=== PATIENT | male | born 1960 | race Caucasian/White ===

== ENCOUNTER 2016-07-15 08:19 | Inpatient (IN) | payer OTHER, MEDICARE ==
[~2016-07-15] VITALS: Ht 172.7 cm; Wt 124.4 kg
[2016-07-15] VITALS (11 sets, daily range): BP systolic 101–167; BP diastolic 60–95; PULSE 67–121; RESP 16–20; TEMP 98.5–98.9; O2SAT 94–99
[~2016-07-15 08:19] MED LIST: ASPI81TA11 PO; CARD180C5 PO; CIPR-9 PO; LIPI80TA PO; METO-309 PO; METR-1 PO; PRAS10TA PO
[2016-07-15] MEDS ORDERED: PLAV75TA29 PO (08:31)
[2016-07-15] MEDS ORDERED: SODIUM CHLORIDE 0.9% FLUSH 5 ML FLUSH IVF PRN (08:45)
[2016-07-15] MEDS ORDERED: SODIUM CHLOR 0.9% 1000 ML INJ 1,000 ML IV ONE (08:45)
[2016-07-15 09:06] LABS: BASOPHIL # 0.1 TH/MM3 (0-0.2); BASOPHIL % 0.4 % (0.0-2.0); EOSINOPHIL # 0.2 TH/MM3 (0-0.4); EOSINOPHIL % 1.2 % (0.0-4.0); HEMATOCRIT 39.9 % (39.0-51.0); HEMO FLAGS DIFF FINAL; LYMPH % 8.5 % (9.0-44.0); LYMPHOCYTE # 1.2 TH/MM3 (1.0-4.8); MEAN CORPUSCULAR HGB CONC 32.6 % (32.0-36.0); MONO % 9.7 % (0.0-8.0); NEUT % 80.2 % (16.0-70.0); PLATELET COUNT 367 TH/MM3 (150-450); RED BLOOD COUNT 4.81 MIL/MM3 (4.50-5.90); RED CELL DISTRIBUTION WIDTH 16.2 % (11.6-17.2); WHITE BLOOD COUNT 13.7 TH/MM3 (4.0-11.0)
[2016-07-15 09:27] LABS: APTT (PATIENT) 30.3 SEC (24.3-30.1); INTERNATIONAL NORMALIZED RATIO 1.2 RATIO
[2016-07-15 09:34] LABS: ANION GAP 12 MEQ/L (5-15); AST (GOT) 118 U/L (15-37); BICARBONATE 20.7 MEQ/L (21.0-32.0); BLOOD UREA NITROGEN 36 MG/DL (7-18); CHLORIDE 102 MEQ/L (98-107); GLOMERULAR FILTRATION RATE 33 ML/MIN (>89); POTASSIUM 3.6 MEQ/L (3.5-5.1); SODIUM (NA) 135 MEQ/L (136-145)
[2016-07-15 09:49] LABS: ALKALINE PHOSPHATASE 59 U/L (45-117); ALT (GPT) 55 U/L (12-78); CREATINE KINASE 1280 U/L (39-308); TOTAL BILIRUBIN ADULT 0.4 MG/DL (0.2-1.0)
--- NOTE | 2016-07-15 10:09 | RADRPT ---
EXAM DATE/TIME: 07/15/2016 09:42 CORRECTION Corrected on: July 17, 2016; CORRECTED: Added missing exam form information [facility] COMPARISON: CHEST SINGLE AP, July 04, 2016, 10:41. INDICATIONS: Short of breath, congested MEDICAL HISTORY: Cardiovascular disease. Diabetes mellitus type II. Hypertension. SURGICAL HISTORY: Stents ENCOUNTER: Initial ACUITY: 1 day PAIN SCORE: 0/10 LOCATION: Bilateral chest FINDINGS: The heart is enlarged. The pulmonary vascular pattern is normal. The lungs are clear. Hardware is noted within the cervical spine status post fusion. Degenerative changes and scoliosis of the thorac ic spine are noted. CONCLUSION: 1. Cardiomegaly. 2. No acute focal pulmonary infiltrate or pulmonary vascular congestion. 3. Degenerative changes and scoliosis of the thoracic spine. Rafat Saunders MD on July 15, 2016 at 10:01 Board Certified Radiologist. This report was verified electronically. DR Callejas on July 17, 2016 at 16:09 Board Certified Radiologist. This report was verified electronically.
[2016-07-15] MEDS ORDERED: DILTIAZEM HCL 50 MG/10 ML VIAL IV PUSH ONE (10:30)
[2016-07-15] MEDS ORDERED: ONDANSETRON HCL 4 MG/2 ML VIAL IVP PRN (10:45)
[2016-07-15] MEDS ORDERED: SODIUM CHLORIDE 0.9% FLUSH 5 ML FLUSH FLUSH PRN (10:45)
[2016-07-15] MEDS ORDERED: NALOXONE HCL 0.4 MG/ML AMP IV PRN (10:45)
--- NOTE | 2016-07-15 10:50 | PD ---
HPI Chief Complaint: Bleeding Time Seen by Provider: 08:37 Travel History International Travel<30 days: No Contact w/Intl Traveler<30days: No Traveled to known affect area: No History of Present Illness HPI Patient is a 48-year-old male who is status post stent placement to the LAD and cardiac catheterization on 07/04/2016 presents to emergency department with bleeding painless from and painless from rectum. Patient states that he has not been taking his Plavix or his aspirin secondary to these complaints. His bleeding is been going on for 2 days and gradually worsening. 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 Denies any chest pain or shortness of breath this time. States is also been having some leg swelling because he is on calcium channel tyrese. Patient also states that he has a history of lymph nodes in his abdomen. PFSH Past Medical History Heart Rhythm Problems: Yes (RBBB) Cancer: No Cardiovascular Problems: Yes Diabetes: Yes Patient Takes Glucophage: No Endocrine: No Genitourinary: No Hypertension: Yes Immune Disorder: No Musculoskeletal: No Neurologic: No Psychiatric: No Reproductive: No Respiratory: No Influenza Vaccination: No Past Surgical History Abdominal Surgery: No Cardiac Surgery: No Ear Surgery: No Endocrine Surgery: No Eye Surgery: No Genitourinary Surgery: No Gynecologic Surgery: No Joint Replacement: Yes (bilateral hip) Neurologic Surgery: Yes (CERVICAL FUSION C3-5) Oral Surgery: No Thoracic Surgery: No Social History Alcohol Use: No Tobacco Use: No Substance Use: Yes (CANNABIS) Allergies-Medications (Allergen,Severity, Reaction): Coded Allergies: No Known Allergies (Unverified , 07/04/16) Reported Meds & Prescriptions Reported Meds & Active Scripts Active Effient (Prasugrel) 10 Mg Tab 10 Mg PO DAILY Lopressor (Metoprolol Tartrate) 50 Mg Tab 50 Mg PO Q8HR Cardizem CD 24 HR (Diltiazem CD 24 HR) 180 Mg Caper 360 Mg PO DAILY Flagyl (Metronidazole) 500 Mg Tab 500 Mg PO Q8HR Cipro (Ciprofloxacin HCl) 500 Mg Tab 500 Mg PO Q12HR Lipitor (Atorvastatin Calcium) 80 Mg Tab 80 Mg PO DAILY Aspirin EC (Aspirin) 81 Mg Tabdr 81 Mg PO DAILY Reported Plavix (Clopidogrel Bisulfate) 75 Mg Tab 75 Mg PO DAILY Review of Systems Except as stated in HPI: all other systems reviewed are Neg Physical Exam Narrative GENERAL: Well-developed well-nourished no apparent distress SKIN: Warm and dry. HEAD: Atraumatic. Normocephalic. EYES: Pupils equal and round. No scleral icterus. No injection or drainage. ENT: No nasal bleeding or discharge. Mucous membranes pink and moist. NECK: Trachea midline. No JVD. CARDIOVASCULAR: Regular rate and rhythm. No murmur appreciated. RESPIRATORY: No accessory muscle use. Clear to auscultation. Breath sounds equal bilaterally. GASTROINTESTINAL: Abdomen soft, non-tender, nondistended. Hepatic and splenic margins not palpable. MUSCULOSKELETAL: No obvious deformities. No clubbing. No cyanosis. 1+ pitting edema to bilateral lower extremities from ankle distal. NEUROLOGICAL: Awake and alert. No obvious cranial nerve deficits. Motor grossly within normal limits. Normal speech. PSYCHIATRIC: Appropriate mood and affect; insight and judgment normal. Data Data Last Documented VS Vital Signs Date Time Temp Pulse Resp B/P Pulse Ox O2 Delivery O2 Flow Rate FiO2 07/15/16 08:58 20 96 Room Air 07/15/16 08:24 98.9 116 167/95 Orders Electrocardiogram (07/15/16 ) Ckmb (Isoenzyme) Profile (07/15/16 08:37) Complete Blood Count With Diff (07/15/16 08:37) Comprehensive Metabolic Panel (07/15/16 08:37) Magnesium (Mg) (07/15/16 08:37) Prothrombin Time / Inr (Pt) (07/15/16 08:37) Act Partial Throm Time (Ptt) (07/15/16 08:37) Troponin I (07/15/16 08:37) Chest, Single Ap (07/15/16 08:37) Ecg Monitoring (07/15/16 08:37) Bilateral Bp Monitoring (07/15/16 08:37) Iv Access Insert/Monitor (07/15/16 08:37) Oximetry (07/15/16 08:37) Oxygen Administration (07/15/16 08:37) Sodium Chloride 0.9% Flush (Ns Flush) (07/15/16 08:45) Type And Screen (07/15/16 08:37) Lactic Acid (07/15/16 08:37) Sodium Chlor 0.9% 1000 Ml Inj (Ns 1000 M (07/15/16 08:45) Urinalysis - C+S If Indicated (07/15/16 08:37) CKMB (07/15/16 08:45) CKMB% (07/15/16 08:45) Ct Abd/Pel W/O Iv Contrast (07/15/16 ) Diltiazem Inj (Cardizem Inj) (07/15/16 10:30) Admit Order (Ed Use Only) (07/15/16 ) Labs Laboratory Tests Test 07/15/16 07/15/16 08:45 08:50 White Blood Count 13.7 TH/MM3 Red Blood Count 4.81 MIL/MM3 Hemoglobin 13.0 GM/DL Hematocrit 39.9 % Mean Corpuscular Volume 83.0 FL Mean Corpuscular Hemoglobin 27.0 PG Mean Corpuscular Hemoglobin 32.6 % Concent Red Cell Distribution Width 16.2 % Platelet Count 367 TH/MM3 Mean Platelet Volume 7.7 FL Neutrophils (%) (Auto) 80.2 % Lymphocytes (%) (Auto) 8.5 % Monocytes (%) (Auto) 9.7 % Eosinophils (%) (Auto) 1.2 % Basophils (%) (Auto) 0.4 % Neutrophils # (Auto) 11.0 TH/MM3 Lymphocytes # (Auto) 1.2 TH/MM3 Monocytes # (Auto) 1.3 TH/MM3 Eosinophils # (Auto) 0.2 TH/MM3 Basophils # (Auto) 0.1 TH/MM3 CBC Comment DIFF FINAL Differential Comment Prothrombin Time 13.0 SEC Prothromb Time International 1.2 RATIO Ratio Activated Partial 30.3 SEC Thromboplast Time Sodium Level 135 MEQ/L Potassium Level 3.6 MEQ/L Chloride Level 102 MEQ/L Carbon Dioxide Level 20.7 MEQ/L Anion Gap 12 MEQ/L Blood Urea Nitrogen 36 MG/DL Creatinine 2.09 MG/DL Estimat Glomerular Filtration 33 ML/MIN Rate Random Glucose 93 MG/DL Calcium Level 8.3 MG/DL Magnesium Level 2.0 MG/DL Total Bilirubin 0.4 MG/DL Aspartate Amino Transf 118 U/L (AST/SGOT) Alanine Aminotransferase 55 U/L (ALT/SGPT) Alkaline Phosphatase 59 U/L Total Creatine Kinase 1280 U/L Creatine Kinase MB 85.0 NG/ML Creatine Kinase MB % 6.6 % Troponin I 8.85 NG/ML Total Protein 7.1 GM/DL Albumin 2.7 GM/DL Blood Type O POSITIVE Antibody Screen NEGATIVE Blood Bank Comment Lactic Acid Level 1.2 mmol/L [facility] Medical Decision Making Medical Screen Exam Complete: Yes Emergency Medical Condition: Yes Interpretation(s) EKG shows fairly regular tachydysrhythmia no definate P waves. No STT changes. Abnormal EKG. Differential Diagnosis GI bleeding, re-stenosis, ACS, Afib RVR, bleeding, Colon CA. Narrative Course Patient was roomed emergency department, he is tachycardic in the 120s. After fluid challenge 1 L normal saline still remains tachycardic. Difficult to ascertain whether this is atrial fibrillation or sinus tachycardia. Appears fairly regular but no definitive P waves were seen. A dose of Cardizem was given in the ED which had good response in HR. Drip Started. Troponin elevated to 8, slightly higher than during his admission 10 days ago for NSTEMI. H/H WNL. BP in 160's systolic range. Fecal occult positive and having BM's in ER with blood. Multiple CT abd findings as below. Last 24 hours Impressions Chest X-Ray 07/15/16 0837 Signed Impressions: Service Date/Time: Friday, July 15, 2016 09:42 - CONCLUSION: 1. Cardiomegaly. 2. No acute focal pulmonary infiltrate or pulmonary vascular congestion. 3. Degenerative changes and scoliosis of the thoracic spine. Rafat Saunders MD Abdomen/Pelvis CT 07/15/16 0000 Signed Impressions: Service Date/Time: Friday, July 15, 2016 11:12 - CONCLUSION: 1. Subtle focal wall thickening and/or annular constricting lesion within the distal descending colon/proximal sigmoid colon with dilatation and fluid filling the colon proximal to the lesion. Colonoscopy would be helpful for helpful for confirmation of annular constricting lesion in this location. 2. Probable enlarged lymph nodes within the mesocolon adjacent to the previously described lesion. 3. Scattered mildly enlarged retroperitoneal lymphadenopathy. 4. Tiny calcified non-obstructing bilateral renal calculi. 5. Simple and hyper dense within both kidneys which are unchanged. 6. Uncomplicated sigmoid diverticulosis. 7. Small pericardial effusion. 8. Coronary artery calcifications. 9. Scattered patchiness within the visualized lung bases. 10. Degenerative changes and scoliosis of the lumbar and lower thoracic spine. Rafat Saunders MD Patient was discussed with Dr. Rutledge ([facility]) who is covering for Dr. Gold as well as Dr. HARRIS. We'll hold off heparinization at this time. Dr. Rutledge will coordinate close it with GI for consideration of scoping versus repeat catheterization. Spoke with Dr. Berumen who will see in consultation. Patient was discussed with Dr. Armijo who will admit to the [facility]. Critical Care Narrative Critical Care: The total critical care time was 35 minutes. Time to perform other separately billable procedures was not included in the critical care time. Multiple providers consulted, critical care drips managed. Current disease process's if left unchecked could lead to significant and permanant disability, or . HemaPrompt Point of Care Internal Pos. & Neg. Controls: Passed Fecal Specimen Occult Blood: Positive Diagnosis Primary Impression: NSTEMI (non-ST elevated myocardial infarction) Additional Impressions: Atrial flutter Qualified Code: I48.92 - Atrial flutter, unspecified type Colitis Rectal bleeding Troponin level elevated Admitting Information Admitting Physician Requests: Admit Condition: Rafat Ch MD Jul 15, 2016 10:50
[2016-07-15] MEDS: SODIUM CHLOR 0.9% 1000 ML INJ 1,000 ML IV SCH ×2 (11:06→21:00)
[2016-07-15 11:39] LABS: BLOOD, URINE MOD (NEG); GLUCOSE,URINE NEG (NEG); KETONE, URINE TRACE mg/dL (NEG); MUCUS URINE FEW /lpf (OCC); NITRITE,URINE NEG (NEG); PH, URINE 5.5 (5.0-8.5); URINE COLOR YELLOW (YELLW/STRAW)
[2016-07-15 11:47] LABS: COMMENT (UR) CULT NOT INDICATED; CULTURE IF INDICATED CULT NOT INDICATED
--- NOTE | 2016-07-15 11:52 | RADRPT ---
EXAM DATE/TIME: 07/15/2016 11:12 [facility] COMPARISON: CT ABDOMEN & PELVIS W/O CONTRAST, July 06, 2016, 13:05. INDICATIONS: Blood in urine and bowel movements. ORAL CONTRAST: No oral contrast ingested. RADIATION DOSE: 30.27 CTDIvol (mGy) MEDICAL HISTORY: Cardiovascular disease. Hypertension. Diabetes mellitus type 2. SURGICAL HISTORY: None. ENCOUNTER: Initial ACUITY: 1 day PAIN SCALE: 0/10 LOCATION: Bilateral chest TECHNIQUE: Volumetric scanning of the abdomen and pelvis was performed. Using automated exposure control and ad justment of the mA and/or kV according to patient size, radiation dose was kept as low as reasonably achievable to obtain optimal diagnostic quality images. FINDINGS: There is probable focal wall thickening and/or annular constricting lesion involving the distal desce nding colon/proximal sigmoid colon which results in some degree of colonic obstruction. The remainder of t he colon proximal to this area is diffusely dilated and fluid-filled. There are scattered enlarged lymph node s within the mesocolon adjacent to this probable lesion. Colonoscopy would be helpful to confirm obstructing lesi on in this location. Mildly enlarged scattered retroperitoneal lymph nodes are noted. Scattered uncomplicated sigmoid diverticula are noted. Evaluation of the solid organs of the abdomen is limited by the lack of intra venous contrast. No biliary ductal dilatation is noted. the gallbladder is unremarkable. The spleen is normal. The pancreas is also normal. The adrenal glands are normal bilaterally. There are tiny calcified non-obstructing bilater al renal calculi. There are scattered simple and complex cysts within both kidneys which are stable. The abdominal aor ta is calcified but it is not aneurysmally dilated. The urinary bladder is partially obscured by artifact related to the bilateral hip replacements. No ascites is noted. Degenerative changes and scoliosis of the lumbar a nd lower thoracic spine are noted. scattered patchiness is noted within the left lung base and too a much les ser extent, right lung base and is nonspecific. Small pericardial effusion is noted. cardiomegaly is also noted. CONCLUSION: 1. Subtle focal wall thickening and/or annular constricting lesion within the distal descending colo n/proximal sigmoid colon with dilatation and fluid filling the colon proximal to the lesion. Colonos copy would be helpful for helpful for confirmation of annular constricting lesion in this location. 2. Probable enlarged lymph nodes within the mesocolon adjacent to the previously described lesion. 3. Scattered mildly enlarged retroperitoneal lymphadenopathy. 4. Tiny calcified non-obstructing bilateral renal calculi. 5. Simple and hyper dense within both kidneys which are unchanged. 6. Uncomplicated sigmoid diverticulosis. 7. Small pericardial effusion. 8. Coronary artery calcifications. 9. Scattered patchiness within the visualized lung bases. 10. Degenerative changes and scoliosis of the lumbar and lower thoracic spine. Rafat Saunders MD on July 15, 2016 at 11:26 Board Certified Radiologist. This report was verified electronically.
[2016-07-15] MEDS ORDERED: DILTIAZEM HCL 50 MG/10 ML VIAL IV PUSH PRN (12:45)
[2016-07-15] MEDS ORDERED: DILTIAZEM INJ 125 MG in SODIUM CHLORIDE 0.9% INJ 100 ML IV SCH (14:00)
[2016-07-15] MEDS ORDERED: metroNIDAZOLE 500 MG TAB PO SCH (14:00)
[2016-07-15] MEDS: METOPROLOL TARTRATE 50 MG TAB PO SCH (14:39)
--- NOTE | 2016-07-15 15:10 | PD.CONS ---
HPI History of Present Illness This is a 56 year old male who is status post stent placement to the LAD and cardiac catheterization on 07/04/2016 and was discharged on Plavix presents to emergency department for evaluation of painless rectal bleeding. States he has rectal bleeding every time he takes aspirin and on going for almost a year, this thought to be hemorrhoids related. The bleeding is not very day, but today he had a significant bleeding in the toilet. He was seen by Dr. Gupta as an OP and was scheduled to have colonoscopy, however, that was cancelled due to high heart rate and was advised to go the hospital and that's when he under went the cardiac catheterization. He reports loose stools on off for the past 2 months. He takes 800 mg of Ibuprofen for herniated disc frequently. He reports bilateral lower sided abd pain for the past 2months. He denies nausea, vomiting , hematemesis, or melena. CT showed Subtle focal wall thickening and/or annular constricting lesion within the distal descending colon/proximal sigmoid colon with dilatation and fluid filling the colon proximal to the lesion. Colonoscopy would be helpful for helpful for confirmation of annular constricting lesion in this location. 2. Probable enlarged lymph nodes within the mesocolon adjacent to the previously described lesion. hgb 13.0. He started taking Plavix but discontinued this on Friday due to hematuria. (Sondra Moss) PFSH Past Medical History THN Chronic kidney disease CAD Past Surgical History bilateral hip replacement cervical fusion c3-5 cardiac catheterization/stent placement (Sondra Moss) Coded Allergies: No Known Allergies (Unverified , 07/04/16) Medications Current Medications Medications (Trade) Dose Ordered Sig/Maricarmen Route Start Time Stop Time Status Last Admin (NS 1000 ml Inj) 1,000 ml @ 100 mls/hr Q10H IV 07/15/16 11:00 07/15/16 11:06 (NS Flush) 2 ml UNSCH PRN FLUSH 07/15/16 10:45 (NS Flush) 2 ml BID FLUSH 07/15/16 21:00 (Tylenol) 650 mg Q4H PRN PO 07/15/16 10:45 (Zofran Inj) 4 mg Q6H PRN IVP 07/15/16 10:45 (Narcan Inj) 0.4 mg UNSCH PRN IV 07/15/16 10:45 (Protonix) 40 mg DAILY PO 07/16/16 09:00 (Lipitor) 80 mg DAILY PO 07/16/16 09:00 (Cipro) 500 mg Q12HR PO 07/15/16 21:00 (Cardizem Cd) 360 mg DAILY PO 07/16/16 09:00 (Lopressor) 50 mg Q8HR PO 07/15/16 14:00 Metronidazole 500 mg 500 mg Q8HR PO 07/15/16 14:00 (Cardizem Inj/NS Inj) 125 ml @ 0 mls/hr TITRATE IV 07/15/16 14:00 07/15/16 12:57 (Cardizem Inj) 41 mg ONCE PRN IV PUSH 07/15/16 12:45 07/15/16 18:00 07/15/16 12:57 Family History No family hx of colon cancer Social History No alcohol intake No smoking smokes marijuana (Sondra Moss) Review of Systems Constitutional: COMPLAINS OF: Fatigue Endocrine: DENIES: Polyuria Eyes: DENIES: Double Vision Ears, nose, mouth, throat: DENIES: Hoarseness Respiratory: DENIES: Shortness of breath Cardiovascular: DENIES: Lower Extremity Edema Gastrointestinal: COMPLAINS OF: Abdominal pain, Bloody stools, Diarrhea, DENIES: Black stools, Constipation, Nausea, Vomiting, Difficulty Swallowing, Anorexia, Odynophagia, Swelling of Abdomen, Heartburn, Hematemesis Genitourinary: COMPLAINS OF: Hematuria Musculoskeletal: COMPLAINS OF: Back pain Integumentary: DENIES: Jaundice Hematologic/lymphatic: DENIES: Bruising Immunologic/allergic: DENIES: Eczema Neurologic: DENIES: Abnormal gait Psychiatric: DENIES: Anxiety (Sondra Moss) GI Exam Vitals I&O Vital Signs Date Time Temp Pulse Resp B/P Pulse Ox O2 Delivery O2 Flow Rate FiO2 07/15/16 12:58 121 16 149/82 94 Room Air 07/15/16 11:59 90 16 144/79 95 Room Air 07/15/16 11:00 120 20 144/79 95 Room Air 07/15/16 08:58 20 96 Room Air 07/15/16 08:24 98.9 116 20 167/95 95 I/O 12/18/16 12/07/14/16 07/15/16 07/15/16 07/15/16 07:00 15:00 23:00 07:00 15:00 23:00 Output Total 300 ml Balance -300 ml Output Urine Total 300 ml # Voids 1 # Bowel Movements 4 Imaging Last Impressions Chest X-Ray 07/15/16 0837 Signed Impressions: Service Date/Time: Friday, July 15, 2016 09:42 - CONCLUSION: 1. Cardiomegaly. 2. No acute focal pulmonary infiltrate or pulmonary vascular congestion. 3. Degenerative changes and scoliosis of the thoracic spine. Rafat Saunders MD Abdomen/Pelvis CT 07/15/16 0000 Signed Impressions: Service Date/Time: Friday, July 15, 2016 11:12 - CONCLUSION: 1. Subtle focal wall thickening and/or annular constricting lesion within the distal descending colon/proximal sigmoid colon with dilatation and fluid filling the colon proximal to the lesion. Colonoscopy would be helpful for helpful for confirmation of annular constricting lesion in this location. 2. Probable enlarged lymph nodes within the mesocolon adjacent to the previously described lesion. 3. Scattered mildly enlarged retroperitoneal lymphadenopathy. 4. Tiny calcified non-obstructing bilateral renal calculi. 5. Simple and hyper dense within both kidneys which are unchanged. 6. Uncomplicated sigmoid diverticulosis. 7. Small pericardial effusion. 8. Coronary artery calcifications. 9. Scattered patchiness within the visualized lung bases. 10. Degenerative changes and scoliosis of the lumbar and lower thoracic spine. Rafat Saunders MD Laboratory Test 07/15/16 07/15/16 07/15/16 08:45 08:50 11:00 White Blood Count 13.7 TH/MM3 Red Blood Count 4.81 MIL/MM3 Hemoglobin 13.0 GM/DL Hematocrit 39.9 % Mean Corpuscular Volume 83.0 FL Mean Corpuscular Hemoglobin 27.0 PG Mean Corpuscular Hemoglobin 32.6 % Concent Red Cell Distribution Width 16.2 % Platelet Count 367 TH/MM3 Mean Platelet Volume 7.7 FL Neutrophils (%) (Auto) 80.2 % Lymphocytes (%) (Auto) 8.5 % Monocytes (%) (Auto) 9.7 % Eosinophils (%) (Auto) 1.2 % Basophils (%) (Auto) 0.4 % Neutrophils # (Auto) 11.0 TH/MM3 Lymphocytes # (Auto) 1.2 TH/MM3 Monocytes # (Auto) 1.3 TH/MM3 Eosinophils # (Auto) 0.2 TH/MM3 Basophils # (Auto) 0.1 TH/MM3 CBC Comment DIFF FINAL Differential Comment Prothrombin Time 13.0 SEC Prothromb Time International 1.2 RATIO Ratio Activated Partial 30.3 SEC Thromboplast Time Sodium Level 135 MEQ/L Potassium Level 3.6 MEQ/L Chloride Level 102 MEQ/L Carbon Dioxide Level 20.7 MEQ/L Anion Gap 12 MEQ/L Blood Urea Nitrogen 36 MG/DL Creatinine 2.09 MG/DL Estimat Glomerular Filtration 33 ML/MIN Rate Random Glucose 93 MG/DL Calcium Level 8.3 MG/DL Magnesium Level 2.0 MG/DL Total Bilirubin 0.4 MG/DL Aspartate Amino Transf 118 U/L (AST/SGOT) Alanine Aminotransferase 55 U/L (ALT/SGPT) Alkaline Phosphatase 59 U/L Total Creatine Kinase 1280 U/L Creatine Kinase MB 85.0 NG/ML Creatine Kinase MB % 6.6 % Troponin I 8.85 NG/ML Total Protein 7.1 GM/DL Albumin 2.7 GM/DL Blood Type O POSITIVE Antibody Screen NEGATIVE Blood Bank Comment Lactic Acid Level 1.2 mmol/L Urine Color YELLOW Urine Turbidity CLEAR Urine pH 5.5 Urine Specific [place] 1.016 Urine Protein 30 mg/dL Urine Glucose (UA) NEG mg/dL Urine Ketones TRACE mg/dL Urine Occult Blood MOD Urine Nitrite NEG Urine Bilirubin NEG Urine Urobilinogen LESS THAN 2.0 MG/DL Urine Leukocyte Esterase TRACE Urine RBC /hpf Urine WBC 2 /hpf Urine Mucus FEW /lpf Microscopic Urinalysis Comment CULT NOT INDICATED Physical Examination HEENT: Pupils round and reactive to light; normocephalic; atraumatic; no jaundice. NECK: Neck is supple, no JVD, no lymphadenopathy. CHEST: Chest is clear to auscultation and percussion. CARDIAC: tacky cardiac ABDOMEN: Soft, nondistended, diffused tenderness; no hepatosplenomegaly; bowel sounds are present in all four quadrants. EXTREMITIES: No clubbing, cyanosis, or edema. SKIN: Normal; no rash; no jaundice. CUSTOMER EXPERT: No focal deficits; alert and oriented times three. (Sondra Moss) Assessment and Plan Plan - Rectal bleed- This is on off for the past year , aggravated by Aspirin intake , patient is status post stent placement to the LAD and cardiac catheterization on 07/04/2016 and was discharged on Plavix, however , patient took him self off of it due to severe hematuria. hgb is stable at 13, had an episode of significant bleeding this morning. Never had colonoscopy before. He reports loose stools on off for the past 2 months. He takes 800 mg of Ibuprofen for herniated disc frequently. He reports bilateral lower sided abd pain for the past 2months. He denies nausea, vomiting, hematemesis, or melena. CT showed Subtle focal wall thickening and/or annular constricting lesion within the distal descending colon/proximal sigmoid colon with dilatation and fluid filling the colon proximal to the lesion. Colonoscopy would be helpful for helpful for confirmation of annular constricting lesion in this location. 2. Probable enlarged lymph nodes within the mesocolon adjacent to the previously described lesion. - colon lesion- Ct as above, finding suspicious for malignancy, will need colonoscopy evaluation - patient is status post stent placement to the LAD and cardiac catheterization on 07/04/2016 and was discharged on Plavix, cardiology on the case Case discussed with associate accountant , he is high risk , the plan to place him on Heparin for now - Hematuria- urology consulted Plan: - [facility] - Will need a colonoscopy, timing to be determined pending cardiology and medical clearance, pt is high risk - Will plan for colonoscopy after tomorrow - Obtain consents - Clear liquids tomorrow - Golytely tomorrow - NPO mn tomorrow - Monitor hh - Transfuse as needed - Notify GI for active bleeding - Supportive care - Patient seen and examined by Dr. Berumen and jason and this note is written on his behalf. (Sondra Moss) Physician Comments Seen and examined with Sondra, plan as above, Cardiology clearance prior to any endoscopic evaluation. will follow up with you. (Sera Berumen MD) Sondra Moss Jul 15, 2016 15:10 Sera Berumen MD Jul 15, 2016 17:35
--- NOTE | 2016-07-15 16:07 | MB ---
cc: MIKE SLOANAudrey MAGANA DATE OF CONSULTATION 07/15/2016 REASON FOR CONSULTATION Elevated troponin. HISTORY OF THE PRESENT ILLNESS Mike Brown is a pleasant 56-year-old male who originally presented to [facility] on July 15, 2016 due to blood in his urine and from his rectum. He previously was here and found to have a non-ST elevation myocardial infarction and underwent cardiac catheterization on July 08, 2016. During this he was found to have a long lesion within the proximal LAD. It was 100% occluded. At that time he underwent intervention and placement of two drug-eluting stents. He went home on aspirin and Plavix. While at home he started noticing that his urine was somewhat red and that he was having some bleeding rectally which he felt was from his hemorrhoids. Because of this he stopped both his aspirin and Plavix. As he continued to have some bleeding he decided he should come into the emergency room to be evaluated. In speaking to him he has had no chest pain or shortness of breath since his cardiac catheterization. PAST MEDICAL HISTORY 1. Coronary artery disease. 2. Hypertension. 3. Pre diabetic. 4. Chronic kidney disease stage III. 5. Lumbar spinal stenosis. PAST SURGICAL HISTORY 1. Cardiac catheterization. (July 08, 2016). Right coronary artery is tortuous with calcifications and minimal luminal irregularities. Left main is patent with nonobstructive coronary artery disease. Left circumflex has diffuse calcifications and minimal luminal irregularities. LAD is completely occluded after the first septal roto rooter operator and this was treated with two drug-eluting stents overlapping (3 x 15 proximal, 2.75 x 28 distal). 2. Joint replacement of bilateral hips. 3. Cervical fusion C3 through C5. ALLERGIES NO KNOWN DRUG ALLERGIES. MEDICATIONS 1. Aspirin which the patient has stopped due to hematochezia and hematuria. 2. Plavix 75 mg daily which the patient has stopped due to The hematochezia and hematuria. 3. [place] 500 milligrams every 8 hours. 1. Lopressor 50 mg every 8 hours. 2. Cardizem 360 milligrams daily. 3. Lipitor 80 mg daily. 4. Cipro 500 milligrams every times 12 hours. SOCIAL HISTORY The patient denies alcohol or tobacco abuse. He does use cannabis. FAMILY HISTORY Denies premature coronary artery disease or sudden cardiac within the family. REVIEW OF SYSTEMS 14 systems reviewed including osteopathic, pertinent positives and negatives above, otherwise negative. PHYSICAL EXAMINATION VITAL SIGNS: Temperature 98.5, heart rate 110, blood pressure 123/71, respirations 20, pulse ox 99% on room air. GENERAL: In general the patient appears well in no acute distress, alert, awake and oriented x3. HEENT: Extraocular muscles intact. Mucous membranes moist. NECK: Supple. No JVD at 45 degrees. No carotid bruits heard bilaterally. Carotid upstroke is brisk in nature. CARDIOVASCULAR: Heart is irregularly irregular. Positive first and second heart sounds with no murmurs, rubs, or gallops. LUNGS: The lungs have decreased breath sounds at bilateral bases but no overt wheezes, rales or rhonchi. ABDOMEN: Soft, nontender, nondistended. No organomegaly noted. EXTREMITIES: Have trace edema bilaterally but no cyanosis or clubbing. NEUROLOGICAL: No focal deficits. SKIN: Warm, dry and intact. OSTEOPATHIC: Mild lordosis. No kyphoscoliosis or paraspinal tender points. LABORATORY FINDINGS White blood cells 13.7, hemoglobin 13.0, hematocrit 39.9, platelets 367. Potassium 3.6, BUN 36, creatinine 2.09. Lactic acid 1.2. Troponin 8.85 with a total creatinine kinase at 1280 down from 18O2. Electrocardiogram (July 15, 2016 at 0826) atrial fibrillation with rapid ventricular response, right bundle branch block, left axis deviation. IMPRESSION 1. Coronary artery disease with recent cardiac catheterization (July 08, 2016) with 100% occlusion of proximal to mid-LAD status post two drug-eluting stents overlapping (3 x 15 proximal, 2.75 x 28 distal). 2. Recently stopping aspirin and Plavix due to hematochezia and hematuria. 3. Hematochezia possibly due to hemorrhoids although CT exam shows some concern with wall thickening. 4. Hematuria. 5. Hypertension. 6. Elevated troponin with total creatinine kinase elevation. 7. Acute kidney injury. RECOMMENDATIONS 1. Mr. Brown is a difficult case due to his recent stopping of aspirin and Plavix, I explained that this was ill-advised but he felt because of his bleeding that it needed to stop. 2. Although he feels that his bleeding is significant, his hemoglobin is relatively stable from previous admission. Until decisions can be made about possible colonoscopy and uroscopy, I would like to place the patient on heparin. 3. The patient is at significant risk of acute stent closure. Due to stopping his aspirin and Plavix, we will place him on heparin drip at this time. 4. He did speak with the nurse practitioner from gastroenterology about timing of colonoscopy and that the patient would be high risk, but I am unable to reduce this risk at this time as he could not undergo cardiac catheterization due to need for antiplatelet therapy. 5. If the patient does undergo colonoscopy and cystoscopy, consideration will be made for repeat coronary visualization. 6. The patient should be placed back on antiplatelet therapy as soon as possible with a loading dose when capable. Thank you for allowing me to see Mike Brown. If there are any questions please do not hesitate to call. Mike Sloan DO VGP/KK /3:08 PM /3:35 PM
[2016-07-15 16:42] LABS: HEMATOCRIT 38.7 % (39.0-51.0); MEAN CORPUSCULAR HEMOGLOBIN 27.4 PG (27.0-34.0); MEAN CORPUSCULAR HGB CONC 33.4 % (32.0-36.0); PLATELET COUNT 338 TH/MM3 (150-450); RED BLOOD COUNT 4.72 MIL/MM3 (4.50-5.90); RED CELL DISTRIBUTION WIDTH 15.8 % (11.6-17.2); REVIEW FLAG FINAL; WHITE BLOOD COUNT 12.7 TH/MM3 (4.0-11.0)
[2016-07-15 16:46] LABS: APTT (PATIENT) 29.2 SEC (24.3-30.1); INTERNATIONAL NORMALIZED RATIO 1.2 RATIO; PROTHROMBIN TIME - PATIENT 13.8 SEC (9.8-11.6)
[2016-07-15] MEDS: HEPARIN-D5W INJ 250 ML IV SCH (16:48)
[2016-07-15] MEDS: TAMSULOSIN HCL 0.4 MG CAP PO SCH (17:56)
[2016-07-15] MEDS: ACETAMINOPHEN/HYDROcodone 325 MG/7.5 MG TAB PO PRN ×2 (17:56→22:40)
[2016-07-15] MEDS: DILTIAZEM HCL 90 MG TAB PO SCH ×2 (19:03→22:35)
[2016-07-15] MEDS: SODIUM CHLORIDE 0.9% FLUSH 5 ML FLUSH FLUSH SCH (21:00)
[2016-07-15] MEDS ORDERED: CIPROFLOXACIN 500 MG TAB PO SCH (21:00)
[2016-07-15] MEDS ORDERED: HEPARIN SODIUM - IV 10,000 UNITS/10 ML VIAL IV PRN (21:30)
--- NOTE | 2016-07-15 22:04 | HHI.PR ---
Subjective Remarks C/R Surg afebrile, VSS noted BRB in stool, and ? dark urine at home no syncope, or dizziness stopped ASA and plavix Objective - Vital Signs Date Time Temp Pulse Resp B/P Pulse Ox O2 Delivery O2 Flow Rate FiO2 07/15/16 18:00 114 07/15/16 15:00 98.9 20 117/84 95 07/15/16 12:58 Room Air Result Diagram: 07/15/16 1629 07/15/16 0845 Objective Remarks PE alert Abd - obese, soft, non-tender, no active BRB A/P Assessment and Plan Imp: s/p WA, recent stent palcement Abn sigm by CT - rectal bleeding will prep gently and check at least sigmoid for poss cancer vs tics/colitis hold plavix, ? subcut heparin if nec by cardiology Kan Gupta MD Jul 15, 2016 22:04
[2016-07-15 22:48] LABS: APTT (PATIENT) 36.4 SEC (24.3-30.1)
[2016-07-16] VITALS (20 sets, daily range): BP systolic 89–101; BP diastolic 41–63; PULSE 62–134; RESP 18–20; TEMP 97.5–98.8; O2SAT 95–97
[2016-07-16] MEDS: HEPARIN SODIUM - IV 10,000 UNITS/10 ML VIAL IV PRN ×2 (00:06→07:39)
[2016-07-16] MEDS: METOPROLOL TARTRATE 50 MG TAB PO SCH ×5 (00:06→23:48)
--- NOTE | 2016-07-16 06:39 | MB ---
cc: RAFAELA NAJERA JEANETH DATE OF CONSULTATION 07/15/2016 REASON FOR CONSULTATION Mr. Brown is a pleasant 56-year-old male who initially presented back on July 08 with chest pain. At that time underwent cardiac stenting after having a non-ST segment elevation myocardial infarction. He was then discharged on both Plavix and aspirin and on Friday stopped those medications. He developed some rectal bleeding along with some hematuria at that time. He stated that his urine was an Anali looking color but denied any clots. He does have a history of BPH and gets up two to three times a night with a moderate stream. His medical and history includes: 1. Heart disease 2. Hypertension 3. Chronic kidney disease 4. Lumbar stenosis 5. BPH with mild lower urinary tract symptoms PAST SURGICAL HISTORY Notable for: 1. Cervical fusion 2. Joint replacement in bilateral hips 3. Cardiac catheterization and recent cardiac stenting MEDICATIONS For medications, please refer to the chart. SOCIAL HISTORY Denies using alcohol or smoking cigarettes, but he does use marijuana. FAMILY HISTORY Denies any family history of prostate cancer. REVIEW OF SYSTEMS A 12-point review of systems was taken with the patient and per the HPI, otherwise it is negative. PHYSICAL EXAM VITAL SIGNS: Presently, temperature is 98.5, heart rate 118, respiratory rate 21, blood pressure 123/71. GENERAL: He is an obese 56-year-old male in no acute distress. HEENT: Normocephalic, atraumatic. Pupils equal round and reactive to light. NECK: Supple. Trachea is midline. HEART: Heart rate is sinus tach. LUNGS: Breath sounds bilaterally. ABDOMEN: Soft with minimal tenderness noted in the left mid quadrant, but there is no rebound or guarding. : Hidden phallus. Testes are descended. EXTREMITIES: Show 1 to 2+ edema. LABORATORY DATA White count is 12.7, hemoglobin 12.9, hematocrit 38.7, platelet count 338. Sodium 135, potassium 3.6, chloride 102, CO2 20.7, BUN of 36, creatinine 2.09, glucose of 93. Creatinine baseline is 1.5, based on prior admission. Urinalysis shows numerous red cells and two white cells. IMAGING STUDIES Showed no evidence of any hydronephrosis, but there is a constricting annular lesion in the distal colon in the sigmoid region. Colonoscopy has been recommended. There are small bilateral renal calculi which are nonobstructing. Simple and hyperdense cysts noted within both kidneys which are stable from prior study. ASSESSMENT This is a 56-year-old male with recent non-ST elevation CT developing gross hematuria with a history of BPH and some mild urinary tract symptoms. 1. We will start Flomax 0.4 mg q.h.s. to help with lower urinary tract symptoms and reduce nocturia. 2. Hematuria most likely secondary to recent event and combination of aspirin and Plavix. We will continue to monitor for now. Cystoscopy could possibly be performed as an outpatient at this time. His urine is not noted to have clots with difficulty urinating. We will follow with you. We will check a urine cytology. We will follow with you. Thank you for the consult and allowing me to participate in the care of this patient. Rafaela DUMONT /5:25 PM /6:32 AM
[2016-07-16 07:00] LABS: AUTOMATED NEUTROPHIL # 10.4 TH/MM3 (1.8-7.7); BASOPHIL # 0.1 TH/MM3 (0-0.2); BASOPHIL % 0.6 % (0.0-2.0); EOSINOPHIL # 0.1 TH/MM3 (0-0.4); EOSINOPHIL % 0.8 % (0.0-4.0); HEMATOCRIT 35.7 % (39.0-51.0); HEMO FLAGS DIFF FINAL; LYMPH % 11.1 % (9.0-44.0); LYMPHOCYTE # 1.5 TH/MM3 (1.0-4.8); MEAN CELL VOLUME 83.6 FL (80.0-100.0); MEAN CORPUSCULAR HEMOGLOBIN 27.6 PG (27.0-34.0); MONO % 10.1 % (0.0-8.0); NEUT % 77.4 % (16.0-70.0); PLATELET COUNT 330 TH/MM3 (150-450); RED BLOOD COUNT 4.27 MIL/MM3 (4.50-5.90); RED CELL DISTRIBUTION WIDTH 16.1 % (11.6-17.2); WHITE BLOOD COUNT 13.4 TH/MM3 (4.0-11.0)
[2016-07-16] MEDS: SODIUM CHLOR 0.9% 1000 ML INJ 1,000 ML IV SCH ×2 (07:00→18:19)
[2016-07-16 07:20] LABS: ALT (GPT) 52 U/L (12-78); ANION GAP 13 MEQ/L (5-15); AST (GOT) 101 U/L (15-37); BICARBONATE 17.9 MEQ/L (21.0-32.0); BLOOD UREA NITROGEN 34 MG/DL (7-18); CHLORIDE 106 MEQ/L (98-107); GLOMERULAR FILTRATION RATE 38 ML/MIN (>89); POTASSIUM 3.5 MEQ/L (3.5-5.1); SODIUM (NA) 137 MEQ/L (136-145)
[2016-07-16 07:22] LABS: ALKALINE PHOSPHATASE 44 U/L (45-117); TOTAL BILIRUBIN ADULT 0.3 MG/DL (0.2-1.0)
[2016-07-16] MEDS: ACETAMINOPHEN/HYDROcodone 325 MG/7.5 MG TAB PO PRN ×4 (08:03→23:48)
[2016-07-16] MEDS: ATORVASTATIN 80 MG TAB PO SCH (08:03)
[2016-07-16] MEDS: DILTIAZEM HCL 90 MG TAB PO SCH ×5 (08:03→21:00)
[2016-07-16] MEDS: PANTOPRAZOLE SOD 40 MG DELAYED RELEASE TAB PO SCH (08:04)
[2016-07-16] MEDS: TAMSULOSIN HCL 0.4 MG CAP PO SCH (08:04)
[2016-07-16] MEDS: SODIUM CHLORIDE 0.9% FLUSH 5 ML FLUSH FLUSH SCH ×2 (08:04→21:00)
--- NOTE | 2016-07-16 08:52 | MH ---
cc: BE ARMIJO DATE OF ADMISSION 07/15/2016 DATE OF [address] Be Armijo. PRIMARY CARE PHYSICIAN Dr. Rojas. REASON FOR ADMISSION Rectal bleed as well as hematuria. HISTORY OF THE PRESENT ILLNESS The patient is a very pleasant 48-year male with significant past medical history of hypertension, CKD, prediabetic, obesity who came to the ER because of the above problem. The patient was admitted last time to the hospital on July 04 and found to have CAD and two stents were put in. Both of these stents were put in on July 08 in the proximal LAD, it was 100% occluded. Those stents were drug eluting. The patient was discharged on Plavix and aspirin. As per the patient on aspirin he has on and off bleeding for which he has been to Dr. Gupta and Dr. Gupta wants to do a colonoscopy. But because of his tachycardia he came to the hospital on July 04 and was found to have CAD and stent was put in. This problem on and off rectal bleed with and without aspirin was from approximately the past few months. But he had never had hematuria. He has chronic back pain for which he is taking Motrin and tramadol at home. He denies any other associated symptoms. The patient denies any abdominal pain. No fever, no chills. PAST MEDICAL HISTORY 1. CAD status post stenting. 2. Hypertension. 3. Pre diabetic. 4. Chronic kidney disease. 5. Lumbar spine stenosis. PAST SURGICAL HISTORY 1. History of catheterization. 2. Joint replacement bilateral hips. 3. Cervical fusion C3 and C5. MEDICATIONS Reviewed, please see the MAR. The patient stopped taking Plavix and aspirin for the past three to four days because of hematuria and on and off rectal bleeding. ALLERGIES NO KNOWN DRUG ALLERGIES. REVIEW OF SYSTEMS As describes in the history of present illness, otherwise negative for 10 systems. He has no chest pain or diaphoresis or palpitations. FAMILY HISTORY Noncontributory. PHYSICAL EXAMINATION GENERAL: The patient is alert and oriented, obese, oriented times three sitting on the bed without any apparent distress. He has some pain in the back. VITAL SIGNS: The patient is afebrile. Pulse is 100, respiratory rate 20, blood pressure 123/71. Pulse oximetry is 99% on room air. HEENT: Head is atraumatic, normocephalic. Eyes negative conjunctival icterus. Mouth unremarkable. NECK: Central trachea. Negative lymph node. CHEST: Clear to auscultation. CARDIOVASCULAR: S1 and S2 audible. Unable to hear any S3 gallop. ABDOMEN: Soft, non-tender, no organomegaly. Positive bowel sounds. MUSCULOSKELETAL: Extremities no cyanosis noted. There is trace pedal edema. LINK TRAINER MECHANIC: Grossly intact. SKIN: Warm and dry. PSYCHIATRIC: Appropriate mood and affect. LABORATORY DATA Investigations, WBC 12.7, hemoglobin 12.9, hematocrit 38.7. Platelet count 338. It was done 1629. At 8:45 a.m. the patient had hemoglobin of 13, hematocrit of 39. Chemistry shows sodium was 135, CO2 of 20.7, BUN 36, creatinine 2.09. Magnesium 2. Calcium 8.3. AST 118. Total CK was 1280. CKMB is 85, MB percent is 6.6. Troponin 8.85. Albumin 2.7. PT 13.8, INR 1.2, APTT 29.2. Urine shows urine ketones trace. Urine occult blood moderate. Urine leukocyte esterase trace. Urine RBC: No RBC's seen on microscopic examination. . WBC's 2. SOCIAL HISTORY The patient does not smoke or drink. He uses marijuana sometimes. Does not do any other IV drugs. IMAGING Chest x-ray shows cardiomegaly. No acute focal pulmonary infiltrate or pulmonary vascular congestion. Degenerative changes and scoliosis of the thoracic spine. Abdominal CT scan was done which showed subtle focal wall thickening and/or annular constriction lesion within the distal descending colon/proximal sigmoid colon with dilatation and fluid filling the colon proximal to the lesion. Colonoscopy will be helpful for confirmation of annular constriction lesion in this location. Probable enlarged lymph node within the mesocolon adjacent to the previously described lesion. He has got a mildly enlarged retroperitoneal lymphadenopathy. Tiny calcified nonobstructing bilateral renal calculi, simple and hyperdense within both kidneys which are unchanged. Uncomplicated sigmoid diverticulosis. A small pericardial effusion. Coronary artery calcification. Scattered patchiness within the visual lung base. Degenerative changes and scoliosis of the lumbar and lower thoracic spine. ASSESSMENT 1. Rectal bleed. 2. Hematuria. 3. Recent CAD with stenting of two drug-eluting stents. The patient stopped taking Plavix and aspirin because of hematuria and rectal bleed three to four days ago. 4. Focal wall thickening and/or annular constriction lesion within the distal descending colon / proximal sigmoid colon with dilatation of fluid filling the colon proximal to the lesion. 5. History of hemorrhoids. 6. Pre diabetic. 7. Hypertension. 8. Chronic kidney disease history, stage III. 9. Lumbar spinal stenosis with chronic pain. 10. Cervical fusion C3 through C5. PLAN Admit to the [facility]. Cardiac input is appreciated. Discussed with Dr. Rutledge. Appreciate GI input. As per RN the recent urine looks within normal limits and stool has very slight streak of blood on it. while on the floor. We will hold aspirin and Plavix. Heparin as per cardiology. Labs in the morning. Monitor urine function. We will start on some pain medication for his back pain. Plan to consult Dr. Gupta as the patient is known to him. Protonix for GI prophylaxis. See orders. Condition guarded. Further recommendation to follow as the patient progresses. Discussed with RN. Discussed with the patient. Be Armijo MD JP/KK /5:02 PM /8:45 AM
[2016-07-16] MEDS ORDERED: DILTIAZEM-CD 180 MG CAP ER PO SCH (09:00)
--- NOTE | 2016-07-16 10:31 | PD.CARD.PN ---
Subjective Subjective Remarks No chest pain, no shortness of breath, minimal rectal bleed on pad, urine tea color Objective Medications Current Medications Medications (Trade) Dose Ordered Sig/Maricarmen Route Start Time Stop Time Status Last Admin (NS 1000 ml Inj) 1,000 ml @ 100 mls/hr Q10H IV 07/15/16 11:00 07/16/16 07:00 (Tylenol) 650 mg Q4H PRN PO 07/15/16 10:45 (Zofran Inj) 4 mg Q6H PRN IVP 07/15/16 10:45 (Narcan Inj) 0.4 mg UNSCH PRN IV 07/15/16 10:45 (Protonix) 40 mg DAILY PO 07/16/16 09:00 07/16/16 08:04 (Lipitor) 80 mg DAILY PO 07/16/16 09:00 07/16/16 08:03 Metoprolol Tartrate 50 mg 50 mg Q8HR PO 07/15/16 14:00 07/16/16 05:30 (Cardizem Inj/NS Inj) 125 ml @ 0 mls/hr TITRATE IV 07/15/16 14:00 07/15/16 12:57 (Cardizem) 90 mg QID PO 07/15/16 18:00 07/16/16 08:03 (Heparin Inj) 5,000 units UNSCH PRN IV 07/15/16 21:30 Heparin Sodium (Porcine) 2500 units 2,500 units UNSCH PRN IV 07/15/16 21:30 07/16/16 07:39 (Heparin-D5W Inj) 250 ml @ 0 mls/hr TITRATE IV 07/15/16 15:30 07/15/16 16:48 ([place] 7.5-325 Mg) 1 tab Q4H PRN PO 07/15/16 17:15 07/16/16 08:03 (Flomax) 0.4 mg DAILY PO 07/15/16 17:30 07/16/16 08:04 Vital Signs / I&O Vital Signs Date Time Temp Pulse Resp B/P Pulse Ox O2 Delivery O2 Flow Rate FiO2 07/16/16 10:00 134 07/16/16 09:00 130 07/16/16 08:00 96 07/16/16 07:49 98.3 62 20 101/41 95 07/16/16 07:00 120 07/16/16 00:00 98.8 121 20 92/58 96 07/15/16 20:00 98.8 67 20 101/60 95 07/15/16 18:00 114 07/15/16 17:00 108 07/15/16 16:00 102 07/15/16 15:00 112 07/15/16 15:00 98.9 102 20 117/84 95 07/15/16 14:00 112 07/15/16 14:00 98.5 118 20 123/71 99 07/15/16 12:58 121 16 149/82 94 Room Air 07/15/16 11:59 90 16 144/79 95 Room Air 07/15/16 11:00 120 20 144/79 95 Room Air I/O 07/15/16 07/15/16 07/15/16 07/16/16 07/16/16 07/16/16 06:59 14:59 22:59 06:59 14:59 22:59 Intake Total 1214 ml 1860 ml Output Total 300 ml 250 ml 350 ml Balance -300 ml 964 ml 1510 ml Intake Oral 480 ml 480 ml IV Total 734 ml 1380 ml Output Urine Total 300 ml 250 ml 350 ml # Voids 1 # Bowel Movements 4 0 Physical Exam GENERAL: NAD SKIN: Warm and dry. HEAD: Atraumatic. Normocephalic. EYES: Pupils equal and round. No scleral icterus. No injection or drainage. ENT: No nasal bleeding or discharge. Mucous membranes pink and moist. NECK: Trachea midline. No JVD. CARDIOVASCULAR: Irregularly irregular RESPIRATORY: No accessory muscle use. Clear to auscultation. Breath sounds equal bilaterally. GASTROINTESTINAL: Abdomen soft, non-tender, nondistended. Hepatic and splenic margins not palpable. MUSCULOSKELETAL: Extremities without clubbing, cyanosis, or edema. No obvious deformities. NEUROLOGICAL: Awake and alert. No obvious cranial nerve deficits. Motor grossly within normal limits. Five out of 5 muscle strength in the arms and legs. Normal speech. PSYCHIATRIC: Appropriate mood and affect; insight and judgment normal. Laboratory Laboratory Tests Test 07/15/16 07/15/16 07/15/16 07/15/16 11:00 16:29 20:36 22:24 Urine Color YELLOW Urine Turbidity CLEAR Urine pH 5.5 Urine Specific [place] 1.016 Urine Protein 30 mg/dL Urine Glucose (UA) NEG mg/dL Urine Ketones TRACE mg/dL Urine Occult Blood MOD Urine Nitrite NEG Urine Bilirubin NEG Urine Urobilinogen LESS THAN 2.0 MG/DL Urine Leukocyte Esterase TRACE Urine RBC /hpf Urine WBC 2 /hpf Urine Mucus FEW /lpf Microscopic Urinalysis Comment CULT NOT INDICATED White Blood Count 12.7 TH/MM3 Red Blood Count 4.72 MIL/MM3 Hemoglobin 12.9 GM/DL Hematocrit 38.7 % Mean Corpuscular Volume 82.0 FL Mean Corpuscular Hemoglobin 27.4 PG Mean Corpuscular Hemoglobin 33.4 % Concent Red Cell Distribution Width 15.8 % Platelet Count 338 TH/MM3 Mean Platelet Volume 7.4 FL Prothrombin Time 13.8 SEC Prothromb Time International 1.2 RATIO Ratio Activated Partial 29.2 SEC 36.4 SEC Thromboplast Time Troponin I 8.74 NG/ML 8.63 NG/ML Test 07/16/16 06:20 White Blood Count 13.4 TH/MM3 Red Blood Count 4.27 MIL/MM3 Hemoglobin 11.8 GM/DL Hematocrit 35.7 % Mean Corpuscular Volume 83.6 FL Mean Corpuscular Hemoglobin 27.6 PG Mean Corpuscular Hemoglobin 33.0 % Concent Red Cell Distribution Width 16.1 % Platelet Count 330 TH/MM3 Mean Platelet Volume 7.5 FL Neutrophils (%) (Auto) 77.4 % Lymphocytes (%) (Auto) 11.1 % Monocytes (%) (Auto) 10.1 % Eosinophils (%) (Auto) 0.8 % Basophils (%) (Auto) 0.6 % Neutrophils # (Auto) 10.4 TH/MM3 Lymphocytes # (Auto) 1.5 TH/MM3 Monocytes # (Auto) 1.3 TH/MM3 Eosinophils # (Auto) 0.1 TH/MM3 Basophils # (Auto) 0.1 TH/MM3 CBC Comment DIFF FINAL Differential Comment Activated Partial 38.0 SEC Thromboplast Time Sodium Level 137 MEQ/L Potassium Level 3.5 MEQ/L Chloride Level 106 MEQ/L Carbon Dioxide Level 17.9 MEQ/L Anion Gap 13 MEQ/L Blood Urea Nitrogen 34 MG/DL Creatinine 1.82 MG/DL Estimat Glomerular Filtration 38 ML/MIN Rate Random Glucose 103 MG/DL Calcium Level 7.9 MG/DL Total Bilirubin 0.3 MG/DL Aspartate Amino Transf 101 U/L (AST/SGOT) Alanine Aminotransferase 52 U/L (ALT/SGPT) Alkaline Phosphatase 44 U/L Total Protein 6.0 GM/DL Albumin 2.4 GM/DL Assessment and Plan Problem List: (1) NSTEMI (non-ST elevated myocardial infarction) (2) Rectal bleeding (3) Atrial flutter (4) High blood pressure Assessment and Plan 1) Elevated troponin, concern for second OK especially with recent DESx2 placement 2) Will hold on ASA/Plavix until patient scoped, heparin drip 3) Patient unsure if he would like repeat cardiac catheterization as he's had no chest pain, but had no chest pain previously. I explained we could try medical management, but puts him at increased risks, he will think about it. 4) Increase AV heron blocking agents to try and wean off the Cardizem drip Problem Qualifiers (1) Atrial flutter: Qualified Code: I48.92 - Atrial flutter, unspecified type Mike Rutledge DO Jul 16, 2016 10:31
--- NOTE | 2016-07-16 10:38 | HHI.GIFU ---
Subjective Remarks DR. Gupta will take over the case for Mr. Brown, GI will sign off Objective Vitals I&O Vital Signs Date Time Temp Pulse Resp B/P Pulse Ox O2 Delivery O2 Flow Rate FiO2 07/16/16 10:00 134 07/16/16 09:00 130 07/16/16 08:00 96 07/16/16 07:49 98.3 62 20 101/41 95 07/16/16 07:00 120 07/16/16 00:00 98.8 121 20 92/58 96 07/15/16 20:00 98.8 67 20 101/60 95 07/15/16 18:00 114 07/15/16 17:00 108 07/15/16 16:00 102 07/15/16 15:00 112 07/15/16 15:00 98.9 102 20 117/84 95 07/15/16 14:00 112 07/15/16 14:00 98.5 118 20 123/71 99 07/15/16 12:58 121 16 149/82 94 Room Air 07/15/16 11:59 90 16 144/79 95 Room Air 07/15/16 11:00 120 20 144/79 95 Room Air I/O 07/15/16 07/15/16 07/15/16 07/16/16 07/16/16 07/16/16 07:00 15:00 23:00 07:00 15:00 23:00 Intake Total 1214 ml 1860 ml Output Total 300 ml 250 ml 350 ml Balance -300 ml 964 ml 1510 ml Intake Oral 480 ml 480 ml IV Total 734 ml 1380 ml Output Urine Total 300 ml 250 ml 350 ml # Voids 1 # Bowel Movements 4 0 Laboratory Laboratory Tests Test 07/15/16 07/15/16 07/15/16 07/15/16 11:00 16:29 20:36 22:24 Urine Color YELLOW Urine Turbidity CLEAR Urine pH 5.5 Urine Specific Stopover 1.016 Urine Protein 30 Urine Glucose (UA) NEG Urine Ketones TRACE Urine Occult Blood MOD Urine Nitrite NEG Urine Bilirubin NEG Urine Urobilinogen LESS THAN 2.0 Urine Leukocyte Esterase TRACE Urine RBC Urine WBC 2 Urine Mucus FEW Microscopic Urinalysis Comment CULT NOT INDICATED White Blood Count 12.7 Red Blood Count 4.72 Hemoglobin 12.9 Hematocrit 38.7 Mean Corpuscular Volume 82.0 Mean Corpuscular Hemoglobin 27.4 Mean Corpuscular Hemoglobin 33.4 Concent Red Cell Distribution Width 15.8 Platelet Count 338 Mean Platelet Volume 7.4 Prothrombin Time 13.8 Prothromb Time International 1.2 Ratio Activated Partial 29.2 36.4 Thromboplast Time Troponin I 8.74 8.63 Test 07/16/16 06:20 White Blood Count 13.4 Red Blood Count 4.27 Hemoglobin 11.8 Hematocrit 35.7 Mean Corpuscular Volume 83.6 Mean Corpuscular Hemoglobin 27.6 Mean Corpuscular Hemoglobin 33.0 Concent Red Cell Distribution Width 16.1 Platelet Count 330 Mean Platelet Volume 7.5 Neutrophils (%) (Auto) 77.4 Lymphocytes (%) (Auto) 11.1 Monocytes (%) (Auto) 10.1 Eosinophils (%) (Auto) 0.8 Basophils (%) (Auto) 0.6 Neutrophils # (Auto) 10.4 Lymphocytes # (Auto) 1.5 Monocytes # (Auto) 1.3 Eosinophils # (Auto) 0.1 Basophils # (Auto) 0.1 CBC Comment DIFF FINAL Differential Comment Activated Partial 38.0 Thromboplast Time Sodium Level 137 Potassium Level 3.5 Chloride Level 106 Carbon Dioxide Level 17.9 Anion Gap 13 Blood Urea Nitrogen 34 Creatinine 1.82 Estimat Glomerular Filtration 38 Rate Random Glucose 103 Calcium Level 7.9 Total Bilirubin 0.3 Aspartate Amino Transf 101 (AST/SGOT) Alanine Aminotransferase 52 (ALT/SGPT) Alkaline Phosphatase 44 Total Protein 6.0 Albumin 2.4 Assessment and Plan Plan - Rectal bleed- This is on off for the past year , aggravated by Aspirin intake , patient is status post stent placement to the LAD and cardiac catheterization on 07/04/2016 and was discharged on Plavix, however , patient took him self off of it due to severe hematuria. hgb is stable at 13, had an episode of significant bleeding this morning. Never had colonoscopy before. He reports loose stools on off for the past 2 months. He takes 800 mg of Ibuprofen for herniated disc frequently. He reports bilateral lower sided abd pain for the past 2months. He denies nausea, vomiting, hematemesis, or melena. CT showed Subtle focal wall thickening and/or annular constricting lesion within the distal descending colon/proximal sigmoid colon with dilatation and fluid filling the colon proximal to the lesion. Colonoscopy would be helpful for helpful for confirmation of annular constricting lesion in this location. 2. Probable enlarged lymph nodes within the mesocolon adjacent to the previously described lesion. 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 Gupta will take over this case, patient is known to him - Patient seen and examined by Dr. Berumen and jason and this note is written on his behalf. Sondra Moss Jul 16, 2016 10:38
--- NOTE | 2016-07-16 11:01 | HHI.PR ---
Subjective Remarks Pt seen and examined. Voiding well. Flomax started. Urine sample at bedside visually clear; no blood. Objective Vital Signs Vital Signs Date Time Temp Pulse Resp B/P Pulse Ox O2 Delivery O2 Flow Rate FiO2 07/16/16 10:00 134 07/16/16 09:00 130 07/16/16 08:00 96 07/16/16 07:49 98.3 62 20 101/41 95 07/16/16 07:00 120 07/16/16 00:00 98.8 121 20 92/58 96 07/15/16 20:00 98.8 67 20 101/60 95 07/15/16 18:00 114 07/15/16 17:00 108 07/15/16 16:00 102 07/15/16 15:00 112 07/15/16 15:00 98.9 102 20 117/84 95 07/15/16 14:00 112 07/15/16 14:00 98.5 118 20 123/71 99 07/15/16 12:58 121 16 149/82 94 Room Air 07/15/16 11:59 90 16 144/79 95 Room Air 07/15/16 11:00 120 20 144/79 95 Room Air I/O 07/15/16 07/15/16 07/15/16 07/16/16 07/16/16 07/16/16 06:59 14:59 22:59 06:59 14:59 22:59 Intake Total 1214 ml 1860 ml Output Total 300 ml 250 ml 350 ml Balance -300 ml 964 ml 1510 ml Intake Oral 480 ml 480 ml IV Total 734 ml 1380 ml Output Urine Total 300 ml 250 ml 350 ml # Voids 1 # Bowel Movements 4 0 Result Diagram: 07/16/16 0620 07/16/16 0620 Objective Remarks Abd:soft,nt,nd Voiding clear urine Assessment and Plan Assessment and Plan 56 y.o male admitted with chest pain post cardiac stenting Urine clear and ARF improving; creatinine down to 1.8 from 2.0. Continue Flomax Urine cytology pending. Cysto as outpt. Tuan Blair DO Jul 16, 2016 11:01
--- NOTE | 2016-07-16 12:16 | HHI.PR ---
Subjective Remarks Patient is offering no complaint Lying comfortably on the bed without any apparent distress Has normal-looking urine Has bowel movement this morning soft without any blood No abdominal pain No chest pain or shortness of breath or palpitations Feeling okay Review of system for 12 point system otherwise unremarkable Objective Objective Results - Vital Signs Date Time Temp Pulse Resp B/P Pulse Ox O2 Delivery O2 Flow Rate FiO2 07/16/16 11:00 73 07/16/16 11:00 98.6 80 20 89/53 97 07/16/16 10:00 134 07/16/16 09:00 130 07/16/16 08:00 96 07/16/16 07:49 98.3 62 20 101/41 95 07/16/16 07:00 120 07/16/16 00:00 98.8 121 20 92/58 96 07/15/16 20:00 98.8 67 20 101/60 95 07/15/16 18:00 114 07/15/16 17:00 108 07/15/16 16:00 102 07/15/16 15:00 112 07/15/16 15:00 98.9 102 20 117/84 95 07/15/16 14:00 112 07/15/16 14:00 98.5 118 20 123/71 99 07/15/16 12:58 121 16 149/82 94 Room Air I/O 07/15/16 07/15/16 07/15/16 07/16/16 07/16/16 07/16/16 06:59 14:59 22:59 06:59 14:59 22:59 Intake Total 1214 ml 1860 ml Output Total 300 ml 250 ml 350 ml Balance -300 ml 964 ml 1510 ml Intake Oral 480 ml 480 ml IV Total 734 ml 1380 ml Output Urine Total 300 ml 250 ml 350 ml # Voids 1 # Bowel Movements 4 0 Result Diagram: 07/16/16 0620 07/16/16 0620 Other Results Laboratory Tests Test 07/15/16 07/15/16 07/15/16 07/16/16 16:29 20:36 22:24 06:20 White Blood Count 12.7 13.4 Red Blood Count 4.72 4.27 Hemoglobin 12.9 11.8 Hematocrit 38.7 35.7 Mean Corpuscular Volume 82.0 83.6 Mean Corpuscular Hemoglobin 27.4 27.6 Mean Corpuscular Hemoglobin 33.4 33.0 Concent Red Cell Distribution Width 15.8 16.1 Platelet Count 338 330 Mean Platelet Volume 7.4 7.5 Prothrombin Time 13.8 Prothromb Time International 1.2 Ratio Activated Partial 29.2 36.4 38.0 Thromboplast Time Troponin I 8.74 8.63 Neutrophils (%) (Auto) 77.4 Lymphocytes (%) (Auto) 11.1 Monocytes (%) (Auto) 10.1 Eosinophils (%) (Auto) 0.8 Basophils (%) (Auto) 0.6 Neutrophils # (Auto) 10.4 Lymphocytes # (Auto) 1.5 Monocytes # (Auto) 1.3 Eosinophils # (Auto) 0.1 Basophils # (Auto) 0.1 CBC Comment DIFF FINAL Differential Comment Sodium Level 137 Potassium Level 3.5 Chloride Level 106 Carbon Dioxide Level 17.9 Anion Gap 13 Blood Urea Nitrogen 34 Creatinine 1.82 Estimat Glomerular Filtration 38 Rate Random Glucose 103 Calcium Level 7.9 Total Bilirubin 0.3 Aspartate Amino Transf 101 (AST/SGOT) Alanine Aminotransferase 52 (ALT/SGPT) Alkaline Phosphatase 44 Total Protein 6.0 Albumin 2.4 Physical Exam Physical Exam GENERAL: The patient is alert and oriented, obese, oriented times three lying on the bed without any apparent distress. He has some pain in the back. VITAL SIGNS: Reviewed HEENT: Head is atraumatic, normocephalic. Eyes negative conjunctival icterus. Mouth unremarkable. NECK: Central trachea. Negative lymph node. CHEST: Clear to auscultation. CARDIOVASCULAR: S1 and S2 audible. Unable to hear any S3 gallop. ABDOMEN: Soft, non-tender, no organomegaly. Positive bowel sounds. MUSCULOSKELETAL: Extremities no cyanosis noted. There is trace pedal edema. HULL GRINDER: Grossly intact. SKIN: Warm and dry. PSYCHIATRIC: Appropriate mood and affect. A/P Assessment and Plan 1. Rectal bleed. 2. Hematuria. 3. Recent CAD with stenting of two drug-eluting stents. The patient stopped taking Plavix and aspirin because of hematuria and rectal bleed three to four days ago. 4. Focal wall thickening and/or annular constriction lesion within the distal descending colon / proximal sigmoid colon with dilatation of fluid filling the colon proximal to the lesion. 5. History of hemorrhoids. 6. Pre diabetic. 7. Hypertension. 8. Chronic kidney disease history, stage III. 9. Lumbar spinal stenosis with chronic pain. 10. Cervical fusion C3 through C5. PLAN Seen in [facility]. Cardiac input is appreciated. Appreciate GI input. Appreciate colorectal surgical input Off of aspirin and Plavix. On Heparin drip as per cardiology. Labs reviewed Anemia will monitor next line C Uzma will monitor Increased troponin but is stable Tachycardia on Cardizem drip Is started on some pain medication for his back pain. Protonix for GI prophylaxis. Condition guarded. Further recommendation to follow as the patient progresses. Discussed with RN. Discussed with the patient. Labs for morning Hina Armijo MD Jul 16, 2016 12:16
[2016-07-16 13:44] LABS: APTT (PATIENT) 43.6 SEC (24.3-30.1)
--- NOTE | 2016-07-16 14:05 | EKG ---
Date Performed: 07/15/2016 Time Performed: 08:26:15 PTAGE: 56 years EKG: ATRIAL FIBRILLATION WITH RAPID VENTRICULAR RESPONSE WITH ABERRANT CONDUCTION OR VENTRICULAR PREMATURE COMPLEXES MARKED LEFT AXIS DEVIATION RIGHT BUNDLE BRANCH BLOCK ANTERIOR MYOCARDIAL INFARCT ION ANTEROSEPTAL MA, AGE INDETERMINATE PROLONGED CORRECTED QT INTERVAL ABNORMAL ECG PREVIOUS TRACING : 07/04/2016 20.13 DOCTOR: [place] Interpretating Date/Time 07/16/2016 14:04:54
[2016-07-16] MEDS: HEPARIN-D5W INJ 250 ML IV SCH (15:15)
--- NOTE | 2016-07-16 16:52 | HHI.PR ---
Subjective Remarks C/R Surg afebrile, VSS noted BRB in stool, and ? dark urine at home -not bloody no syncope, or dizziness stopped ASA and plavix - on heparin Objective - Vital Signs Date Time Temp Pulse Resp B/P Pulse Ox O2 Delivery O2 Flow Rate FiO2 07/16/16 16:00 70 07/16/16 15:03 98.6 18 95/63 96 07/15/16 12:58 Room Air Result Diagram: 07/16/1620 07/16/16 06 Objective Remarks PE alert Abd - obese, soft, non-tender, no active BRB A/P Assessment and Plan Imp: s/p OK, recent stent palcement Abn sigm by CT - rectal bleeding, ?distention prox bowel will prep gently and check at least sigmoid for poss cancer vs tics/colitis hold plavix, ? subcut heparin if nec by cardiology Kan Gupta MD Jul 16, 2016 16:52
[2016-07-16] MEDS ORDERED: PEG (High)/E-LYTE SOLN 4000 ML BTL PO ONE (17:00)
[2016-07-16] MEDS ORDERED: MAGNESIUM CITRATE SOLN 300 ML BTL PO ONE ×2 (17:30→21:30)
[2016-07-17] VITALS (24 sets, daily range): BP systolic 93–124; BP diastolic 62–83; PULSE 69–122; RESP 18–22; TEMP 97.5–98.4; O2SAT 96–97
[2016-07-17 02:49] LABS: APTT (PATIENT) 42.5 SEC (24.3-30.1)
[2016-07-17] MEDS: SODIUM CHLOR 0.9% 1000 ML INJ 1,000 ML IV SCH ×3 (03:00→17:46)
[2016-07-17] MEDS: METOPROLOL TARTRATE 50 MG TAB PO SCH ×4 (06:27→23:58)
[2016-07-17] MEDS: ACETAMINOPHEN/HYDROcodone 325 MG/7.5 MG TAB PO PRN ×3 (06:31→16:14)
--- NOTE | 2016-07-17 08:54 | HHI.PR ---
Subjective Remarks Pt resting comfortably. No gross hematuria. Objective Vital Signs Vital Signs Date Time Temp Pulse Resp B/P Pulse Ox O2 Delivery O2 Flow Rate FiO2 07/17/16 08:00 78 07/17/16 07:00 97.6 78 22 101/79 97 07/17/16 07:00 99 07/17/16 06:00 100 07/17/16 05:00 103 07/17/16 04:00 106 07/17/16 04:00 98.4 101 18 124/67 96 07/17/16 03:00 103 07/17/16 02:00 112 07/17/16 01:00 108 07/17/16 00:00 98.0 73 18 122/81 97 07/17/16 00:00 89 07/16/16 23:00 104 07/16/16 22:00 90 07/16/16 21:00 84 07/16/16 20:00 76 07/16/16 20:00 97.5 76 18 101/56 97 07/16/16 19:00 90 07/16/16 18:00 78 07/16/16 17:53 78 07/16/16 17:00 81 07/16/16 16:00 70 07/16/16 15:03 98.6 83 18 95/63 96 07/16/16 15:00 65 07/16/16 13:00 74 07/16/16 12:00 70 07/16/16 11:00 73 07/16/16 11:00 98.6 80 20 89/53 97 07/16/16 10:00 134 07/16/16 09:00 130 I/O 07/16/16 07/16/16 07/16/16 07/17/16 07/17/16 07/17/16 06:59 14:59 22:59 06:59 14:59 22:59 Intake Total 1860 ml 940 ml 1584 ml Output Total 350 ml 600 ml 500 ml Balance 1510 ml 340 ml 1084 ml Intake Oral 480 ml 120 ml 240 ml IV Total 1380 ml 820 ml 1344 ml Output Urine Total 350 ml 600 ml 500 ml # Bowel Movements 0 2 1 Result Diagram: 07/16/16 0620 07/16/16619 Objective Remarks Abd:soft,nt,nd Voiding clear urine 07/17 Abd:soft,nt,nd Voiding clear urine Assessment and Plan Assessment and Plan 56 y.o male admitted with chest pain post cardiac stenting Urine clear and ARF improving; creatinine down to 1.8 from 2.0. Continue Flomax Urine cytology pending. Cysto as outpt. 07/17 56 y.o male admitted with chest pain post cardiac stenting Urine clear Continue Flomax Urine cytology pending. Cysto as outpt. Tuan Blair DO Jul 17, 2016 08:54
[2016-07-17] MEDS: SODIUM CHLORIDE 0.9% FLUSH 5 ML FLUSH FLUSH SCH ×2 (09:41→21:06)
[2016-07-17] MEDS: DILTIAZEM HCL 90 MG TAB PO SCH ×4 (09:41→21:05)
[2016-07-17] MEDS: ATORVASTATIN 80 MG TAB PO SCH (09:41)
[2016-07-17] MEDS: TAMSULOSIN HCL 0.4 MG CAP PO SCH (09:41)
[2016-07-17] MEDS: PANTOPRAZOLE SOD 40 MG DELAYED RELEASE TAB PO SCH (09:41)
--- NOTE | 2016-07-17 11:29 | HHI.PR ---
Subjective Remarks Patient has some difficulty breathing with wheezing and cough. Bringing out whitish sputum. Lying comfortably on the bed without any apparent distress Has normal-looking urine Has bowel movement this morning soft without any blood No abdominal pain No chest pain Review of system for 12 point system otherwise unremarkable Objective Objective Results - Vital Signs Date Time Temp Pulse Resp B/P Pulse Ox O2 Delivery O2 Flow Rate FiO2 07/17/16 11:00 97.7 81 22 111/71 96 07/17/16 10:00 88 07/17/16 09:00 78 07/17/16 08:00 78 07/17/16 07:00 97.6 78 22 101/79 97 07/17/16 07:00 99 07/17/16 06:00 100 07/17/16 05:00 103 07/17/16 04:00 106 07/17/16 04:00 98.4 101 18 124/67 96 07/17/16 03:00 103 07/17/16 02:00 112 07/17/16 01:00 108 07/17/16 00:00 98.0 73 18 122/81 97 07/17/16 00:00 89 07/16/16 23:00 104 07/16/16 22:00 90 07/16/16 21:00 84 07/16/16 20:00 76 07/16/16 20:00 97.5 76 18 101/56 97 07/16/16 19:00 90 07/16/16 18:00 78 07/16/16 17:53 78 07/16/16 17:00 81 07/16/16 16:00 70 07/16/16 15:03 98.6 83 18 95/63 96 07/16/16 15:00 65 07/16/16 13:00 74 07/16/16 12:00 70 I/O 07/16/16 07/16/16 07/16/16 07/17/16 07/17/16 07/17/16 07:00 15:00 23:00 07:00 15:00 23:00 Intake Total 1860 ml 940 ml 1584 ml Output Total 350 ml 600 ml 500 ml Balance 1510 ml 340 ml 1084 ml Intake Oral 480 ml 120 ml 240 ml IV Total 1380 ml 820 ml 1344 ml Output Urine Total 350 ml 600 ml 500 ml # Bowel Movements 0 2 1 Result Diagram: 07/16/16 0620 07/16/16 0620 Other Results Laboratory Tests Test 07/16/16 07/17/16 13:25 02:31 Activated Partial 43.6 42.5 Thromboplast Time Physical Exam Physical Exam GENERAL: The patient is alert and oriented, obese, oriented times three lying on the bed without any cardiorespiratory distress. He has some pain in the back. VITAL SIGNS: Reviewed HEENT: Head is atraumatic, normocephalic. Eyes negative conjunctival icterus. Mouth unremarkable. NECK: Central trachea. Negative lymph node. CHEST: Some decreased air entry bibasally with scattered occasional wheezing. Dry crackling in the base CARDIOVASCULAR: S1 and S2 audible. Unable to hear any S3 gallop. ABDOMEN: Soft, non-tender, no organomegaly. Positive bowel sounds. MUSCULOSKELETAL: Extremities no cyanosis noted. There is trace pedal edema. CERTIFIED PHLEBOTOMIST: Grossly intact. SKIN: Warm and dry. PSYCHIATRIC: Appropriate mood and affect. A/P Assessment and Plan 1. Rectal bleed. 2. Hematuria. 3. Recent CAD with stenting of two drug-eluting stents. The patient stopped taking Plavix and aspirin because of hematuria and rectal bleed three to four days ago. 4. Focal wall thickening and/or annular constriction lesion within the distal descending colon / proximal sigmoid colon with dilatation of fluid filling the colon proximal to the lesion. 5. History of hemorrhoids. 6. Pre diabetic. 7. Hypertension. 8. Chronic kidney disease history, stage III. 9. Lumbar spinal stenosis with chronic pain. 10. Cervical fusion C3 through C5. PLAN Seen in [facility]. Breathing treatments 1 dose of steroid IV Cardiac input is appreciated. Discussed with Dr. Rutledge on phone. He is awaiting for endoscopy before proceeding for any intervention. As per Dr. Rutledge he also discussed with Dr. Gonzales's Appreciate colorectal surgical input. Awaiting for endoscopy Off of aspirin and Plavix. On Heparin drip as per cardiology. Labs reviewed Anemia will monitor stable H&H C KD will monitor Increased troponin but is stable Tachycardia is better on medication Is started on some pain medication for his back pain. Protonix for GI prophylaxis. Condition guarded. Further recommendation to follow as the patient progresses. Discussed with RN. Discussed with the patient. Labs for morning Hina Armijo MD Jul 17, 2016 11:29
[2016-07-17] MEDS ORDERED: methylPREDNISolone SOD SUCC 125 MG/2 ML VIAL IV PUSH ONE (11:30)
[2016-07-17] MEDS ORDERED: RESP: ALBUTEROL 2.5 MG/IPRATROPIUM 0.5 MG NEB (PRN) NEB (11:30)
[2016-07-17] MEDS: HEPARIN-D5W INJ 250 ML IV SCH (12:34)
--- NOTE | 2016-07-17 16:55 | PD.CARD.PN ---
Subjective Subjective Remarks No chest pain, no shortness of breath Objective Medications Current Medications Medications (Trade) Dose Ordered Sig/Maricarmen Route Start Time Stop Time Status Last Admin (NS 1000 ml Inj) 1,000 ml @ 100 mls/hr Q10H IV 07/15/16 11:00 07/17/16 13:30 (Tylenol) 650 mg Q4H PRN PO 07/15/16 10:45 (Zofran Inj) 4 mg Q6H PRN IVP 07/15/16 10:45 (Narcan Inj) 0.4 mg UNSCH PRN IV 07/15/16 10:45 (Protonix) 40 mg DAILY PO 07/16/16 09:00 07/17/16 09:41 Atorvastatin Calcium 80 mg 80 mg DAILY PO 07/16/16 09:00 07/17/16 09:41 (Cardizem Inj/NS Inj) 125 ml @ 0 mls/hr TITRATE IV 07/15/16 14:00 07/15/16 12:57 (Cardizem) 90 mg QID PO 07/15/16 18:00 07/17/16 13:30 (Heparin Inj) 5,000 units UNSCH PRN IV 07/15/16 21:30 Heparin Sodium (Porcine) 2500 units 2,500 units UNSCH PRN IV 07/15/16 21:30 07/16/16 07:39 (Heparin-D5W Inj) 250 ml @ 0 mls/hr TITRATE IV 07/15/16 15:30 07/17/16 12:34 ([place] 7.5-325 Mg) 1 tab Q4H PRN PO 07/15/16 17:15 07/17/16 16:14 (Flomax) 0.4 mg DAILY PO 07/15/16 17:30 07/17/16 09:41 (Lopressor) 50 mg Q6HR PO 07/16/16 12:00 07/17/16 12:30 Vital Signs / I&O Vital Signs Date Time Temp Pulse Resp B/P Pulse Ox O2 Delivery O2 Flow Rate FiO2 07/17/16 16:00 92 07/17/16 15:00 97.5 80 22 118/83 96 07/17/16 15:00 122 07/17/16 14:00 73 07/17/16 13:00 71 12/21/16 12:00 86 07/17/16 11:00 88 07/17/16 11:00 97.7 81 22 111/71 96 07/17/16 10:00 88 07/17/16 09:00 78 07/17/16 08:00 78 07/17/16 07:00 97.6 78 22 101/79 97 07/17/16 07:00 99 07/17/16 06:00 100 07/17/16 05:00 103 07/17/16 04:00 106 07/17/16 04:00 98.4 101 18 124/67 96 07/17/16 03:00 103 07/17/16 02:00 112 07/17/16 01:00 108 07/17/16 00:00 98.0 73 18 122/81 97 07/17/16 00:00 89 07/16/16 23:00 104 07/16/16 22:00 90 07/16/16 21:00 84 07/16/16 20:00 76 07/16/16 20:00 97.5 76 18 101/56 97 07/16/16 19:00 90 07/16/16 18:00 78 07/16/16 17:53 78 07/16/16 17:00 81 I/O 07/16/16 07/16/16 07/16/16 07/17/16 07/17/16 07/17/16 07:00 15:00 23:00 07:00 15:00 23:00 Intake Total 1860 ml 940 ml 1584 ml Output Total 350 ml 600 ml 500 ml Balance 1510 ml 340 ml 1084 ml Intake Oral 480 ml 120 ml 240 ml IV Total 1380 ml 820 ml 1344 ml Output Urine Total 350 ml 600 ml 500 ml # Bowel Movements 0 2 1 Physical Exam GENERAL: NAD SKIN: Warm and dry. HEAD: Atraumatic. Normocephalic. EYES: Pupils equal and round. No scleral icterus. No injection or drainage. ENT: No nasal bleeding or discharge. Mucous membranes pink and moist. NECK: Trachea midline. No JVD. CARDIOVASCULAR: Irregularly irregular RESPIRATORY: No accessory muscle use. Clear to auscultation. Breath sounds equal bilaterally. GASTROINTESTINAL: Abdomen soft, non-tender, nondistended. Hepatic and splenic margins not palpable. MUSCULOSKELETAL: Extremities without clubbing, cyanosis, or edema. No obvious deformities. NEUROLOGICAL: Awake and alert. No obvious cranial nerve deficits. Motor grossly within normal limits. Five out of 5 muscle strength in the arms and legs. Normal speech. PSYCHIATRIC: Appropriate mood and affect; insight and judgment normal. Laboratory Laboratory Tests Test 07/17/16 02:31 Activated Partial 42.5 SEC Thromboplast Time Assessment and Plan Problem List: (1) NSTEMI (non-ST elevated myocardial infarction) (2) Rectal bleeding (3) Atrial flutter (4) High blood pressure Assessment and Plan 1) Elevated troponin, concern for second DC especially with recent DESx2 placement and elevation of CKs 2) Will hold on ASA/Plavix until patient scoped, heparin drip 3) Patient wanted the cardiac catheterization first as he felt it was more important, so C-scope has been cancelled... I explained again to the patient that he needs to have the C-scope first as we need to assess his bleeding before starting him on jail DAPT 4) Spoke to Dr. Armijo, left a message for Dr. Gupta 5) Heart rate better controlled today Problem Qualifiers (1) Atrial flutter: Qualified Code: I48.92 - Atrial flutter, unspecified type Mike Rutledge DO Jul 17, 2016 16:55
[2016-07-17] MEDS ORDERED: SOD PHOSPHATE/SOD BIPHOSPHATE (ADULT) ENEMA 133ML PR ONE (18:00)
[2016-07-17] MEDS ORDERED: MAGNESIUM CITRATE SOLN 300 ML BTL PO ONE (18:00)
--- NOTE | 2016-07-17 21:08 | HHI.PR ---
Subjective Remarks C/R Surg afebrile, VSS noted BRB in stool, and ? dark urine at home -not bloody still BM - no pain Objective - Vital Signs Date Time Temp Pulse Resp B/P Pulse Ox O2 Delivery O2 Flow Rate FiO2 07/17/16 18:00 69 07/17/16 15:00 97.5 22 118/83 96 07/15/16 12:58 Room Air Result Diagram: 07/16/1661907/16/16 0620 Objective Remarks PE alert Abd - obese, soft, non-tender, mod tympany A/P Assessment and Plan Imp: s/p VT, recent stent palcement Abn sigm by CT - rectal bleeding, ?distention prox bowel will prep gently and check at least sigmoid for poss cancer vs tics/colitis hold heparin before colon Kan Gupta MD Jul 17, 2016 21:08
[2016-07-18] VITALS (25 sets, daily range): BP systolic 100–141; BP diastolic 60–93; PULSE 54–111; RESP 20; TEMP 97.4–98; O2SAT 96–98
[2016-07-18] MEDS: ACETAMINOPHEN/HYDROcodone 325 MG/7.5 MG TAB PO PRN ×2 (00:02→05:51)
[2016-07-18 05:47] LABS: HEMATOCRIT 36.2 % (39.0-51.0); MEAN CELL VOLUME 82.5 FL (80.0-100.0); MEAN CORPUSCULAR HEMOGLOBIN 27.1 PG (27.0-34.0); MEAN CORPUSCULAR HGB CONC 32.8 % (32.0-36.0); PLATELET COUNT 373 TH/MM3 (150-450); RED BLOOD COUNT 4.38 MIL/MM3 (4.50-5.90); RED CELL DISTRIBUTION WIDTH 16.2 % (11.6-17.2); REVIEW FLAG FINAL; WHITE BLOOD COUNT 13.8 TH/MM3 (4.0-11.0)
[2016-07-18] MEDS: METOPROLOL TARTRATE 50 MG TAB PO SCH ×3 (05:52→17:58)
[2016-07-18 06:22] LABS: BICARBONATE 17.5 MEQ/L (21.0-32.0)
--- NOTE | 2016-07-18 07:22 | HHI.PR ---
Subjective Remarks C/R Surg afebrile, VSS no active bleeding little BM with mag citrate Objective - Vital Signs Date Time Temp Pulse Resp B/P Pulse Ox O2 Delivery O2 Flow Rate FiO2 07/18/16 06:00 110 07/18/16 04:00 97.8 20 141/90 97 07/15/16 12:58 Room Air Result Diagram: 07/18/16 0520 07/18/16 0520 Objective Remarks PE alert Abd - obese, soft, non-tender, mod tympany A/P Assessment and Plan Imp: s/p ND, recent stent palcement Abn sigm by CT - rectal bleeding, ?distention prox bowel Pt refusing colonoscpy second time, discussed with pt - will sign off. Kan Gupta MD Jul 18, 2016 07:22
[2016-07-18] MEDS: PANTOPRAZOLE SOD 40 MG DELAYED RELEASE TAB PO SCH (08:24)
[2016-07-18] MEDS: ATORVASTATIN 80 MG TAB PO SCH (08:24)
[2016-07-18] MEDS: TAMSULOSIN HCL 0.4 MG CAP PO SCH (08:24)
[2016-07-18] MEDS: DILTIAZEM HCL 90 MG TAB PO SCH ×4 (08:24→22:20)
[2016-07-18] MEDS: SODIUM CHLORIDE 0.9% FLUSH 5 ML FLUSH FLUSH SCH ×2 (08:25→22:21)
--- NOTE | 2016-07-18 10:36 | HHI.PR ---
Subjective Remarks Breathing his lot better now occasional cough no wheezing Sitting comfortably on the bed without any apparent distress Just had a bowel movement. Brownish-looking stool soft in commode no sign of any blood Has normal-looking urine No abdominal pain No chest pain Review of system for 12 point system otherwise unremarkable Objective Objective Results - Vital Signs Date Time Temp Pulse Resp B/P Pulse Ox O2 Delivery O2 Flow Rate FiO2 07/18/16 09:18 18 07/18/16 07:30 97.5 109 20 123/90 97 07/18/16 06:00 110 07/18/16 05:00 92 07/18/16 04:00 97.8 58 20 141/90 97 07/18/16 04:00 58 07/18/16 03:00 60 07/18/16 02:00 79 07/18/16 01:00 110 07/18/16 00:00 97.5 73 20 102/60 96 07/18/16 00:00 73 07/17/16 23:00 90 07/17/16 22:00 98 07/17/16 21:00 94 07/17/16 20:00 97.8 95 20 93/62 97 07/17/16 20:00 95 07/17/16 19:00 73 07/17/16 18:00 69 07/17/16 17:00 97 07/17/16 16:00 92 07/17/16 15:00 97.5 80 22 118/83 96 07/17/16 15:00 122 07/17/16 14:00 73 07/17/16 13:00 71 07/17/16 12:00 86 07/17/16 11:00 88 07/17/16 11:00 97.7 81 22 111/71 96 I/O 07/17/16 07/17/16 07/17/16 07/18/16 07/18/16 07/18/16 07:00 15:00 23:00 07:00 15:00 23:00 Intake Total 1584 ml 1660 ml 655 ml Output Total 500 ml 250 ml 950 ml Balance 1084 ml 1410 ml -295 ml Intake Oral 240 ml 720 ml 0 ml IV Total 1344 ml 940 ml 655 ml Output Urine Total 500 ml 250 ml 950 ml # Voids 3 6 # Bowel Movements 1 1 0 Result Diagram: 07/18/16 0520 07/18/16 0520 Other Results Laboratory Tests Test 07/18/16 05:20 White Blood Count 13.8 Red Blood Count 4.38 Hemoglobin 11.9 Hematocrit 36.2 Mean Corpuscular Volume 82.5 Mean Corpuscular Hemoglobin 27.1 Mean Corpuscular Hemoglobin 32.8 Concent Red Cell Distribution Width 16.2 Platelet Count 373 Mean Platelet Volume 7.6 Activated Partial 39.0 Thromboplast Time Sodium Level 133 Potassium Level 4.0 Chloride Level 101 Carbon Dioxide Level 17.5 Anion Gap 15 Blood Urea Nitrogen 45 Creatinine 2.11 Estimat Glomerular Filtration 32 Rate Random Glucose 149 Calcium Level 8.5 Physical Exam Physical Exam GENERAL: The patient is alert and oriented, obese, oriented times three lying on the bed without any cardiorespiratory distress. He has some pain in the back. VITAL SIGNS: Reviewed HEENT: Head is atraumatic, normocephalic. Eyes negative conjunctival icterus. Mouth unremarkable. NECK: Central trachea. Negative lymph node. CHEST: Good air entry bilaterally without wheezing. Occasional Dry crackling in the base CARDIOVASCULAR: S1 and S2 audible. Unable to hear any S3 gallop. ABDOMEN: Soft, non-tender, no organomegaly. Positive bowel sounds. MUSCULOSKELETAL: Extremities no cyanosis noted. There is trace ankle edema. SOLAR ENERGY SPECIALIST: Grossly intact. SKIN: Warm and dry. PSYCHIATRIC: Appropriate mood and affect. A/P Assessment and Plan 1. Rectal bleed. 2. Hematuria. 3. Recent CAD with stenting of two drug-eluting stents. The patient stopped taking Plavix and aspirin because of hematuria and rectal bleed three to four days ago. 4. Focal wall thickening and/or annular constriction lesion within the distal descending colon / proximal sigmoid colon with dilatation of fluid filling the colon proximal to the lesion. 5. History of hemorrhoids. 6. Pre diabetic. 7. Hypertension. 8. Chronic kidney disease history, stage III. 9. Lumbar spinal stenosis with chronic pain. 10. Cervical fusion C3 through C5. PLAN Seen in [facility]. Patient refused endoscopy today Discussed with colorectal surgeon Plan for GI consult in for possible endoscopy Cardiac input is appreciated. Discussed with Dr. Rutledge on phone yesterday. He is awaiting for endoscopy before proceeding for any intervention. Off of aspirin and Plavix. On Heparin as per cardiology. Labs reviewed Anemia will monitor stable H&H C KD will monitor Increased troponin but is stable. Non-ST elevation [place] Tachycardia is better on medication Is started on some pain medication for his back pain. Protonix for GI prophylaxis. Condition guarded. Further recommendation to follow as the patient progresses. Discussed with RN. Discussed with the patient. Labs for morning Hina Armijo MD Jul 18, 2016 10:36
--- NOTE | 2016-07-18 12:58 | HHI.GIFU ---
Subjective Remarks This is a reconsult, we were following this patient for rectal bleed and concerning colon cancer on imaging, however, since patient was known to Dr. Gupta, we deferred the care of this patient to him. Apparently, patient is refusing to have the colonoscopy /sigmoidoscopy with Dr. Gupta due to fear of outcome and possibility of having a colostomy and would like GI to perform the scope. Patient denies further bleeding, nausea, vomiting or abd pain. (Sondra Moss) Objective Vitals I&O Vital Signs Date Time Temp Pulse Resp B/P Pulse Ox O2 Delivery O2 Flow Rate FiO2 07/18/16 10:00 78 07/18/16 09:18 18 07/18/16 09:00 81 07/18/16 08:00 96 07/18/16 07:30 97.5 109 20 123/90 97 07/18/16 07:00 110 07/18/16 06:00 110 07/18/16 05:00 92 07/18/16 04:00 97.8 58 20 141/90 97 07/18/16 04:00 58 07/18/16 03:00 60 07/18/16 02:00 79 07/18/16 01:00 110 07/18/16 00:00 97.5 73 20 102/60 96 07/18/16 00:00 73 07/17/16 23:00 90 07/17/16 22:00 98 07/17/16 21:00 94 07/17/16 20:00 97.8 95 20 93/62 97 07/17/16 20:00 95 07/17/16 19:00 73 07/17/16 18:00 69 07/17/16 17:00 97 07/17/16 16:00 92 07/17/16 15:00 97.5 80 22 118/83 96 07/17/16 15:00 122 07/17/16 14:00 73 07/17/16 13:00 71 I/O 07/17/16 07/17/16 07/17/16 07/18/16 07/18/16 07/18/16 07:00 15:00 23:00 07:00 15:00 23:00 Intake Total 1584 ml 1660 ml 655 ml Output Total 500 ml 250 ml 950 ml Balance 1084 ml 1410 ml -295 ml Intake Oral 240 ml 720 ml 0 ml IV Total 1344 ml 940 ml 655 ml Output Urine Total 500 ml 250 ml 950 ml # Voids 3 6 # Bowel Movements 1 1 0 Laboratory Laboratory Tests Test 07/18/16 05:20 White Blood Count 13.8 Red Blood Count 4.38 Hemoglobin 11.9 Hematocrit 36.2 Mean Corpuscular Volume 82.5 Mean Corpuscular Hemoglobin 27.1 Mean Corpuscular Hemoglobin 32.8 Concent Red Cell Distribution Width 16.2 Platelet Count 373 Mean Platelet Volume 7.6 Activated Partial 39.0 Thromboplast Time Sodium Level 133 Potassium Level 4.0 Chloride Level 101 Carbon Dioxide Level 17.5 Anion Gap 15 Blood Urea Nitrogen 45 Creatinine 2.11 Estimat Glomerular Filtration 32 Rate Random Glucose 149 Calcium Level 8.5 Imaging Last Impressions Chest X-Ray 07/15/16 0837 Signed Impressions: Service Date/Time: Friday, July 15, 2016 09:42 - CONCLUSION: 1. Cardiomegaly. 2. No acute focal pulmonary infiltrate or pulmonary vascular congestion. 3. Degenerative changes and scoliosis of the thoracic spine. Rafat Saunders MD Abdomen/Pelvis CT 07/15/16 0000 Signed Impressions: Service Date/Time: Friday, July 15, 2016 11:12 - CONCLUSION: 1. Subtle focal wall thickening and/or annular constricting lesion within the distal descending colon/proximal sigmoid colon with dilatation and fluid filling the colon proximal to the lesion. Colonoscopy would be helpful for helpful for confirmation of annular constricting lesion in this location. 2. Probable enlarged lymph nodes within the mesocolon adjacent to the previously described lesion. 3. Scattered mildly enlarged retroperitoneal lymphadenopathy. 4. Tiny calcified non-obstructing bilateral renal calculi. 5. Simple and hyper dense within both kidneys which are unchanged. 6. Uncomplicated sigmoid diverticulosis. 7. Small pericardial effusion. 8. Coronary artery calcifications. 9. Scattered patchiness within the visualized lung bases. 10. Degenerative changes and scoliosis of the lumbar and lower thoracic spine. Rafat Saunders MD Physical Exam Physical Examination HEENT: Pupils round and reactive to light; normocephalic; atraumatic; no jaundice. NECK: Neck is supple, no JVD, no lymphadenopathy. CHEST: Chest is clear to auscultation and percussion. CARDIAC: tacky cardiac ABDOMEN: Soft, nondistended, diffused tenderness; obese, no hepatosplenomegaly ; bowel sounds are present in all four quadrants. EXTREMITIES: No clubbing, cyanosis, or edema. SKIN: Normal; no rash; no jaundice. LIFE SUPPORT TECHNICIAN: No focal deficits; alert and oriented times three (Sondra Moss) Assessment and Plan Plan - Rectal bleed- This is on off for the past year , hgb with drop from 13---> 11.9, no more bleeding, this is aggravated by Aspirin intake, patient is status post stent placement to the LAD and cardiac catheterization on 07/04/2016 and was discharged on Plavix, however , patient took him self off of it due to severe hematuria. Never had colonoscopy before. He reports loose stools on off for the past 2 months. He takes 800 mg of Ibuprofen for herniated disc frequently. He reports bilateral lower sided abd pain for the past 2months. He denies nausea, vomiting, hematemesis, or melena. CT showed Subtle focal wall thickening and/or annular constricting lesion within the distal descending colon/proximal sigmoid colon with dilatation and fluid filling the colon proximal to the lesion. Colonoscopy would be helpful for helpful for confirmation of annular constricting lesion in this location. 2. Probable enlarged lymph nodes within the mesocolon adjacent to the previously described lesion. - colon lesion- Ct as above, finding suspicious for malignancy, will need colonoscopy evaluation - patient is status post stent placement to the LAD and cardiac catheterization on 07/04/2016 and was discharged on Plavix, cardiology on the case Case discussed with data processing specialist , he is high risk , the plan to place him on Heparin for now - Hematuria- urology consulted Plan: - Clear liquids - Golytely prep today - obtain consents for colonoscopy in the am - NPO mn - Heparin on hold per cardiology - Dr. Gupta signed off, patient would like GI to perform the scope - Patient seen and examined by Dr. Berumen and jason and this note is written on his behalf. (Sondra Moss) Physician Comments Seen and examined, plan as above, for colonoscopy in AM. (Sera Berumen MD) Sondra Moss Jul 18, 2016 12:58 Sera Berumen MD Jul 18, 2016 21:53
--- NOTE | 2016-07-18 13:11 | PD.CARD.PN ---
Subjective Subjective Remarks No chest pain, no shortness of breath, no palpitations Objective Medications Current Medications Medications (Trade) Dose Ordered Sig/Maricarmen Route Start Time Stop Time Status Last Admin (NS 1000 ml Inj) 1,000 ml @ 50 mls/hr Q20H IV 07/15/16 11:00 07/17/16 17:46 (Tylenol) 650 mg Q4H PRN PO 07/15/16 10:45 (Zofran Inj) 4 mg Q6H PRN IVP 07/15/16 10:45 (Narcan Inj) 0.4 mg UNSCH PRN IV 07/15/16 10:45 (Protonix) 40 mg DAILY PO 07/16/16 09:00 07/18/16 08:24 Atorvastatin Calcium 80 mg 80 mg DAILY PO 07/16/16 09:00 07/18/16 08:24 (Cardizem Inj/NS Inj) 125 ml @ 0 mls/hr TITRATE IV 07/15/16 14:00 07/15/16 12:57 (Cardizem) 90 mg QID PO 07/15/16 18:00 07/18/16 12:29 ([place] 7.5-325 Mg) 1 tab Q4H PRN PO 07/15/16 17:15 07/18/16 05:51 (Flomax) 0.4 mg DAILY PO 07/15/16 17:30 07/18/16 08:24 (Lopressor) 50 mg Q6HR PO 07/16/16 12:00 07/18/16 12:29 (Colyte Liq) 4,000 ml ONCE ONCE PO 07/18/16 16:00 07/18/16 16:01 Vital Signs / I&O Vital Signs Date Time Temp Pulse Resp B/P Pulse Ox O2 Delivery O2 Flow Rate FiO2 07/18/16 10:00 78 07/18/16 09:18 18 07/18/16 09:00 81 07/18/16 08:00 96 07/18/16 07:30 97.5 109 20 123/90 97 07/18/16 07:00 110 07/18/16 06:00 110 07/18/16 05:00 92 07/18/16 04:00 97.8 58 20 141/90 97 07/18/16 04:00 58 07/18/16 03:00 60 07/18/16 02:00 79 07/18/16 01:00 110 07/18/16 00:00 97.5 73 20 102/60 96 07/18/16 00:00 73 07/17/16 23:00 90 07/17/16 22:00 98 07/17/16 21:00 94 07/17/16 20:00 97.8 95 20 93/62 97 07/17/16 20:00 95 07/17/16 19:00 73 07/17/16 18:00 69 07/17/16 17:00 97 07/17/16 16:00 92 07/17/16 15:00 97.5 80 22 118/83 96 07/17/16 15:00 122 07/17/16 14:00 73 I/O 07/17/16 07/17/16 07/17/16 07/18/16 07/18/16 07/18/16 07:00 15:00 23:00 07:00 15:00 23:00 Intake Total 1584 ml 1660 ml 655 ml Output Total 500 ml 250 ml 950 ml Balance 1084 ml 1410 ml -295 ml Intake Oral 240 ml 720 ml 0 ml IV Total 1344 ml 940 ml 655 ml Output Urine Total 500 ml 250 ml 950 ml # Voids 3 6 # Bowel Movements 1 1 0 Physical Exam GENERAL: NAD SKIN: Warm and dry. HEAD: Atraumatic. Normocephalic. EYES: Pupils equal and round. No scleral icterus. No injection or drainage. ENT: No nasal bleeding or discharge. Mucous membranes pink and moist. NECK: Trachea midline. No JVD. CARDIOVASCULAR: Irregularly irregular RESPIRATORY: No accessory muscle use. Clear to auscultation. Breath sounds equal bilaterally. GASTROINTESTINAL: Abdomen soft, non-tender, nondistended. Hepatic and splenic margins not palpable. MUSCULOSKELETAL: Extremities without clubbing, cyanosis, or edema. No obvious deformities. NEUROLOGICAL: Awake and alert. No obvious cranial nerve deficits. Motor grossly within normal limits. Five out of 5 muscle strength in the arms and legs. Normal speech. PSYCHIATRIC: Appropriate mood and affect; insight and judgment normal. Laboratory Laboratory Tests Test 07/18/16 05:20 White Blood Count 13.8 TH/MM3 Red Blood Count 4.38 MIL/MM3 Hemoglobin 11.9 GM/DL Hematocrit 36.2 % Mean Corpuscular Volume 82.5 FL Mean Corpuscular Hemoglobin 27.1 PG Mean Corpuscular Hemoglobin 32.8 % Concent Red Cell Distribution Width 16.2 % Platelet Count 373 TH/MM3 Mean Platelet Volume 7.6 FL Activated Partial 39.0 SEC Thromboplast Time Sodium Level 133 MEQ/L Potassium Level 4.0 MEQ/L Chloride Level 101 MEQ/L Carbon Dioxide Level 17.5 MEQ/L Anion Gap 15 MEQ/L Blood Urea Nitrogen 45 MG/DL Creatinine 2.11 MG/DL Estimat Glomerular Filtration 32 ML/MIN Rate Random Glucose 149 MG/DL Calcium Level 8.5 MG/DL Assessment and Plan Problem List: (1) NSTEMI (non-ST elevated myocardial infarction) (2) Rectal bleeding (3) Atrial flutter (4) High blood pressure Assessment and Plan 1) Elevated troponin, concern for second MT especially with recent DESx2 placement and elevation of CKs 2) Will hold on ASA/Plavix until patient scoped, heparin drip currently on for 72 hours, will discontinue at this time 3) Heart rate better controlled at this time 4) Explained to the patient that I've asked Dr. Gupta to come and scope him twice and both times he has not undergone the C-scope, explained he needs the scope for the bleeding but also the mass. 5) Spoke to Dr. Armijo, Dr. Berumen will be possibly scoping the patient 6) Post-scope, will have to decide what to do with his NSTEMI whether medical management or catheterization, but concern if he needs possible colon surgery Problem Qualifiers (1) Atrial flutter: Qualified Code: I48.92 - Atrial flutter, unspecified type Mike Rutledge DO Jul 18, 2016 13:11
[2016-07-18] MEDS ORDERED: PEG (High)/E-LYTE SOLN 4000 ML BTL PO ONE (16:00)
[2016-07-18] MEDS: SODIUM CHLOR 0.9% 1000 ML INJ 1,000 ML IV SCH (19:00)
[2016-07-19] VITALS (25 sets, daily range): BP systolic 93–138; BP diastolic 60–98; PULSE 58–118; RESP 18–20; TEMP 97.2–98.2; O2SAT 96–98
[2016-07-19] MEDS: ACETAMINOPHEN 325 MG TAB PO PRN ×2 (00:49→05:22)
[2016-07-19 04:37] LABS: APTT (PATIENT) 27.2 SEC (24.3-30.1); HEMATOCRIT 35.1 % (39.0-51.0); MEAN CELL VOLUME 81.3 FL (80.0-100.0); MEAN CORPUSCULAR HEMOGLOBIN 26.8 PG (27.0-34.0); PLATELET COUNT 386 TH/MM3 (150-450); RED BLOOD COUNT 4.32 MIL/MM3 (4.50-5.90); RED CELL DISTRIBUTION WIDTH 15.9 % (11.6-17.2); REVIEW FLAG FINAL; WHITE BLOOD COUNT 12.9 TH/MM3 (4.0-11.0)
[2016-07-19 04:50] LABS: BICARBONATE 20.8 MEQ/L (21.0-32.0); POTASSIUM 4.2 MEQ/L (3.5-5.1)
[2016-07-19] MEDS: METOPROLOL TARTRATE 50 MG TAB PO SCH ×5 (06:49→23:51)
[2016-07-19] MEDS: SODIUM CHLORIDE 0.9% FLUSH 5 ML FLUSH FLUSH SCH ×2 (09:00→20:35)
[2016-07-19] MEDS: TAMSULOSIN HCL 0.4 MG CAP PO SCH (09:08)
[2016-07-19] MEDS: DILTIAZEM HCL 90 MG TAB PO SCH ×4 (09:08→20:35)
[2016-07-19] MEDS: ATORVASTATIN 80 MG TAB PO SCH (09:08)
[2016-07-19] MEDS: PANTOPRAZOLE SOD 40 MG DELAYED RELEASE TAB PO SCH (09:09)
--- NOTE | 2016-07-19 09:41 | PD.CARD.PN ---
Subjective Subjective Remarks No chest pain, no shortness of breath Objective Medications Current Medications Medications (Trade) Dose Ordered Sig/Maricarmen Route Start Time Stop Time Status Last Admin (NS 1000 ml Inj) 1,000 ml @ 50 mls/hr Q20H IV 07/15/16 11:00 07/17/16 17:46 (Tylenol) 650 mg Q4H PRN PO 07/15/16 10:45 07/19/16 05:22 (Zofran Inj) 4 mg Q6H PRN IVP 07/15/16 10:45 (Narcan Inj) 0.4 mg UNSCH PRN IV 07/15/16 10:45 (Protonix) 40 mg DAILY PO 07/16/16 09:00 07/19/16 09:09 Atorvastatin Calcium 80 mg 80 mg DAILY PO 07/16/16 09:00 07/19/16 09:08 (Cardizem Inj/NS Inj) 125 ml @ 0 mls/hr TITRATE IV 07/15/16 14:00 07/15/16 12:57 (Cardizem) 90 mg QID PO 07/15/16 18:00 07/19/16 09:08 ([place] 7.5-325 Mg) 1 tab Q4H PRN PO 07/15/16 17:15 07/18/16 05:51 (Flomax) 0.4 mg DAILY PO 07/15/16 17:30 07/19/16 09:08 (Lopressor) 50 mg Q6HR PO 07/16/16 12:00 07/19/16 06:49 Vital Signs / I&O Vital Signs Date Time Temp Pulse Resp B/P Pulse Ox O2 Delivery O2 Flow Rate FiO2 07/19/16 06:00 88 07/19/16 05:00 110 07/19/16 04:03 106 07/19/16 04:01 98.2 106 20 125/76 96 07/19/16 03:05 112 07/19/16 03:00 83 07/19/16 02:00 83 07/19/16 01:00 103 07/19/16 00:00 98.2 115 20 106/75 96 07/19/16 00:00 105 07/18/16 23:00 111 07/18/16 21:00 88 07/18/16 20:00 98.0 111 20 119/93 98 07/18/16 20:00 83 07/18/16 19:00 82 07/18/16 18:00 66 07/18/16 17:00 56 07/18/16 16:00 54 07/18/16 16:00 97.6 65 20 103/60 97 07/18/16 15:00 73 07/18/16 14:00 63 07/18/16 13:00 87 07/18/16 12:00 76 07/18/16 11:15 97.4 77 20 100/74 97 07/18/16 11:00 68 07/18/16 10:00 78 I/O 07/18/16 07/18/16 07/18/16 07/19/16 07/19/16 07/19/16 06:59 14:59 22:59 06:59 14:59 22:59 Intake Total 655 ml 240 ml 3000 ml Output Total 950 ml 1200 ml Balance -295 ml 240 ml 1800 ml Intake Oral 0 ml 240 ml 3000 ml IV Total 655 ml Output Urine Total 950 ml 1200 ml # Voids 6 3 # Bowel Movements 0 3 3 Physical Exam GENERAL: NAD SKIN: Warm and dry. HEAD: Atraumatic. Normocephalic. EYES: Pupils equal and round. No scleral icterus. No injection or drainage. ENT: No nasal bleeding or discharge. Mucous membranes pink and moist. NECK: Trachea midline. No JVD. CARDIOVASCULAR: Irregularly irregular RESPIRATORY: No accessory muscle use. Clear to auscultation. Breath sounds equal bilaterally. GASTROINTESTINAL: Abdomen soft, non-tender, nondistended. Hepatic and splenic margins not palpable. MUSCULOSKELETAL: Extremities without clubbing, cyanosis, or edema. No obvious deformities. NEUROLOGICAL: Awake and alert. No obvious cranial nerve deficits. Motor grossly within normal limits. Five out of 5 muscle strength in the arms and legs. Normal speech. PSYCHIATRIC: Appropriate mood and affect; insight and judgment normal. Laboratory Laboratory Tests Test 07/19/16 03:55 White Blood Count 12.9 TH/MM3 Red Blood Count 4.32 MIL/MM3 Hemoglobin 11.6 GM/DL Hematocrit 35.1 % Mean Corpuscular Volume 81.3 FL Mean Corpuscular Hemoglobin 26.8 PG Mean Corpuscular Hemoglobin 33.0 % Concent Red Cell Distribution Width 15.9 % Platelet Count 386 TH/MM3 Mean Platelet Volume 7.3 FL Activated Partial 27.2 SEC Thromboplast Time Sodium Level 138 MEQ/L Potassium Level 4.2 MEQ/L Chloride Level 105 MEQ/L Carbon Dioxide Level 20.8 MEQ/L Anion Gap 12 MEQ/L Blood Urea Nitrogen 53 MG/DL Creatinine 1.94 MG/DL Estimat Glomerular Filtration 36 ML/MIN Rate Random Glucose 113 MG/DL Calcium Level 8.5 MG/DL Assessment and Plan Problem List: (1) NSTEMI (non-ST elevated myocardial infarction) (2) Rectal bleeding (3) Atrial flutter (4) High blood pressure Assessment and Plan 1) Elevated troponin, concern for second ID especially with recent DESx2 placement and elevation of CKs 2) Will hold on ASA/Plavix until patient scoped, heparin drip stopped, will await scope results then add ASA +/- Plavix if possible 3) Heart rate better controlled at this time 4) For C-scope hopefully today 6) Post-scope, will have to decide what to do with his NSTEMI whether medical management or stress test depending on results Problem Qualifiers (1) Atrial flutter: Qualified Code: I48.92 - Atrial flutter, unspecified type Mike Rutledge DO Jul 19, 2016 09:41
--- NOTE | 2016-07-19 10:19 | HHI.PR ---
Subjective Remarks Breathing is lot better now occasional cough no wheezing Lying comfortably on the bed without any apparent distress Has normal-looking urine No abdominal pain No chest pain Review of system for 12 point system otherwise unremarkable Objective Objective Results - Vital Signs Date Time Temp Pulse Resp B/P Pulse Ox O2 Delivery O2 Flow Rate FiO2 07/19/16 07:30 97.2 102 20 124/88 97 07/19/16 06:00 88 07/19/16 05:00 110 07/19/16 04:03 106 07/19/16 04:01 98.2 106 20 125/76 96 07/19/16 03:05 112 07/19/16 03:00 83 07/19/16 02:00 83 07/19/16 01:00 103 07/19/16 00:00 98.2 115 20 106/75 96 07/19/16 00:00 105 07/18/16 23:00 111 07/18/16 21:00 88 07/18/16 20:00 98.0 111 20 119/93 98 07/18/16 20:00 83 07/18/16 19:00 82 07/18/16 18:00 66 07/18/16 17:00 56 07/18/16 16:00 54 07/18/16 16:00 97.6 65 20 103/60 97 07/18/16 15:00 73 07/18/16 14:00 63 07/18/16 13:00 87 07/18/16 12:00 76 07/18/16 11:15 97.4 77 20 100/74 97 07/18/16 11:00 68 I/O 07/18/16 07/18/16 07/18/16 07/19/16 07/19/16 07/19/16 06:59 14:59 22:59 06:59 14:59 22:59 Intake Total 655 ml 240 ml 3000 ml Output Total 950 ml 1200 ml Balance -295 ml 240 ml 1800 ml Intake Oral 0 ml 240 ml 3000 ml IV Total 655 ml Output Urine Total 950 ml 1200 ml # Voids 6 3 # Bowel Movements 0 3 3 Result Diagram: 07/19/16 0355 07/19/16 0355 Other Results Laboratory Tests Test 07/19/16 03:55 White Blood Count 12.9 Red Blood Count 4.32 Hemoglobin 11.6 Hematocrit 35.1 Mean Corpuscular Volume 81.3 Mean Corpuscular Hemoglobin 26.8 Mean Corpuscular Hemoglobin 33.0 Concent Red Cell Distribution Width 15.9 Platelet Count 386 Mean Platelet Volume 7.3 Activated Partial 27.2 Thromboplast Time Sodium Level 138 Potassium Level 4.2 Chloride Level 105 Carbon Dioxide Level 20.8 Anion Gap 12 Blood Urea Nitrogen 53 Creatinine 1.94 Estimat Glomerular Filtration 36 Rate Random Glucose 113 Calcium Level 8.5 Physical Exam Physical Exam GENERAL: The patient is alert and oriented, obese, oriented times three lying on the bed without any cardiorespiratory distress. He has some pain in the back. VITAL SIGNS: Reviewed HEENT: Head is atraumatic, normocephalic. Eyes negative conjunctival icterus. Mouth unremarkable. NECK: Central trachea. Negative lymph node. CHEST: Good air entry bilaterally without wheezing. Occasional Dry crackling in the base CARDIOVASCULAR: S1 and S2 audible. Unable to hear any S3 gallop. ABDOMEN: Soft, non-tender, no organomegaly. Positive bowel sounds. MUSCULOSKELETAL: Extremities no cyanosis noted. There is trace ankle edema. INTERNAL MEDICINE SPECIALIST: Grossly intact. SKIN: Warm and dry. PSYCHIATRIC: Appropriate mood and affect. A/P Assessment and Plan 1. Rectal bleed. 2. Hematuria. 3. Recent CAD with stenting of two drug-eluting stents. The patient stopped taking Plavix and aspirin because of hematuria and rectal bleed three to four days ago. 4. Focal wall thickening and/or annular constriction lesion within the distal descending colon / proximal sigmoid colon with dilatation of fluid filling the colon proximal to the lesion. 5. History of hemorrhoids. 6. Pre diabetic. 7. Hypertension. 8. Chronic kidney disease history, stage III. 9. Lumbar spinal stenosis with chronic pain. 10. Cervical fusion C3 through C5. PLAN Seen in [facility]. Patient going for coloscopy today Appreciate GI consult in for possible endoscopy today Cardiac input is appreciated. Discussed with Dr. Rutledge yesterday. He is awaiting for endoscopy before proceeding for any medical treatment/intervention. Off of aspirin and Plavix. Labs reviewed Anemia will monitor stable H&H C KD will monitor, stable Increased troponin but is stable. Non-ST elevation [place] Tachycardia is better on medication Is started on some pain medication for his back pain. Protonix for GI prophylaxis. Condition guarded. Further recommendation to follow as the patient progresses. Discussed with RN. Discussed with the patient. Labs for morning Panja,Jawed A. MD Jul 19, 2016 10:19
[2016-07-19] MEDS ORDERED: PROPOFOL 200 MG/20 ML AMP IV ONE (13:58)
[2016-07-19] MEDS: ACETAMINOPHEN/HYDROcodone 325 MG/7.5 MG TAB PO PRN ×2 (15:31→20:40)
[2016-07-19] MEDS ORDERED: HEPARIN SODIUM - IV 10,000 UNITS/10 ML VIAL IV PRN ×2 (22:15)
[2016-07-19] MEDS ORDERED: HEPARIN 25,000 UNITS-D5W 250 ML - PREMIX IV SCH (22:15)
[2016-07-20] VITALS (23 sets, daily range): BP systolic 85–128; BP diastolic 67–87; PULSE 56–112; RESP 16–22; TEMP 97.6–98.3; O2SAT 17–100
[2016-07-20 00:12] LABS: APTT (PATIENT) 37.3 SEC (24.3-30.1)
[2016-07-20] MEDS: ACETAMINOPHEN/HYDROcodone 325 MG/7.5 MG TAB PO PRN ×5 (03:55→23:42)
[2016-07-20] MEDS: METOPROLOL TARTRATE 50 MG TAB PO SCH ×4 (05:10→23:42)
[2016-07-20 05:21] LABS: APTT (PATIENT) 97.3 SEC (24.3-30.1)
[2016-07-20 05:23] LABS: BICARBONATE 19.3 MEQ/L (21.0-32.0); HEMATOCRIT 35.3 % (39.0-51.0); MEAN CELL VOLUME 83.5 FL (80.0-100.0); MEAN CORPUSCULAR HEMOGLOBIN 27.4 PG (27.0-34.0); MEAN CORPUSCULAR HGB CONC 32.8 % (32.0-36.0); PLATELET COUNT 402 TH/MM3 (150-450); POTASSIUM 4.2 MEQ/L (3.5-5.1); RED BLOOD COUNT 4.23 MIL/MM3 (4.50-5.90); REVIEW FLAG FINAL
[2016-07-20] MEDS: DILTIAZEM HCL 90 MG TAB PO SCH ×4 (08:07→21:20)
[2016-07-20] MEDS: TAMSULOSIN HCL 0.4 MG CAP PO SCH (08:07)
[2016-07-20] MEDS: PANTOPRAZOLE SOD 40 MG DELAYED RELEASE TAB PO SCH (08:07)
[2016-07-20] MEDS: ATORVASTATIN 80 MG TAB PO SCH (08:07)
[2016-07-20 08:23] LABS: APTT (PATIENT) 55.9 SEC (24.3-30.1)
--- NOTE | 2016-07-20 08:36 | PD.CARD.PN ---
Subjective Subjective Remarks No chest pain, no shortness of breath Episode of hematochezia this morning with red blood and clots Objective Medications Current Medications Medications (Trade) Dose Ordered Sig/Maricarmen Route Start Time Stop Time Status Last Admin (NS 1000 ml Inj) 1,000 ml @ 50 mls/hr Q20H IV 07/15/16 11:00 07/17/16 17:46 (Tylenol) 650 mg Q4H PRN PO 07/15/16 10:45 07/19/16 05:22 (Zofran Inj) 4 mg Q6H PRN IVP 07/15/16 10:45 (Narcan Inj) 0.4 mg UNSCH PRN IV 07/15/16 10:45 (Protonix) 40 mg DAILY PO 07/16/16 09:00 07/20/16 08:07 Atorvastatin Calcium 80 mg 80 mg DAILY PO 07/16/16 09:00 07/20/16 08:07 (Cardizem Inj/NS Inj) 125 ml @ 0 mls/hr TITRATE IV 07/15/16 14:00 07/15/16 12:57 (Cardizem) 90 mg QID PO 07/15/16 18:00 07/20/16 08:07 ([place] 7.5-325 Mg) 1 tab Q4H PRN PO 07/15/16 17:15 07/20/16 08:08 (Flomax) 0.4 mg DAILY PO 07/15/16 17:30 07/20/16 08:07 Metoprolol Tartrate 50 mg 50 mg Q6HR PO 07/16/16 12:00 07/20/16 05:10 (Heparin-D5W Inj) 250 ml @ 0 mls/hr TITRATE IV 07/19/16 22:15 07/19/16 23:26 (Heparin Inj) 5,000 units UNSCH PRN IV 07/19/16 22:15 (Heparin Inj) 2,500 units UNSCH PRN IV 07/19/16 22:15 07/20/16 01:27 Vital Signs / I&O Vital Signs Date Time Temp Pulse Resp B/P Pulse Ox O2 Delivery O2 Flow Rate FiO2 07/20/16 07:00 90 07/20/16 07:00 97.9 98 17 113/87 98 07/20/16 06:00 77 07/20/16 05:00 82 12/24/16 04:00 90 07/20/16 04:00 Room Air 07/20/16 04:00 98.3 90 18 128/85 97 07/20/16 03:00 79 07/20/16 02:00 74 07/20/16 01:00 56 07/20/16 01:00 59 07/20/16 00:00 56 07/19/16 23:49 98.1 58 18 93/60 96 07/19/16 23:49 Room Air 07/19/16 23:00 58 07/19/16 22:00 89 07/19/16 21:00 111 07/19/16 20:00 Room Air 07/19/16 20:00 91 07/19/16 20:00 98.0 91 20 118/74 97 07/19/16 18:00 118 07/19/16 17:21 18 07/19/16 17:00 111 07/19/16 16:00 116 07/19/16 15:00 97.3 108 20 117/90 98 07/19/16 15:00 103 07/19/16 14:30 114 16 138/69 95 07/19/16 14:20 116 16 116/67 94 07/19/16 14:12 97.8 58 16 95/51 94 07/19/16 12:00 107 07/19/16 11:00 97.8 108 20 138/98 97 07/19/16 11:00 114 07/19/16 10:00 113 07/19/16 09:00 110 I/O 07/19/16 07/19/16 07/19/16 07/20/16 07/20/16 07/20/16 07:00 15:00 23:00 07:00 15:00 23:00 Intake Total 3000 ml 200 ml 870 ml Output Total 1200 ml 0 ml 900 ml Balance 1800 ml 200 ml 0 ml -30 ml Intake Oral 3000 ml 240 ml IV Total 630 ml Other 200 ml Output Urine Total 1200 ml 0 ml 900 ml # Bowel Movements 3 1 Physical Exam GENERAL: NAD SKIN: Warm and dry. HEAD: Atraumatic. Normocephalic. EYES: Pupils equal and round. No scleral icterus. No injection or drainage. ENT: No nasal bleeding or discharge. Mucous membranes pink and moist. NECK: Trachea midline. No JVD. CARDIOVASCULAR: Irregularly irregular RESPIRATORY: No accessory muscle use. Clear to auscultation. Breath sounds equal bilaterally. GASTROINTESTINAL: Abdomen soft, non-tender, nondistended. Hepatic and splenic margins not palpable. MUSCULOSKELETAL: Extremities without clubbing, cyanosis, or edema. No obvious deformities. NEUROLOGICAL: Awake and alert. No obvious cranial nerve deficits. Motor grossly within normal limits. Five out of 5 muscle strength in the arms and legs. Normal speech. PSYCHIATRIC: Appropriate mood and affect; insight and judgment normal. Laboratory Laboratory Tests Test 07/19/16 07/20/16 07/20/16 23:41 03:33 07:15 Activated Partial 37.3 SEC 97.3 SEC 55.9 SEC Thromboplast Time White Blood Count 11.0 TH/MM3 Red Blood Count 4.23 MIL/MM3 Hemoglobin 11.6 GM/DL Hematocrit 35.3 % Mean Corpuscular Volume 83.5 FL Mean Corpuscular Hemoglobin 27.4 PG Mean Corpuscular Hemoglobin 32.8 % Concent Red Cell Distribution Width 16.0 % Platelet Count 402 TH/MM3 Mean Platelet Volume 7.8 FL Sodium Level 136 MEQ/L Potassium Level 4.2 MEQ/L Chloride Level 104 MEQ/L Carbon Dioxide Level 19.3 MEQ/L Anion Gap 13 MEQ/L Blood Urea Nitrogen 48 MG/DL Creatinine 1.73 MG/DL Estimat Glomerular Filtration 41 ML/MIN Rate Random Glucose 99 MG/DL Calcium Level 8.3 MG/DL Assessment and Plan Problem List: (1) NSTEMI (non-ST elevated myocardial infarction) (2) Rectal bleeding (3) Atrial flutter (4) High blood pressure Assessment and Plan 1) Elevated troponin, concern for second [place] especially with recent DESx2 placement and elevation of CKs 2) Patient scoped, concern for GI mass 3) Heart rate better controlled at this time 4) Hold heparin drip for now with blood/clots this morning, consider starting ASA 81mg tomorrow if no blood in the stool 5) Await cytology results before deciding on management of NSTEMI Problem Qualifiers (1) Atrial flutter: Qualified Code: I48.92 - Atrial flutter, unspecified type Mike Rutledge DO Jul 20, 2016 08:36
[2016-07-20] MEDS: SODIUM CHLORIDE 0.9% FLUSH 5 ML FLUSH FLUSH SCH ×2 (08:55→21:20)
[2016-07-20] MEDS: SODIUM CHLOR 0.9% 1000 ML INJ 1,000 ML IV SCH ×2 (11:00→21:00)
[2016-07-20 11:54] LABS: HEMATOCRIT 34.1 % (39.0-51.0); MEAN CELL VOLUME 82.3 FL (80.0-100.0); MEAN CORPUSCULAR HEMOGLOBIN 26.9 PG (27.0-34.0); MEAN CORPUSCULAR HGB CONC 32.7 % (32.0-36.0); PLATELET COUNT 353 TH/MM3 (150-450); RED BLOOD COUNT 4.14 MIL/MM3 (4.50-5.90); RED CELL DISTRIBUTION WIDTH 16.2 % (11.6-17.2); REVIEW FLAG FINAL; WHITE BLOOD COUNT 11.7 TH/MM3 (4.0-11.0)
--- NOTE | 2016-07-20 14:59 | HHI.GIFU ---
Subjective Remarks Patient is eating lunch, reports episodes of hematochezia with blood clots in the am. Denies nausea, vomiting or abd pain. (Sondra Moss) Objective Vitals I&O Vital Signs Date Time Temp Pulse Resp B/P Pulse Ox O2 Delivery O2 Flow Rate FiO2 07/20/16 14:00 108 07/20/16 13:00 103 07/20/16 12:00 91 07/20/16 11:00 80 07/20/16 11:00 97.7 97 17 111/83 17 07/20/16 10:00 108 07/20/16 09:00 112 07/20/16 08:00 93 07/20/16 08:00 98 Room Air 07/20/16 07:00 90 07/20/16 07:00 97.9 98 17 113/87 98 07/20/16 06:00 77 07/20/16 05:00 82 07/20/16 04:00 90 07/20/16 04:00 Room Air 07/20/16 04:00 98.3 90 18 128/85 97 07/20/16 03:00 79 07/20/16 02:00 74 07/20/16 01:00 56 07/20/16 01:00 59 07/20/16 00:00 56 07/19/16 23:49 98.1 58 18 93/60 96 07/19/16 23:49 Room Air 07/19/16 23:00 58 07/19/16 22:00 89 07/19/16 21:00 111 07/19/16 20:00 Room Air 07/19/16 20:00 91 07/19/16 20:00 98.0 91 20 118/74 97 07/19/16 18:00 118 07/19/16 17:21 18 07/19/16 17:00 111 07/19/16 16:00 116 07/19/16 15:00 97.3 108 20 117/90 98 07/19/16 15:00 103 I/O 07/19/16 07/19/16 07/19/16 07/20/16 07/20/16 07/20/16 07:00 15:00 23:00 07:00 15:00 23:00 Intake Total 3000 ml 200 ml 870 ml Output Total 1200 ml 0 ml 900 ml Balance 1800 ml 200 ml 0 ml -30 ml Intake Oral 3000 ml 240 ml IV Total 630 ml Other 200 ml Output Urine Total 1200 ml 0 ml 900 ml # Bowel Movements 3 1 Laboratory Laboratory Tests Test 07/19/16 07/20/16 07/20/16 07/20/16 23:41 03:33 07:15 11:45 Activated Partial 37.3 97.3 55.9 Thromboplast Time White Blood Count 11.0 11.7 Red Blood Count 4.23 4.14 Hemoglobin 11.6 11.1 Hematocrit 35.3 34.1 Mean Corpuscular Volume 83.5 82.3 Mean Corpuscular Hemoglobin 27.4 26.9 Mean Corpuscular Hemoglobin 32.8 32.7 Concent Red Cell Distribution Width 16.0 16.2 Platelet Count 402 353 Mean Platelet Volume 7.8 7.4 Sodium Level 136 Potassium Level 4.2 Chloride Level 104 Carbon Dioxide Level 19.3 Anion Gap 13 Blood Urea Nitrogen 48 Creatinine 1.73 Estimat Glomerular Filtration 41 Rate Random Glucose 99 Calcium Level 8.3 Imaging Last Impressions Chest X-Ray 07/15/16 0837 Signed Impressions: Service Date/Time: Friday, July 15, 2016 09:42 - CONCLUSION: 1. Cardiomegaly. 2. No acute focal pulmonary infiltrate or pulmonary vascular congestion. 3. Degenerative changes and scoliosis of the thoracic spine. Rafat Saunders MD Abdomen/Pelvis CT 07/15/16 0000 Signed Impressions: Service Date/Time: Friday, July 15, 2016 11:12 - CONCLUSION: 1. Subtle focal wall thickening and/or annular constricting lesion within the distal descending colon/proximal sigmoid colon with dilatation and fluid filling the colon proximal to the lesion. Colonoscopy would be helpful for helpful for confirmation of annular constricting lesion in this location. 2. Probable enlarged lymph nodes within the mesocolon adjacent to the previously described lesion. 3. Scattered mildly enlarged retroperitoneal lymphadenopathy. 4. Tiny calcified non-obstructing bilateral renal calculi. 5. Simple and hyper dense within both kidneys which are unchanged. 6. Uncomplicated sigmoid diverticulosis. 7. Small pericardial effusion. 8. Coronary artery calcifications. 9. Scattered patchiness within the visualized lung bases. 10. Degenerative changes and scoliosis of the lumbar and lower thoracic spine. Rafat Saunders MD Physical Exam Physical Examination HEENT: Pupils round and reactive to light; normocephalic; atraumatic; no jaundice. NECK: Neck is supple, no JVD, no lymphadenopathy. CHEST: Chest is clear to auscultation and percussion. CARDIAC: tacky cardiac ABDOMEN: Soft, nondistended, diffused tenderness; obese, no hepatosplenomegaly ; bowel sounds are present in all four quadrants. EXTREMITIES: No clubbing, cyanosis, or edema. SKIN: Normal; no rash; no jaundice. SENIOR AUDITOR: No focal deficits; alert and oriented times three (Sondra Moss) Assessment and Plan Plan - Rectal bleed- S/P colonoscopy on (07/19/16) sigmoid mass, cytology pending, reports hematochezia this morning, hgb stable. - patient is status post stent placement to the LAD and cardiac catheterization on 07/04/2016 and was discharged on Plavix, however, patient discontinued this due to bleeding cardiology on the case Case discussed with career guidance counselor , he plans to place pt on Aspirin and await cytology results to decide on NSTEMI management - Hematuria- urology consulted, cystoscopy as an OP Plan: - Heart healthy diet - Await cytology - Reconsult Dr. Gupta - Patient seen and examined by Dr. Berumen and jason and this note is written on his behalf. (Sondra Moss) Physician Comments Seen and examined, plan as above, biopsy pending, CR surgeon to follow . Supportive care and blood transfusion as needed for now. (Sera Berumen MD) Sondra Moss Jul 20, 2016 14:59 Sera Berumen MD Jul 20, 2016 20:16
--- NOTE | 2016-07-20 16:29 | HHI.PR ---
Subjective Remarks Patient has some blood in his stool today Breathing is lot better now occasional cough no wheezing Lying comfortably on the bed without any apparent distress Has normal-looking urine No abdominal pain No chest pain Review of system for 10 point system otherwise unremarkable Objective Objective Results - Vital Signs Date Time Temp Pulse Resp B/P Pulse Ox O2 Delivery O2 Flow Rate FiO2 07/20/16 16:02 91 07/20/16 15:30 97.6 58 16 85/67 100 07/20/16 15:00 60 07/20/16 14:00 108 07/20/16 13:00 103 07/20/16 12:00 91 07/20/16 11:00 80 07/20/16 11:00 97.7 97 17 111/83 17 07/20/16 10:00 108 07/20/16 09:00 112 07/20/16 08:00 93 07/20/16 08:00 98 Room Air 07/20/16 07:00 90 07/20/16 07:00 97.9 98 17 113/87 98 07/20/16 06:00 77 07/20/16 05:00 82 07/20/16 04:00 90 07/20/16 04:00 Room Air 07/20/16 04:00 98.3 90 18 128/85 97 07/20/16 03:00 79 07/20/16 02:00 74 07/20/16 01:00 56 07/20/16 01:00 59 07/20/16 00:00 56 07/19/16 23:49 98.1 58 18 93/60 96 07/19/16 23:49 Room Air 07/19/16 23:00 58 07/19/16 22:00 89 07/19/16 21:00 111 07/19/16 20:00 Room Air 07/19/16 20:00 91 07/19/16 20:00 98.0 91 20 118/74 97 07/19/16 18:00 118 07/19/16 17:21 18 07/19/16 17:00 111 I/O 07/19/16 07/19/16 07/19/16 07/20/16 07/20/16 07/20/16 07:00 15:00 23:00 07:00 15:00 23:00 Intake Total 3000 ml 200 ml 870 ml Output Total 1200 ml 0 ml 900 ml Balance 1800 ml 200 ml 0 ml -30 ml Intake Oral 3000 ml 240 ml IV Total 630 ml Other 200 ml Output Urine Total 1200 ml 0 ml 900 ml # Bowel Movements 3 1 Result Diagram: 07/20/16 1145 07/20/16 0333 Other Results Laboratory Tests Test 07/19/16 07/20/16 07/20/16 07/20/16 23:41 03:33 07:15 11:45 Activated Partial 37.3 97.3 55.9 Thromboplast Time White Blood Count 11.0 11.7 Red Blood Count 4.23 4.14 Hemoglobin 11.6 11.1 Hematocrit 35.3 34.1 Mean Corpuscular Volume 83.5 82.3 Mean Corpuscular Hemoglobin 27.4 26.9 Mean Corpuscular Hemoglobin 32.8 32.7 Concent Red Cell Distribution Width 16.0 16.2 Platelet Count 402 353 Mean Platelet Volume 7.8 7.4 Sodium Level 136 Potassium Level 4.2 Chloride Level 104 Carbon Dioxide Level 19.3 Anion Gap 13 Blood Urea Nitrogen 48 Creatinine 1.73 Estimat Glomerular Filtration 41 Rate Random Glucose 99 Calcium Level 8.3 Physical Exam Physical Exam GENERAL: The patient is alert and oriented, obese, oriented times three lying on the bed without any cardiorespiratory distress. He has some pain in the back. VITAL SIGNS: Reviewed HEENT: Head is atraumatic, normocephalic. Eyes negative conjunctival icterus. Mouth unremarkable. NECK: Central trachea. Negative lymph node. CHEST: Good air entry bilaterally without wheezing. Occasional Dry crackling in the base CARDIOVASCULAR: S1 and S2 audible. Unable to hear any S3 gallop. ABDOMEN: Soft, non-tender, no organomegaly. Positive bowel sounds. MUSCULOSKELETAL: Extremities no cyanosis noted. There is trace ankle edema. MANAGER BUSINESS INFORMATION: Grossly intact. SKIN: Warm and dry. PSYCHIATRIC: Appropriate mood and affect. A/P Assessment and Plan 1. Rectal bleed. 2. Hematuria. 3. Recent CAD with stenting of two drug-eluting stents. The patient stopped taking Plavix and aspirin because of hematuria and rectal bleed three to four days ago. 4. Focal wall thickening and/or annular constriction lesion within the distal descending colon / proximal sigmoid colon with dilatation of fluid filling the colon proximal to the lesion. 5. History of hemorrhoids. 6. Pre diabetic. 7. Hypertension. 8. Chronic kidney disease history, stage III. 9. Lumbar spinal stenosis with chronic pain. 10. Cervical fusion C3 through C5. PLAN Seen in [facility]. Discussed with clinical account manager yesterday patient has mass biopsy done. Awaiting for biopsy Cardiac input is appreciated. Discussed with Dr. Rutledge today. Off of aspirin and Plavix. Labs reviewed Anemia will monitor stable H&H C KD will monitor, stable Increased troponin but is stable. Non-ST elevation [place] Tachycardia is better on medication started on some pain medication for his back pain. Protonix for GI prophylaxis. Condition guarded. Further recommendation to follow as the patient progresses. Discussed with RN. Discussed with the patient. Labs for morning Hina Armijo MD Jul 20, 2016 16:29
[2016-07-21] VITALS (18 sets, daily range): BP systolic 110–128; BP diastolic 48–73; PULSE 56–116; RESP 20–22; TEMP 97.5–98.1; O2SAT 98–99
[2016-07-21 04:18] LABS: HEMATOCRIT 33.1 % (39.0-51.0); MEAN CELL VOLUME 83.3 FL (80.0-100.0); MEAN CORPUSCULAR HEMOGLOBIN 27.1 PG (27.0-34.0); MEAN CORPUSCULAR HGB CONC 32.5 % (32.0-36.0); PLATELET COUNT 358 TH/MM3 (150-450); RED BLOOD COUNT 3.97 MIL/MM3 (4.50-5.90); RED CELL DISTRIBUTION WIDTH 16.4 % (11.6-17.2); REVIEW FLAG FINAL
[2016-07-21 04:43] LABS: BICARBONATE 23.3 MEQ/L (21.0-32.0); POTASSIUM 4.2 MEQ/L (3.5-5.1)
[2016-07-21] MEDS: METOPROLOL TARTRATE 50 MG TAB PO SCH ×4 (05:18→23:24)
[2016-07-21] MEDS: TAMSULOSIN HCL 0.4 MG CAP PO SCH (08:07)
[2016-07-21] MEDS: ACETAMINOPHEN/HYDROcodone 325 MG/7.5 MG TAB PO PRN ×3 (08:07→23:22)
[2016-07-21] MEDS: DILTIAZEM HCL 90 MG TAB PO SCH ×4 (08:08→23:23)
[2016-07-21] MEDS: SODIUM CHLORIDE 0.9% FLUSH 5 ML FLUSH FLUSH SCH ×2 (08:08→21:00)
[2016-07-21] MEDS: ATORVASTATIN 80 MG TAB PO SCH (08:08)
[2016-07-21] MEDS: PANTOPRAZOLE SOD 40 MG DELAYED RELEASE TAB PO SCH (08:08)
[2016-07-21] MEDS: ASPIRIN EC 81 MG TABEC PO SCH ×2 (08:45→09:00)
--- NOTE | 2016-07-21 08:47 | PD.CARD.PN ---
Subjective Subjective Remarks The chart was reviewed. The patient denies chest pain, shortness of breath, palpitations or GI symptoms except for decreased bowel movements. He has had no further GI bleeding. Telemetry reveals mildly rapid atrial flutter. Objective Medications Reviewed Vital Signs / I&O Vital Signs Date Time Temp Pulse Resp B/P Pulse Ox O2 Delivery O2 Flow Rate FiO2 07/21/16 06:00 67 07/21/16 05:00 68 07/21/16 04:00 56 07/21/16 03:00 87 07/21/16 03:00 97.9 87 20 110/64 99 07/21/16 02:00 68 07/21/16 01:00 64 07/21/16 00:50 20 07/21/16 00:00 97 07/20/16 23:00 98.2 97 22 117/73 99 07/20/16 20:00 57 07/20/16 19:00 98.2 97 22 117/73 99 07/20/16 19:00 99 Room Air 07/20/16 19:00 107 07/20/16 18:00 85 07/20/16 17:00 66 07/20/16 16:02 91 07/20/16 15:30 97.6 58 16 85/67 100 07/20/16 15:00 60 07/20/16 14:00 108 07/20/16 13:00 103 07/20/16 12:00 91 07/20/16 11:00 80 07/20/16 11:00 97.7 97 17 111/83 17 07/20/16 10:00 108 07/20/16 09:00 112 I/O 07/20/16 07/20/16 07/20/16 07/21/16 07/21/16 07/21/16 07:00 15:00 23:00 07:00 15:00 23:00 Intake Total 870 ml 4890 ml 720 ml Output Total 900 ml 400 ml 400 ml Balance -30 ml 4490 ml 320 ml Intake Oral 240 ml 4890 ml 720 ml IV Total 630 ml Output Urine Total 900 ml 400 ml 400 ml # Voids 4 # Bowel Movements 1 2 Physical Exam GENERAL: Well-nourished, well-developed patient in no apparent distress. SKIN: Warm and dry. NECK: JVD normal - less than or equal to 5 cm H20. CARDIOVASCULAR: Irregular rate and rhythm without murmurs, gallops, or rubs. RESPIRATORY: Normal breath sounds - equal bilaterally. No accessory muscle use. No wheezes, rales or rubs. PERIPHERY: No cyanosis. Trace to 1+ edema which the patient has intermittently. Laboratory Laboratory Tests Test 07/20/16 07/21/16 11:45 04:00 White Blood Count 11.7 TH/MM3 11.0 TH/MM3 Red Blood Count 4.14 MIL/MM3 3.97 MIL/MM3 Hemoglobin 11.1 GM/DL 10.8 GM/DL Hematocrit 34.1 % 33.1 % Mean Corpuscular Volume 82.3 FL 83.3 FL Mean Corpuscular Hemoglobin 26.9 PG 27.1 PG Mean Corpuscular Hemoglobin 32.7 % 32.5 % Concent Red Cell Distribution Width 16.2 % 16.4 % Platelet Count 353 TH/MM3 358 TH/MM3 Mean Platelet Volume 7.4 FL 7.3 FL Sodium Level 137 MEQ/L Potassium Level 4.2 MEQ/L Chloride Level 104 MEQ/L Carbon Dioxide Level 23.3 MEQ/L Anion Gap 10 MEQ/L Blood Urea Nitrogen 45 MG/DL Creatinine 1.76 MG/DL Estimat Glomerular Filtration 40 ML/MIN Rate Random Glucose 117 MG/DL Calcium Level 8.0 MG/DL Imaging Reviewed Assessment and Plan Assessment and Plan Problems: GI bleeding with probable obstructing colon cancer Non-ST elevation [place] with recent drug-eluting stent 2 to the LAD in the setting of a non-STEMI [place] at that point. No chest pain. Atrial flutter Hypertension Hyperlipidemia Chronic kidney disease Recommendations: We'll start aspirin 162 mg daily. It is a concern that his troponins have been elevated which possibly could represent him thrombosing and closing off his LAD as he was off aspirin and Plavix. Certainly we cannot heavily anticoagulate him with the bleeding and we would treat this conservatively. Continue metoprolol and diltiazem and make sure he gets this every 6 hours. I have discussed the situation with Dr. Gupta. The patient would be a high cardiac risk for major colon resection at this point in time. Dr. Gupta suggested diverting colostomy which could be done under local anesthesia with chemotherapy, delaying his definitive surgery for approximately 3 months. I discussed this with the patient but he does not want a colostomy. As an alternative I have suggested he may want to consider second opinion in a tertiary care center. Chaz Mei MD Jul 21, 2016 08:47
--- NOTE | 2016-07-21 14:37 | HHI.PR ---
Subjective Remarks Patient has some blood in his stool last stool was formed brown and without any blood as per patient Breathing is lot better now occasional cough no wheezing Lying comfortably on the bed without any apparent distress Has normal-looking urine No abdominal pain No chest pain Review of system for 10 point system otherwise unremarkable Objective Objective Results - Vital Signs Date Time Temp Pulse Resp B/P Pulse Ox O2 Delivery O2 Flow Rate FiO2 07/21/16 13:00 95 07/21/16 12:00 75 07/21/16 11:00 99 07/21/16 11:00 97.6 89 20 110/73 98 07/21/16 10:00 116 07/21/16 09:00 93 07/21/16 08:00 101 07/21/16 07:00 98 Room Air 07/21/16 07:00 97.5 91 20 128/70 98 07/21/16 07:00 85 07/21/16 06:00 67 07/21/16 05:00 68 07/21/16 04:00 56 07/21/16 03:00 87 07/21/16 03:00 97.9 87 20 110/64 99 07/21/16 02:00 68 07/21/16 01:00 64 07/21/16 00:50 20 07/21/16 00:00 97 07/20/16 23:00 98.2 97 22 117/73 99 07/20/16 20:00 57 07/20/16 19:00 98.2 97 22 117/73 99 07/20/16 19:00 99 Room Air 07/20/16 19:00 107 07/20/16 18:00 85 07/20/16 17:00 66 07/20/16 16:02 91 07/20/16 15:30 97.6 58 16 85/67 100 07/20/16 15:00 60 I/O 07/20/16 07/20/16 07/20/16 07/21/16 07/21/16 07/21/16 07:00 15:00 23:00 07:00 15:00 23:00 Intake Total 870 ml 4890 ml 720 ml Output Total 900 ml 400 ml 400 ml Balance -30 ml 4490 ml 320 ml Intake Oral 240 ml 4890 ml 720 ml IV Total 630 ml Output Urine Total 900 ml 400 ml 400 ml # Voids 4 # Bowel Movements 1 2 Result Diagram: 12/25/16 0400 07/21/16 0400 Other Results Laboratory Tests Test 07/21/16 04:00 White Blood Count 11.0 Red Blood Count 3.97 Hemoglobin 10.8 Hematocrit 33.1 Mean Corpuscular Volume 83.3 Mean Corpuscular Hemoglobin 27.1 Mean Corpuscular Hemoglobin 32.5 Concent Red Cell Distribution Width 16.4 Platelet Count 358 Mean Platelet Volume 7.3 Sodium Level 137 Potassium Level 4.2 Chloride Level 104 Carbon Dioxide Level 23.3 Anion Gap 10 Blood Urea Nitrogen 45 Creatinine 1.76 Estimat Glomerular Filtration 40 Rate Random Glucose 117 Calcium Level 8.0 Physical Exam Physical Exam GENERAL: The patient is alert and oriented, obese, oriented times three sitting on a recliner without any cardiorespiratory distress. He has some pain in the back. VITAL SIGNS: Reviewed HEENT: Head is atraumatic, normocephalic. Eyes negative conjunctival icterus. Mouth unremarkable. NECK: Central trachea. Negative lymph node. CHEST: Good air entry bilaterally without wheezing. Occasional Dry crackling in the base CARDIOVASCULAR: S1 and S2 audible. Unable to hear any S3 gallop. ABDOMEN: Soft, non-tender, no organomegaly. Positive bowel sounds. MUSCULOSKELETAL: Extremities no cyanosis noted. There is positive ankle edema. SILICA DRY PRESS HELPER: Grossly intact. SKIN: Warm and dry. PSYCHIATRIC: Appropriate mood and affect. A/P Assessment and Plan 1. Rectal bleed. 2. Hematuria. 3. Recent CAD with stenting of two drug-eluting stents. The patient stopped taking Plavix and aspirin because of hematuria and rectal bleed three to four days ago. 4. Focal wall thickening and/or annular constriction lesion within the distal descending colon / proximal sigmoid colon with dilatation of fluid filling the colon proximal to the lesion. 5. History of hemorrhoids. 6. Pre diabetic. 7. Hypertension. 8. Chronic kidney disease history, stage III. 9. Lumbar spinal stenosis with chronic pain. 10. Cervical fusion C3 through C5. PLAN Seen in [facility]. Awaiting for biopsy pathology Cardiac input is appreciated. On aspirin again Heart rate controlled with Cardizem and metoprolol Labs reviewed Anemia will monitor stable H&H C KD will monitor, stable Increased troponin but is stable. Non-ST elevation [place] Tachycardia is better on medication started on some pain medication for his back pain. Patient is talking about getting another opinion from tertiary care center. Will discuss with consultants about further plan of management Protonix for GI prophylaxis. Condition guarded. Further recommendation to follow as the patient progresses. Discussed with RN. Discussed with the patient. Labs for morning Hina Armijo MD Jul 21, 2016 14:37
--- NOTE | 2016-07-21 16:33 | RADRPT ---
EXAM DATE/TIME: 07/21/2016 16:02 [facility] COMPARISON: CT ABDOMEN & PELVIS W/O CONTRAST, July 15, 2016, 11:12. INDICATIONS : Pain. MEDICAL HISTORY : None. SURGICAL HISTORY : None. ENCOUNTER: Initial ACUITY: 1 week PAIN SCORE: 4/10 LOCATION: Bilateral abdomen. FINDINGS: The colon is distended measuring 12.2 cm involving the transverse colon and there is extensive stool in the cecum. No definite free air is identified for technique. CONCLUSION: Distended colon. KAudrey Tong MD on July 21, 2016 at 16:29 Board Certified Radiologist. This report was verified electronically.
[2016-07-21] MEDS ORDERED: FUROSEMIDE 20 MG TAB PO ONE (18:30)
--- NOTE | 2016-07-21 21:40 | MB ---
cc: ANGEL ARANA DATE OF CONSULTATION 07/21/2016 CHIEF COMPLAINTS 1. Colon cancer. 2. Near bowel obstruction. 3. Coronary artery disease with recent placement of stents and probable VT. PATIENT PROFILE The patient is a 56-year-old white male. He has been once. He was born in [facility] and has lived in [place] for the past six years. He lives in [place], [place]. He has one daughter age 26. The patient has been on disability due to ack injuries from work. He has had two total hips, two herniated disks one in the lower back and the cervical region. 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 He does not smoke. He does not drink. HISTORY OF PRESENT ILLNESS The patient is a 56-year-old male who noted blood on the toilet paper. He was referred to Dr. Kan Gupta who is a colorectal surgeon. When he saw Dr. Kan Gupta preparations were made for a colonoscopy. At the time he was to undergo the colonoscopy he was found to have significant tachycardia, with a pulse of around 140. He ended up being referred to the hospital. On 07/08/2016 he had a left heart catheterization and stents placed in the proximal LAD. The diagnosis was one-vessel coronary artery disease status post successful PCI to the proximal LAD. He was placed on aspirin and Plavix. He had worsening bleeding per rectum. He was discharged home and ended up being re-admitted. He had a CT scan of the abdomen and pelvis on 07/15/2016 which showed a constricting lesion within the distal descending sigmoid area with dilation and fluid filling the colon proximal to the lesion. There are probably enlarged lymph nodes within the mesocolon adjacent to the previously described lesion. There were scattered and mildly enlarged retroperitoneal lymph nodes. The patient had a colonoscopy on 07/19/2016 which showed a sigmoid mass; cytology is pending. The patient was advised to have a diverting colostomy. He has declined this. He has had arrhythmias with atrial flutter. He is undecided about what he is going to do. Today he has not wanted a colonoscopy, he is not sure what he wants to do, he is not sure where he wants it done. PAST SURGICAL HISTORY 1. Total right hip 2005. 2. Total left hip 2010. 3. Cervical fusion February 2016. PAST MEDICAL HISTORY 1. Borderline diabetes. 2. Hypertension. 3. Elevated cholesterol. 4. 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 5. Coronary artery disease with stents up to the proximal LAD. MEDICATIONS 1. Lopressor. 2. Cardizem. 3. Aspirin 162 mg a day. 4. Protonix. 5. Lipitor. 6. Flomax. 7. Diltiazem IV p.r.n. ALLERGIES No known allergies. FAMILY HISTORY Father age 73 from war related injuries. Mother at the age 84 of "old age" according to the patient. The patient has three sisters who are living. No family history of colon cancer. REVIEW OF SYSTEMS HEENT: Vision, has glasses. Hearing is mildly decreased. CARDIOVASCULAR: No chest pain, orthopnea, PND. RESPIRATORY: Mild exertional shortness of breath. GASTROINTESTINAL: Abdominal fullness, bloating, very minimal discomfort. Continues to have bowel movements. Occasional blood per rectum. GENITOURINARY: No dysuria. The urine on occasion has been dark. MUSCULOSKELETAL: Pain in thoracic spine, lumbar spine, cervical spine and generalized stiffness. NEUROLOGICAL: No focal weakness. PSYCHIATRIC: Obvious depression. PHYSICAL EXAMINATION VITAL SIGNS: Reveals an obese gentleman sitting in a chair. He is frightened. VITAL SIGNS: Blood pressure 110/70, respiratory rate is 20, pulse is 80. Afebrile. O2 saturation 98%. HEENT: Head is normocephalic. Sclerae and conjunctivae are normal. Oropharynx unremarkable. LYMPHATICS: There is no cervical or subclavicular, axillary or inguinal adenopathy. HEART: Regular rhythm. LUNGS: Clear. ABDOMEN: Without hepatosplenomegaly or masses. The abdomen is distended and tympanic. EXTREMITIES: 2+ edema. MUSCULOSKELETAL: There is some generalized stiffness. NEUROLOGICAL: No focal weakness. Cognition and affect unremarkable. He is depressed and frightened and became tearful. 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 It is likely to involve lymph nodes based on the CT scan. He is felt to have had a recent VT. He has a new coronary stent. He has been having problems with arrhythmias. Dr. Gupta feels that he is not a good candidate for definitive surgery at the current time and would benefit from a diverting colostomy given that he has had significant risks of having obstruction in the immediate future if he does not have it now. Following this it would be reasonable to give neoadjuvant chemotherapy in the as this would allow him to have an operation at a later date when he is more stable. Dr. Gupta feels the operative risk would be very high now. The risks of chemotherapy would also be elevated due to his current problem. If we are to proceed with chemotherapy he will require a port and he needs to be stabilized in terms of the immediate cardiac problems. The above has been discussed with the patient at length. I have had two conversations with Dr. Gupta today and two conversations with the clothespin machine operator, Dr. Mei. PLAN At the present time, the patient needs to make a decision as to where he will have his treatment. He keeps asking questions about whether he would get the best treatment here or elsewhere. Under these circumstances, I feel he should be given the opportunity of going to a tertiary care center if he desires as his course will be complicated and morbidity and mortality can be significant given his ongoing problems. I have placed a consult with both social work and case management to discuss with him the possibility of going to a tertiary care center if he desires. In the meantime, Dr. Mei will be working with the patient in order to obtain a more stable cardiac status. The patient may will require a diverting colostomy soon. I explained to Mr. Brown that he does not want to have a bowel obstruction requiring emergency surgery. MD KEATON Mills/DANA /2:03 PM /8:58 PM MTDLolis
[2016-07-21] MEDS ORDERED: LORazepam 2 MG/ML VIAL IV PRN (23:00)
[2016-07-21] MEDS ORDERED: METRONIDAZOLE 500 MG/100 ML ISONTONIC SOLN IV SCH (23:00)
[2016-07-21] MEDS ORDERED: ceFAZolin 1,000 MG/NS 100 ML IV SCH ×2 (23:00)
[2016-07-21] MEDS: LACTATED RINGER'S 1000 ML IV SCH (23:15)
[2016-07-21] MEDS ORDERED: INSULIN HUMAN REGULAR 1,000 UNITS/10 ML VIAL SQ PRN (23:15)
[2016-07-21] MEDS: SODIUM CHLORID 0.9% 500 ML IV SCH (23:15)
[2016-07-21] MEDS ORDERED: METOPROLOL TARTRATE 25 MG TAB PO PRN (23:15)
[2016-07-21] MEDS: SODIUM CHLOR 0.9% 1000 ML INJ 1,000 ML IV SCH (23:44)
[2016-07-22] VITALS (24 sets, daily range): BP systolic 94–143; BP diastolic 49–96; PULSE 45–121; RESP 16–22; TEMP 97.6–98.5; O2SAT 97–99
[2016-07-22 05:25] LABS: HEMATOCRIT 31.4 % (39.0-51.0); MEAN CELL VOLUME 83.1 FL (80.0-100.0); MEAN CORPUSCULAR HEMOGLOBIN 27.3 PG (27.0-34.0); MEAN CORPUSCULAR HGB CONC 32.9 % (32.0-36.0); PLATELET COUNT 345 TH/MM3 (150-450); RED BLOOD COUNT 3.78 MIL/MM3 (4.50-5.90); RED CELL DISTRIBUTION WIDTH 16.4 % (11.6-17.2); REVIEW FLAG FINAL; WHITE BLOOD COUNT 10.9 TH/MM3 (4.0-11.0)
[2016-07-22] MEDS: DILTIAZEM HCL 90 MG TAB PO SCH ×3 (05:44→17:18)
[2016-07-22] MEDS: METOPROLOL TARTRATE 50 MG TAB PO SCH ×3 (05:44→17:18)
[2016-07-22] MEDS ORDERED: BUPIVACAINE HCL PF 0.5% 30 ML VIAL ONE (07:01)
[2016-07-22 07:03] LABS: POTASSIUM 4.6 MEQ/L (3.5-5.1)
[2016-07-22] MEDS: ASPIRIN EC 81 MG TABEC PO SCH (07:55)
--- NOTE | 2016-07-22 08:12 | PD.CARD.PN ---
Subjective Subjective Remarks The patient denies chest pain, shortness of breath, palpitations or GI symptoms. Telemetry reveals overall controlled atrial flutter. He will be going for a diverting colostomy this morning. Objective Medications Reviewed Vital Signs / I&O Vital Signs Date Time Temp Pulse Resp B/P Pulse Ox O2 Delivery O2 Flow Rate FiO2 07/22/16 06:00 47 07/22/16 05:00 45 07/22/16 04:00 78 07/22/16 03:48 98.5 77 20 94/49 98 07/22/16 03:48 Room Air 07/22/16 03:00 77 07/22/16 02:00 81 07/22/16 01:00 99 07/22/16 00:00 Room Air 07/22/16 00:00 98.2 96 22 122/55 97 07/22/16 00:00 96 07/21/16 23:00 67 07/21/16 22:00 57 07/21/16 21:00 59 07/21/16 20:00 Room Air 07/21/16 20:00 62 07/21/16 20:00 98.1 62 22 121/48 99 07/21/16 13:00 95 07/21/16 12:00 75 07/21/16 11:00 99 07/21/16 11:00 97.6 89 20 110/73 98 07/21/16 10:00 116 07/21/16 09:00 93 I/O 07/21/16 07/21/16 07/21/16 07/22/16 07/22/16 07/22/16 07:00 15:00 23:00 07:00 15:00 23:00 Intake Total 720 ml 840 ml 1080 ml Output Total 400 ml Balance 320 ml 840 ml 1080 ml Intake Oral 720 ml 840 ml 480 ml IV Total 600 ml Output Urine Total 400 ml # Voids 4 4 4 # Bowel Movements 2 3 3 Physical Exam GENERAL: Well-nourished, well-developed patient in no apparent distress. SKIN: Warm and dry. NECK: JVD normal - less than or equal to 5 cm H20. CARDIOVASCULAR: Irregular rate and rhythm without murmurs, gallops, or rubs. RESPIRATORY: Normal breath sounds - equal bilaterally. No accessory muscle use. No wheezes, rales or rubs. PERIPHERY: No cyanosis. Trace edema which the patient has intermittently. Laboratory Laboratory Tests Test 07/22/16 05:00 White Blood Count 10.9 TH/MM3 Red Blood Count 3.78 MIL/MM3 Hemoglobin 10.3 GM/DL Hematocrit 31.4 % Mean Corpuscular Volume 83.1 FL Mean Corpuscular Hemoglobin 27.3 PG Mean Corpuscular Hemoglobin 32.9 % Concent Red Cell Distribution Width 16.4 % Platelet Count 345 TH/MM3 Mean Platelet Volume 7.7 FL Sodium Level 138 MEQ/L Potassium Level 4.6 MEQ/L Chloride Level 106 MEQ/L Carbon Dioxide Level 24.0 MEQ/L Anion Gap 8 MEQ/L Blood Urea Nitrogen 43 MG/DL Creatinine 1.66 MG/DL Estimat Glomerular Filtration 43 ML/MIN Rate Random Glucose 124 MG/DL Calcium Level 8.0 MG/DL Troponin I 5.45 NG/ML Imaging Reviewed Assessment and Plan Assessment and Plan Problems: GI bleeding with obstructing colon cancer Non-ST elevation DC with recent drug-eluting stent 2 to the LAD in the setting of a non-STEMI DC at that point. No chest pain. Atrial flutter Hypertension Hyperlipidemia Chronic kidney disease Recommendations: I did speak with Dr. Coy Uriostegui and Dr. Kan Gupta about the case yesterday. Aspirin 162 mg daily. It is a concern that his troponins have been elevated which possibly could represent him thrombosing and closing off his LAD as he was off aspirin and Plavix. Certainly we cannot heavily anticoagulate him with the bleeding and we would treat this conservatively. Continue metoprolol and diltiazem and make sure he gets this every 6 hours. As long as his average heart rate is between 60-100--we would tolerate short episodes of a faster or slow her heart rate without hemodynamic compromise. I have discussed the situation with Dr. Gupta. The patient would be a high cardiac risk for major colon resection at this point in time. Dr. Gupta suggested diverting colostomy which could be done under local anesthesia with chemotherapy, delaying his definitive surgery for approximately 3 months. I would add back in Plavix 75 mg per day when it is felt that he can tolerate this. We will sign off and be available if needed. He will need outpatient cardiology follow-up. Chaz Mei MD Jul 22, 2016 08:12
[2016-07-22 09:17] LABS: BLOOD GAS BASE EXCESS -4.8 mmol/L (-2-2); BLOOD GAS CARBOXYHEMOGLOBIN 1.4 % (0-4); BLOOD GAS HCO3 20 mmol/L (22-26); BLOOD GAS METHEMOGLOBIN 0.9 % (0-2); BLOOD GAS O2 HGB SATURATION 98 % (90-100); BLOOD GAS OXYGEN CONTENT 14.1 Vol % (12.0-20.0); BLOOD GAS PCO2 40 mmHg (38-42); BLOOD GAS PO2 337 mmHg (61-120); BLOOD GAS TOTAL HGB 9.6 G/DL (12.0-16.0); CRITICAL VALUE NO; OXYGEN DEVICE VENTILATOR; TEMP CORR TO 98.6
[2016-07-22 09:18] LABS: DRAW SITE ART LINE; FIO2 100 %; STAT YES
[2016-07-22] MEDS ORDERED: *RESP: ALBUTEROL 2.5 MG/3 ML NEB (PRN) PERIprocedural Use ONLY NEB ONE (09:59)
[2016-07-22] MEDS ORDERED: MIDAZOLAM HCL 2 MG/2 ML VIAL ONE (10:01)
[2016-07-22] MEDS ORDERED: fentaNYL CITRATE 250 MCG/5 ML AMP ONE (10:02)
[2016-07-22] MEDS ORDERED: SUGAMMADEX SODIUM 200 MG/2 ML VIAL IV PUSH ONE ×2 (10:03)
[2016-07-22] MEDS ORDERED: *ONDANSETRON 4 MG VIAL PERIprocedural Use ONLY ONE (10:12)
[2016-07-22] MEDS ORDERED: *morphine SULFATE 8 MG/ML PERIprocedure ONLY ONE ×2 (10:12→10:47)
[2016-07-22] MEDS ORDERED: DO NOT ADM ANY ANTICOAGULANT DRUGS XX PRN (10:30)
[2016-07-22] MEDS ORDERED: PHENYLEPH/NS 1000 MCG/10 ML SYR IV ONE (12:00)
[2016-07-22] MEDS ORDERED: ONDANSETRON HCL 4 MG/2 ML VIAL IV PUSH ONE (12:00)
[2016-07-22] MEDS ORDERED: LACTATED RINGER'S 1000 ML INJ 1,000 ML IV ONE (12:00)
[2016-07-22] MEDS ORDERED: SODIUM CHLORID 0.9% 500 ML INJ 500 ML IV ONE (12:00)
[2016-07-22] MEDS ORDERED: SODIUM CHLOR 0.9% 250 ML INJ 250 ML IV ONE (12:00)
[2016-07-22] MEDS ORDERED: VASOPRESSIN INJ 20 UNITS/ML VIAL IV ONE (12:00)
[2016-07-22] MEDS ORDERED: PROPOFOL 200 MG/20 ML AMP IV ONE (12:00)
[2016-07-22] MEDS: SODIUM CHLOR 0.9% 1000 ML INJ 1,000 ML IV SCH ×2 (12:09→19:44)
[2016-07-22] MEDS: ACETAMINOPHEN/HYDROcodone 325 MG/7.5 MG TAB PO PRN ×2 (13:20→21:42)
[2016-07-22] MEDS: SODIUM CHLORID 0.9% 500 ML IV SCH (15:55)
--- NOTE | 2016-07-22 19:47 | HHI.PR ---
Subjective History of Present Illness I am okay Abdominal pain is ok/ pain meds are helping Colostomy bag is working, brown liquid stool with hint of blood in place Diet advance to regular by surgeon, tolerating diet so far No nausea or vomiting Denies chest pain or shortness of breath No fever or chills No cough or sputum production Legs are slightly swollen Offers no other complaints Vitals/Results Intake & Output 07/21/16 07/21/16 07/22/16 15:00 23:00 07:00 Intake Total 840 ml 1080 ml Balance 840 ml 1080 ml Intake Oral 840 ml 480 ml IV Total 600 ml # Voids 4 4 # Bowel Movements 3 3 Vital Signs Vital Signs Date Time Temp Pulse Resp B/P Pulse Ox O2 Delivery O2 Flow Rate FiO2 07/22/16 18:00 101 07/22/16 17:00 113 07/22/16 16:20 112 07/22/16 16:00 97.9 111 16 115/72 98 07/22/16 15:00 112 07/22/16 14:00 101 07/22/16 13:00 100 07/22/16 12:00 110 07/22/16 11:59 98 Nasal Cannula 2.00 07/22/16 11:52 97.7 100 16 132/92 99 123/72 07/22/16 11:42 100 07/22/16 11:11 89 15 131/73 100 Nasal Cannula 3 07/22/16 11:00 103 14 123/78 99 Nasal Cannula 3 07/22/16 10:45 101 13 128/66 99 Nasal Cannula 3 07/22/16 10:30 100 16 134/81 100 Nasal Cannula 3 07/22/16 10:15 97 15 134/74 100 Nasal Cannula 3 07/22/16 10:00 99 14 133/88 99 Nasal Cannula 5 07/22/16 09:55 98.0 96 16 123/93 95 Simple Mask 6 07/22/16 08:00 121 07/22/16 07:00 97.6 119 16 143/96 99 07/22/16 07:00 99 Room Air 07/22/16 07:00 109 07/22/16 06:00 47 07/22/16 05:00 45 07/22/16 04:00 78 07/22/16 03:48 98.5 77 20 94/49 98 07/22/16 03:48 Room Air 12/26/16 03:00 77 07/22/16 02:00 81 07/22/16 01:00 99 07/22/16 00:00 Room Air 07/22/16 00:00 98.2 96 22 122/55 97 07/22/16 00:00 96 07/21/16 23:00 67 07/21/16 22:00 57 07/21/16 21:00 59 07/21/16 20:00 Room Air 07/21/16 20:00 62 07/21/16 20:00 98.1 62 22 121/48 99 CBC/BMP: 07/22/16 0500 07/22/16 0500 Lab Results Laboratory Tests Test 07/22/16 07/22/16 07/22/16 07/22/16 05:00 07:19 09:07 15:40 White Blood Count 10.9 TH/MM3 Red Blood Count 3.78 MIL/MM3 Hemoglobin 10.3 GM/DL Hematocrit 31.4 % Mean Corpuscular Volume 83.1 FL Mean Corpuscular Hemoglobin 27.3 PG Mean Corpuscular Hemoglobin 32.9 % Concent Red Cell Distribution Width 16.4 % Platelet Count 345 TH/MM3 Mean Platelet Volume 7.7 FL Sodium Level 138 MEQ/L Potassium Level 4.6 MEQ/L Chloride Level 106 MEQ/L Carbon Dioxide Level 24.0 MEQ/L Anion Gap 8 MEQ/L Blood Urea Nitrogen 43 MG/DL Creatinine 1.66 MG/DL Estimat Glomerular Filtration 43 ML/MIN Rate Random Glucose 124 MG/DL Calcium Level 8.0 MG/DL Troponin I 5.45 NG/ML Blood Type O POSITIVE Antibody Screen NEGATIVE Blood Gas Puncture Site ART LINE Blood Gas Patient Temperature 98.6 Blood Gas HCO3 20 mmol/L Blood Gas Base Excess -4.8 mmol/L Blood Gas Oxygen Saturation 98 % Arterial Blood pH 7.32 Arterial Blood Partial 40 mmHg Pressure CO2 Arterial Blood Partial 337 mmHg Pressure O2 Arterial Blood Oxygen Content 14.1 Vol % Arterial Blood 1.4 % Carboxyhemoglobin Arterial Blood Methemoglobin 0.9 % Blood Gas Hemoglobin 9.6 G/DL Oxygen Delivery Device VENTILATOR Blood Gas Ventilator Setting UNKNOWN Blood Gas Inspired Oxygen 100 % Nasal Screen MRSA (PCR) NEGATIVE Physical Exam General General Appearance: Well Nourished, No Acute Distress, Comfortable, Obese Eyes Eye Exam: Pupils Equal, Sclera White, Extraocular Movement Intact Ears & Nose Ears & Nose Exam: Nasal Mucosa [place] Throat Throat Exam: Oral Mucosa [place] & Moist Neck Neck Exam: Neck Supple, Trachea Midline Pulmonary Resp Exam: Clear Bilaterally, Breath Sounds Equal Cardiology CV Exam: Irregular, Arrhythmia CV Remarks Telemetry atrial flutter with controlled ventricular rate Gastrointestinal/Abdomen GI Exam: Soft, Bowel Sounds Present GI Remarks Colostomy bag in place , site appears okay Integumentary Skin Exam: Warm, Dry Extremeties Extremities Exam: No Edema, Pedal Pulses Palpable, Dependent Edema Neurologic Neuro Exam: Alert, Awake, Oriented, Speech Clear, Moving All Extremities Psychiatric Psych Exam: Appropriate Responses VTE Prophylaxis VTE Prophylaxis Device: SCDs PUD Prophylasis PUD Prophylaxis: Protonix Assessment/Plan Assessment/Plan A/P Assessment and Plan 1. Rectal bleed d/t Adenocarcinoma 2. Hematuria. 3. Recent CAD with stenting of two drug-eluting stents. The patient stopped taking Plavix and aspirin because of hematuria and rectal bleed three to four days ago. 4. Focal wall thickening and/or annular constriction lesion within the distal descending colon / proximal sigmoid colon with dilatation of fluid filling the colon proximal to the lesion. 5. History of hemorrhoids. 6. Pre diabetic. 7. Hypertension. 8. Chronic kidney disease history, stage III. 9. Lumbar spinal stenosis with chronic pain. 10. Cervical fusion C3 through C5. 11. Atrial flutter with controlled ventricular rate 12. Acute postop blood loss anemia PLAN On aspirin Heart rate controlled with Cardizem and metoprolol Status post diverting colostomy Continue analgesics Continue heart healthy diet Resume Plavix when okay with colorectal surgeon Postop care per Dr. Gupta monitor H&H Continue statin Patient BP is marginal, will hold diuretic at this time Oncology input appreciated, neoadjuvant chemotherapy once more stable By more definitive colonic surgery later when patient stable from cardiac point Protonix for GI prophylaxis. Condition guarded. Discussed patient A.m. labs Transfer to stepdown when okay with colorectal surgeon Will follow David Mcdaniel MD Jul 22, 2016 19:47
[2016-07-22] MEDS: LACTATED RINGER'S 1000 ML IV SCH (20:27)
[2016-07-22] MEDS: SODIUM CHLORIDE 0.9% FLUSH 5 ML FLUSH FLUSH SCH (20:28)
[2016-07-23] VITALS (10 sets, daily range): BP systolic 97–126; BP diastolic 63–77; PULSE 57–115; RESP 16–23; TEMP 97.6–98.2; O2SAT 93–98
[2016-07-23] MEDS: DILTIAZEM HCL 90 MG TAB PO SCH ×4 (01:02→19:48)
[2016-07-23] MEDS: METOPROLOL TARTRATE 50 MG TAB PO SCH ×4 (01:02→18:00)
[2016-07-23] MEDS: ACETAMINOPHEN/HYDROcodone 325 MG/7.5 MG TAB PO PRN ×4 (02:43→19:48)
[2016-07-23 05:34] LABS: AUTOMATED NEUTROPHIL # 12.8 TH/MM3 (1.8-7.7); BASOPHIL # 0.1 TH/MM3 (0-0.2); BASOPHIL % 0.4 % (0.0-2.0); EOSINOPHIL % 0.1 % (0.0-4.0); HEMATOCRIT 24.5 % (39.0-51.0); HEMO FLAGS DIFF FINAL; LYMPH % 8.7 % (9.0-44.0); LYMPHOCYTE # 1.3 TH/MM3 (1.0-4.8); MEAN CELL VOLUME 83.4 FL (80.0-100.0); MEAN CORPUSCULAR HEMOGLOBIN 27.5 PG (27.0-34.0); MONO % 5.9 % (0.0-8.0); NEUT % 84.9 % (16.0-70.0); PLATELET COUNT 358 TH/MM3 (150-450); RED BLOOD COUNT 2.94 MIL/MM3 (4.50-5.90); RED CELL DISTRIBUTION WIDTH 16.3 % (11.6-17.2); WHITE BLOOD COUNT 15.1 TH/MM3 (4.0-11.0)
[2016-07-23 05:57] LABS: BICARBONATE 24.4 MEQ/L (21.0-32.0); POTASSIUM 5.2 MEQ/L (3.5-5.1)
[2016-07-23] MEDS: SODIUM CHLOR 0.9% 1000 ML INJ 1,000 ML IV SCH ×2 (06:17→19:37)
[2016-07-23] MEDS: TAMSULOSIN HCL 0.4 MG CAP PO SCH ×2 (07:52→09:00)
[2016-07-23] MEDS: PANTOPRAZOLE SOD 40 MG DELAYED RELEASE TAB PO SCH ×2 (07:52→09:00)
[2016-07-23] MEDS: ATORVASTATIN 80 MG TAB PO SCH ×2 (07:52→09:00)
[2016-07-23] MEDS: ASPIRIN EC 81 MG TABEC PO SCH (07:53)
[2016-07-23] MEDS: SODIUM CHLORIDE 0.9% FLUSH 5 ML FLUSH FLUSH SCH ×2 (07:53→20:23)
--- NOTE | 2016-07-23 15:31 | HHI.GIFU ---
Subjective Remarks Patient is resting in bed, reports some old blood from the rectum. (Basiliakinjal Walemorris SOTO) Objective Vitals I&O Vital Signs Date Time Temp Pulse Resp B/P Pulse Ox O2 Delivery O2 Flow Rate FiO2 07/23/16 12:00 97.6 90 16 117/74 95 Arterial Line 07/23/16 12:00 90 07/23/16 08:52 21 07/23/16 08:00 95 Nasal Cannula 2.00 07/23/16 08:00 74 07/23/16 08:00 97.7 74 20 113/72 95 Automatic Cuff 07/23/16 07:58 93 Nasal Cannula 2.00 07/23/16 06:00 93 07/23/16 04:00 72 07/23/16 04:00 98.2 72 17 110/70 95 07/23/16 02:00 85 07/23/16 00:00 98.0 112 17 118/72 98 07/23/16 00:00 112 07/22/16 22:00 91 07/22/16 20:00 97.8 88 21 112/70 98 07/22/16 20:00 99 Room Air 07/22/16 20:00 88 07/22/16 19:30 98 Nasal Cannula 2.00 07/22/16 18:00 101 07/22/16 17:00 113 07/22/16 16:20 112 07/22/16 16:00 97.9 111 16 115/72 98 I/O 07/22/16 07/22/16 07/22/16 07/23/16 07/23/16 07/23/16 06:59 14:59 22:59 06:59 14:59 22:59 Intake Total 1080 ml 2125 ml 1733 ml Output Total 920 ml 920 ml Balance 1080 ml 1205 ml 813 ml Intake Oral 480 ml 75 ml 360 ml IV Total 600 ml 250 ml 1123 ml Packed Cells 250 ml Other 1800 ml Output Urine Total 500 ml 900 ml Stool Total 20 ml 20 ml Estimated Blood Loss 50 ml Other 350 ml # Voids 4 # Bowel Movements 3 1 1 Laboratory Laboratory Tests Test 07/22/16 07/23/16 07/23/16 15:40 05:10 06:12 Nasal Screen MRSA (PCR) NEGATIVE White Blood Count 15.1 Red Blood Count 2.94 Hemoglobin 8.1 Hematocrit 24.5 Mean Corpuscular Volume 83.4 Mean Corpuscular Hemoglobin 27.5 Mean Corpuscular Hemoglobin 33.0 Concent Red Cell Distribution Width 16.3 Platelet Count 358 Mean Platelet Volume 8.0 Neutrophils (%) (Auto) 84.9 Lymphocytes (%) (Auto) 8.7 Monocytes (%) (Auto) 5.9 Eosinophils (%) (Auto) 0.1 Basophils (%) (Auto) 0.4 Neutrophils # (Auto) 12.8 Lymphocytes # (Auto) 1.3 Monocytes # (Auto) 0.9 Eosinophils # (Auto) 0.0 Basophils # (Auto) 0.1 CBC Comment DIFF FINAL Differential Comment Sodium Level 137 Potassium Level 5.2 Chloride Level 106 Carbon Dioxide Level 24.4 Anion Gap 7 Blood Urea Nitrogen 35 Creatinine 1.31 Estimat Glomerular Filtration 56 Rate Random Glucose 107 Calcium Level 7.9 Carcinoembryonic Antigen 7.0 Blood Type O POSITIVE Crossmatch Leukocyte-Reduced Red Blood Cells Blood Bank Comment Imaging Last Impressions Abdomen X-Ray 07/21/16 0000 Signed Impressions: Service Date/Time: Thursday, July 21, 2016 16:02 - CONCLUSION: Distended colon. Andreina Tong MD Chest X-Ray 07/15/16 0837 Signed Impressions: Service Date/Time: Friday, July 15, 2016 09:42 - CONCLUSION: 1. Cardiomegaly. 2. No acute focal pulmonary infiltrate or pulmonary vascular congestion. 3. Degenerative changes and scoliosis of the thoracic spine. Rafat Saunders MD Abdomen/Pelvis CT 07/15/16 0000 Signed Impressions: Service Date/Time: Friday, July 15, 2016 11:12 - CONCLUSION: 1. Subtle focal wall thickening and/or annular constricting lesion within the distal descending colon/proximal sigmoid colon with dilatation and fluid filling the colon proximal to the lesion. Colonoscopy would be helpful for helpful for confirmation of annular constricting lesion in this location. 2. Probable enlarged lymph nodes within the mesocolon adjacent to the previously described lesion. 3. Scattered mildly enlarged retroperitoneal lymphadenopathy. 4. Tiny calcified non-obstructing bilateral renal calculi. 5. Simple and hyper dense within both kidneys which are unchanged. 6. Uncomplicated sigmoid diverticulosis. 7. Small pericardial effusion. 8. Coronary artery calcifications. 9. Scattered patchiness within the visualized lung bases. 10. Degenerative changes and scoliosis of the lumbar and lower thoracic spine. Rafat Saunders MD Physical Exam Physical Examination HEENT: Pupils round and reactive to light; normocephalic; atraumatic; no jaundice. NECK: Neck is supple, no JVD, no lymphadenopathy. CHEST: Chest is clear to auscultation and percussion. CARDIAC: tacky cardiac ABDOMEN: Soft, nondistended, diffused tenderness; obese, no hepatosplenomegaly ; bowel sounds are present in all four quadrants. Colostomy EXTREMITIES: No clubbing, cyanosis, or edema. SKIN: Normal; no rash; no jaundice. CHARGING CRANE OPERATOR: No focal deficits; alert and oriented times three (Sondra Moss) Assessment and Plan Plan - Rectal bleed secondary to sigmoid mass- S/P diverting colostomy (07/22/16). S/P colonoscopy on (07/19/16) sigmoid mass, cytology pending, Oncology on the case, the plan for neoadjuvant chemotherapy once more stable - patient is status post stent placement to the LAD and cardiac catheterization on 07/04/2016 and was discharged on Plavix, however, patient discontinued this due to bleeding cardiology on the case Case discussed with volcanology teacher , he plans to place pt on Aspirin and await cytology results to decide on NSTEMI management - Hematuria- urology consulted, cystoscopy as an OP Plan: - Diet per CRS - Await cytology - Gi will sign off - Oncology on the case - will defer to Dr. Gupta for patient medical management - Patient seen and examined by Dr. Berumen and myself and this note is written on his behalf. (Sondra Moss) Physician Comments Agree with plan as above, check biopsy results, please notify us if needed. ( Sera Berumen MD) Sondra Moss Jul 23, 2016 15:31 Sera Bermuen MD Jul 23, 2016 16:28
[2016-07-23] MEDS: LACTATED RINGER'S 1000 ML IV SCH (20:22)
--- NOTE | 2016-07-23 20:59 | HHI.PR ---
Subjective Remarks C/R Surg POD #1 afebrile, VSS no active bleeding still with rectal BM stoma functioning Objective - Vital Signs Date Time Temp Pulse Resp B/P Pulse Ox O2 Delivery O2 Flow Rate FiO2 07/23/16 16:00 97.9 57 19 97/63 98 07/23/16 08:00 Nasal Cannula 2.00 Result Diagram: 07/23/16 0510 07/23/16 0510 Objective Remarks PE alert Abd - obese, soft, non-tender, stoma swollen A/P Assessment and Plan Imp: s/p [place], recent stent palcement Abd better after diversion adv diet, decr IVF outpt chemo - will need port Kan Gupta MD Jul 23, 2016 20:59
[2016-07-24] VITALS (12 sets, daily range): BP systolic 90–132; BP diastolic 65–80; PULSE 58–124; RESP 14–24; TEMP 97.8–98.6; O2SAT 93–98
[2016-07-24] MEDS: ACETAMINOPHEN/HYDROcodone 325 MG/7.5 MG TAB PO PRN ×6 (00:34→22:18)
[2016-07-24] MEDS: DILTIAZEM HCL 90 MG TAB PO SCH ×4 (00:34→17:45)
[2016-07-24 05:05] LABS: HEMATOCRIT 27.1 % (39.0-51.0); MEAN CELL VOLUME 83.3 FL (80.0-100.0); MEAN CORPUSCULAR HEMOGLOBIN 27.8 PG (27.0-34.0); MEAN CORPUSCULAR HGB CONC 33.4 % (32.0-36.0); PLATELET COUNT 303 TH/MM3 (150-450); RED BLOOD COUNT 3.25 MIL/MM3 (4.50-5.90); RED CELL DISTRIBUTION WIDTH 16.6 % (11.6-17.2); REVIEW FLAG FINAL; WHITE BLOOD COUNT 12.8 TH/MM3 (4.0-11.0)
[2016-07-24 05:24] LABS: BICARBONATE 25.4 MEQ/L (21.0-32.0); POTASSIUM 4.9 MEQ/L (3.5-5.1)
[2016-07-24] MEDS: METOPROLOL TARTRATE 50 MG TAB PO SCH ×4 (06:00→17:46)
[2016-07-24] MEDS: PANTOPRAZOLE SOD 40 MG DELAYED RELEASE TAB PO SCH (08:12)
[2016-07-24] MEDS: TAMSULOSIN HCL 0.4 MG CAP PO SCH (08:13)
[2016-07-24] MEDS: ASPIRIN EC 81 MG TABEC PO SCH (08:13)
[2016-07-24] MEDS: ATORVASTATIN 80 MG TAB PO SCH (08:13)
[2016-07-24] MEDS: SODIUM CHLORIDE 0.9% FLUSH 5 ML FLUSH FLUSH SCH ×2 (08:13→20:22)
--- NOTE | 2016-07-24 16:14 | HHI.PR ---
Subjective History of Present Illness FEELS OK pain is in control tolerating diet Colostomy bag is working, No nausea or vomiting Denies chest pain or shortness of breath No fever or chills No cough or sputum production both Legs are swollen Offers no other complaints Vitals/Results Intake & Output 07/23/16 07/23/16 07/24/16 15:00 23:00 07:00 Intake Total 1733 ml 1215 ml 675 ml Output Total 920 ml 950 ml 925 ml Balance 813 ml 265 ml -250 ml Intake Oral 360 ml 1215 ml 675 ml IV Total 1123 ml 0 ml Packed Cells 250 ml Output Urine Total 900 ml 600 ml 750 ml Stool Total 20 ml 350 ml 175 ml # Bowel Movements 1 3 1 Vital Signs Vital Signs Date Time Temp Pulse Resp B/P Pulse Ox O2 Delivery O2 Flow Rate FiO2 07/24/16 16:00 78 07/24/16 14:00 124 07/24/16 12:00 124 07/24/16 12:00 98.2 95 24 120/68 95 07/24/16 10:00 124 07/24/16 09:55 18 07/24/16 08:00 97.9 96 17 132/74 96 07/24/16 08:00 96 07/24/16 07:00 95 Room Air 07/24/16 06:00 94 07/24/16 04:00 97.8 78 14 115/67 93 07/24/16 04:00 78 07/24/16 02:00 118 07/24/16 00:00 84 07/24/16 00:00 97.9 84 16 115/80 95 07/23/16 22:00 94 07/23/16 20:00 97.8 115 23 126/77 96 07/23/16 20:00 115 07/23/16 20:00 95 Room Air CBC/BMP: 07/24/16 0433 07/24/16 0433 Lab Results Laboratory Tests Test 07/24/16 04:33 White Blood Count 12.8 TH/MM3 Red Blood Count 3.25 MIL/MM3 Hemoglobin 9.0 GM/DL Hematocrit 27.1 % Mean Corpuscular Volume 83.3 FL Mean Corpuscular Hemoglobin 27.8 PG Mean Corpuscular Hemoglobin 33.4 % Concent Red Cell Distribution Width 16.6 % Platelet Count 303 TH/MM3 Mean Platelet Volume 7.5 FL Sodium Level 139 MEQ/L Potassium Level 4.9 MEQ/L Chloride Level 107 MEQ/L Carbon Dioxide Level 25.4 MEQ/L Anion Gap 7 MEQ/L Blood Urea Nitrogen 29 MG/DL Creatinine 1.37 MG/DL Estimat Glomerular Filtration 53 ML/MIN Rate Random Glucose 117 MG/DL Calcium Level 8.1 MG/DL Physical Exam General General Appearance: Well Nourished, No Acute Distress, Comfortable, Obese Eyes Eye Exam: Pupils Equal, Sclera White, Extraocular Movement Intact Ears & Nose Ears & Nose Exam: Nasal Mucosa [place] Throat Throat Exam: Oral Mucosa [place] & Moist Neck Neck Exam: Neck Supple, Trachea Midline Pulmonary Resp Exam: Clear Bilaterally, Breath Sounds Equal Cardiology CV Exam: Irregular, Arrhythmia CV Remarks Telemetry atrial flutter with controlled ventricular rate Gastrointestinal/Abdomen GI Exam: Soft, Bowel Sounds Present GI Remarks Colostomy bag in place ,+ve brown soft stool Integumentary Skin Exam: Warm, Dry Extremeties Extremities Exam: No Edema, Pedal Pulses Palpable, Dependent Edema Neurologic Neuro Exam: Alert, Awake, Oriented, Speech Clear, Moving All Extremities Psychiatric Psych Exam: Appropriate Responses VTE Prophylaxis VTE Prophylaxis Device: SCDs PUD Prophylasis PUD Prophylaxis: Protonix Assessment/Plan Assessment/Plan A/P Assessment and Plan 1. Rectal bleed d/t Adenocarcinoma 2. s/p Hematuria.urine cytology is neg 3. Recent NSTEMI s/p drug-eluting stents of LAD . The patient stopped taking Plavix and aspirin because of hematuria and rectal bleed three to four days ago. s/p recurrent NSTEMI 4. 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 History of hemorrhoids. 6. Pre diabetic. 7. Hypertension. 8. Chronic kidney disease history, stage III. 9. Lumbar spinal stenosis with chronic pain. 10. Cervical fusion C3 through C5. 11. Atrial flutter with controlled ventricular rate 12. Acute postop blood loss anemia PLAN On aspirin Heart rate controlled with Cardizem and metoprolol Status post diverting colostomy resume plavix when ok w Dr Gupta , called await response Continue analgesics Continue heart healthy diet Postop care per Dr. Gupta monitor H&H Continue statin Patient BP is better Protonix for GI prophylaxis. Discussed patient A.m. labs Transfer to stepdown when okay with colorectal surgeon Discussed with RN Will follow Addendum, [address] Wells called back, discussed findings with him, he is okay with starting Plavix from tomorrow Plavix was ordered David Mcdaniel MD Jul 24, 2016 16:14
--- NOTE | 2016-07-24 19:52 | PD.ONC.PN ---
Subjective Subjective Remarks anxious as usual but doing well with ostomy Objective Data Date Time Temp Pulse Resp B/P Pulse Ox O2 Delivery O2 Flow Rate FiO2 07/24/16 18:00 116 07/24/16 16:00 78 07/24/16 16:00 98.6 78 15 103/68 95 07/24/16 14:00 124 07/24/16 12:00 124 07/24/16 12:00 98.2 95 24 120/68 95 07/24/16 10:00 124 07/24/16 09:55 18 07/24/16 08:00 97.9 96 17 132/74 96 07/24/16 08:00 96 07/24/16 07:00 95 Room Air 07/24/16 06:00 94 07/24/16 04:00 97.8 78 14 115/67 93 07/24/16 04:00 78 07/24/16 02:00 118 07/24/16 00:00 84 07/24/16 00:00 97.9 84 16 115/80 95 07/23/16 22:00 94 07/23/16 20:00 97.8 115 23 126/77 96 07/23/16 20:00 115 07/23/16 20:00 95 Room Air 07/24/16 07/24/16 07/24/16 06:59 14:59 22:59 Intake Total 675 ml 700 ml Output Total 925 ml 690 ml Balance -250 ml 10 ml Result Diagram: 07/24/16 0433 07/24/16 0433 Laboratory Results Laboratory Tests Test 07/24/16 04:33 White Blood Count 12.8 TH/MM3 Red Blood Count 3.25 MIL/MM3 Hemoglobin 9.0 GM/DL Hematocrit 27.1 % Mean Corpuscular Volume 83.3 FL Mean Corpuscular Hemoglobin 27.8 PG Mean Corpuscular Hemoglobin 33.4 % Concent Red Cell Distribution Width 16.6 % Platelet Count 303 TH/MM3 Mean Platelet Volume 7.5 FL Sodium Level 139 MEQ/L Potassium Level 4.9 MEQ/L Chloride Level 107 MEQ/L Carbon Dioxide Level 25.4 MEQ/L Anion Gap 7 MEQ/L Blood Urea Nitrogen 29 MG/DL Creatinine 1.37 MG/DL Estimat Glomerular Filtration 53 ML/MIN Rate Random Glucose 117 MG/DL Calcium Level 8.1 MG/DL Administered Medications Medications (Trade) Dose Ordered Sig/Maricarmen Route PRN Reason Start Time Stop Time Status Last Admin Dose Admin IV Flush (NS Flush) 2 ml BID FLUSH 07/15/16 21:00 07/24/16 08:13 Acetaminophen (Tylenol) 650 mg Q4H PRN PO TEMP > 100.4 07/15/16 10:45 07/19/16 05:22 Pantoprazole Sodium (Protonix) 40 mg DAILY PO 07/16/16 09:00 07/24/16 08:12 Atorvastatin Calcium 80 mg 80 mg DAILY PO 07/16/16 09:00 07/24/16 08:13 Diltiazem HCl/ Sodium Chloride (Cardizem Inj/NS Inj) 125 ml @ 0 mls/hr TITRATE IV 07/15/16 14:00 07/15/16 12:57 Acetaminophen/ Hydrocodone Bitart ([place] 7.5-325 Mg) 1 tab Q4H PRN PO PAIN SCALE 6 TO 10 07/15/16 17:15 07/24/16 17:46 Tamsulosin HCl (Flomax) 0.4 mg DAILY PO 07/15/16 17:30 07/24/16 08:13 Metoprolol Tartrate (Lopressor) 50 mg Q6HR PO 07/16/16 12:00 07/24/16 17:46 Aspirin (Ecotrin Ec) 162 mg DAILY PO 07/21/16 08:45 07/24/16 08:13 Diltiazem HCl (Cardizem) 90 mg Q6HR PO 07/21/16 12:00 07/24/16 17:45 Lorazepam (Ativan Inj) 1 mg Q8H PRN IV ANXIETY 07/21/16 23:00 07/21/16 23:24 Objective Remarks GENERAL: obese SKIN: Warm and dry. HEAD: Normocephalic. EYES: No scleral icterus. No injection or drainage. NECK: Supple, trachea midline. No JVD or lymphadenopathy. LYMPHATIC: No adenopathy. CARDIOVASCULAR: Regular rate and rhythm without murmurs. RESPIRATORY: Breath sounds equal bilaterally. No accessory muscle use. GASTROINTESTINAL: Abdomen distended. ostomy functioning well EXTREMITIES: +2 edema MUSCULOSKELETAL: poor muscle tone. NEUROLOGICAL: No obvious focal deficit. Awake, alert, and oriented x3. PSYCHIATRIC: Appropriate mood and affect; insight and judgment normal. Assessment/Plan Assessment 1: met with , daughter and patient and will plan on chemo for 3 months then surgery then additional chemo but can change plans depending on events. will need port. have held plavix and will place port and then can resume plavix but risk of bleeding will not be insignificant given size of tumor. will not start tx for several week. it would be worth while converting him to long acting metoprolol and diltiazem as he will require fewer pill and compliance will be better. I have spoke with Dr. Mei and he feels this is reasonable. compliance will be a problem with him. Coy Uriostegui MD Jul 24, 2016 19:52
[2016-07-24] MEDS: LACTATED RINGER'S 1000 ML IV SCH (20:22)
[2016-07-25] VITALS (14 sets, daily range): BP systolic 104–131; BP diastolic 23–90; PULSE 60–126; RESP 15–22; TEMP 97.8–98.8; O2SAT 91–100
[2016-07-25] MEDS: DILTIAZEM HCL 90 MG TAB PO SCH ×4 (00:18→19:13)
[2016-07-25] MEDS: ACETAMINOPHEN/HYDROcodone 325 MG/7.5 MG TAB PO PRN ×3 (02:50→21:09)
[2016-07-25 04:29] LABS: HEMATOCRIT 26.3 % (39.0-51.0); MEAN CELL VOLUME 83.7 FL (80.0-100.0); MEAN CORPUSCULAR HEMOGLOBIN 27.8 PG (27.0-34.0); MEAN CORPUSCULAR HGB CONC 33.2 % (32.0-36.0); PLATELET COUNT 307 TH/MM3 (150-450); RED BLOOD COUNT 3.14 MIL/MM3 (4.50-5.90); RED CELL DISTRIBUTION WIDTH 16.4 % (11.6-17.2); REVIEW FLAG FINAL
[2016-07-25 04:51] LABS: BICARBONATE 26.5 MEQ/L (21.0-32.0); POTASSIUM 4.3 MEQ/L (3.5-5.1)
[2016-07-25] MEDS: METOPROLOL TARTRATE 50 MG TAB PO SCH ×4 (06:00→19:14)
[2016-07-25] MEDS ORDERED: CLOPIDOGREL 75 MG TAB PO SCH (09:00)
[2016-07-25] MEDS: TAMSULOSIN HCL 0.4 MG CAP PO SCH (09:06)
[2016-07-25] MEDS: ASPIRIN EC 81 MG TABEC PO SCH (09:06)
[2016-07-25] MEDS: ATORVASTATIN 80 MG TAB PO SCH (09:06)
[2016-07-25] MEDS: SODIUM CHLORIDE 0.9% FLUSH 5 ML FLUSH FLUSH SCH (09:06)
[2016-07-25] MEDS: PANTOPRAZOLE SOD 40 MG DELAYED RELEASE TAB PO SCH (09:06)
[2016-07-25] MEDS ORDERED: VANCOMYCIN INJ 1,000 MG in SODIUM CHLOR 0.9% 250 ML INJ 250 ML IV SCH (10:30)
[2016-07-25] MEDS ORDERED: ceFAZolin 2 GM PREMIX 50 ML IV SCH (10:30)
[2016-07-25] MEDS ORDERED: LIDOCAINE 1%/EPINEPHrine 1:100,000 SOLN 20 ML VIAL ONE (13:39)
[2016-07-25] MEDS ORDERED: MIDAZOLAM HCL 5 MG/5 ML VIAL ONE (13:48)
[2016-07-25] MEDS ORDERED: fentaNYL CITRATE 250 MCG/5 ML AMP ONE (13:49)
[2016-07-25] MEDS ORDERED: SODIUM CHLORIDE 0.9% FLUSH 5 ML FLUSH IVF PRN (15:45)
--- NOTE | 2016-07-25 15:46 | PD.RAD ---
Post Procedure Progress Note Pre Procedure Diagnosis: (1) Rectal bleeding Post Procedure Diagnosis: (1) Rectal bleeding Procedure Date: Jul 25, 2016 Supervising Radiologist: Johnnie Layton JR Proceduralist/Assist: Berenice Wilkinson RT(R), RT Ashly(R)() Anesthesia: Conscious Sedation Plan of Activity Patient to Unit: Critical Care Patient Condition: Good See PACS Report for procedural detail/treatment Central Venous Access Device Procedure 1 Right Internal Jugular Infusaport Placement single lumen Serbian: 8 Findings: Port functions well and ready for use. Plan Site check by IR or a physician in 10-14 days Jr. Calin,Johnnie Boyd MD Jul 25, 2016 15:46
--- NOTE | 2016-07-25 16:18 | RADRPT ---
EXAM DATE/TIME: 07/25/2016 13:30 [facility] COMPARISON: No previous studies available for comparison. INDICATIONS : Patient with colon cancer in need of port placement for treatment. MEDICAL HISTORY : Colon cancer melena Chronic kidney disease CAD Lumbar spine stenosis Pre diabetic HTN SURGICAL HISTORY : Cardiac catheterization with 2 stents placed Exploratory laperotomy colostomy Cervical fusion C3 and C5 Bilateral hip replacement Colonoscopy with biopsy ENCOUNTER: Initial ACUITY: 2 weeks PAIN SCORE: 4/10 LOCATION: abdomen FLUORO TIME: 0.7 minutes SEDATION TIME: 60 minutes ACCESS: Right internal jugular vein SEDATION: 1.) 2 mg midazolam (Versed) IV 2.) 100 mcg fentanyl (Sublimaze) IV Prophylactic antibiotics were administered with appropriate pre-procedure timing. Vancomycin within 2 hours of procedure, Ancef (or alternative) within 1 hour of procedure. DEVICE: 1. 8 Spanish single lumen [id number] PROCEDURE : 1. Continuous pulse oximetry and EKG monitoring. 2. Intravenous conscious sedation. 3. Ultrasound guidance for venous access. 4. Fluoroscopic guided implantable central venous port placement. The patient was placed supine. The neck was prepped in sterile fashion. Full sterile technique was u sed, including cap, mask, sterile gloves and gown, and a large sterile sheet. Hand hygiene and 2% ch lorhexidine Betadine was utilized per protocol for cutaneous antisepsis with appropriate dry time for site. The skin and subcutaneous tissues were infiltrated with local anesthetic solution. Under direct ultrasound guidance, central venous access was accomplished in the targeted vessel. The ultrasound images depicting access guidance were stored and saved to PACS for permanent record. A s ubcutaneous pocket was created using blunt dissection. The port was introduced to the pocket. The c atheter tubing was fed through a subcutaneous tunnel to the venotomy site. The catheter tubing was c ut to a suitable length and then was introduced through a valved Peel-Away sheath and positioned with catheter tubing tip at the cavo-atrial junction level. The pocket incision was closed with subcutic ular Vicryl suture. Steri-Strips were applied. The port was flushed and locked with heparin solutio n per protocol. Sterile dressing was applied to the site. The patient tolerated the procedure well. Conscious sedation was performed with the prescribed dosages and duration as above. The patient susan ated the procedure well and there were no complications. EKG and oximetry remained stable throughout the procedure. The patient was sent to post anesthesia recovery in stable condition. CONCLUSION: Uncomplicated ultrasound and fluoroscopic guided implanted central venous port catheter placement as described in detail above. An 8 Spanish Power port was placed. Johnnie Layton Jr., MD on July 25, 2016 at 16:17 Board Certified Radiologist. This report was verified electronically.
--- NOTE | 2016-07-25 16:22 | HHI.PR ---
Subjective History of Present Illness S/P PORT PLACEMENT TODAY received ist dose 75 mg plavix this am I am ok belly pain is in ok/pain meds are helping tolerating diet Colostomy bag is working, soft brown stools No nausea or vomiting Denies chest pain or shortness of breath No fever or chills No cough or sputum production Offers no other complaints Vitals/Results Intake & Output 07/24/16 07/24/16 07/25/16 15:00 23:00 07:00 Intake Total 700 ml 900 ml 550 ml Output Total 690 ml 1725 ml 725 ml Balance 10 ml -825 ml -175 ml Intake Oral 700 ml 900 ml 550 ml IV Total 0 ml Output Urine Total 500 ml 900 ml 600 ml Stool Total 190 ml 825 ml 125 ml Vital Signs Vital Signs Date Time Temp Pulse Resp B/P Pulse Ox O2 Delivery O2 Flow Rate FiO2 07/25/16 12:00 99 07/25/16 12:00 98.5 99 22 107/76 97 07/25/16 08:00 97.8 61 15 117/23 93 07/25/16 08:00 61 07/25/16 07:00 97 Room Air 07/25/16 06:00 61 07/25/16 04:00 60 07/25/16 04:00 98.4 60 17 116/78 91 07/25/16 02:00 89 07/25/16 00:00 98.4 80 16 113/75 100 07/25/16 00:00 80 07/24/16 22:00 73 07/24/16 20:00 58 07/24/16 20:00 98.0 58 16 90/65 98 07/24/16 20:00 97 Room Air 07/24/16 18:00 116 CBC/BMP: 07/25/16 0342 07/25/16 0342 Lab Results Laboratory Tests Test 07/25/16 03:42 White Blood Count 11.0 TH/MM3 Red Blood Count 3.14 MIL/MM3 Hemoglobin 8.7 GM/DL Hematocrit 26.3 % Mean Corpuscular Volume 83.7 FL Mean Corpuscular Hemoglobin 27.8 PG Mean Corpuscular Hemoglobin 33.2 % Concent Red Cell Distribution Width 16.4 % Platelet Count 307 TH/MM3 Mean Platelet Volume 7.5 FL Sodium Level 140 MEQ/L Potassium Level 4.3 MEQ/L Chloride Level 107 MEQ/L Carbon Dioxide Level 26.5 MEQ/L Anion Gap 7 MEQ/L Blood Urea Nitrogen 24 MG/DL Creatinine 1.41 MG/DL Estimat Glomerular Filtration 52 ML/MIN Rate Random Glucose 122 MG/DL Calcium Level 7.8 MG/DL Physical Exam General General Appearance: Well Nourished, No Acute Distress, Comfortable, Obese Eyes Eye Exam: Pupils Equal, Sclera White, Extraocular Movement Intact Ears & Nose Ears & Nose Exam: Nasal Mucosa [place] Throat Throat Exam: Oral Mucosa [place] & Moist Neck Neck Exam: Neck Supple, Trachea Midline Pulmonary Resp Exam: Clear Bilaterally, Breath Sounds Equal Cardiology CV Exam: Irregular, Arrhythmia CV Remarks Telemetry atrial flutter with controlled ventricular rate Chest/Breast Chest/Breast Remarks R upper Chest port in place /dressing intact Gastrointestinal/Abdomen GI Exam: Soft, Bowel Sounds Present GI Remarks Colostomy bag in place ,+ve brown soft stool Integumentary Skin Exam: Warm, Dry Extremeties Extremities Exam: No Edema, Pedal Pulses Palpable, Dependent Edema Neurologic Neuro Exam: Alert, Awake, Oriented, Speech Clear, Moving All Extremities Psychiatric Psych Exam: Appropriate Responses VTE Prophylaxis VTE Prophylaxis Device: SCDs PUD Prophylasis PUD Prophylaxis: Protonix Assessment/Plan Assessment/Plan A/P Assessment and Plan 1. Rectal bleed d/t Adenocarcinoma 2. s/p Hematuria.urine cytology is neg 3. Recent NSTEMI s/p drug-eluting stents of LAD . The patient stopped taking Plavix and aspirin because of hematuria and rectal bleed three to four days ago. s/p recurrent NSTEMI 4. 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 History of hemorrhoids. 6. Pre diabetic. 7. Hypertension. 8. Chronic kidney disease history, stage III. 9. Lumbar spinal stenosis with chronic pain. 10. Cervical fusion C3 through C5. 11. Atrial flutter with controlled ventricular rate 12. Acute postop blood loss anemia PLAN On aspirin plavix resumed d/w Dr ruiz ,he suggest loading pt w 3oo mg plavix if possible will dw Dr kovacs , have him paged otherwise cont 75 mg qd rate controlled with Cardizem and metoprolol, will change to long acting cardizem in am Status post diverting colostomy Continue analgesics Continue heart healthy diet monitor H&H Continue statin Patient BP is better Protonix for GI prophylaxis. Discussed patient A.m. labs Discussed with RN Will follow David Mcdaniel MD Jul 25, 2016 16:22
--- NOTE | 2016-07-25 20:34 | PD.ONC.PN ---
Subjective Subjective Remarks no complaints except weak Objective Data Date Time Temp Pulse Resp B/P Pulse Ox O2 Delivery O2 Flow Rate FiO2 07/25/16 18:00 95 07/25/16 17:00 107 07/25/16 16:00 98.8 98 20 107/81 96 07/25/16 16:00 98 07/25/16 12:00 99 07/25/16 12:00 98.5 99 22 107/76 97 07/25/16 08:00 97.8 61 15 117/23 93 07/25/16 08:00 61 07/25/16 07:00 97 Room Air 07/25/16 06:00 61 07/25/16 04:00 60 07/25/16 04:00 98.4 60 17 116/78 91 07/25/16 02:00 89 07/25/16 00:00 98.4 80 16 113/75 100 07/25/16 00:00 80 07/24/16 22:00 73 07/25/16 07/25/16 07/25/16 06:59 14:59 22:59 Intake Total 550 ml 420 ml Output Total 725 ml 200 ml Balance -175 ml 220 ml Result Diagram: 07/25/16 0342 07/25/16 0342 Laboratory Results Laboratory Tests Test 07/25/16 03:42 White Blood Count 11.0 TH/MM3 Red Blood Count 3.14 MIL/MM3 Hemoglobin 8.7 GM/DL Hematocrit 26.3 % Mean Corpuscular Volume 83.7 FL Mean Corpuscular Hemoglobin 27.8 PG Mean Corpuscular Hemoglobin 33.2 % Concent Red Cell Distribution Width 16.4 % Platelet Count 307 TH/MM3 Mean Platelet Volume 7.5 FL Sodium Level 140 MEQ/L Potassium Level 4.3 MEQ/L Chloride Level 107 MEQ/L Carbon Dioxide Level 26.5 MEQ/L Anion Gap 7 MEQ/L Blood Urea Nitrogen 24 MG/DL Creatinine 1.41 MG/DL Estimat Glomerular Filtration 52 ML/MIN Rate Random Glucose 122 MG/DL Calcium Level 7.8 MG/DL Imaging Studies Last 24 hours Impressions Port Line Insertion 07/25/16 0000 Signed Impressions: Service Date/Time: June 13:30 - CONCLUSION: Uncomplicated ultrasound and fluoroscopic guided implanted central venous port catheter placement as described in detail above. An 8 [place] Power port was placed. Johnnie Layton Jr., MD Administered Medications Medications (Trade) Dose Ordered Sig/Maricarmen Route PRN Reason Start Time Stop Time Status Last Admin Dose Admin IV Flush (NS Flush) 2 ml BID FLUSH 07/15/16 21:00 07/25/16 09:06 Acetaminophen (Tylenol) 650 mg Q4H PRN PO TEMP > 100.4 07/15/16 10:45 07/19/16 05:22 Pantoprazole Sodium (Protonix) 40 mg DAILY PO 07/16/16 09:00 07/25/16 09:06 Atorvastatin Calcium 80 mg 80 mg DAILY PO 07/16/16 09:00 07/25/16 09:06 Diltiazem HCl/ Sodium Chloride (Cardizem Inj/NS Inj) 125 ml @ 0 mls/hr TITRATE IV 07/15/16 14:00 07/15/16 12:57 Acetaminophen/ Hydrocodone Bitart ([place] 7.5-325 Mg) 1 tab Q4H PRN PO PAIN SCALE 6 TO 10 07/15/16 17:15 07/25/16 16:05 Tamsulosin HCl (Flomax) 0.4 mg DAILY PO 07/15/16 17:30 07/25/16 09:06 Metoprolol Tartrate (Lopressor) 50 mg Q6HR PO 07/16/16 12:00 07/25/16 19:14 Aspirin (Ecotrin Ec) 162 mg DAILY PO 07/21/16 08:45 07/25/16 09:06 Diltiazem HCl (Cardizem) 90 mg Q6HR PO 07/21/16 12:00 07/25/16 19:13 Lorazepam (Ativan Inj) 1 mg Q8H PRN IV ANXIETY 07/21/16 23:00 07/21/16 23:24 Objective Remarks GENERAL: overweight SKIN: Warm and dry. HEAD: Normocephalic. EYES: No scleral icterus. No injection or drainage. NECK: Supple, trachea midline. No JVD or lymphadenopathy. LYMPHATIC: No adenopathy. CARDIOVASCULAR: regular rate and rhythm rate currently 120 RESPIRATORY: Breath sounds equal bilaterally. No accessory muscle use. GASTROINTESTINAL: Abdomen soft, non-tender, ostomy functioning well and stool brown and no obvious bleeding. EXTREMITIES: +2 edema. MUSCULOSKELETAL: poor muscle tone. NEUROLOGICAL: No obvious focal deficit. Awake, alert, and oriented x3. PSYCHIATRIC: Appropriate mood and affect; insight and judgment normal. Assessment/Plan Assessment 1: port placed without complications and will resume plavix tomorrow. If all is well can begin chemotherapy in about two weeks but not sooner 2: he is in atrial flutter with rate of 120; will defer to others to manage. Coy Uriostegui MD Jul 25, 2016 20:34
--- NOTE | 2016-07-25 22:45 | HHI.PR ---
Subjective Remarks C/R Surg POD #3 afebrile, VSS no active bleeding still with rectal BM stoma functioning Objective - Vital Signs Date Time Temp Pulse Resp B/P Pulse Ox O2 Delivery O2 Flow Rate FiO2 07/25/16 19:00 98 Room Air 07/25/16 19:00 98.6 126 20 131/90 07/23/16 08:00 2.00 Result Diagram: 07/25/16 0342 07/25/16 0342 Objective Remarks PE alert Abd - obese, soft, non-tender, stoma pouched well wound disch slightly A/P Assessment and Plan Imp: s/p IL, recent stent palcement Abd better after diversion adv diet, decr IVF/hep lock outpt chemo - will need port local wound care dc plans Kan Gupta MD Jul 25, 2016 22:45
[2016-07-25] MEDS: LACTATED RINGER'S 1000 ML IV SCH (23:15)
[2016-07-26] VITALS (28 sets, daily range): BP systolic 99–169; BP diastolic 64–94; PULSE 53–123; RESP 16; TEMP 97.8–98.6; O2SAT 94–99
[2016-07-26] MEDS: SODIUM CHLORIDE 0.9% FLUSH 5 ML FLUSH FLUSH SCH ×3 (00:56→22:49)
[2016-07-26] MEDS: METOPROLOL TARTRATE 50 MG TAB PO SCH ×4 (00:56→18:10)
[2016-07-26] MEDS: DILTIAZEM HCL 90 MG TAB PO SCH ×3 (00:57→12:07)
[2016-07-26] MEDS: ACETAMINOPHEN/HYDROcodone 325 MG/7.5 MG TAB PO PRN ×5 (01:06→22:49)
[2016-07-26 05:21] LABS: MEAN CORPUSCULAR HEMOGLOBIN 27.5 PG (27.0-34.0); MEAN CORPUSCULAR HGB CONC 32.7 % (32.0-36.0); PLATELET COUNT 307 TH/MM3 (150-450); RED BLOOD COUNT 3.09 MIL/MM3 (4.50-5.90); RED CELL DISTRIBUTION WIDTH 16.5 % (11.6-17.2); REVIEW FLAG FINAL
[2016-07-26] MEDS: PANTOPRAZOLE SOD 40 MG DELAYED RELEASE TAB PO SCH (08:24)
[2016-07-26] MEDS: ASPIRIN EC 81 MG TABEC PO SCH (08:24)
[2016-07-26] MEDS: ATORVASTATIN 80 MG TAB PO SCH (08:24)
[2016-07-26] MEDS: CLOPIDOGREL 75 MG TAB PO SCH (08:24)
[2016-07-26] MEDS: TAMSULOSIN HCL 0.4 MG CAP PO SCH (08:24)
--- NOTE | 2016-07-26 12:42 | HHI.PR ---
Subjective History of Present Illness belly is Sore /pain meds are helping some tolerating diet Colostomy bag is working, soft brown stools c/o pedal edema HR still fluctuating No nausea or vomiting Denies chest pain or shortness of breath No fever or chills No cough or sputum production Offers no other complaints Vitals/Results Intake & Output 07/25/16 07/25/16 07/26/16 15:00 23:00 07:00 Intake Total 420 ml 480 ml Output Total 200 ml 1600 ml Balance 220 ml -1120 ml Intake Oral 420 ml 480 ml Output Urine Total 900 ml Stool Total 200 ml 700 ml Vital Signs Vital Signs Date Time Temp Pulse Resp B/P Pulse Ox O2 Delivery O2 Flow Rate FiO2 07/26/16 11:30 98.0 92 16 169/94 95 07/26/16 11:30 94 Room Air 07/26/16 09:30 16 07/26/16 09:00 123 07/26/16 08:00 60 07/26/16 07:30 94 Room Air 07/26/16 07:30 53 07/26/16 07:30 98.6 95 16 119/78 94 07/26/16 07:00 59 07/26/16 06:00 82 07/26/16 05:00 64 07/26/16 04:00 60 07/26/16 03:00 97.8 67 16 116/64 96 07/26/16 03:00 79 07/26/16 03:00 96 Room Air 07/26/16 02:00 98 07/26/16 01:00 121 07/26/16 00:00 120 07/25/16 23:00 88 07/25/16 23:00 98.6 89 18 104/68 99 07/25/16 23:00 99 Room Air 07/25/16 22:00 82 07/25/16 21:00 107 07/25/16 20:00 124 07/25/16 19:00 98 Room Air 07/25/16 19:00 98.6 126 20 131/90 98 07/25/16 19:00 121 07/25/16 18:00 95 07/25/16 17:00 107 07/25/16 16:00 98.8 98 20 107/81 96 07/25/16 16:00 98 CBC/BMP: 07/26/16 0450 07/25/16 0342 Lab Results Laboratory Tests Test 07/26/16 04:50 White Blood Count 15.0 TH/MM3 Red Blood Count 3.09 MIL/MM3 Hemoglobin 8.5 GM/DL Hematocrit 26.0 % Mean Corpuscular Volume 84.0 FL Mean Corpuscular Hemoglobin 27.5 PG Mean Corpuscular Hemoglobin 32.7 % Concent Red Cell Distribution Width 16.5 % Platelet Count 307 TH/MM3 Mean Platelet Volume 7.3 FL Physical Exam General General Appearance: Well Nourished, No Acute Distress, Comfortable, Obese Eyes Eye Exam: Pupils Equal, Sclera White, Extraocular Movement Intact Ears & Nose Ears & Nose Exam: Nasal Mucosa [place] Throat Throat Exam: Oral Mucosa [place] & Moist Neck Neck Exam: Neck Supple, Trachea Midline Pulmonary Resp Exam: Clear Bilaterally, Breath Sounds Equal Cardiology CV Exam: Irregular, Arrhythmia CV Remarks Telemetry atrial flutter with controlled ventricular rate Chest/Breast Chest/Breast Remarks R upper Chest port in place /dressing intact Gastrointestinal/Abdomen GI Exam: Soft, Bowel Sounds Present GI Remarks Colostomy bag in place ,+ve brown soft stool Integumentary Skin Exam: Warm, Dry Extremeties Extremities Exam: Pedal Pulses Palpable, Moderate Edema, Dependent Edema Neurologic Neuro Exam: Alert, Awake, Oriented, Speech Clear, Moving All Extremities Psychiatric Psych Exam: Appropriate Responses VTE Prophylaxis VTE Prophylaxis Device: SCDs PUD Prophylasis PUD Prophylaxis: Protonix Assessment/Plan Assessment/Plan A/P Assessment and Plan 1. Rectal bleed d/t Adenocarcinoma 2. s/p Hematuria.urine cytology is neg 3. Recent NSTEMI s/p drug-eluting stents of LAD . The patient stopped taking Plavix and aspirin because of hematuria and rectal bleed three to four days ago. s/p recurrent NSTEMI 4. 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 History of hemorrhoids. 6. Pre diabetic. 7. Hypertension. 8. Chronic kidney disease history, stage III. 9. Lumbar spinal stenosis with chronic pain. 10. Cervical fusion C3 through C5. 11. Atrial flutter with controlled ventricular rate 12. Acute postop blood loss anemia PLAN On aspirin cont plavix Discussed with Dr. Robertson yesterday, he recommended keeping patient on 75 mg Plavix In avoid loading dose to reduce risk of bleeding DC short-acting Cardizem, start Cardizem CD 300 mg daily, monitor heart rate Continue metoprolol every 6 hours for now Patient blood pressure is marginal at this time, will hold diuretics Once his heart rate is better control, we'll start diuresing Status post diverting colostomy Continue analgesics Continue heart healthy diet monitor H&H Continue statin Patient BP is better Protonix for GI prophylaxis. Start subcutaneous heparin for DVT prophylaxis Discussed patient again today Assessment Dr. Sakshi Campoverde, covering for Dr. Ritter Monsalve labs Discussed with RN Will follow David Mcdaniel MD Jul 26, 2016 12:42
--- NOTE | 2016-07-26 13:01 | HHI.PR ---
Subjective Remarks s/p diverting colostomy reports pain with leg swelling Objective Vital Signs Date Time Temp Pulse Resp B/P Pulse Ox O2 Delivery O2 Flow Rate FiO2 07/26/16 12:01 121 07/26/16 11:30 98.2 121 16 106/79 98 07/26/16 11:30 94 Room Air 07/26/16 11:00 103 07/26/16 10:00 97 07/26/16 09:30 16 07/26/16 09:00 123 07/26/16 08:00 60 07/26/16 07:30 94 Room Air 07/26/16 07:30 53 07/26/16 07:30 98.6 95 16 119/78 94 07/26/16 07:00 59 07/26/16 06:00 82 07/26/16 05:00 64 07/26/16 04:00 60 07/26/16 03:00 97.8 67 16 116/64 96 07/26/16 03:00 79 07/26/16 03:00 96 Room Air 07/26/16 02:00 98 07/26/16 01:00 121 07/26/16 00:00 120 07/25/16 23:00 88 07/25/16 23:00 98.6 89 18 104/68 99 07/25/16 23:00 99 Room Air 07/25/16 22:00 82 07/25/16 21:00 107 07/25/16 20:00 124 07/25/16 19:00 98 Room Air 07/25/16 19:00 98.6 126 20 131/90 98 07/25/16 19:00 121 07/25/16 18:00 95 07/25/16 17:00 107 07/25/16 16:00 98.8 98 20 107/81 96 07/25/16 16:00 98 I/O 07/25/16 07/25/16 07/25/16 07/26/16 07/26/16 07/26/16 07:00 15:00 23:00 07:00 15:00 23:00 Intake Total 550 ml 420 ml 480 ml Output Total 725 ml 200 ml 1600 ml Balance -175 ml 220 ml -1120 ml Intake Oral 550 ml 420 ml 480 ml Output Urine Total 600 ml 900 ml Stool Total 125 ml 200 ml 700 ml Result Diagram: 07/26/16 0450 07/25/16 0342 Objective Remarks ABdomen soft, obese, tender SToma pink, functional Assessment and Plan Assessment and Plan Tolerating PO, Stoma functioning well Still with elevated HR Ok to transfer to rehab when ok with Cardiology/Medicine Sakshi Campoverde MD Jul 26, 2016 13:01
[2016-07-26] MEDS ORDERED: DILTIAZEM-CD 300 MG CAP ER PO ONE (14:00)
[2016-07-26] MEDS: HEPARIN SODIUM - SQ 10,000 UNITS/ML VIAL SQ SCH (22:48)
[2016-07-27] VITALS (26 sets, daily range): BP systolic 98–127; BP diastolic 56–89; PULSE 57–115; RESP 16–22; TEMP 97.5–98.1; O2SAT 96–99
[2016-07-27 06:40] LABS: HEMATOCRIT 24.2 % (39.0-51.0); MEAN CELL VOLUME 83.9 FL (80.0-100.0); MEAN CORPUSCULAR HEMOGLOBIN 27.6 PG (27.0-34.0); MEAN CORPUSCULAR HGB CONC 32.9 % (32.0-36.0); PLATELET COUNT 270 TH/MM3 (150-450); RED BLOOD COUNT 2.88 MIL/MM3 (4.50-5.90); RED CELL DISTRIBUTION WIDTH 16.7 % (11.6-17.2); REVIEW FLAG FINAL; WHITE BLOOD COUNT 11.3 TH/MM3 (4.0-11.0)
[2016-07-27 07:11] LABS: BICARBONATE 24.7 MEQ/L (21.0-32.0); POTASSIUM 4.1 MEQ/L (3.5-5.1)
[2016-07-27] MEDS: DILTIAZEM-CD 300 MG CAP ER PO SCH (08:44)
[2016-07-27] MEDS: PANTOPRAZOLE SOD 40 MG DELAYED RELEASE TAB PO SCH (08:45)
[2016-07-27] MEDS: CLOPIDOGREL 75 MG TAB PO SCH (08:45)
[2016-07-27] MEDS: ASPIRIN EC 81 MG TABEC PO SCH (08:45)
[2016-07-27] MEDS: HEPARIN SODIUM - SQ 10,000 UNITS/ML VIAL SQ SCH ×2 (08:45→22:41)
[2016-07-27] MEDS: TAMSULOSIN HCL 0.4 MG CAP PO SCH (08:45)
[2016-07-27] MEDS: ATORVASTATIN 80 MG TAB PO SCH (08:45)
[2016-07-27] MEDS: SODIUM CHLORIDE 0.9% FLUSH 5 ML FLUSH FLUSH SCH ×2 (08:46→22:42)
[2016-07-27] MEDS: ACETAMINOPHEN/HYDROcodone 325 MG/7.5 MG TAB PO PRN ×3 (10:11→22:41)
--- NOTE | 2016-07-27 11:29 | HHI.PR ---
Subjective Remarks s/p diverting colostomy comfortable Objective Vital Signs Date Time Temp Pulse Resp B/P Pulse Ox O2 Delivery O2 Flow Rate FiO2 07/27/16 10:00 105 07/27/16 09:00 88 07/27/16 08:00 115 07/27/16 07:00 98 Room Air 07/27/16 07:00 97.5 96 20 127/83 98 07/27/16 07:00 57 07/27/16 05:18 97.8 60 16 103/76 99 07/27/16 05:15 99 Room Air 07/27/16 05:00 60 07/27/16 04:00 59 07/27/16 03:00 59 07/27/16 02:00 61 07/27/16 01:00 65 07/27/16 00:25 98.1 80 16 110/79 98 07/27/16 00:00 92 07/26/16 23:31 98 Room Air 07/26/16 23:00 78 07/26/16 22:00 72 07/26/16 21:11 99 Room Air 07/26/16 21:02 98.1 111 16 101/79 99 07/26/16 21:00 67 07/26/16 20:00 104 07/26/16 19:00 113 07/26/16 18:12 19 07/26/16 18:00 107 07/26/16 17:00 122 07/26/16 16:12 64 07/26/16 15:01 98.5 61 16 99/66 96 07/26/16 15:01 98.2 121 16 106/79 98 07/26/16 15:01 94 Room Air 07/26/16 15:00 78 07/26/16 14:00 78 07/26/16 13:00 107 07/26/16 12:01 121 07/26/16 11:30 98.2 121 16 106/79 98 07/26/16 11:30 94 Room Air I/O 07/26/16 07/26/16 07/26/16 07/27/16 07/27/16 07/27/16 06:59 14:59 22:59 06:59 14:59 22:59 Intake Total 480 ml 780 ml 360 ml Output Total 1600 ml 1250 ml 750 ml Balance -1120 ml -470 ml -390 ml Intake Oral 480 ml 780 ml 360 ml Output Urine Total 900 ml 950 ml 450 ml Stool Total 700 ml 300 ml 300 ml # Voids 4 # Bowel Movements 1 Result Diagram: 07/27/1635 07/27/16534 Objective Remarks Abdomen soft, obese, tender Stoma pink, functional Assessment and Plan Assessment and Plan Ok to transfer to rehab when ok with Cardiology/Medicine Followup with Dr. Gupta 7-10 days Sakshi Campoverde MD Jul 27, 2016 11:28
[2016-07-27] MEDS: METOPROLOL TARTRATE 50 MG TAB PO SCH ×3 (11:55→22:41)
--- NOTE | 2016-07-27 15:34 | HHI.PR ---
Subjective History of Present Illness I'm tired Abdominal pain is okay Tolerating diet Colostomy bag is working, soft brown stools c/o pedal edema Denies chest pain or shortness of breath No fever or chills No cough or sputum production Offers no other complaints Vitals/Results Intake & Output 07/26/16 07/26/16 07/27/16 15:00 23:00 07:00 Intake Total 780 ml 360 ml Output Total 1250 ml 750 ml Balance -470 ml -390 ml Intake Oral 780 ml 360 ml Output Urine Total 950 ml 450 ml Stool Total 300 ml 300 ml # Voids 4 # Bowel Movements 1 Vital Signs Vital Signs Date Time Temp Pulse Resp B/P Pulse Ox O2 Delivery O2 Flow Rate FiO2 07/27/16 14:00 61 07/27/16 13:00 64 07/27/16 12:00 77 07/27/16 11:00 66 07/27/16 11:00 96 Room Air 07/27/16 11:00 97.5 66 22 103/70 96 07/27/16 10:00 105 07/27/16 09:00 88 07/27/16 08:00 115 07/27/16 07:00 98 Room Air 07/27/16 07:00 97.5 96 20 127/83 98 07/27/16 07:00 57 07/27/16 05:18 97.8 60 16 103/76 99 07/27/16 05:15 99 Room Air 07/27/16 05:00 60 07/27/16 04:00 59 07/27/16 03:00 59 07/27/16 02:00 61 07/27/16 01:00 65 07/27/16 00:25 98.1 80 16 110/79 98 07/27/16 00:00 92 07/26/16 23:31 98 Room Air 07/26/16 23:00 78 07/26/16 22:00 72 07/26/16 21:11 99 Room Air 07/26/16 21:02 98.1 111 16 101/79 99 07/26/16 21:00 67 07/26/16 20:00 104 07/26/16 19:00 113 07/26/16 18:12 19 07/26/16 18:00 107 07/26/16 17:00 122 07/26/16 16:12 64 CBC/BMP: 07/27/16 0535 07/27/16 0535 Lab Results Laboratory Tests Test 07/27/16 05:35 White Blood Count 11.3 TH/MM3 Red Blood Count 2.88 MIL/MM3 Hemoglobin 8.0 GM/DL Hematocrit 24.2 % Mean Corpuscular Volume 83.9 FL Mean Corpuscular Hemoglobin 27.6 PG Mean Corpuscular Hemoglobin 32.9 % Concent Red Cell Distribution Width 16.7 % Platelet Count 270 TH/MM3 Mean Platelet Volume 7.8 FL Sodium Level 139 MEQ/L Potassium Level 4.1 MEQ/L Chloride Level 105 MEQ/L Carbon Dioxide Level 24.7 MEQ/L Anion Gap 9 MEQ/L Blood Urea Nitrogen 20 MG/DL Creatinine 1.39 MG/DL Estimat Glomerular Filtration 52 ML/MIN Rate Random Glucose 125 MG/DL Calcium Level 8.2 MG/DL Physical Exam General General Appearance: Well Nourished, No Acute Distress, Comfortable, Obese Eyes Eye Exam: Pupils Equal, Sclera White, Extraocular Movement Intact Ears & Nose Ears & Nose Exam: Nasal Mucosa [place] Throat Throat Exam: Oral Mucosa [place] & Moist Neck Neck Exam: Neck Supple, Trachea Midline Pulmonary Resp Exam: Clear Bilaterally, Breath Sounds Equal Cardiology CV Exam: Irregular, Arrhythmia CV Remarks Telemetry atrial flutter with controlled ventricular rate Chest/Breast Chest/Breast Remarks R upper Chest port in place /dressing intact Gastrointestinal/Abdomen GI Exam: Soft, Bowel Sounds Present GI Remarks Colostomy bag in place ,+ve brown soft stool Integumentary Skin Exam: Warm, Dry Extremeties Extremities Exam: Pedal Pulses Palpable, Moderate Edema, Dependent Edema Neurologic Neuro Exam: Alert, Awake, Oriented, Speech Clear, Moving All Extremities Psychiatric Psych Exam: Appropriate Responses VTE Prophylaxis VTE Prophylaxis Device: SCDs PUD Prophylasis PUD Prophylaxis: Protonix Assessment/Plan Assessment/Plan A/P Assessment and Plan 1. Rectal bleed d/t Adenocarcinoma 2. s/p Hematuria.urine cytology is neg 3. Recent NSTEMI s/p drug-eluting stents of LAD . The patient stopped taking Plavix and aspirin because of hematuria and rectal bleed three to four days ago. s/p recurrent NSTEMI 4. 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 History of hemorrhoids. 6. Pre diabetic. 7. Hypertension. 8. Chronic kidney disease history, stage III. 9. Lumbar spinal stenosis with chronic pain. 10. Cervical fusion C3 through C5. 11. Atrial flutter with controlled ventricular rate 12. Acute postop blood loss anemia PLAN On aspirin / plavix Cardizem CD 300 mg daily, reduce metoprolol q12hr start lasix 20 mg bid /kcl Continue analgesics Continue heart healthy diet monitor H&H, slightly low , if drop further will consider transfusion of PRBC Continue statin Patient BP is better Protonix for GI prophylaxis. subcutaneous heparin for DVT prophylaxis ss for d/c planning/d/c to snf soon A.m. labs Discussed with RN Will follow David Mcdaniel MD Jul 27, 2016 15:34 Discussed patient again today Assessment Dr. Sakshi Campoverde, covering for Dr. Ritter Monsalve labs Discussed with RN Will follow David Mcdaniel MD Jul 27, 2016 15:34
[2016-07-27] MEDS: FUROSEMIDE 20 MG TAB PO SCH (18:26)
[2016-07-27] MEDS: POTASSIUM CHLORIDE 10 MEQ CONTROLLED RELEASE TAB PO SCH (22:42)
[2016-07-28] VITALS (27 sets, daily range): BP systolic 99–121; BP diastolic 67–82; PULSE 69–124; RESP 16–18; TEMP 98–98.6; O2SAT 95–98
[2016-07-28] MEDS: ACETAMINOPHEN/HYDROcodone 325 MG/7.5 MG TAB PO PRN ×4 (03:41→20:33)
[2016-07-28] MEDS: DILTIAZEM-CD 300 MG CAP ER PO SCH (08:02)
[2016-07-28 08:03] LABS: HEMATOCRIT 25.5 % (39.0-51.0); MEAN CELL VOLUME 84.7 FL (80.0-100.0); MEAN CORPUSCULAR HEMOGLOBIN 27.4 PG (27.0-34.0); MEAN CORPUSCULAR HGB CONC 32.3 % (32.0-36.0); PLATELET COUNT 285 TH/MM3 (150-450); RED BLOOD COUNT 3.01 MIL/MM3 (4.50-5.90); RED CELL DISTRIBUTION WIDTH 16.9 % (11.6-17.2); REVIEW FLAG FINAL; WHITE BLOOD COUNT 10.4 TH/MM3 (4.0-11.0)
[2016-07-28] MEDS: ATORVASTATIN 80 MG TAB PO SCH (08:03)
[2016-07-28] MEDS: ASPIRIN EC 81 MG TABEC PO SCH (08:03)
[2016-07-28] MEDS: CLOPIDOGREL 75 MG TAB PO SCH (08:03)
[2016-07-28] MEDS: FUROSEMIDE 20 MG TAB PO SCH ×2 (08:03→18:08)
[2016-07-28] MEDS: HEPARIN SODIUM - SQ 10,000 UNITS/ML VIAL SQ SCH ×2 (08:04→20:32)
[2016-07-28] MEDS: PANTOPRAZOLE SOD 40 MG DELAYED RELEASE TAB PO SCH (08:04)
[2016-07-28] MEDS: TAMSULOSIN HCL 0.4 MG CAP PO SCH (08:04)
[2016-07-28] MEDS: METOPROLOL TARTRATE 50 MG TAB PO SCH ×2 (08:04→20:35)
[2016-07-28] MEDS: POTASSIUM CHLORIDE 10 MEQ CONTROLLED RELEASE TAB PO SCH ×2 (08:04→20:35)
[2016-07-28] MEDS: SODIUM CHLORIDE 0.9% FLUSH 5 ML FLUSH FLUSH SCH ×2 (08:05→20:35)
[2016-07-28 08:21] LABS: BICARBONATE 22.4 MEQ/L (21.0-32.0); POTASSIUM 4.4 MEQ/L (3.5-5.1)
--- NOTE | 2016-07-28 12:54 | HHI.PR ---
Subjective History of Present Illness I am ok HR is fuctuating 100 to 120 Abdominal pain is okay Tolerating diet Colostomy bag is working, soft brown stools Denies chest pain or shortness of breath No fever or chills No cough or sputum production Offers no other complaints Vitals/Results Intake & Output 07/27/16 07/27/16 07/28/16 15:00 23:00 07:00 Intake Total 1200 ml 680 ml Output Total 1300 ml 1000 ml Balance -100 ml -320 ml Intake Oral 1200 ml 680 ml Output Urine Total 1050 ml 600 ml Stool Total 250 ml 400 ml Vital Signs Vital Signs Date Time Temp Pulse Resp B/P Pulse Ox O2 Delivery O2 Flow Rate FiO2 07/28/16 12:01 98.6 123 16 107/80 97 07/28/16 12:01 98 Room Air 07/28/16 12:01 123 07/28/16 10:01 121 07/28/16 09:15 16 07/28/16 09:00 120 07/28/16 08:00 123 07/28/16 07:45 98.2 123 16 121/82 98 07/28/16 07:45 123 07/28/16 07:45 98 Room Air 07/28/16 06:00 85 07/28/16 05:00 85 07/28/16 04:52 97 Room Air 07/28/16 04:47 98.6 104 18 111/80 95 07/28/16 04:00 121 07/28/16 03:00 88 07/28/16 02:00 75 07/28/16 01:00 82 07/28/16 00:00 93 07/27/16 23:50 98.1 98 18 121/89 99 07/27/16 23:00 109 07/27/16 22:00 66 07/27/16 21:00 79 07/27/16 21:00 98.0 83 18 125/72 98 07/27/16 20:00 87 07/27/16 19:00 86 07/27/16 18:00 83 07/27/16 17:00 91 07/27/16 16:00 64 07/27/16 15:00 97.5 59 20 98/56 97 07/27/16 15:00 97 Room Air 07/27/16 15:00 59 07/27/16 14:00 61 07/27/16 13:00 64 CBC/BMP: 07/28/16 0715 07/28/16 0715 Lab Results Laboratory Tests Test 07/28/16 07:15 White Blood Count 10.4 TH/MM3 Red Blood Count 3.01 MIL/MM3 Hemoglobin 8.2 GM/DL Hematocrit 25.5 % Mean Corpuscular Volume 84.7 FL Mean Corpuscular Hemoglobin 27.4 PG Mean Corpuscular Hemoglobin 32.3 % Concent Red Cell Distribution Width 16.9 % Platelet Count 285 TH/MM3 Mean Platelet Volume 7.4 FL Sodium Level 137 MEQ/L Potassium Level 4.4 MEQ/L Chloride Level 106 MEQ/L Carbon Dioxide Level 22.4 MEQ/L Anion Gap 9 MEQ/L Blood Urea Nitrogen 19 MG/DL Creatinine 1.25 MG/DL Estimat Glomerular Filtration 59 ML/MIN Rate Random Glucose 102 MG/DL Calcium Level 8.3 MG/DL Physical Exam General General Appearance: Well Nourished, No Acute Distress, Comfortable, Obese Eyes Eye Exam: Pupils Equal, Sclera White, Extraocular Movement Intact Ears & Nose Ears & Nose Exam: Nasal Mucosa [place] Throat Throat Exam: Oral Mucosa [place] & Moist Neck Neck Exam: Neck Supple, Trachea Midline Pulmonary Resp Exam: Clear Bilaterally, Breath Sounds Equal Cardiology CV Exam: Irregular, Arrhythmia CV Remarks Telemetry atrial flutter with controlled ventricular rate Chest/Breast Chest/Breast Remarks R upper Chest port in place /dressing intact Gastrointestinal/Abdomen GI Exam: Soft, Bowel Sounds Present GI Remarks Colostomy bag in place ,+ve brown soft stool Integumentary Skin Exam: Warm, Dry Extremeties Extremities Exam: Pedal Pulses Palpable, Moderate Edema, Dependent Edema Neurologic Neuro Exam: Alert, Awake, Oriented, Speech Clear, Moving All Extremities Psychiatric Psych Exam: Appropriate Responses VTE Prophylaxis VTE Prophylaxis Device: SCDs PUD Prophylasis PUD Prophylaxis: Protonix Assessment/Plan Assessment/Plan A/P Assessment and Plan 1. Rectal bleed d/t Adenocarcinoma 2. s/p Hematuria.urine cytology is neg 3. Recent NSTEMI s/p drug-eluting stents of LAD . The patient stopped taking Plavix and aspirin because of hematuria and rectal bleed three to four days ago. s/p recurrent NSTEMI 4. 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 History of hemorrhoids. 6. Pre diabetic. 7. Hypertension. 8. Chronic kidney disease history, stage III. 9. Lumbar spinal stenosis with chronic pain. 10. Cervical fusion C3 through C5. 11. Atrial flutter with controlled ventricular rate 12. Acute postop blood loss anemia PLAN On aspirin / plavix inc Cardizem CD 360 mg daily, inc metoprolol q12hr give digoxin 0.25 mg q 4 hr x 2 doses lasix 20 mg bid /kcl Continue analgesics Continue heart healthy diet monitor H&H, slightly low , if drop further will consider transfusion of PRBC Continue statin Patient BP is better Protonix for GI prophylaxis. subcutaneous heparin for DVT prophylaxis ss for d/c planning/ d/c to snf when arrangements are made d/w SW ,await insurance approval Discussed with RN Will follow David Mcdaniel MD Jul 28, 2016 12:54
[2016-07-28] MEDS ORDERED: PILL SPLITTER OTHER PRN (13:15)
[2016-07-28] MEDS ORDERED: DIGOXIN 0.25 MG TAB PO ONE ×2 (14:00→17:00)
[2016-07-29] VITALS (28 sets, daily range): BP systolic 100–127; BP diastolic 63–93; PULSE 59–127; RESP 16–20; TEMP 97.4–98.2; O2SAT 95–100
[2016-07-29] MEDS: ACETAMINOPHEN/HYDROcodone 325 MG/7.5 MG TAB PO PRN ×5 (01:20→20:21)
[2016-07-29] MEDS: METOPROLOL TARTRATE 50 MG TAB PO SCH ×2 (08:57→20:18)
[2016-07-29] MEDS: ATORVASTATIN 80 MG TAB PO SCH (08:57)
[2016-07-29] MEDS: TAMSULOSIN HCL 0.4 MG CAP PO SCH (08:58)
[2016-07-29] MEDS: DILTIAZEM-CD 120 MG CAP ER PO SCH (08:59)
[2016-07-29] MEDS: POTASSIUM CHLORIDE 10 MEQ CONTROLLED RELEASE TAB PO SCH ×2 (08:59→20:19)
[2016-07-29] MEDS: DILTIAZEM-CD 240 MG CAP ER PO SCH (08:59)
[2016-07-29] MEDS: PANTOPRAZOLE SOD 40 MG DELAYED RELEASE TAB PO SCH (08:59)
[2016-07-29] MEDS: CLOPIDOGREL 75 MG TAB PO SCH (09:00)
[2016-07-29] MEDS: ASPIRIN EC 81 MG TABEC PO SCH (09:01)
[2016-07-29] MEDS: FUROSEMIDE 20 MG TAB PO SCH ×2 (09:01→18:02)
[2016-07-29] MEDS: HEPARIN SODIUM - SQ 10,000 UNITS/ML VIAL SQ SCH ×2 (09:01→20:18)
[2016-07-29] MEDS: SODIUM CHLORIDE 0.9% FLUSH 5 ML FLUSH FLUSH SCH ×2 (09:02→20:22)
--- NOTE | 2016-07-29 14:29 | HHI.PR ---
Subjective History of Present Illness Feels well Breathing is okay Denies chest pain Heart rate mostly in control, sometimes goes up to 100 Abdominal pain is okay Tolerating diet Colostomy bag is working, soft brown stools Denies chest pain or shortness of breath No fever or chills No cough or sputum production Offers no other complaints Vitals/Results Intake & Output 07/28/16 07/28/16 07/29/16 15:00 23:00 07:00 Intake Total 780 ml 580 ml Output Total 1800 ml 1000 ml Balance -1020 ml -420 ml Intake Oral 780 ml 580 ml Output Urine Total 1450 ml 1000 ml Stool Total 350 ml # Voids 4 # Bowel Movements 1 Vital Signs Vital Signs Date Time Temp Pulse Resp B/P Pulse Ox O2 Delivery O2 Flow Rate FiO2 07/29/16 14:00 82 07/29/16 13:00 71 07/29/16 12:00 86 07/29/16 11:00 90 07/29/16 11:00 95 Room Air 07/29/16 11:00 97.4 80 19 108/76 95 07/29/16 10:00 91 07/29/16 09:00 120 07/29/16 08:00 76 07/29/16 07:30 96 Room Air 07/29/16 07:30 97.8 87 20 118/93 96 07/29/16 07:00 84 07/29/16 05:18 98.2 74 16 115/79 99 07/29/16 05:00 74 07/29/16 04:18 97 Room Air 07/29/16 04:00 60 07/29/16 03:00 59 07/29/16 02:13 98.0 59 16 105/75 97 07/29/16 02:00 59 07/29/16 01:00 60 07/29/16 00:11 98 Room Air 07/29/16 00:00 71 07/28/16 23:00 76 07/28/16 22:00 95 07/28/16 21:00 89 07/28/16 20:43 98.0 101 16 111/72 98 07/28/16 20:22 97 Room Air 07/28/16 20:00 91 07/28/16 19:00 92 07/28/16 18:01 95 07/28/16 17:01 72 1/1/17 16:15 18 07/28/16 16:01 98.6 91 16 99/67 98 07/28/16 16:01 98 Room Air 07/28/16 16:00 69 07/28/16 15:00 93 CBC/BMP: 07/28/16 0715 07/28/16 0715 Physical Exam General General Appearance: Well Nourished, No Acute Distress, Comfortable, Obese Eyes Eye Exam: Pupils Equal, Sclera White, Extraocular Movement Intact Ears & Nose Ears & Nose Exam: Nasal Mucosa [place] Throat Throat Exam: Oral Mucosa [place] & Moist Neck Neck Exam: Neck Supple, Trachea Midline Pulmonary Resp Exam: Clear Bilaterally, Breath Sounds Equal Cardiology CV Exam: Irregular, Arrhythmia CV Remarks Telemetry atrial flutter with controlled ventricular rate Chest/Breast Chest/Breast Remarks R upper Chest port in place /dressing intact Gastrointestinal/Abdomen GI Exam: Soft, Bowel Sounds Present GI Remarks Colostomy bag in place ,+ve brown soft stool Integumentary Skin Exam: Warm, Dry Extremeties Extremities Exam: Pedal Pulses Palpable, Moderate Edema, Dependent Edema Neurologic Neuro Exam: Alert, Awake, Oriented, Speech Clear, Moving All Extremities Psychiatric Psych Exam: Appropriate Responses VTE Prophylaxis VTE Prophylaxis Device: SCDs PUD Prophylasis PUD Prophylaxis: Protonix Assessment/Plan Assessment/Plan A/P Assessment and Plan 1. Rectal bleed d/t Adenocarcinoma 2. s/p Hematuria.urine cytology is neg 3. Recent NSTEMI s/p drug-eluting stents of LAD . The patient stopped taking Plavix and aspirin because of hematuria and rectal bleed three to four days ago. s/p recurrent NSTEMI 4. 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 History of hemorrhoids. 6. Pre diabetic. 7. Hypertension. 8. Chronic kidney disease history, stage III. 9. Lumbar spinal stenosis with chronic pain. 10. Cervical fusion C3 through C5. 11. Atrial flutter with controlled ventricular rate 12. Acute postop blood loss anemia PLAN On aspirin / plavix Cardizem CD 360 mg daily, metoprolol q12hr cont lasix 20 mg bid /kcl Continue analgesics Continue heart healthy diet H&H, stable Continue statin Patient BP is better Protonix for GI prophylaxis. subcutaneous heparin for DVT prophylaxis ss for d/c planning/d/c to snf when arrangements are made d/w ,await insurance approval f/u dr Uriostegui for chemo in1 wk f/u card f/u [facility] d/w pt Partner Will follow in am David Mcdaniel MD Jul 29, 2016 14:29
[2016-07-30] VITALS (28 sets, daily range): BP systolic 94–135; BP diastolic 64–98; PULSE 59–118; RESP 16–20; TEMP 96.8–98.8; O2SAT 97–99
[2016-07-30] MEDS: ACETAMINOPHEN/HYDROcodone 325 MG/7.5 MG TAB PO PRN ×3 (00:17→20:22)
[2016-07-30 06:58] LABS: AUTOMATED NEUTROPHIL # 5.9 TH/MM3 (1.8-7.7); BASOPHIL # 0.1 TH/MM3 (0-0.2); BASOPHIL % 0.9 % (0.0-2.0); EOSINOPHIL # 0.2 TH/MM3 (0-0.4); EOSINOPHIL % 2.3 % (0.0-4.0); HEMATOCRIT 22.8 % (39.0-51.0); HEMO FLAGS DIFF FINAL; LYMPH % 18.7 % (9.0-44.0); LYMPHOCYTE # 1.7 TH/MM3 (1.0-4.8); MEAN CELL VOLUME 83.8 FL (80.0-100.0); MEAN CORPUSCULAR HEMOGLOBIN 27.9 PG (27.0-34.0); MEAN CORPUSCULAR HGB CONC 33.3 % (32.0-36.0); MONO % 11.6 % (0.0-8.0); NEUT % 66.5 % (16.0-70.0); PLATELET COUNT 300 TH/MM3 (150-450); RED BLOOD COUNT 2.72 MIL/MM3 (4.50-5.90); RED CELL DISTRIBUTION WIDTH 17.2 % (11.6-17.2); WHITE BLOOD COUNT 8.9 TH/MM3 (4.0-11.0)
[2016-07-30 07:30] LABS: ALT (GPT) 44 U/L (12-78); ANION GAP 10 MEQ/L (5-15); AST (GOT) 84 U/L (15-37); BICARBONATE 25.5 MEQ/L (21.0-32.0); BLOOD UREA NITROGEN 22 MG/DL (7-18); CHLORIDE 104 MEQ/L (98-107); GLOMERULAR FILTRATION RATE 49 ML/MIN (>89); POTASSIUM 3.9 MEQ/L (3.5-5.1); SODIUM (NA) 139 MEQ/L (136-145)
[2016-07-30 07:33] LABS: ALKALINE PHOSPHATASE 60 U/L (45-117); TOTAL BILIRUBIN ADULT 0.3 MG/DL (0.2-1.0)
[2016-07-30] MEDS: ATORVASTATIN 80 MG TAB PO SCH (08:14)
[2016-07-30] MEDS: FUROSEMIDE 40 MG/4 ML VIAL IV PUSH SCH ×2 (08:15→19:48)
[2016-07-30] MEDS: HEPARIN SODIUM - SQ 10,000 UNITS/ML VIAL SQ SCH ×2 (08:15→20:24)
[2016-07-30] MEDS: TAMSULOSIN HCL 0.4 MG CAP PO SCH (08:16)
[2016-07-30] MEDS: DILTIAZEM-CD 120 MG CAP ER PO SCH (08:16)
[2016-07-30] MEDS: DILTIAZEM-CD 240 MG CAP ER PO SCH (08:16)
[2016-07-30] MEDS: PANTOPRAZOLE SOD 40 MG DELAYED RELEASE TAB PO SCH (08:16)
[2016-07-30] MEDS: ASPIRIN EC 81 MG TABEC PO SCH (08:16)
[2016-07-30] MEDS: POTASSIUM CHLORIDE 10 MEQ CONTROLLED RELEASE TAB PO SCH ×2 (08:16→20:22)
[2016-07-30] MEDS: CLOPIDOGREL 75 MG TAB PO SCH (08:17)
[2016-07-30] MEDS: METOPROLOL TARTRATE 50 MG TAB PO SCH ×2 (08:17→20:22)
[2016-07-30] MEDS: SODIUM CHLORIDE 0.9% FLUSH 5 ML FLUSH FLUSH SCH ×2 (08:18→20:23)
--- NOTE | 2016-07-30 10:50 | HHI.PR ---
Subjective Remarks Sitting on a chair without any apparent distress. As the patient ate this morning. Feels okay Breathing is okay Denies chest pain Heart rate mostly in control, sometimes goes up to 100 Abdominal pain is okay Tolerating diet Colostomy bag is working, soft brown stools Denies chest pain or shortness of breath No fever or chills No cough or sputum production Offers no other complaints Review of Systems Review of Systems Review of system for 12 point system otherwise unremarkable Objective Objective Results - Vital Signs Date Time Temp Pulse Resp B/P Pulse Ox O2 Delivery O2 Flow Rate FiO2 07/30/16 09:01 102 07/30/16 08:00 99 07/30/16 07:30 99 Room Air 07/30/16 07:30 98.0 80 16 135/80 99 07/30/16 07:30 72 07/30/16 06:00 64 07/30/16 05:00 68 07/30/16 04:00 96 Room Air 07/30/16 04:00 96.8 60 20 123/77 97 07/30/16 04:00 61 07/30/16 03:30 59 07/30/16 03:00 62 07/30/16 02:00 61 07/30/16 01:20 20 07/30/16 01:00 64 07/30/16 00:00 99 Room Air 07/30/16 00:00 70 07/30/16 00:00 98.1 79 20 109/74 97 07/29/16 23:30 119 07/29/16 23:00 70 07/29/16 22:00 105 07/29/16 21:00 127 07/29/16 20:00 99 Room Air 07/29/16 20:00 98.1 103 20 127/80 99 07/29/16 20:00 103 07/29/16 19:30 99 07/29/16 19:00 97 07/29/16 18:00 90 07/29/16 17:00 97 07/29/16 16:00 79 07/29/16 15:00 72 07/29/16 15:00 100 Room Air 07/29/16 15:00 98.2 63 17 100/63 100 07/29/16 14:00 82 07/29/16 13:00 71 07/29/16 12:00 86 07/29/16 11:00 90 07/29/16 11:00 95 Room Air 07/29/16 11:00 97.4 80 19 108/76 95 I/O 07/29/16 07/29/16 07/29/16 07/30/16 07/30/16 07/30/16 07:00 15:00 23:00 07:00 15:00 23:00 Intake Total 580 ml 600 ml 480 ml Output Total 1000 ml 1800 ml 1100 ml Balance -420 ml -1200 ml -620 ml Intake Oral 580 ml 600 ml 480 ml Output Urine Total 1000 ml 1450 ml 1100 ml Stool Total 350 ml # Bowel Movements 1 Result Diagram: 07/30/16 0615 07/30/16 0615 Other Results Laboratory Tests Test 07/30/16 06:15 White Blood Count 8.9 Red Blood Count 2.72 Hemoglobin 7.6 Hematocrit 22.8 Mean Corpuscular Volume 83.8 Mean Corpuscular Hemoglobin 27.9 Mean Corpuscular Hemoglobin 33.3 Concent Red Cell Distribution Width 17.2 Platelet Count 300 Mean Platelet Volume 7.3 Neutrophils (%) (Auto) 66.5 Lymphocytes (%) (Auto) 18.7 Monocytes (%) (Auto) 11.6 Eosinophils (%) (Auto) 2.3 Basophils (%) (Auto) 0.9 Neutrophils # (Auto) 5.9 Lymphocytes # (Auto) 1.7 Monocytes # (Auto) 1.0 Eosinophils # (Auto) 0.2 Basophils # (Auto) 0.1 CBC Comment DIFF FINAL Differential Comment Sodium Level 139 Potassium Level 3.9 Chloride Level 104 Carbon Dioxide Level 25.5 Anion Gap 10 Blood Urea Nitrogen 22 Creatinine 1.47 Estimat Glomerular Filtration 49 Rate Random Glucose 116 Calcium Level 8.2 Total Bilirubin 0.3 Aspartate Amino Transf 84 (AST/SGOT) Alanine Aminotransferase 44 (ALT/SGPT) Alkaline Phosphatase 60 Total Protein 6.1 Albumin 2.2 Physical Exam Physical Exam GENERAL: The patient is alert and oriented, obese, oriented times three sitting on a chair without any cardiorespiratory distress. VITAL SIGNS: Reviewed HEENT: Head is atraumatic, normocephalic. Eyes negative conjunctival icterus. Mouth unremarkable. NECK: Central trachea. Negative lymph node. CHEST: Good air entry bilaterally without wheezing. Occasional Dry crackling in the base CARDIOVASCULAR: S1 and S2 audible. Unable to hear any S3 gallop. ABDOMEN: Soft, non-tender, no organomegaly. Positive bowel sounds. Positive midline surgical scar. Also has right sided ostomy bag with brownish pasty stool MUSCULOSKELETAL: Extremities no cyanosis noted. There is positive ankle edema. IMPORT/EXPORT FREIGHT FORWARDER: Grossly intact. SKIN: Warm and dry. PSYCHIATRIC: Appropriate mood and affect. A/P Assessment and Plan 1. Rectal bleed d/t Adenocarcinoma 2. s/p Hematuria.urine cytology is neg 3. Recent NSTEMI s/p drug-eluting stents of LAD . The patient stopped taking Plavix and aspirin because of hematuria and rectal bleed three to four days ago. s/p recurrent NSTEMI 4. 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 History of hemorrhoids. 6. Pre diabetic. 7. Hypertension. 8. Chronic kidney disease history, stage III. 9. Lumbar spinal stenosis with chronic pain. 10. Cervical fusion C3 through C5. 11. Atrial flutter with controlled ventricular rate 12. Acute postop blood loss anemia PLAN On aspirin / plavix Cardizem CD 360 mg daily, metoprolol q12hr cont lasix 20 mg bid /kcl Continue analgesics Continue heart healthy diet H&H, low will give 1 unit of blood transfusion Continue statin Patient BP is better Protonix for GI prophylaxis. subcutaneous heparin for DVT prophylaxis Labs reviewed Previous notes reviewed Medications reviewed for d/c planning/d/c to snf when arrangements are made d/w ,await insurance approval f/u dr Uriostegui for chemo in1 wk f/u card f/u [facility] d/w pt Labs in the morning Hina Armijo MD Jul 30, 2016 10:50
[2016-07-30] MEDS ORDERED: FUROSEMIDE 20 MG/2 ML VIAL IV ONE (11:00)
[2016-07-30] MEDS ORDERED: SODIUM CHLOR 0.9% 250 ML INJ 250 ML IV ONE (11:00)
--- NOTE | 2016-07-30 17:32 | MB ---
cc: Anastasia ADAMES DATE OF CONSULTATION 07/30/16 HISTORY Mr. Lee is a 56-year-old white male who presented on July 15 with rectal bleeding. He had previously been admitted in early June with tachycardia and suspected coronary ischemia. The GI bleeding was suspected to be related to a colon cancer because a CT scan revealed a constricting lesion in the distal sigmoid. He underwent left heart catheterization on July 08 and had stents placed in his proximal LAD. He had single vessel disease. Subsequently, readmitted here for concern for possible bowel obstruction related to this cancer. On July 22, he underwent a diverting colostomy. It was not felt that he could have a more definitive procedure because of the recent coronary disease with ischemia. Dr. Uriostegui has seen him and plans to begin him on chemotherapy. I was asked to see him for possible COPD. 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 He has never had a significant pulmonary illness, never been told specifically that he had COPD or emphysema, has had no recurrent pneumonias and no history of lung cancer. During this hospital course, he has been on room air and his O2 saturations are currently 98-99%. He has had no chest pain or cough, congestion. He has been on prophylactic therapy for DVT/PE with subcutaneous heparin. He has been quite anemic. Hemoglobin is as low as 7.6 and he is receiving transfusions. PAST MEDICAL HISTORY 1. Bilateral hip read repairs 2005, 2010 2. Cervical fusion in 2016, 3. Hypertension, 4. Elevated cholesterol 5. Recent coronary disease. MEDICATIONS Current medications reviewed in the EMR. ALLERGIES None known. FAMILY HISTORY Parents lived into their 70s and 80s. No specific serious pulmonary disease. No family history of colon cancer in three sisters who are alive and well. REVIEW OF SYSTEMS pulmonary as noted above. PHYSICAL EXAMINATION VITAL SIGNS: 98, 117/70, respirations 14-18, pulse is 77. HEENT: Sclerae anicteric. Neck veins are not distended. No adenopathy in the neck. CHEST: Completely clear. No wheezes or rales. No congestion. CARDIAC: Regular rhythm. No harsh murmur. ABDOMEN: Soft, nontender. 1+ edema both lower extremities, no cyanosis or clubbing. LABORATORY DATA White count 8900. Arterial blood gas while being ventilated after anesthesia for his surgery on 100% oxygen - His pO2 was 337 with a pH 7.32, pCO2 of 40. That is the only arterial blood gas he has had. Bicarb levels are normal at 24. DISCUSSION Mr. Brown has smoked marijuana in the past, has never smoked cigarettes heavily and has no obvious respiratory symptoms at the present time. O2 saturations have been normal and I do not think any further pulmonary intervention is warranted at present. He is being followed carefully by several consultants including hematology-oncology and I would defer any future prophylactic therapy for DVT/PE to them. Thank you for asking me to see him with you in consultation. I will not follow him regularly, but if I can be of further help please reconsult. R. MD EVIE Amaral/ /4:04 PM /5:11 PM
--- NOTE | 2016-07-30 20:13 | HHI.PR ---
Subjective Remarks C/R Surg POD afebrile, VSS no active bleeding + flatus stoma functioning Objective - Vital Signs Date Time Temp Pulse Resp B/P Pulse Ox O2 Delivery O2 Flow Rate FiO2 07/30/16 18:01 80 07/30/16 15:15 97.8 16 117/73 97 07/30/16 15:15 Room Air Result Diagram: 07/30/16 0615 07/30/16 0615 Objective Remarks PE alert Abd - obese, soft, non-tender, stoma pouched well wound dry A/P Assessment and Plan Imp: s/p SD, recent stent palcement Abd better after diversion outpt chemo - will need port, done local wound care - dc stoma aguila dc plans Kan Gupta MD Jul 30, 2016 20:13
[2016-07-31] VITALS (24 sets, daily range): BP systolic 107–126; BP diastolic 62–82; PULSE 60–115; RESP 16–20; TEMP 97.5–98.1; O2SAT 95–100
[2016-07-31] MEDS: ACETAMINOPHEN/HYDROcodone 325 MG/7.5 MG TAB PO PRN ×4 (03:36→21:51)
[2016-07-31] MEDS: METOPROLOL TARTRATE 50 MG TAB PO SCH ×2 (08:15→21:50)
[2016-07-31] MEDS: POTASSIUM CHLORIDE 10 MEQ CONTROLLED RELEASE TAB PO SCH ×2 (08:15→21:50)
[2016-07-31] MEDS: FUROSEMIDE 40 MG/4 ML VIAL IV PUSH SCH ×2 (08:16→17:40)
[2016-07-31] MEDS: DILTIAZEM-CD 120 MG CAP ER PO SCH (08:16)
[2016-07-31] MEDS: DILTIAZEM-CD 240 MG CAP ER PO SCH (08:16)
[2016-07-31] MEDS: CLOPIDOGREL 75 MG TAB PO SCH (08:16)
[2016-07-31] MEDS: PANTOPRAZOLE SOD 40 MG DELAYED RELEASE TAB PO SCH (08:17)
[2016-07-31] MEDS: TAMSULOSIN HCL 0.4 MG CAP PO SCH (08:17)
[2016-07-31] MEDS: HEPARIN SODIUM - SQ 10,000 UNITS/ML VIAL SQ SCH ×2 (08:17→21:51)
[2016-07-31] MEDS: ASPIRIN EC 81 MG TABEC PO SCH (08:17)
[2016-07-31] MEDS: ATORVASTATIN 80 MG TAB PO SCH (08:33)
[2016-07-31] MEDS: SODIUM CHLORIDE 0.9% FLUSH 5 ML FLUSH FLUSH SCH ×2 (08:34→21:50)
[2016-07-31 08:36] LABS: HEMATOCRIT 28.4 % (39.0-51.0); MEAN CELL VOLUME 82.6 FL (80.0-100.0); MEAN CORPUSCULAR HGB CONC 32.7 % (32.0-36.0); PLATELET COUNT 315 TH/MM3 (150-450); RED BLOOD COUNT 3.44 MIL/MM3 (4.50-5.90); RED CELL DISTRIBUTION WIDTH 17.6 % (11.6-17.2); REVIEW FLAG FINAL; WHITE BLOOD COUNT 8.3 TH/MM3 (4.0-11.0)
[2016-07-31 08:57] LABS: BICARBONATE 27.4 MEQ/L (21.0-32.0); POTASSIUM 3.8 MEQ/L (3.5-5.1)
--- NOTE | 2016-07-31 10:41 | HHI.PR ---
Subjective Remarks Lying on bed without any apparent distress. Feels okay Breathing better Denies chest pain Heart rate mostly in control No Abdominal pain Tolerating diet Colostomy bag is working, soft brown stools Denies chest pain or shortness of breath No fever or chills No cough or sputum production Offers no other complaints Review of Systems Review of Systems Review of system for 12 point system otherwise unremarkable Objective Objective Results - Vital Signs Date Time Temp Pulse Resp B/P Pulse Ox O2 Delivery O2 Flow Rate FiO2 07/31/16 09:00 94 07/31/16 08:00 85 07/31/16 07:00 60 07/31/16 07:00 97 Room Air 07/31/16 07:00 97.5 70 20 126/79 97 07/31/16 06:00 60 07/31/16 05:00 109 07/31/16 04:00 78 07/31/16 03:00 62 07/31/16 03:00 97.8 72 16 110/76 98 07/31/16 03:00 98 Room Air 07/31/16 02:00 111 07/31/16 01:00 60 07/31/16 00:00 89 07/30/16 23:00 98.8 91 17 129/98 98 07/30/16 23:00 93 07/30/16 23:00 98 Room Air 07/30/16 22:00 91 07/30/16 21:00 118 07/30/16 20:00 112 07/30/16 19:00 98.5 88 18 124/82 98 07/30/16 19:00 98 Room Air 07/30/16 19:00 86 07/30/16 18:01 80 07/30/16 18:00 80 07/30/16 17:00 61 07/30/16 16:00 96 07/30/16 15:15 97.8 61 16 117/73 97 07/30/16 15:15 98 Room Air 07/30/16 15:00 72 07/30/16 14:00 76 07/30/16 13:00 60 07/30/16 12:06 16 07/30/16 12:00 60 07/30/16 11:01 98.5 77 16 94/64 98 07/30/16 11:01 98 Room Air 07/30/16 11:00 82 I/O 07/30/16 07/30/16 07/30/16 07/31/16 07/31/16 07/31/16 07:00 15:00 23:00 07:00 15:00 23:00 Intake Total 480 ml 1545 ml 480 ml Output Total 1100 ml 3450 ml 3450 ml Balance -620 ml -1905 ml -2970 ml Intake Oral 480 ml 720 ml 480 ml IV Total 500 ml Packed Cells 325 ml Output Urine Total 1100 ml 3150 ml 2925 ml Stool Total 300 ml 525 ml # Voids 11 # Bowel Movements 1 1 Result Diagram: 07/31/16 0725 07/31/16724 Other Results Laboratory Tests Test 07/30/16 07/31/16 13:40 07:25 Blood Type O POSITIVE Antibody Screen NEGATIVE Crossmatch Leukocyte-Reduced Red Blood Cells Blood Bank Comment White Blood Count 8.3 Red Blood Count 3.44 Hemoglobin 9.3 Hematocrit 28.4 Mean Corpuscular Volume 82.6 Mean Corpuscular Hemoglobin 27.0 Mean Corpuscular Hemoglobin 32.7 Concent Red Cell Distribution Width 17.6 Platelet Count 315 Mean Platelet Volume 7.3 Sodium Level 139 Potassium Level 3.8 Chloride Level 102 Carbon Dioxide Level 27.4 Anion Gap 10 Blood Urea Nitrogen 21 Creatinine 1.39 Estimat Glomerular Filtration 52 Rate Random Glucose 109 Calcium Level 8.3 Physical Exam Physical Exam GENERAL: The patient is alert and oriented, obese, oriented times three, without any cardiorespiratory distress. VITAL SIGNS: Reviewed HEENT: Head is atraumatic, normocephalic. Eyes negative conjunctival icterus. Mouth unremarkable. NECK: Central trachea. Negative lymph node. CHEST: Good air entry bilaterally without wheezing. Occasional Dry crackling in the base CARDIOVASCULAR: S1 and S2 audible. Unable to hear any S3 gallop. ABDOMEN: Soft, non-tender, no organomegaly. Positive bowel sounds. Positive midline surgical scar. Also has right sided ostomy bag with brownish pasty stool MUSCULOSKELETAL: Extremities no cyanosis noted. There is positive edema. SUSTAIN ENGINEER: Grossly intact. SKIN: Warm and dry. PSYCHIATRIC: Appropriate mood and affect. A/P Assessment and Plan 1. Rectal bleed d/t Adenocarcinoma 2. s/p Hematuria.urine cytology is neg 3. Recent NSTEMI s/p drug-eluting stents of LAD . The patient stopped taking Plavix and aspirin because of hematuria and rectal bleed three to four days ago. s/p recurrent NSTEMI 4. 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 History of hemorrhoids. 6. Pre diabetic. 7. Hypertension. 8. Chronic kidney disease history, stage III. 9. Lumbar spinal stenosis with chronic pain. 10. Cervical fusion C3 through C5. 11. Atrial flutter with controlled ventricular rate 12. Acute postop blood loss anemia PLAN On aspirin / plavix Cardizem CD 360 mg daily, metoprolol q12hr cont lasix 20 mg bid /kcl Continue analgesics Continue heart healthy diet H&H, better after 1 unit of blood transfusion on July 30 Continue statin Patient BP is better Protonix for GI prophylaxis. subcutaneous heparin for DVT prophylaxis Labs reviewed Previous notes reviewed Medications reviewed ss for d/c planning/d/c to snf when arrangements are made d/w SW ,await insurance approval f/u dr Uriostegui for chemo in1 wk f/u card f/u [facility] d/w pt Hina Armijo MD Jul 31, 2016 10:41
[2016-07-31] MEDS ORDERED: POTA-243 PO (10:46)
[2016-07-31] MEDS ORDERED: METO-309 PO (10:46)
[2016-07-31] MEDS ORDERED: TAMS5CAP PO (10:46)
[2016-07-31] MEDS ORDERED: IPRASOL NEB (10:46)
[2016-07-31] MEDS ORDERED: HYDR-3580 PO (10:46)
[2016-07-31] MEDS ORDERED: FURO1TAB62 PO (10:46)
[2016-07-31] MEDS ORDERED: PANT40TA3 PO (10:46)
[2016-08-01] VITALS (20 sets, daily range): BP systolic 97–140; BP diastolic 53–82; PULSE 73–120; RESP 18–20; TEMP 97.6–98.2; O2SAT 95–98
[2016-08-01] MEDS: ACETAMINOPHEN/HYDROcodone 325 MG/7.5 MG TAB PO PRN ×4 (02:58→20:20)
[2016-08-01 04:10] LABS: HEMATOCRIT 27.6 % (39.0-51.0); MEAN CELL VOLUME 82.1 FL (80.0-100.0); MEAN CORPUSCULAR HEMOGLOBIN 27.5 PG (27.0-34.0); MEAN CORPUSCULAR HGB CONC 33.5 % (32.0-36.0); PLATELET COUNT 317 TH/MM3 (150-450); RED BLOOD COUNT 3.36 MIL/MM3 (4.50-5.90); RED CELL DISTRIBUTION WIDTH 17.7 % (11.6-17.2); REVIEW FLAG FINAL; WHITE BLOOD COUNT 9.5 TH/MM3 (4.0-11.0)
[2016-08-01] MEDS: POTASSIUM CHLORIDE 10 MEQ CONTROLLED RELEASE TAB PO SCH ×2 (09:19→20:19)
[2016-08-01] MEDS: DILTIAZEM-CD 120 MG CAP ER PO SCH (09:19)
[2016-08-01] MEDS: METOPROLOL TARTRATE 50 MG TAB PO SCH ×2 (09:20→20:20)
[2016-08-01] MEDS: ASPIRIN EC 81 MG TABEC PO SCH (09:20)
[2016-08-01] MEDS: TAMSULOSIN HCL 0.4 MG CAP PO SCH (09:20)
[2016-08-01] MEDS: ATORVASTATIN 80 MG TAB PO SCH (09:20)
[2016-08-01] MEDS: DILTIAZEM-CD 240 MG CAP ER PO SCH (09:20)
[2016-08-01] MEDS: PANTOPRAZOLE SOD 40 MG DELAYED RELEASE TAB PO SCH (09:20)
[2016-08-01] MEDS: CLOPIDOGREL 75 MG TAB PO SCH (09:20)
[2016-08-01] MEDS: SODIUM CHLORIDE 0.9% FLUSH 5 ML FLUSH FLUSH SCH (09:21)
[2016-08-01] MEDS: HEPARIN SODIUM - SQ 10,000 UNITS/ML VIAL SQ SCH ×2 (09:21→20:20)
[2016-08-01] MEDS: FUROSEMIDE 40 MG/4 ML VIAL IV PUSH SCH ×2 (09:21→18:18)
--- NOTE | 2016-08-01 10:07 | HHI.PR ---
Subjective Remarks Lying on bed without any apparent distress. Has some anxiety about discharge Feels okay otherwise Breathing better Denies chest pain No palpitations No Abdominal pain Tolerating diet Colostomy bag is working, soft brown stools Denies chest pain or shortness of breath No fever or chills No cough or sputum production Offers no other complaints Review of Systems Review of Systems Review of system for 12 point system otherwise unremarkable Objective Objective Results - Vital Signs Date Time Temp Pulse Resp B/P Pulse Ox O2 Delivery O2 Flow Rate FiO2 08/01/16 06:00 87 08/01/16 05:00 84 08/01/16 04:00 95 08/01/16 03:00 89 08/01/16 03:00 97 Room Air 08/01/16 03:00 97.9 116 19 116/70 97 08/01/16 02:00 75 08/01/16 01:00 104 08/01/16 00:00 98 07/31/16 23:00 97.5 99 18 115/78 99 07/31/16 23:00 96 07/31/16 23:00 99 Room Air 07/31/16 22:00 97 07/31/16 21:00 100 07/31/16 20:00 115 07/31/16 19:00 113 07/31/16 19:00 97.9 111 17 121/82 100 07/31/16 19:00 100 Room Air 07/31/16 18:00 90 07/31/16 17:00 89 07/31/16 16:00 107 07/31/16 15:00 97.5 74 20 107/62 95 07/31/16 15:00 95 Room Air 07/31/16 15:00 69 07/31/16 14:00 85 07/31/16 13:00 74 07/31/16 12:00 87 07/31/16 11:00 98 Room Air 07/31/16 11:00 86 07/31/16 11:00 98.1 85 20 115/65 98 I/O 07/31/16 07/31/16 07/31/16 08/01/16 08/01/16 08/01/16 07:00 15:00 23:00 07:00 15:00 23:00 Intake Total 480 ml 960 ml 240 ml Output Total 3450 ml 2975 ml 2075 ml Balance -2970 ml -2015 ml -1835 ml Intake Oral 480 ml 960 ml 240 ml Output Urine Total 2925 ml 2525 ml 1950 ml Stool Total 525 ml 450 ml 125 ml Result Diagram: 08/01/16 0325 07/31/16 0725 Other Results Laboratory Tests Test 08/01/16 03:25 White Blood Count 9.5 Red Blood Count 3.36 Hemoglobin 9.2 Hematocrit 27.6 Mean Corpuscular Volume 82.1 Mean Corpuscular Hemoglobin 27.5 Mean Corpuscular Hemoglobin 33.5 Concent Red Cell Distribution Width 17.7 Platelet Count 317 Mean Platelet Volume 7.1 Physical Exam Physical Exam GENERAL: The patient is alert and oriented, obese, oriented times three, without any cardiorespiratory distress. VITAL SIGNS: Reviewed HEENT: Head is atraumatic, normocephalic. Eyes negative conjunctival icterus. Mouth unremarkable. NECK: Central trachea. Negative lymph node. CHEST: Good air entry bilaterally without wheezing. Occasional Dry crackling in the base CARDIOVASCULAR: S1 and S2 audible. Unable to hear any S3 gallop. ABDOMEN: Soft, non-tender, no organomegaly. Positive bowel sounds. Positive midline surgical scar. Also has right sided ostomy bag with brownish pasty stool MUSCULOSKELETAL: Extremities no cyanosis noted. There is positive edema. LEAFLET OR NEWSPAPER DELIVERER: Grossly intact. SKIN: Warm and dry. PSYCHIATRIC: Appropriate mood and affect. A/P Assessment and Plan 1. Rectal bleed d/t Adenocarcinoma 2. s/p Hematuria.urine cytology is neg 3. Recent NSTEMI s/p drug-eluting stents of LAD . The patient stopped taking Plavix and aspirin because of hematuria and rectal bleed three to four days ago. s/p recurrent NSTEMI 4. 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 History of hemorrhoids. 6. Pre diabetic. 7. Hypertension. 8. Chronic kidney disease history, stage III. 9. Lumbar spinal stenosis with chronic pain. 10. Cervical fusion C3 through C5. 11. Atrial flutter with controlled ventricular rate 12. Acute postop blood loss anemia PLAN On aspirin / plavix Cardizem CD 360 mg daily, metoprolol q12hr cont lasix 20 mg bid /kcl Continue analgesics Continue heart healthy diet H&H, better after 1 unit of blood transfusion on July 30 Continue statin Patient BP is better Protonix for GI prophylaxis. subcutaneous heparin for DVT prophylaxis Labs reviewed Previous notes reviewed Medications reviewed ss for d/c planning/d/c to snf when arrangements are made d/w SW ,await insurance approval f/u dr Uriostegui for chemo in1 wk f/u card f/u [facility] d/w pt Discussed with RN Discussed with Dr. Gupta patient may have on and off some mild bleeding because he still has cancer. On to discharge him today Hina Armijo MD Aug 01, 2016 10:07
--- NOTE | 2016-08-01 10:38 | HHI.DS ---
Discharge Summary Admission Date Jul 15, 2016 at 10:36 Admitting Diagnosis Afib RVR/Elevated TN/GI Bleed. (1) Atrial flutter Diagnosis: Principal (2) Colitis Diagnosis: Principal (3) Rectal bleeding Diagnosis: Principal (4) NSTEMI (non-ST elevated myocardial infarction) Diagnosis: Principal (5) Troponin level elevated Diagnosis: Principal (6) High blood pressure Diagnosis: Principal (7) Cancer of rectosigmoid (colon) Diagnosis: Principal Brief History Patient admitted because of the rectal bleeding. And also had hematuria. Patient had recent stents for CAD. Patient stopped aspirin and Plavix. Days ago prior to admission to the ER. Patient was seen and followed by GI as well as cardiology. Patient has increase in troponin. He has a non-ST elevation ID. Because of the bleeding cautious and discolorations was started. Patient was on heparin drip in the meantime. Patient was seen by colorectal surgeon. He initially refused sigmoidoscopy. He was continuously manage in [facility]. And followed by cardiology. 5 patient agreeing for sigmoidoscopy. Sigmoidoscopy was done and biopsy of mass was taken. It shows patient has invasive moderately differentiated adenocarcinoma. Dr. Gupta dated dilating ostomy. Patient was seen by oncology. [id number] port was put in. As per oncologist chemotherapy in approximately 2 weeks. Patient is started on physical therapy. Awaiting for placement in rehabilitation. CBC/BMP: 08/01/16 0325 07/31/16 0725 Significant Findings Laboratory Tests Test 07/30/16 07/31/16 08/01/16 06:15 07:25 03:25 Red Blood Count 2.72 MIL/MM3 3.44 MIL/MM3 3.36 MIL/MM3 (4.50-5.90) (4.50-5.90) (4.50-5.90) Hemoglobin 7.6 GM/DL 9.3 GM/DL 9.2 GM/DL (13.0-17.0) (13.0-17.0) (13.0-17.0) Hematocrit 22.8 % 28.4 % 27.6 % (39.0-51.0) (39.0-51.0) (39.0-51.0) Monocytes (%) (Auto) 11.6 % (0.0-8.0) Monocytes # (Auto) 1.0 TH/MM3 (0-0.9) Blood Urea Nitrogen 22 MG/DL (7-18) 21 MG/DL (7-18) Creatinine 1.47 MG/DL 1.39 MG/DL (0.60-1.30) (0.60-1.30) Estimat Glomerular Filtration 49 ML/MIN (>89) 52 ML/MIN (>89) Rate Random Glucose 116 MG/DL 109 MG/DL (74-106) (74-106) Calcium Level 8.2 MG/DL 8.3 MG/DL (8.5-10.1) (8.5-10.1) Aspartate Amino Transf 84 U/L (15-37) (AST/SGOT) Total Protein 6.1 GM/DL (6.4-8.2) Albumin 2.2 GM/DL (3.4-5.0) Red Cell Distribution Width 17.6 % 17.7 % (11.6-17.2) (11.6-17.2) Pt Condition on Discharge: Stable Discharge Instructions DIET: Follow Instructions for: Heart Healthy Diet Activities you can perform: Weight Bearing as Kate Follow up Referrals: Appointment for Follow Up - 1 Week with Kan Gupta MD Cardiology - 1 Week with EARLE HARTMAN Oncology - 1 Week with ANGEL ARANA New Medications: Furosemide (Lasix) 20 Mg Tab 20 MG PO BID fluid retention #60 Ref 0 TAB Hydrocodone-Acetaminophen (Hydrocodone-Acetaminophen) 7.5-325 mg Tab 1 TAB PO Q4H PRN PAIN SCALE 6 TO 10 #28 TAB Ipratropium-Albuterol Neb (Duoneb) 0.5-2.5 Mg/3 Ml Neb 1 AMPULE NEB Q4HR NEB PRN WHEEZING #20 ML Metoprolol Tartrate (Lopressor) 50 Mg Tab 75 MG PO Q12HR high blood pressure/heart rate #60 TAB Pantoprazole (Pantoprazole) 40 Mg Tab 40 MG PO DAILY inflammation #30 TAB Potassium Chloride ER (Klor-Con 10) 10 Meq Tab 10 MEQ PO Q12HR low potassium #60 TAB Tamsulosin (Flomax) 0.4 Mg Cap 0.4 MG PO DAILY urinary #30 CAP Continued Medications: Aspirin DR (Aspirin EC) 81 Mg Tabdr 81 MG PO DAILY Heart #30 TAB Atorvastatin (Lipitor) 80 Mg Tab 80 MG PO DAILY Cholesterol Management #30 TAB Clopidogrel (Plavix) 75 Mg Tab 75 MG PO DAILY Blood Clot Prevention Ref 0 TAB Diltiazem CD 24 HR (Cardizem CD 24 HR) 180 Mg Caper 360 MG PO DAILY Heart #30 CAP Discontinued Medications: Ciprofloxacin (Cipro) 500 Mg Tab 500 MG PO Q12HR Infection #10 TAB Metoprolol Tartrate (Lopressor) 50 Mg Tab 50 MG PO Q8HR heart #30 TAB Metronidazole (Flagyl) 500 Mg Tab 500 MG PO Q8HR Infection #15 TAB Prasugrel (Effient) 10 Mg Tab 10 MG PO DAILY Heart #30 TAB Hina Armijo MD Aug 01, 2016 10:38
--- NOTE | 2016-08-06 07:19 | MP ---
cc: ANAM VARNER M.D. DATE OF SURGERY July 22, 2016 PREOPERATIVE DIAGNOSIS Obstructing carcinoma of the sigmoid colon. PROCEDURE Exploratory laparotomy with transverse loop colostomy. POSTOPERATIVE DIAGNOSIS Obstructing carcinoma of the sigmoid colon. SURGEON Dr. Varner PROOF TECHNICIAN Dr. Reese Wells PROCEDURE The patient was placed in the supine position. After adequate general anesthesia, his legs were placed in [place] stirrups and supported appropriately. The abdomen and perineum were then prepped with Betadine solution and draped in the usual sterile fashion. With Dr. Wells's assistance midline incision was made entering the peritoneal cavity under direct vision. The colon was extremely dilated and right underneath the incision. It was tensely distended with both air and liquid stool. The cecum was massively distended but no signs of any serosal tears. There was some straw-colored ascites within the abdomen. No signs of carcinomatosis was present. The tumor was palpable in the sigmoid colon consistent with his previously biopsied colon cancer. Next, the omentum was dissected off the transverse colon by going through the omentum and dividing some large mesenteric vessels between Jocelyne's obtaining hemostasis with Vicryl ties. After adequate mobilization, a small transverse incision was made in the right side of the abdomen, splitting the rectus muscles and reentering the abdominal cavity. Avascular plane was created in the mesentery and the loop of transverse colon was decompressed manually and brought up through the stab wound without tension and with good blood supply, placing a colostomy bar through the avascular plane in the mesentery. Next, the midline incision was closed reapproximating the midline fascia with a running #1 PDS suture. The subcu tissues were irrigated copiously and the skin closed with a row of surgical debbie. The wound area was washed with normal saline and dried, a sterile dressing of Telfa and gauze applied. Next, a transverse colotomy was made in the looped transverse colon and both proximal and distal ends were matured in the usual Yolanda fashion by placing a row of interrupted chromic catgut sutures around the circumference. At completion the stoma did appear to be viable and was patent through both limbs. A significant amount of abdominal distension was relieved by decompression after the stoma was opened. Sterile colostomy appliance fitted over the new stoma. The patient tolerated the procedure quite well and was brought to the recovery room in stable condition. Sponge and needle counts were correct at the end of procedure. MD SUSAN Tejada/DENISA /11:06 PM /7:12 AM
== END 2016-08-01 20:35 | DRG 329 ==
LOC: NEPC 08:19 → NEDA 10:36 → HCIS 13:30 → N03A 07-22 11:36 → HCIS 07-25 13:31 → HCIN 07-25 15:50
PROVIDERS: ADMIT Specialist; ATTEND Specialist
PROC: 0DBN8ZX Excision of Sigmoid Colon, Via Natural or Artificial Opening Endoscopic, Diagnostic (ICD-10-PCS; 2016-07-19)
PROC: 30233N1 Transfusion of Nonautologous Red Blood Cells into Peripheral Vein, Percutaneous Approach (ICD-10-PCS; 2016-07-22)
PROC: 0D1L4Z4 Bypass Transverse Colon to Cutaneous, Percutaneous Endoscopic Approach (ICD-10-PCS; principal; 2016-07-22 08:29)
PROC: 0JH60XZ Insertion of Tunneled Vascular Access Device into Chest Subcutaneous Tissue and Fascia, Open Approach (ICD-10-PCS; 2016-07-25)
PROC: 05HM33Z Insertion of Infusion Device into Right Internal Jugular Vein, Percutaneous Approach (ICD-10-PCS; 2016-07-25)
DX: C18.7 Malignant neoplasm of sigmoid colon (principal); I21.4 Non-ST elevation (NSTEMI) myocardial infarction; I31.3 Pericardial effusion (noninflammatory); E11.22 Type 2 diabetes mellitus with diabetic chronic kidney disease; R18.8 Other ascites; N17.9 Acute kidney failure, unspecified; N18.3 Chronic kidney disease, stage 3 (moderate); I48.92 Unspecified atrial flutter; D62 Acute posthemorrhagic anemia; I48.91 Unspecified atrial fibrillation; I12.9 Hypertensive chronic kidney disease with stage 1 through stage 4 chronic kidney disease, or unspecified chronic kidney disease; E78.00 Pure hypercholesterolemia, unspecified; E78.5 Hyperlipidemia, unspecified; F12.90 Cannabis use, unspecified, uncomplicated; F41.9 Anxiety disorder, unspecified; G89.29 Other chronic pain; I25.10 Atherosclerotic heart disease of native coronary artery without angina pectoris; K57.90 Diverticulosis of intestine, part unspecified, without perforation or abscess without bleeding; M19.90 Unspecified osteoarthritis, unspecified site; M41.9 Scoliosis, unspecified; M48.06 Spinal stenosis, lumbar region; N40.1 Benign prostatic hyperplasia with lower urinary tract symptoms; R31.9 Hematuria, unspecified; Z79.82 Long term (current) use of aspirin; Z95.5 Presence of coronary angioplasty implant and graft; Z96.643 Presence of artificial hip joint, bilateral
CPT/HCPCS: 36430; 36561; 71010; 74020; 74176; 76937; 77001; 80048; 80053; 81001; 82378; 82550; 82552; 82805; 83605; 83735; 84484; 85025; 85027; 85610; 85730; 86850; 86900; 86901; 86920; 87641; 88305; 93005; 94664; 96360; C1788; J0690; J1642; J1644; J1940; J2060; J2250; J2270; J2370; J2405; J2930; J3010; J3370; J7030; J7040; J7050; J7120; J7613; P9016

== ENCOUNTER 2016-08-29 12:31 | Day surgery (SDC) | payer OTHER ==
[2016-08-29] VITALS (7 sets, daily range): BP systolic 102–130; BP diastolic 61–85; PULSE 77–111; RESP 18–20; TEMP 98–98.1; O2SAT 96–100
[~2016-08-29] VITALS: Ht 175.3 cm; Wt 113.4 kg
[~2016-08-29 12:31] MED LIST changes: -CIPR-9 PO; +FURO1TAB62 PO; +HYDR-3580 PO; +IPRASOL NEB; -METR-1 PO; +PANT40TA3 PO; +PLAV75TA29 PO; +POTA-243 PO; -PRAS10TA PO; +TAMS5CAP PO
[2016-08-29] MEDS ORDERED: INSULIN HUMAN REGULAR 1,000 UNITS/10 ML VIAL SQ PRN (13:15)
[2016-08-29] MEDS ORDERED: METOPROLOL TARTRATE 25 MG TAB PO PRN (13:15)
[2016-08-29] MEDS: SODIUM CHLORID 0.9% 500 ML IV SCH (13:15)
[2016-08-29] MEDS ORDERED: LACTATED RINGER'S 1000 ML IV SCH (13:15)
[2016-08-29] MEDS: SODIUM CHLORID 0.9% 500 ML INJ 500 ML IV SCH (13:30)
[2016-08-29] MEDS ORDERED: LORazepam 1 MG TAB SL SCH (13:30)
[2016-08-29 13:57] LABS: AUTOMATED NEUTROPHIL # 5.5 TH/MM3 (1.8-7.7); BASOPHIL # 0.1 TH/MM3 (0-0.2); BASOPHIL % 1.1 % (0.0-2.0); EOSINOPHIL # 0.1 TH/MM3 (0-0.4); EOSINOPHIL % 0.7 % (0.0-4.0); HEMATOCRIT 28.5 % (39.0-51.0); HEMO FLAGS DIFF FINAL; LYMPH % 18.3 % (9.0-44.0); LYMPHOCYTE # 1.5 TH/MM3 (1.0-4.8); MEAN CELL VOLUME 84.4 FL (80.0-100.0); MEAN CORPUSCULAR HEMOGLOBIN 27.5 PG (27.0-34.0); MEAN CORPUSCULAR HGB CONC 32.6 % (32.0-36.0); MONO % 10.1 % (0.0-8.0); NEUT % 69.8 % (16.0-70.0); PLATELET COUNT 253 TH/MM3 (150-450); RED BLOOD COUNT 3.38 MIL/MM3 (4.50-5.90); RED CELL DISTRIBUTION WIDTH 18.5 % (11.6-17.2); WHITE BLOOD COUNT 7.9 TH/MM3 (4.0-11.0)
[2016-08-29 13:59] LABS: APTT (PATIENT) 29.6 SEC (24.3-30.1); INTERNATIONAL NORMALIZED RATIO 1.1 RATIO; PROTHROMBIN TIME - PATIENT 12.4 SEC (9.8-11.6)
[2016-08-29 14:03] LABS: BICARBONATE 22.9 MEQ/L (21.0-32.0); POTASSIUM 4.2 MEQ/L (3.5-5.1)
[2016-08-29] MEDS ORDERED: PHENYLEPH/NS 1000 MCG/10 ML SYR IV ONE (16:19)
[2016-08-29] MEDS ORDERED: SODIUM CHLORID 0.9% 500 ML BAG IV ONE (16:19)
[2016-08-29] MEDS ORDERED: PROPOFOL 200 MG/20 ML AMP OTHER ONE (16:19)
[2016-08-29] MEDS ORDERED: MIDAZOLAM HCL 2 MG/2 ML VIAL ONE (16:28)
[2016-08-29] MEDS ORDERED: ISOPROTERENOL HCL 1 MG/5 ML AMP ONE (16:28)
[2016-08-29] MEDS ORDERED: oxyCODONE/ACETAMINOPHEN 5 MG/325 MG TAB PO PRN (18:15)
[2016-08-29] MEDS ORDERED: SODIUM CHLOR 0.9% 250 ML INJ 250 ML IV PRN (18:15)
[2016-08-29] MEDS ORDERED: LIDOCAINE HCL 1% 50 ML VIAL INFIL PRN (18:15)
[2016-08-29] MEDS ORDERED: METOCLOPRAMIDE HCL 10 MG/2 ML VIAL IV PRN (18:15)
[2016-08-29] MEDS ORDERED: ONDANSETRON HCL 4 MG/2 ML VIAL IV PRN (18:15)
[2016-08-29] MEDS ORDERED: ATROPINE SULFATE 1 MG/ML VIAL IV PRN (18:15)
[2016-08-29] MEDS ORDERED: LORazepam 2 MG/ML VIAL IV PRN (18:15)
[2016-08-29] MEDS ORDERED: BACITRACIN OINT 0.9 GM PKT TOP ONE (18:15)
[2016-08-29] MEDS: oxyCODONE/ACETAMINOPHEN 5 MG/325 MG TAB PO PRN (20:31)
[2016-08-29] MEDS: FUROSEMIDE 20 MG TAB PO SCH (20:32)
[2016-08-29] MEDS: METOPROLOL TARTRATE 50 MG TAB PO SCH (20:32)
[2016-08-29] MEDS: POTASSIUM CHLORIDE 10 MEQ CONTROLLED RELEASE TAB PO SCH (20:32)
[2016-08-29] MEDS: TAMSULOSIN HCL 0.4 MG CAP PO SCH (20:37)
[2016-08-29] MEDS: ATORVASTATIN 80 MG TAB PO SCH (20:37)
--- NOTE | 2016-08-29 21:13 | MA ---
cc: NERISSA PABLO M.D. DATE 08/29/2016 PROCEDURE Electrophysiology study, CS cannulation, 3-D mapping, radiofrequency ablation of atrial flutter, repeat electrophysiology study on Isuprel infusion. INDICATIONS FOR PROCEDURE Mr. Brown is a 56-year-old gentleman with history of atrial flutter, colon mass, previous right colostomy, neoplasm suspected. The patient cannot undergo chemotherapy or surgery because heart rate is very high, difficult to control. He has had multiple hospitalizations. He has GI bleeding and is not a candidate for anticoagulation, was referred for atrial flutter ablation. The risks, the nature and the benefit of the procedure are clearly stated to him and his family. The risks include pneumothorax, cardiac perforation, stroke and even . He understood and agreed to proceed. They also understand that because the gentleman he was not on anticoagulation and will not be on anticoagulation, the risk for stroke is very high. They understand and agreed to proceed because, despite multiple medications, the heart rate cannot be controlled. PROCEDURE As written informed consent was obtained prior to esophageal echo, the patient was kept on the table where he was prepped and draped in the usual sterile fashion. Conscious sedation was initiated and maintained throughout the procedure by the anesthesiologist. Once sedation was verified, the right and left inguinal area was anesthetized with 2% Xylocaine. Using modified Seldinger technique, the left femoral vein was cannulated on three occasions. Three guidewires were advanced over the wire. Three 5-Somali Hemaquets were advanced. Then the right femoral vein was cannulated on two occasions, two guidewire were advanced over the wire. A 6 and an 8-Somali Hemaquet were advanced. Then under fluoroscopic guidance through the 5 and 6-Somali Hemaquet, four 5-Somali John curved quadripolar electrophysiology catheters were advanced and positioned on the His, upper right atrium, coronary sinus and right ventricular apex. Basic interval was measured. The patient was in atrial flutter. Flutter cycle length was around 250 milliseconds. Base cycle length was around 480 milliseconds. Then, through the 8-Somali Hemaquet, a Cordis Morse F-curve 8-mm mapping and radiofrequency ablation catheter was advanced. Flutter was entrained. Entrainment was positive. Then the catheter was positioned at critical isthmus. First the three-dimensional configuration of the right atrium was obtained. At this point, radiofrequency energy was delivered. During ablation cycle length was prolonged progressively. Then the patient converted into sinus rhythm. Further burn was delivered in the area. Then atrial pacing protocol was performed. Again no tachyarrhythmia was induced. Isuprel was infused at 10 mcg and atrial pacing protocol was performed. No tachyarrhythmia was induced. Post-Isuprel no tachyarrhythmia was induced. At that point the procedure was complete. All catheters were removed. The patient is going to be transferred to the recovery room. No incident reported. The patient tolerated procedure. Blood loss minimal number. 1. Electrocardiogram at baseline: The patient was in atrial flutter. Postprocedure the patient was in sinus rhythm. 2. Basic Interval: Base cycle length was around 444-480 milliseconds. Post-ablation it was around 980 milliseconds. AH at 130 and HV was around 60 milliseconds. 3. Atrial Pacing Protocol: No tachyarrhythmia was induced post- ablation. 4. Tachyarrhythmia: Atrial flutter was mapped, entrained and ablated. Ablation was successful. CONCLUSION Successful electrophysiology study, mapping and radiofrequency ablation of atrial flutter. COMMENT AND RECOMMENDATIONS The patient is going to be transferred to the Telemetry Unit. Be will be observed and when stable can be discharged home. MD RICK Andersen/SSB /6:05 PM /9:05 PM
[2016-08-30] VITALS (12 sets, daily range): BP systolic 109–121; BP diastolic 68–80; PULSE 98–116; RESP 18–21; TEMP 97.5–97.8; O2SAT 97–99
[2016-08-30] MEDS: oxyCODONE/ACETAMINOPHEN 5 MG/325 MG TAB PO PRN ×2 (03:18→09:25)
[2016-08-30] MEDS: SODIUM CHLORID 0.9% 500 ML INJ 500 ML IV SCH (04:42)
[2016-08-30] MEDS: SODIUM CHLORID 0.9% 500 ML IV SCH (04:42)
[2016-08-30 05:12] LABS: APTT (PATIENT) 30.2 SEC (24.3-30.1); INTERNATIONAL NORMALIZED RATIO 1.1 RATIO; PROTHROMBIN TIME - PATIENT 12.7 SEC (9.8-11.6)
[2016-08-30] MEDS ORDERED: PANTOPRAZOLE SOD 40 MG DELAYED RELEASE TAB PO SCH (09:00)
[2016-08-30] MEDS ORDERED: CLOPIDOGREL 75 MG TAB PO SCH (09:00)
[2016-08-30] MEDS: ATORVASTATIN 80 MG TAB PO SCH (09:00)
[2016-08-30] MEDS: FUROSEMIDE 20 MG TAB PO SCH (09:23)
[2016-08-30] MEDS: POTASSIUM CHLORIDE 10 MEQ CONTROLLED RELEASE TAB PO SCH (09:23)
[2016-08-30] MEDS: METOPROLOL TARTRATE 50 MG TAB PO SCH (09:24)
[2016-08-30] MEDS: TAMSULOSIN HCL 0.4 MG CAP PO SCH (09:24)
--- NOTE | 2016-08-30 11:56 | PD.CARD.PN ---
Subjective Subjective Remarks Feels ok. Objective Medications Current Medications Medications (Trade) Dose Ordered Sig/Maricarmen Route Start Time Stop Time Status Last Admin Lactated Ringer's 1,000 ml @ 30 mls/hr Q24H IV 08/29/16 13:15 Sodium Chloride 500 ml @ 30 mls/hr [id number] IV 08/29/16 13:15 08/30/16 13:14 (NS 500 ml Inj) 500 ml @ 30 mls/hr [id number] IV 08/29/16 13:30 (Percocet 5-325 Mg) 1 tab Q4H PRN PO 08/29/16 18:15 (Percocet 5-325 Mg) 2 tab Q4H PRN PO 08/29/16 18:15 08/30/16 09:25 (Ativan Inj) 0.5 mg UNSCH PRN IV 08/29/16 18:15 08/30/16 18:14 Atropine Sulfate 0.5 mg 0.5 mg UNSCH PRN IV 08/29/16 18:15 (NS 250 ml Inj) 250 ml @ 500 mls/hr ONCE PRN IV 08/29/16 18:15 08/30/16 18:14 (Reglan Inj) 10 mg Q4H PRN IV 08/29/16 18:15 (Zofran Inj) 4 mg Q4H PRN IV 08/29/16 18:15 (Xylocaine 1% Inj (50 ml)) 10 ml UNSCH PRN INFIL 08/29/16 18:15 08/30/16 18:14 (Lipitor) 80 mg DAILY PO 08/29/16 18:30 08/30/16 09:00 (Plavix) 75 mg DAILY PO 08/30/16 09:00 08/30/16 09:24 (Lasix) 20 mg BID PO 08/29/16 21:00 08/30/16 09:23 (Lopressor) 75 mg Q12HR PO 08/29/16 21:00 08/30/16 09:24 (Protonix) 40 mg DAILY PO 08/30/16 09:00 08/30/16 09:24 (KCl) 10 meq Q12HR PO 08/29/16 21:00 08/30/16 09:23 (Flomax) 0.4 mg DAILY PO 08/29/16 18:30 08/30/16 09:24 Vital Signs / I&O Vital Signs Date Time Temp Pulse Resp B/P Pulse Ox O2 Delivery O2 Flow Rate FiO2 08/30/16 10:00 107 08/30/16 09:00 111 08/30/16 08:00 105 08/30/16 08:00 97.5 113 18 121/77 98 08/30/16 06:00 116 08/30/16 05:00 107 08/30/16 04:00 97.5 109 18 118/80 99 08/30/16 04:00 106 08/30/16 03:00 113 08/30/16 02:00 103 08/30/16 01:00 102 08/30/16 00:00 102 08/30/16 00:00 97.8 105 21 109/68 97 08/29/16 23:00 105 08/29/16 22:00 99 08/29/16 21:00 108 08/29/16 20:00 111 08/29/16 20:00 98.0 105 20 128/85 98 08/29/16 19:00 104 08/29/16 18:15 106 20 130/61 100 08/29/16 13:45 98.1 77 18 102/68 96 I/O 08/29/16 08/29/16 08/29/16 08/30/16 08/30/16 08/30/16 07:00 15:00 23:00 07:00 15:00 23:00 Intake Total 730 ml Output Total 460 ml Balance 270 ml Intake Oral 480 ml IV Total 250 ml Output Urine Total 460 ml Physical Exam GENERAL: Well-nourished, well-developed patient. SKIN: Warm and dry. Groin sites soft with no hematoma or swelling. HEAD: Normocephalic. EYES: No scleral icterus. No injection or drainage. NECK: Supple, trachea midline. No JVD or lymphadenopathy. CARDIOVASCULAR: Regular rate and rhythm without murmurs, gallops, or rubs. RESPIRATORY: Breath sounds equal bilaterally. No accessory muscle use. GASTROINTESTINAL: Abdomen soft, non-tender, nondistended. EXTREMITIES: No cyanosis, or edema. NEUROLOGICAL: Awake, alert, and oriented x 3. Non-focal. Laboratory Laboratory Tests Test 08/29/16 08/30/16 13:20 04:16 White Blood Count 7.9 TH/MM3 Red Blood Count 3.38 MIL/MM3 Hemoglobin 9.3 GM/DL Hematocrit 28.5 % Mean Corpuscular Volume 84.4 FL Mean Corpuscular Hemoglobin 27.5 PG Mean Corpuscular Hemoglobin 32.6 % Concent Red Cell Distribution Width 18.5 % Platelet Count 253 TH/MM3 Mean Platelet Volume 7.1 FL Neutrophils (%) (Auto) 69.8 % Lymphocytes (%) (Auto) 18.3 % Monocytes (%) (Auto) 10.1 % Eosinophils (%) (Auto) 0.7 % Basophils (%) (Auto) 1.1 % Neutrophils # (Auto) 5.5 TH/MM3 Lymphocytes # (Auto) 1.5 TH/MM3 Monocytes # (Auto) 0.8 TH/MM3 Eosinophils # (Auto) 0.1 TH/MM3 Basophils # (Auto) 0.1 TH/MM3 CBC Comment DIFF FINAL Differential Comment Prothrombin Time 12.4 SEC 12.7 SEC Prothromb Time International 1.1 RATIO 1.1 RATIO Ratio Activated Partial 29.6 SEC 30.2 SEC Thromboplast Time Sodium Level 138 MEQ/L Potassium Level 4.2 MEQ/L Chloride Level 106 MEQ/L Carbon Dioxide Level 22.9 MEQ/L Anion Gap 9 MEQ/L Blood Urea Nitrogen 32 MG/DL Creatinine 1.73 MG/DL Estimat Glomerular Filtration 41 ML/MIN Rate Random Glucose 112 MG/DL Calcium Level 8.6 MG/DL Blood Type O POSITIVE Antibody Screen NEGATIVE Assessment and Plan Problem List: (1) Atrial flutter Assessment and Plan: Mild tachycardia this morning prior to receiving Metoprolol, HR<110, improving after medication given. Stable s/p ablation. DC home, f/u with Dr. Ferreira in 3 weeks, per my d/w Dr. Ferreira. Problem Qualifiers (1) Atrial flutter: Qualified Code: I48.3 - Typical atrial flutter Jeane Handley Aug 30, 2016 11:56
--- NOTE | 2016-08-30 13:47 | EKG ---
Date Performed: 08/30/2016 Time Performed: 06:21:20 PTAGE: 56 years EKG: Sinus tachycardia Leftward axis Right bundle branch block Anteroseptal infarct - age undete rmined Possible inferior infarct - age undetermined Low QRS voltages in precordial leads Abnormal ECG PREVIOUS TRACING : 08/29/2016 21.45 Since previous tracing, no significant change noted DOCTOR: Loida Brady Interpretating Date/Time 08/30/2016 13:40:00
--- NOTE | 2016-08-30 14:27 | EKG ---
Date Performed: 08/29/2016 Time Performed: 13:43:14 PTAGE: 56 years EKG: Atrial flutter with variable conduction Left axis deviation Right bundle branch block Exten sive infarct - age undetermined Low QRS voltages in precordial leads Since previous tracing, no signi ficant change noted Abnormal ECG PREVIOUS TRACING : 07/15/2016 08.26 DOCTOR: Loida Brady Interpretating Date/Time 08/30/2016 14:26:52
--- NOTE | 2016-08-30 14:29 | EKG ---
Date Performed: 08/29/2016 Time Performed: 21:45:12 PTAGE: 56 years EKG: Sinus rhythm Leftward axis Right bundle branch block Inferior infarct - age undetermined Anterior infarct - age u ndetermined Low QRS voltages in precordial leads Compared to previous tracing the patient is now prob ably in sinus rhythm with resolution of the atrial flutter. Otherwise no significant change Abnormal ECG PREVIOUS TRACING : 08/29/2016 13.43 DOCTOR: Loida Brady Interpretating Date/Time 08/30/2016 14:28:11
--- NOTE | 2016-09-15 13:16 | ETE ---
Study Study Date:08/29/2016 STUDY CONCLUSIONS SUMMARY - Left ventricle: The cavity size was normal. Wall thickness was normal. Systolic function was normal. The estimated ejection fraction was in the range of 50% to 55%. Wall motion was normal; there were no regional wall motion abnormalities. - Aortic valve: No evidence of vegetation. - Mitral valve: No evidence of vegetation. Mild regurgitation. - Left atrium: The atrium was dilated. No evidence of thrombus in the atrial cavity or appendage. No evidence of thrombus in the atrial cavity or appendage. - Right atrium: No evidence of thrombus in the atrial cavity or appendage. - Atrial septum: No defect or patent foramen ovale was identified. Echo contrast study showed no fymyj-di-ydal atrial level shunt, at baseline or with provocation. - Tricuspid valve: No evidence of vegetation. - Pulmonic valve: No evidence of vegetation. If LV function is below 40, please consider prescribing an ACEI or ARB or document rationale for non-use. PROCEDURE DATA Consent: The risks, benefits, and alternatives to the procedure were explained to the patient and informed consent was obtained. Procedure: Initial setup. The patient was brought to the laboratory in the fasting state. Intravenous access was obtained. Surface ECG leads and pulse oximetric signals were monitored. Sedation. Conscious sedation was administered by anesthesiology. Transesophageal echocardiography. Topical anesthesia was obtained using viscous lidocaine. A transesophageal probe was inserted by the attending graphic coordinator. Image quality was good. Study completion: All IVs inserted during the procedure were removed. The patient tolerated the procedure well. There were no complications. Transesophageal echocardiography. 2D, complete spectral Doppler, and color Doppler. CARDIAC ANATOMY LEFT VENTRICLE: The cavity size was normal. Wall thickness was normal. Systolic function was normal. The estimated ejection fraction was in the range of 50% to 55%. Wall motion was normal; there were no regional wall motion abnormalities. AORTIC VALVE: Trileaflet; mildly thickened leaflets. Cusp separation was normal. No evidence of vegetation. Doppler: No significant regurgitation. Aorta: - There was no atheroma. There was no evidence for dissection. Aortic root: The aortic root was not dilated. Ascending aorta: The ascending aorta was normal in size. Aortic arch: The aortic arch was normal in size. Descending aorta: The descending aorta was normal in size. MITRAL VALVE: Structurally normal valve. Leaflet separation was normal. No evidence of vegetation. Doppler: Mild regurgitation. LEFT ATRIUM: The atrium was dilated. No evidence of thrombus in the atrial cavity or appendage. No evidence of thrombus in the atrial cavity or appendage. The appendage was morphologically a left appendage, multilobulated, and of normal size. Emptying velocity was normal. ATRIAL SEPTUM: No defect or patent foramen ovale was identified. Echo contrast study showed no oavdq-hq-mzjr atrial level shunt, at baseline or with provocation. RIGHT VENTRICLE: The cavity size was normal. Wall thickness was normal. Systolic function was normal. PULMONIC VALVE: Structurally normal valve. No evidence of vegetation. TRICUSPID VALVE: Structurally normal valve. Leaflet separation was normal. No evidence of vegetation. Doppler: Trace regurgitation. PULMONARY ARTERY: The main pulmonary artery was normal-sized. RIGHT ATRIUM: The atrium was normal in size. No evidence of thrombus in the atrial cavity or appendage. The appendage was morphologically a right appendage. PERICARDIUM: There was no pericardial effusion. Prepared and signed by Lisa Ferreira [id number]
== END 2016-08-30 13:33 | disposition home or self-care (01) ==
LOC: HDOC 12:31 → HDIC 12:32 → HCPC 18:11 → HDOC 08-30 13:33
PROVIDERS: ATTEND Internal Medicine Interventional Cardiology
DX: I48.3 Typical atrial flutter (principal); I45.10 Unspecified right bundle-branch block; R94.31 Abnormal electrocardiogram [ECG] [EKG]; Z79.01 Long term (current) use of anticoagulants
CPT/HCPCS: 80048; 85002; 85025; 85610; 85730; 86850; 86900; 86901; 93005; 93312; 93320; 93325; 93613; 93623; 93653; C1730; C1732; C2630; J2250; J2370; J3010; J7040

== ENCOUNTER 2016-09-15 22:52 | Emergency (ER) | payer OTHER ==
[~2016-09-15] VITALS: Ht 165.1 cm; Wt 105.0 kg
[~2016-09-15 22:52] MED LIST changes: -ASPI81TA11 PO; -CARD180C5 PO; -IPRASOL NEB
[2016-09-15 23:43] VITALS: BP 138/90; PULSE 80; RESP 16; TEMP 98.6; O2SAT 98
[2016-09-16] MEDS ORDERED: SODIUM CHLORIDE 0.9% FLUSH 5 ML FLUSH IVF PRN (00:30)
[2016-09-16 00:33] VITALS: RESP 16; O2SAT 97
[2016-09-16 00:47] LABS: AUTOMATED NEUTROPHIL # 8.1 TH/MM3 (1.8-7.7); BASOPHIL # 0.1 TH/MM3 (0-0.2); BASOPHIL % 0.6 % (0.0-2.0); EOSINOPHIL % 0.2 % (0.0-4.0); HEMATOCRIT 32.9 % (39.0-51.0); HEMO FLAGS DIFF FINAL; LYMPH % 16.6 % (9.0-44.0); LYMPHOCYTE # 1.8 TH/MM3 (1.0-4.8); MEAN CORPUSCULAR HEMOGLOBIN 27.6 PG (27.0-34.0); MEAN CORPUSCULAR HGB CONC 34.1 % (32.0-36.0); MONO % 6.4 % (0.0-8.0); NEUT % 76.2 % (16.0-70.0); PLATELET COUNT 365 TH/MM3 (150-450); RED BLOOD COUNT 4.06 MIL/MM3 (4.50-5.90); RED CELL DISTRIBUTION WIDTH 16.7 % (11.6-17.2); WHITE BLOOD COUNT 10.6 TH/MM3 (4.0-11.0)
[2016-09-16 01:01] LABS: BICARBONATE 27.9 MEQ/L (21.0-32.0); POTASSIUM 4.5 MEQ/L (3.5-5.1)
--- NOTE | 2016-09-16 01:22 | PD ---
HPI Chief Complaint: Medical Clearance Time Seen by Provider: 23:44 Travel History International Travel<30 days: No Contact w/Intl Traveler<30days: No Traveled to known affect area: No History of Present Illness HPI 56-year-old male arrives to the ER because he has black stool in his ostomy bag. He started taking iron yesterday. He has no abdominal pain. Appetite has been normal. He notes some erythema about the stoma as well as a minute quite focus along the mucosa. He has observed no blood bright red or otherwise. 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 He follows with Dr Gupta and Dr Uriostegui. No cp/sob/ palpitations/diaphoresis. Oral intake normal. PFSH Past Medical History Heart Rhythm Problems: Yes (RBBB) Cancer: Yes (colon) Cardiovascular Problems: Yes Diabetes: Yes Patient Takes Glucophage: No Endocrine: No Gastrointestinal Disorders: No Genitourinary: No Hypertension: Yes Immune Disorder: No Musculoskeletal: No Neurologic: No Psychiatric: No Reproductive: No Respiratory: No Immunizations Current: Yes Tetanus Vaccination: > 5 Years Influenza Vaccination: No Past Surgical History Abdominal Surgery: No Cardiac Surgery: No Ear Surgery: No Endocrine Surgery: No Eye Surgery: No Genitourinary Surgery: No Gynecologic Surgery: No Joint Replacement: Yes (bilateral hip) Neurologic Surgery: Yes (CERVICAL FUSION C3-5) Oral Surgery: No Thoracic Surgery: No Other Surgery: Yes Social History Alcohol Use: No Tobacco Use: No Substance Use: Yes (CANNABIS) Allergies-Medications (Allergen,Severity, Reaction): Coded Allergies: No Known Allergies (Unverified , 09/16/16) Reported Meds & Prescriptions Reported Meds & Active Scripts Active Lasix (Furosemide) 20 Mg Tab 20 Mg PO BID Flomax (Tamsulosin HCl) 0.4 Mg Cap 0.4 Mg PO DAILY Klor-Con 10 (Potassium Chloride) 10 Meq Tab 10 Meq PO Q12HR Pantoprazole (Pantoprazole Sodium) 40 Mg Tab 40 Mg PO DAILY Hydrocodone-Acetaminophen 7.5-325 mg Tab 1 Tab PO Q4H PRN Lopressor (Metoprolol Tartrate) 50 Mg Tab 75 Mg PO Q12HR Lipitor (Atorvastatin Calcium) 80 Mg Tab 80 Mg PO DAILY Reported Plavix (Clopidogrel Bisulfate) 75 Mg Tab 75 Mg PO DAILY Review of Systems Except as stated in HPI: all other systems reviewed are Neg Physical Exam Narrative GENERAL: 56-year-old male no acute distress sitting upright in bed SKIN: Warm and dry. HEAD: Atraumatic. Normocephalic. EYES: Pupils equal and round. No scleral icterus. No injection or drainage. ENT: No nasal bleeding or discharge. Mucous membranes pink and moist. NECK: Trachea midline. No JVD. CARDIOVASCULAR: Regular rate and rhythm. RESPIRATORY: No accessory muscle use. Clear to auscultation. Breath sounds equal bilaterally. GASTROINTESTINAL: Soft. The right abdomen has a pink pain and protuberant stoma with semi-formed dark and some black liquid stool. The stoma itself is not tender. MUSCULOSKELETAL: Extremities without clubbing, cyanosis, or edema. No obvious deformities. NEUROLOGICAL: Awake and alert. No obvious cranial nerve deficits. Motor grossly within normal limits. Five out of 5 muscle strength in the arms and legs. Normal speech. PSYCHIATRIC: Appropriate mood and affect; insight and judgment normal. Data Data Last Documented VS Vital Signs Date Time Temp Pulse Resp B/P Pulse Ox O2 Delivery O2 Flow Rate FiO2 09/16/16 00:33 16 97 Room Air 09/15/16 23:46 80 09/15/16 23:43 98.6 138/90 Orders Basic Metabolic Panel (Bmp) (09/16/16 00:27) Complete Blood Count With Diff (09/16/16 00:27) Iv Access Insert/Monitor (09/16/16 00:27) Ecg Monitoring (09/16/16 00:27) Oximetry (09/16/16 00:27) Sodium Chloride 0.9% Flush (Ns Flush) (09/16/16 00:30) Labs Laboratory Tests Test 09/16/16 00:30 White Blood Count 10.6 TH/MM3 Red Blood Count 4.06 MIL/MM3 Hemoglobin 11.2 GM/DL Hematocrit 32.9 % Mean Corpuscular Volume 81.0 FL Mean Corpuscular Hemoglobin 27.6 PG Mean Corpuscular Hemoglobin 34.1 % Concent Red Cell Distribution Width 16.7 % Platelet Count 365 TH/MM3 Mean Platelet Volume 7.0 FL Neutrophils (%) (Auto) 76.2 % Lymphocytes (%) (Auto) 16.6 % Monocytes (%) (Auto) 6.4 % Eosinophils (%) (Auto) 0.2 % Basophils (%) (Auto) 0.6 % Neutrophils # (Auto) 8.1 TH/MM3 Lymphocytes # (Auto) 1.8 TH/MM3 Monocytes # (Auto) 0.7 TH/MM3 Eosinophils # (Auto) 0.0 TH/MM3 Basophils # (Auto) 0.1 TH/MM3 CBC Comment DIFF FINAL Differential Comment Sodium Level 136 MEQ/L Potassium Level 4.5 MEQ/L Chloride Level 101 MEQ/L Carbon Dioxide Level 27.9 MEQ/L Anion Gap 7 MEQ/L Blood Urea Nitrogen 36 MG/DL Creatinine 2.12 MG/DL Estimat Glomerular Filtration 32 ML/MIN Rate Random Glucose 123 MG/DL Calcium Level 8.6 MG/DL MDM Medical Decision Making Medical Screen Exam Complete: Yes Emergency Medical Condition: Yes Medical Record Reviewed: Yes Differential Diagnosis Upper GI bleed, acute anemia, hemorrhagic shock, black stools from iron Narrative Course CBC & BMP Diagram 09/16/16 00:30 Hemoglobin is stable as is renal insufficiency. In the setting of iron ingestion the stool in the ostomy bag is nonspecific and with a normal hemoglobin, normal vital signs and essentially normal exam patient is considered reason was safe for discharge with plans for follow-up with Dr. Gupta and Dr. Uriostegui next day. Patient is agreeable plan. Prior to discharge patient reported to nurse he is "ready to go." He also stated to RN, "I'm okay to walk." Diagnosis Primary Impression: Black stools Referrals: Kan Gupta MD 2 days Additional Instructions: You have a choice when it comes to health care, and we are glad that you chose [facility]. Hopefully, we have met your expectations on today's visit. You are welcome to return to [facility] at any time, as we are committed to meeting the health care needs of our community. Med/Other Pt SpecificInfo: No Change to Meds Disposition: DISCHARGE HOME Condition: Stable Ziyad Rutledge MD Sep 16, 2016 01:22
== END 2016-09-16 01:44 | disposition home or self-care (01) ==
LOC: NEPC 22:52
DX: R19.5 Other fecal abnormalities (principal); I45.10 Unspecified right bundle-branch block; E11.9 Type 2 diabetes mellitus without complications; I10 Essential (primary) hypertension
CPT/HCPCS: 80048; 85025; 99283

== ENCOUNTER 2016-09-16 02:07 | Inpatient (IN) | payer OTHER, MEDICARE ==
[2016-09-16] VITALS (10 sets, daily range): BP systolic 116–158; BP diastolic 63–90; PULSE 61–97; RESP 14–18; TEMP 97.4–98.5; O2SAT 94–98
[~2016-09-16] VITALS: Ht 175.3 cm; Wt 108.0 kg
[2016-09-16] MEDS ORDERED: SODIUM CHLORIDE 0.9% FLUSH 5 ML FLUSH IVF PRN (03:15)
--- NOTE | 2016-09-16 03:33 | PD ---
HPI Chief Complaint: Syncope/Near-Syncope Time Seen by Provider: 02:54 Travel History International Travel<30 days: No Contact w/Intl Traveler<30days: No Traveled to known affect area: No History of Present Illness HPI The patient's 56 years old. He experienced a fall outside of the ER. The patient reported to the triage nurse that he tripped on his flip flops falling forward and striking his face. To me the patient states, "I think I had a fall backwards." The patient also states "I walked outside and noticed she (pt's daughter) wasn't there. It was cold. Next thing you know I was spitting up my tooth." No CP/SOB/diaphoresis nausea vomiting or dizziness prior to fall. He was seen here earlier this evening by the undersigned with concern for black stool in his ostomy bag. He reports initiating iron therapy the day prior. Hemoglobin was stable, in fact elevated in comparison to prior level a week ago. Blood work was otherwise unremarkable. He complains of generalized headache. He complains of pain in the face constant throbbing severe. PFSH Past Medical History Hx Anticoagulant Therapy: Yes Heart Rhythm Problems: Yes (RBBB) Cancer: Yes (colon) Cardiovascular Problems: Yes (MD, HTN) Diabetes: Yes Patient Takes Glucophage: No Endocrine: No Gastrointestinal Disorders: No Genitourinary: No Hypertension: Yes Immune Disorder: No Musculoskeletal: No Neurologic: No Psychiatric: No Reproductive: No Respiratory: No Immunizations Current: Yes Tetanus Vaccination: > 5 Years Influenza Vaccination: Yes Past Surgical History Abdominal Surgery: No Cardiac Surgery: No Ear Surgery: No Endocrine Surgery: No Eye Surgery: No Genitourinary Surgery: No Gynecologic Surgery: No Joint Replacement: Yes (bilateral hip) Neurologic Surgery: Yes (CERVICAL FUSION C3-5) Oral Surgery: No Thoracic Surgery: No Other Surgery: Yes Social History Alcohol Use: No Tobacco Use: No Substance Use: Yes (CANNABIS) Allergies-Medications (Allergen,Severity, Reaction): Coded Allergies: No Known Allergies (Unverified , 09/16/16) Reported Meds & Prescriptions Reported Meds & Active Scripts Active Lasix (Furosemide) 20 Mg Tab 20 Mg PO BID Flomax (Tamsulosin HCl) 0.4 Mg Cap 0.4 Mg PO DAILY Klor-Con 10 (Potassium Chloride) 10 Meq Tab 10 Meq PO Q12HR Pantoprazole (Pantoprazole Sodium) 40 Mg Tab 40 Mg PO DAILY Hydrocodone-Acetaminophen 7.5-325 mg Tab 1 Tab PO Q4H PRN Lopressor (Metoprolol Tartrate) 50 Mg Tab 75 Mg PO Q12HR Lipitor (Atorvastatin Calcium) 80 Mg Tab 80 Mg PO DAILY Reported Plavix (Clopidogrel Bisulfate) 75 Mg Tab 75 Mg PO DAILY Review of Systems Except as stated in HPI: all other systems reviewed are Neg General / Constitutional: No: Fever, Chills Cardiovascular: No: Chest Pain or Discomfort, Palpitations, Irregular Rhythm, Tachycardia, Diaphoresis, Syncope Musculoskeletal: No: Limited ROM, Weakness Neurologic: No: Focal Abnormalities, Coordination Problem, Tremor, Change in Mentation, Slurred Speech Physical Exam Narrative GENERAL: 56 yo M, WNWD, NAD, speaking full sentences SKIN: Warm and dry. HEAD: Atraumatic. Normocephalic. EYES: Pupils equal and round. No scleral icterus. No injection or drainage. 1 cm laceration lower left lip ENT: No nasal bleeding or discharge. Mucous membranes pink and moist. Newton II fracture L frontal incisor. NECK: Trachea midline. No JVD. CARDIOVASCULAR: Regular rate and rhythm. RESPIRATORY: No accessory muscle use. Clear to auscultation. Breath sounds equal bilaterally. GASTROINTESTINAL: Soft. There is a right abdomen ostomy bag with brown stool. The ostomy is pink, patent and protuberant. MUSCULOSKELETAL: Extremities without clubbing, cyanosis, or edema. No obvious deformities. NEUROLOGICAL: Awake and alert. No obvious cranial nerve deficits. Motor grossly within normal limits. Five out of 5 muscle strength in the arms and legs. Normal speech. PSYCHIATRIC: Appropriate mood and affect; insight and judgment normal. Data Data Last Documented VS Vital Signs Date Time Temp Pulse Resp B/P Pulse Ox O2 Delivery O2 Flow Rate FiO2 09/16/16 04:12 92 149/90 88 158/74 95 142/63 09/16/16 03:58 16 98 Room Air 09/16/16 02:09 98.5 VS reviewed Orders Electrocardiogram (09/16/16 ) Electrocardiogram (09/16/16 03:06) Complete Blood Count With Diff (09/16/16 03:06) Comprehensive Metabolic Panel (09/16/16 03:06) Magnesium (Mg) (09/16/16 03:06) Troponin I (09/16/16 03:06) Chest, Single Ap (09/16/16 03:06) Ct Brain W/O Iv Contrast(Rout) (09/16/16 03:06) Ecg Monitoring (09/16/16 03:06) Iv Access Insert/Monitor (09/16/16 03:06) Oximetry (09/16/16 03:06) Sodium Chloride 0.9% Flush (Ns Flush) (09/16/16 03:15) Orthostatic Vital Signs (09/16/16 03:06) Ct Facial Bones W/O Iv Cont (09/16/16 ) ^ [place] Collar (09/16/16 03:06) Ct Cerv Spine W/O Contrast (09/16/16 ) Lidocaine 1% Inj (50 Ml) (Xylocaine 1% I (09/16/16 04:15) Sodium Hypochlorite 0.25% Soln ([facility]akin[facility] (09/16/16 04:15) Acetamin-Hydrocod 325-10 Mg ([place] 10-32 (09/16/16 04:15) Collar [place] (09/16/16 ) Admit Order (Ed Use Only) (09/16/16 04:38) Vitamin B12 (09/16/16 03:55) Ferritin (09/16/16 03:55) Folate, Serum (09/16/16 03:55) Iron/Tibc Profile (09/16/16 03:55) Troponin I (09/16/16 03:55) Labs Laboratory Tests Test 09/16/16 03:55 White Blood Count 11.1 TH/MM3 Red Blood Count 4.19 MIL/MM3 Hemoglobin 11.2 GM/DL Hematocrit 33.9 % Mean Corpuscular Volume 80.9 FL Mean Corpuscular Hemoglobin 26.7 PG Mean Corpuscular Hemoglobin 33.1 % Concent Red Cell Distribution Width 17.2 % Platelet Count 342 TH/MM3 Mean Platelet Volume 6.6 FL Neutrophils (%) (Auto) 78.6 % Lymphocytes (%) (Auto) 13.6 % Monocytes (%) (Auto) 7.0 % Eosinophils (%) (Auto) 0.2 % Basophils (%) (Auto) 0.6 % Neutrophils # (Auto) 8.8 TH/MM3 Lymphocytes # (Auto) 1.5 TH/MM3 Monocytes # (Auto) 0.8 TH/MM3 Eosinophils # (Auto) 0.0 TH/MM3 Basophils # (Auto) 0.1 TH/MM3 CBC Comment DIFF FINAL Differential Comment Sodium Level 135 MEQ/L Potassium Level 4.6 MEQ/L Chloride Level 100 MEQ/L Carbon Dioxide Level 27.2 MEQ/L Anion Gap 8 MEQ/L Blood Urea Nitrogen 37 MG/DL Creatinine 2.11 MG/DL Estimat Glomerular Filtration 32 ML/MIN Rate Random Glucose 113 MG/DL Calcium Level 8.9 MG/DL Magnesium Level 2.0 MG/DL Iron Level 24 MCG/DL Total Iron Binding Capacity 290 MCG/DL Percent Iron Saturation 8.3 % Total Bilirubin 0.3 MG/DL Aspartate Amino Transf 118 U/L (AST/SGOT) Alanine Aminotransferase 56 U/L (ALT/SGPT) Alkaline Phosphatase 73 U/L Total Protein 8.1 GM/DL Albumin 3.6 GM/DL Folate 6.3 NG/ML MDM Medical Decision Making Medical Screen Exam Complete: Yes Emergency Medical Condition: Yes Medical Record Reviewed: Yes Differential Diagnosis Arrhythmia, mechanical fall, anemia, vasovagal event Narrative Course Last [address] 09/16/16 030 Signed Impressions: Service Date/Time: Friday, September 16, 2016 03:21 - CONCLUSION: No acute disease. Jose Luis Mccarty MD Chest X-Ray 09/16/16305 Signed Impressions: Service Date/Time: Friday, September 16, 2016 03:38 - CONCLUSION: Cardiomegaly. Jose Luis Mccarty MD Maxillofacial CT 09/16/16 0000 Signed Impressions: Service Date/Time: Friday, September 16, 2016 03:21 - CONCLUSION: No fracture seen. Jose Luis Mccarty MD Cervical Spine CT 09/16/16 0000 Signed Impressions: Service Date/Time: Friday, September 16, 2016 03:21 - CONCLUSION: 1. Status post fusion at the C4-C5 through C5 and C6 levels. 2. Suspected minimal central disc protrusion at the C3-C4 level. 3. Mild bulging at the C6-C7 level. Jose Luis Mccarty MD CBC & BMP Diagram 09/16/16 03:55 LFTs essentially normal EKG demonstrates a stable right bundle branch block with a rate of [address] Gupta. The patient also follows with Dr. Uriostegui. Every reasonable effort to console the family was offered. Case d/w Jose Luis Levin. Diagnosis Primary Impression: Fall Qualified Code: W19.XXXA - Fall, initial encounter Additional Impressions: Tooth fracture Qualified Code: S02.5XXB - Open fracture of tooth, initial encounter Black stools Admitting Information Admitting Physician Requests: Ziyad Villa MD Sep 16, 2016 03:33
--- NOTE | 2016-09-16 03:44 | RADRPT ---
EXAM DATE/TIME: 09/16/2016 03:21 [facility] COMPARISON: No previous studies available for comparison. INDICATIONS : Trauma; fall. RADIATION DOSE: 46.05 CTDIvol (mGy) MEDICAL HISTORY : Carcinoma, colon. Myocardial infarction. Hypertension. SURGICAL HISTORY : cervical fusion ENCOUNTER: Initial ACUITY: 1 day PAIN SCALE: 5/10 LOCATION: cranial TECHNIQUE: Multiple contiguous axial images were obtained of the head. Using automated exposure control and adj ustment of the mA and/or kV according to patient size, radiation dose was kept as low as reasonably a chievable to obtain optimal diagnostic quality images. FINDINGS: CEREBRUM: The ventricles are normal for age. No evidence of midline shift, mass lesion, hemorrhage or acute in farction. No extra-axial fluid collections are seen. Calcified vascular structures are seen. POSTERIOR FOSSA: The cerebellum and brainstem are intact. The 4th ventricle is midline. The cerebellopontine angle i s unremarkable. EXTRACRANIAL: The visualized portion of the orbits is intact. SKULL: The calvaria is intact. No evidence of skull fracture. CONCLUSION: No acute disease. Jose Luis Mccarty MD on September 16, 2016 at 3:41 Board Certified Radiologist. This report was verified electronically.
--- NOTE | 2016-09-16 03:49 | RADRPT ---
EXAM DATE/TIME: 09/16/2016 03:21 [facility] COMPARISON: No previous studies available for comparison. INDICATIONS : Trauma; fall. RADIATION DOSE: 21.58 CTDIvol (mGy) MEDICAL HISTORY : Carcinoma, colon. Myocardial infarction. Hypertension.Diabetes SURGICAL HISTORY : cervical fusion ENCOUNTER: Initial ACUITY: 1 day PAIN SCALE: 5/10 LOCATION: neck TECHNIQUE: Volumetric scanning of the cervical spine was performed. Multiplanar reconstructions in the sagittal, coronal and oblique axial planes were performed. Using automated exposure control and adjustment o f the mA and/or kV according to patient size, radiation dose was kept as low as reasonably achievable to obtain optimal diagnostic quality images. FINDINGS: VERTEBRAE: There is an anterior cervical fusion plate extending from C4-C6. Bone plugs are seen at the C4-C5 and C5-C6 levels. ALIGNMENT: No evidence of subluxation. C2-C3: The bony spinal canal is normal in size. No evidence of disc bulge or herniation. The neural forami na are bilaterally patent. C3-C4: The bony spinal canal is normal in size. There is a minimal central disc protrusion. The neural for [place]ton are bilaterally patent. C4-C5: The bony spinal canal is normal in size. The patient is status post fusion at this level. No evidence of disc bulge or herniation. The neural foramina are bilaterally patent. C5-C6: The bony spinal canal is normal in size. The patient is status post fusion at this level. No evidenc e of disc bulge or herniation. The neural foramina are bilaterally patent. C6-C7: The bony spinal canal is normal in size. There is mild disc bulging. The neural foramina are bilate rally patent. C7-T1: The bony spinal canal is normal in size. No evidence of disc bulge or herniation. The neural forami na are bilaterally patent. CONCLUSION: 1. Status post fusion at the C4-C5 through C5 and C6 levels. 2. Suspected minimal central disc protrusion at the C3-C4 level. 3. Mild bulging at the C6-C7 level. Jose Luis Mccarty MD on September 16, 2016 at 3:43 Board Certified Radiologist. This report was verified electronically.
--- NOTE | 2016-09-16 03:50 | RADRPT ---
EXAM DATE/TIME: 09/16/2016 03:21 [facility] COMPARISON: No previous studies available for comparison. INDICATIONS : Trauma; fall. RADIATION DOSE: 64.43 CTDIvol (mGy) MEDICAL HISTORY : Carcinoma, colon. Myocardial infarction. Hypertension.Diabetes SURGICAL HISTORY : cervical fusion ENCOUNTER: Initial ACUITY: 1 day PAIN SCORE: 5/10 LOCATION: facial TECHNIQUE: Volumetric scanning of the facial bones was performed. Using automated exposure control and adjustme nt of the mA and/or kV according to patient size, radiation dose was kept as low as reasonably achiev able to obtain optimal diagnostic quality images. FINDINGS: ORBITS: The orbital and infraorbital osseous structures are intact. The retroconal structures have a normal configuration. No radiopaque foreign bodies are seen. NASAL BONE: The nasal bone and maxillary spine are intact ZYGOMATIC ARCHES: Symmetric without evidence of fracture. SINUSES: There is mild left maxillary sinus disease. The right maxillary, ethmoid and frontal sinuses are inta ct. No air-fluid levels seen. NASAL CAVITY: The nasal septum is intact and midline. The lacrimal ducts are intact. SOFT TISSUES: No radiopaque foreign bodies seen. No soft-tissue swelling is seen. INTRACRANIAL: No intracranial air seen. CRIBIFORM PLATE: Grossly intact. CONCLUSION: No fracture seen. Jose Luis Mccarty MD on September 16, 2016 at 3:47 Board Certified Radiologist. This report was verified electronically.
--- NOTE | 2016-09-16 03:51 | RADRPT ---
EXAM DATE/TIME: 09/16/2016 03:38 [facility] COMPARISON: CHEST SINGLE AP, July 15, 2016, 9:42. INDICATIONS : Shortness of breath. MEDICAL HISTORY : Cardiovascular disease. Diabetes mellitus type II. Hypertension. SURGICAL HISTORY : Coronary artery stent. ENCOUNTER: Initial ACUITY: 1 day PAIN SCORE: 0/10 LOCATION: Bilateral chest FINDINGS: There is a CT compatible [id number] in place from the right internal jugular approach with the tip seen at the SVC. The heart size is enlarged. The lungs are grossly clear.CONCLUSION: Cardiomegal y. Jose Luis Mccarty MD on September 16, 2016 at 3:49 Board Certified Radiologist. This report was verified electronically.
[2016-09-16 04:04] LABS: AUTOMATED NEUTROPHIL # 8.8 TH/MM3 (1.8-7.7); BASOPHIL # 0.1 TH/MM3 (0-0.2); BASOPHIL % 0.6 % (0.0-2.0); EOSINOPHIL % 0.2 % (0.0-4.0); HEMATOCRIT 33.9 % (39.0-51.0); HEMO FLAGS DIFF FINAL; LYMPH % 13.6 % (9.0-44.0); LYMPHOCYTE # 1.5 TH/MM3 (1.0-4.8); MEAN CELL VOLUME 80.9 FL (80.0-100.0); MEAN CORPUSCULAR HEMOGLOBIN 26.7 PG (27.0-34.0); MEAN CORPUSCULAR HGB CONC 33.1 % (32.0-36.0); NEUT % 78.6 % (16.0-70.0); PLATELET COUNT 342 TH/MM3 (150-450); RED BLOOD COUNT 4.19 MIL/MM3 (4.50-5.90); RED CELL DISTRIBUTION WIDTH 17.2 % (11.6-17.2); WHITE BLOOD COUNT 11.1 TH/MM3 (4.0-11.0)
[2016-09-16] MEDS ORDERED: LIDOCAINE HCL 1% 50 ML VIAL INFIL ONE (04:15)
[2016-09-16] MEDS ORDERED: ACETAMINOPHEN/HYDROcodone 325 MG/10 MG TAB PO ONE (04:15)
[2016-09-16] MEDS ORDERED: SODIUM HYPOCHLORITE 0.25% 500 ML BTL TOPICAL ONE (04:15)
[2016-09-16 04:29] LABS: ALT (GPT) 56 U/L (12-78); ANION GAP 8 MEQ/L (5-15); AST (GOT) 118 U/L (15-37); BICARBONATE 27.2 MEQ/L (21.0-32.0); BLOOD UREA NITROGEN 37 MG/DL (7-18); CHLORIDE 100 MEQ/L (98-107); GLOMERULAR FILTRATION RATE 32 ML/MIN (>89); POTASSIUM 4.6 MEQ/L (3.5-5.1); SODIUM (NA) 135 MEQ/L (136-145)
[2016-09-16 04:31] LABS: ALKALINE PHOSPHATASE 73 U/L (45-117); TOTAL BILIRUBIN ADULT 0.3 MG/DL (0.2-1.0)
--- NOTE | 2016-09-16 04:44 | PD ---
Physical Exam Narrative I was asked by Dr. Rutledge to repair patient's lip laceration. Please see his documentation for full H&P. Data Data Last Documented VS Vital Signs Date Time Temp Pulse Resp B/P Pulse Ox O2 Delivery O2 Flow Rate FiO2 09/16/16 04:12 92 149/90 88 158/74 95 142/63 09/16/16 03:58 16 98 Room Air 09/16/16 02:09 98.5 Orders Electrocardiogram (09/16/16 ) Electrocardiogram (09/16/16 03:06) Complete Blood Count With Diff (09/16/16 03:06) Comprehensive Metabolic Panel (09/16/16 03:06) Magnesium (Mg) (09/16/16 03:06) Chest, Single Ap (09/16/16 03:06) Ct Brain W/O Iv Contrast(Rout) (09/16/16 03:06) Ecg Monitoring (09/16/16 03:06) Iv Access Insert/Monitor (09/16/16 03:06) Oximetry (09/16/16 03:06) Sodium Chloride 0.9% Flush (Ns Flush) (09/16/16 03:15) Orthostatic Vital Signs (09/16/16 03:06) Ct Facial Bones W/O Iv Cont (09/16/16 ) ^ [place] Collar (09/16/16 03:06) Ct Cerv Spine W/O Contrast (09/16/16 ) Lidocaine 1% Inj (50 Ml) (Xylocaine 1% I (09/16/16 04:15) Sodium Hypochlorite 0.25% Soln ([facility]akin's (09/16/16 04:15) Acetamin-Hydrocod 325-10 Mg ([place] 10-32 (09/16/16 04:15) Collar [place] (09/16/16 ) Admit Order (Ed Use Only) (09/16/16 04:38) Labs Laboratory Tests Test 09/16/16 03:55 White Blood Count 11.1 TH/MM3 Red Blood Count 4.19 MIL/MM3 Hemoglobin 11.2 GM/DL Hematocrit 33.9 % Mean Corpuscular Volume 80.9 FL Mean Corpuscular Hemoglobin 26.7 PG Mean Corpuscular Hemoglobin 33.1 % Concent Red Cell Distribution Width 17.2 % Platelet Count 342 TH/MM3 Mean Platelet Volume 6.6 FL Neutrophils (%) (Auto) 78.6 % Lymphocytes (%) (Auto) 13.6 % Monocytes (%) (Auto) 7.0 % Eosinophils (%) (Auto) 0.2 % Basophils (%) (Auto) 0.6 % Neutrophils # (Auto) 8.8 TH/MM3 Lymphocytes # (Auto) 1.5 TH/MM3 Monocytes # (Auto) 0.8 TH/MM3 Eosinophils # (Auto) 0.0 TH/MM3 Basophils # (Auto) 0.1 TH/MM3 CBC Comment DIFF FINAL Differential Comment Sodium Level 135 MEQ/L Potassium Level 4.6 MEQ/L Chloride Level 100 MEQ/L Carbon Dioxide Level 27.2 MEQ/L Anion Gap 8 MEQ/L Blood Urea Nitrogen 37 MG/DL Creatinine 2.11 MG/DL Estimat Glomerular Filtration 32 ML/MIN Rate Random Glucose 113 MG/DL Calcium Level 8.9 MG/DL Magnesium Level 2.0 MG/DL Total Bilirubin 0.3 MG/DL Aspartate Amino Transf 118 U/L (AST/SGOT) Alanine Aminotransferase 56 U/L (ALT/SGPT) Alkaline Phosphatase 73 U/L Total Protein 8.1 GM/DL Albumin 3.6 GM/DL MDM Supervised Visit with LEONORA: No Procedures Procedure Narrative LACERATION REPAIR LOCATION: Lower left lip sparing the vermilion border LENGTH: Approximately 1 cm NUMBER OF STITCHES/KARTHIK: 3 simple interrupted REPAIR: Verbal consent was obtained. The area of the laceration was cleaned and prepped. The laceration was infiltrated with lidocaine without epi. The wound was copiously irrigated and explored without evidence of foreign body, bony involvement, ligament injury, tendon injury, or neurovascular injury. The wound was closed using 6-0 Vicryl. This was a single layer repair. The patient was advised to keep the affected area as clean as possible using soap and water. There were no complications. Patient tolerated the procedure well. Yazan Carolina Sep 16, 2016 04:44
[2016-09-16] MEDS ORDERED: SENNOSIDES 8.6 MG TAB PO PRN (05:00)
[2016-09-16] MEDS ORDERED: ACETAMINOPHEN 325 MG TAB PO PRN (05:00)
[2016-09-16] MEDS ORDERED: SODIUM CHLORIDE 0.9% FLUSH 5 ML FLUSH IV PRN (05:00)
[2016-09-16] MEDS ORDERED: HEPARIN SODIUM - SQ 10,000 UNITS/ML VIAL SQ SCH (05:00)
[2016-09-16] MEDS ORDERED: ONDANSETRON HCL 4 MG/2 ML VIAL IVP PRN (05:00)
[2016-09-16 05:35] LABS: TRANSFERRIN IRON PROFILE 207 MG/DL (200-360)
[2016-09-16] MEDS: SODIUM CHLOR 0.9% 1000 ML INJ 1,000 ML IV SCH ×2 (05:38→14:54)
[2016-09-16 06:27] LABS: FERRITIN 167 NG/ML (26-388)
[2016-09-16] MEDS ORDERED: ASPIRIN 81 MG CHEW TAB PO ONE (07:15)
[2016-09-16] MEDS: NITROGLYCERIN 2% OINT 1 GM PACKET TOPICAL SCH ×3 (08:00→20:00)
[2016-09-16 08:13] LABS: CKMB 101.3 NG/ML (0.5-3.6)
[2016-09-16] MEDS ORDERED: PILL SPLITTER OTHER PRN (08:45)
[2016-09-16] MEDS ORDERED: PANTOPRAZOLE SOD 40 MG DELAYED RELEASE TAB PO SCH (09:00)
[2016-09-16] MEDS ORDERED: FAMOTIDINE 20 MG TAB PO SCH (09:00)
--- NOTE | 2016-09-16 09:08 | RADRPT ---
EXAM DATE/TIME: 09/16/2016 08:19 [facility] COMPARISON: CT BRAIN W/O CONTRAST, September 16, 2016, 3:21. INDICATIONS : Syncope. MEDICAL HISTORY : Myocardial infarction. Hypertension. Colon cancer. Diabetes. Anticoagulant therapy. Chemotherapy. SURGICAL HISTORY : Cervical fusion C3-5. Bilateral total hip replacement. ENCOUNTER: Initial ACUITY: 1 day PAIN SCORE: 0/10 LOCATION: Bilateral neck PEAK SYSTOLIC VELOCITIES (cm/sec): ICA/CCA RATIO: Right: 0.9 Left: 1.0 ICA: Right: 100 Left: 105 CCA: Right: 114 Left: 109 ECA: Right: 143 Left: 143 VERTEBRAL: Right: 40 antegrade Left: 78 antegrade Elevated flow velocities and ICA/CCA ratios have been found to correlate with increased degrees of vessel stenosis, calculated as percentage of diameter relative to a normal segment of distal ICA/CCA FINDINGS: RIGHT CAROTID: No significant stenosis is visualized. The waveforms are within normal limits. Mild calcific plaque at the bulb and initial segment of the internal carotid LEFT CAROTID: No significant stenosis is visualized. The waveforms are within normal limits. Mild calcific plaquin g at the bulb, distal common carotid and initial segment internal carotid VERTEBRAL ARTERIES: Antegrade flow is seen in both vertebral arteries. MISCELLANEOUS: None. CONCLUSION: Mild calcific plaquing bilateral carotid bulbs and initial segment internal carotids with no evidence of anatomical or physiologic stenosis Klaus Shah MD on September 16, 2016 at 9:04 Board Certified Radiologist. This report was verified electronically.
[2016-09-16] MEDS: SODIUM CHLORIDE 0.9% FLUSH 5 ML FLUSH IV SCH ×2 (09:32→20:34)
[2016-09-16] MEDS: ATORVASTATIN 80 MG TAB PO SCH (09:32)
[2016-09-16] MEDS: FUROSEMIDE 20 MG TAB PO SCH ×2 (09:33→21:00)
[2016-09-16] MEDS: POTASSIUM CHLORIDE 10 MEQ CONTROLLED RELEASE TAB PO SCH ×2 (09:33→20:34)
[2016-09-16] MEDS: TAMSULOSIN HCL 0.4 MG CAP PO SCH (09:33)
[2016-09-16] MEDS: METOPROLOL TARTRATE 50 MG TAB PO SCH ×2 (09:34→20:32)
[2016-09-16] MEDS: CLOPIDOGREL 75 MG TAB PO SCH (09:35)
--- NOTE | 2016-09-16 09:54 | MH ---
cc: BRIDGETBE DATE OF ADMISSION: 09/16/2016 DATE OF 1960 REASON FOR ADMISSION Fall, near-syncopal episode, dizziness. HISTORY OF PRESENT ILLNESS This is a pleasant 56-year-old white male who initially came into the ER with what he thought was a possible bleed. The patient has a new colostomy secondary to some recent surgery and also has been diagnosed with colon cancer. He had his first round of chemotherapy. The next round is due towards the end of the month. The patient was given iron tablets which was started yesterday. Several hours later he noticed a dark tarry stool coming from his colostomy bag and came in for evaluation. The patient was stabilized and discharged. He was walking outside, waiting on his daughter to pick him up. The patient usually walks with a cane but did not have a cane with him. He does not have a good recollection of what happened to him except that he aroused when his face hit the pavement. He fell on the left side of his face, has an abrasion below his left eye on his cheekbone. He also had a tear to the left side of his lip which now has sutures in it. The patient has had a recent hospitalization with an arrhythmia and a heart attack, was initially seen per Dr. Mei, also saw Dr. Ferreira for EP study and ablation. The patient had his heart rhythm synched back into sinus rhythm, then was sent up to start his chemotherapy for his recently diagnosed colon cancer. The patient had chemotherapy this past week on Friday and Friday and as stated above was due to have his next set of chemotherapy on 09/23. The patient did note some nausea before coming to the hospital. He does state he has poor balance and currently walks with a cane due to degenerative disk disease. He does on occasion have some dizzy spells. The patient denies any cough, denies any chest pain, denies any shortness of breath. He currently is taking Plavix as well as his other routine medicines and has not missed any doses of his medication. NOTE: During the fall the patient did fracture his front upper tooth. PAST MEDICAL HISTORY 1. Heart dysrhythmias. 2. Colon cancer. 3. SC. 4. Hypertension. 5. Diabetes. 6. Anticoagulant therapy with Plavix. 7. Degenerative disk disease. 8. Dizziness. 9. Colitis. 10. Rectal bleeding. 11. Tooth fracture. This occurred this past p.m. with the fall. 12. Elevated troponin. 13. Rectal bleeding. PAST SURGICAL HISTORY 1. Cervical fusion C3-C5. 2. Bilateral hip joint replacement. 3. Recent ablation. SOCIAL HISTORY No alcohol. No tobacco. Substance abuse with cannabis. ALLERGIES No known. MEDICATIONS REPORTED 1. Plavix. 2. Lasix. 3. Flomax. 4. Potassium. 5. Propanazole. 6. [place]. 7. Lopressor. 8. Lipitor. REVIEW OF SYSTEMS A 12-point review was obtained with some of the positives and negatives symptoms mentioned in the HPI. Currently the patient is positive for dizziness, a fall, generalized weakness, recent diagnosis of colon cancer with initial round of chemotherapy. All other systems are negative or unremarkable. PHYSICAL EXAMINATION VITAL SIGNS: Temperature is 98.1, pulse 91, respirations 18, blood pressure 136/77. Initial blood pressure at 04:12 was 158/74. O2 sat 94 on room air. HEENT: Normocephalic. He is status post fall with slight bruising and abrasions on his left cheek, laceration and sutures in his left lower lip. PERRL at 3. No scleral icterus. No drainage. Mucous membranes are pink and moist. NECK: Supple. No JVD. CARDIOVASCULAR: Regular rate and rhythm. Distant heart sounds. No murmurs, rubs or gallops appreciated. No pedal edema. Pulses are intact. RESPIRATORY: Essentially clear to auscultation anteriorly and posteriorly with no wheezes, rales or rhonchi. ABDOMEN: Round, soft, nontender. Right abdominal colostomy bag draining. There is brown stool. MUSCULOSKELETAL: Moves his extremities with purpose. No edema. Equal hand front maker. NEUROLOGIC: He is alert, oriented, good historian. No obvious cranial nerve deficits. Strength is 5/5 with his arms and legs and his speech is clear. PSYCHIATRIC: Appropriate mood and affect. Insight and judgment is normal. DIAGNOSTIC DATA WBC count 11.1, RBC 4.19, hemoglobin 11.2, hematocrit 33.9, platelet count 342, neutrophil auto 78.62. Chemistry - Sodium 135, potassium 4.6, chloride 100, carbon dioxide 27.2, anion gap 8, BUN 37, creatinine 2.11, GFR 32, random glucose is 113, iron is 24, AST 118. He has pending CKs and troponins but his initial troponin drawn at 03:55 is 10.10. Total protein 8.1, albumin 3.6. Vitamin B12 441, folate 6.3. IMAGING STUDIES Maxillofacial CT - No fracture seen. CERVICAL SPINE Post fusion of his C4-C5, C5-C6, suspected minimal central disk protrusion, mild bulging at C6-C7. CT HEAD No acute disease. CHEST X-RAY Cardiomegaly. ASSESSMENT 1. Fall, possible syncopal episode, possible dysrhythmia. 2. Elevated troponin. Rule out SC. 3. Cardiovascular disease. 4. Acute kidney injury. 5. Hyponatremia, mild. 6. Anemia, mild. 7. Leukocytosis, mild. 8. Fractured tooth status post this fall. 9. Colon cancer. PLAN 1. Plan is to admit for monitoring of his vital signs at least every 4 hours including lab work, PUD prophylaxis with Protonix, DVT prophylaxis with Plavix. 2. Reconcile his medications. 3. We will consult Cardiology for his expert opinion. 4. The patient did receive an aspirin 81 mg x 1 but requested no aspirin due to anxiety over any type of bleeding. 5. The patient will be on bedrest, monitor tech, gentle hydration, 2-D echo ordered, bowel regimen. This case has been discussed with Dr. Armijo and we will follow. According to records, the patient is full code, full aggressive care. Dictated by: BRITTANY Matos Be Armijo MD JP/DENISA /8:26 AM /9:51 AM PT SEEN AND EXAMINED ON DAY OF ADMISSION ABOVE CHART WAS REVIEWED IN DETAIL DW PT AND DAUGHTER AT BEDSIDE IN DETAIL.PT DOESNT WANT ANY ANTICOAGULANT BC OF BLEEDING.HE IS AWARE OF SITUATION BEFORE HE HAD SIMILAR KIND OF PROBLEM, CARLOS MANUEL RN CARLOS MANUEL SOTO ABOUT PLAN OF CARE MTDD
[2016-09-16 12:28] LABS: CKMB 95.5 NG/ML (0.5-3.6)
--- NOTE | 2016-09-16 12:35 | MB ---
cc: HUGO CORTÉS M.D. DATE OF CONSULTATION: 09/16/2016 DATE OF : 1960 REASON FOR CONSULTATION Possible syncope. HISTORY OF PRESENT ILLNESS The patient is a 56-year-old man who apparently experienced a fall in the ER. Apparently report by the triage nurse stated that he tripped on his foot striking his face. The patient states that he thought he fell backwards, however, he has bruising along side the left face as well as broke his left front tooth. Apparently he walked outside, was discharged and noticed that his daughter was not there, it was cold, apparently can remember the weather. Denied any chest pain, shortness of breath, nausea, vomiting, diarrhea, dizziness. Apparently was earlier in the ED with concerns for black stool in his ostomy bag, however, iron therapy was initiated the day prior. Hemoglobin was stable. Apparently he has a history of colon cancer with colostomy on chemotherapy. He usually has a cane but the day this occurred he did not have his cane with him. He had a recent hospitalization for an arrhythmia as well as an PA, and was seen by Dr. Mei and Dr. Ferreira for EP studies and ablation. He was back into sinus rhythm. On occasion he does admit to some dizzy spells. Family member, I believe his daughter, states that he seems to be back to his normal self. PAST MEDICAL HISTORY As stated. 1. Heart dysrhythmia. 2. Colon cancer. 3. PA. 4. Hypertension. 5. Diabetes. 6. Degenerative disc disease. 7. Dizziness. 8. Colitis. 9. Rectal bleeding. 10.Tooth fracture. 11.Elevated troponin. PAST SURGICAL HISTORY 1. Cervical fusion C4-5 in 2016 at [place]. 2. Bilateral hip replacement. 3. Recent cardiac ablation. SOCIAL HISTORY No tobacco or alcohol. Occasional marijuana. ALLERGIES None reported. MEDICATIONS 1. Plavix. 2. Lasix. 3. Flomax. 4. Potassium. 5. Pantoprazole. 6. [place]. 7. Lopressor. 8. Lipitor. PHYSICAL EXAMINATION VITAL SIGNS: Temperature 98.5, pulse 80, respiratory rate 18, blood pressure 116/64. NECK: Supple. No bruits. HEART: Regular. NEUROLOGIC: He is awake and alert, oriented, fluent. Pupils are reactive. Face is symmetrical. Tongue is midline. He has a left incisor that is broken. He has some bruising along his left upper cheek portion. Motor-yoon he does not exhibit any drift or leg lag. No Tomasa sign. Reflexes are 1-2+. Toes are both downgoing. Cerebellar testing is intact. Strength is normal. LABORATORY DATA White count 11.1, hemoglobin 11.2, platelets 342,000. CK is 1616. CK-MB is 101.3. Troponin is 10.3. B12 441. Sodium was 135. IMAGING Chest x-ray: Cardiomegaly. Head CT: No acute findings. Carotid ultrasound: Mild calcific plaquing bilateral carotid bulbs initial segment. Internal carotids with no physiologic stenosis. Cervical spine CT: Status post fusion C4-5 through C5-6. Minimal central protrusion C3-4. Mild bulging C6-7. No fracture. Maxillofacial: No fracture. IMPRESSION A 56-year-old man status post fall, questionable syncope versus trip and fall and possible syncope after he fell. RECOMMENDATIONS Will continue to monitor his vitals. Evaluation by cardiology. Get a 2-D echo. Hydrate him. Continue aspirin therapy, baby aspirin, if he is able to tolerate and there is no bleeding. I do not believe this was a seizure. He may have been just a slip and fall; however, continue current care and if needed further recommendations will be made accordingly. MD PRABHAKAR Orourke/CHRIS /11:50 AM /12:19 PM
--- NOTE | 2016-09-16 14:13 | EKG ---
Date Performed: 09/16/2016 Time Performed: 10:14:12 PTAGE: 56 years EKG: Sinus rhythm INTRAVENTRICULAR CONDUCTION DELAY ANTERIOR MYOCARDIAL INFARCTION ABNORMAL ECG PREVIOUS TRACING : 09/16/2016 02.38 DOCTOR: Alberto Burroughs Interpretating Date/Time 09/16/2016 14:11:49
--- NOTE | 2016-09-16 14:17 | EKG ---
Date Performed: 09/16/2016 Time Performed: 06:58:35 PTAGE: 56 years EKG: Sinus rhythm INTRAVENTRICULAR CONDUCTION DELAY MINIMAL VOLTAGE CRITERIA FOR LVH, CONSIDER NORMAL VARIANT ANTERIOR MYOCARDIAL INFARCTION ABNORMAL ECG INTERPRETATION BASED ON A DEFAULT AGE OF 40 YEARS NO PREVIOUS TRACING DOCTOR: Alberto Burroughs Interpretating Date/Time 09/16/2016 14:14:03
--- NOTE | 2016-09-16 14:21 | EKG ---
Date Performed: 09/16/2016 Time Performed: 02:38:14 PTAGE: 56 years EKG: Sinus rhythm WITH OCCASIONAL SUPRAVENTRICULAR PREMATURE COMPLEXES RIGHT BUNDLE BRANCH BLOCK POSSIBLE LEFT VENTRIC ULAR HYPERTROPHY ANTERIOR MYOCARDIAL INFARCTION ABNORMAL ECG PREVIOUS TRACING : 09/16/2016 02.37 DOCTOR: Alberto Burroughs Interpretating Date/Time 09/16/2016 14:17:23
[2016-09-16] MEDS: ACETAMINOPHEN/HYDROcodone 325 MG/7.5 MG TAB PO PRN ×2 (14:51→19:52)
[2016-09-16] MEDS: FAMOTIDINE 20 MG TAB PO SCH (20:33)
[2016-09-17] MEDS: SODIUM CHLOR 0.9% 1000 ML INJ 1,000 ML IV SCH ×3 (01:57→23:49)
[2016-09-17] MEDS: NITROGLYCERIN 2% OINT 1 GM PACKET TOPICAL SCH ×3 (01:59→20:00)
[2016-09-17 02:40] VITALS: BP 133/83; PULSE 84; RESP 18; TEMP 98.2; O2SAT 97
[2016-09-17] MEDS: ACETAMINOPHEN/HYDROcodone 325 MG/7.5 MG TAB PO PRN ×3 (03:49→20:41)
--- NOTE | 2016-09-17 05:25 | MB ---
cc: EARLE KRUSE DATE OF 1960 DATE OF CONSULTATION September 16, 2016 REASON FOR CONSULTATION Syncope, elevated troponins. HISTORY OF PRESENT ILLNESS 56-year-old male with past medical history significant for coronary artery disease status post PCI in June, colon cancer status post colostomy on chemotherapy, hypertension, diabetes, obesity. Had initially presented to the emergency department with concerns of possible GI bleeding. He reports been in his usual state of health until Friday when he noticed that his colostomy stool content was watery and it was black so he was concerned about possible GI bleeding. He adds that on Friday and Friday he got chemotherapy, on he was feeling weak; however, on Friday and Friday he was feeling stronger from it. Also he notes that his Lasix dose had been recently increased. He was evaluated in the emergency department and was discharged home when all of a sudden he had a syncopal episode. He fell on the left side of his face, had an abrasion below his left knee, tearing his lip and tooth fracture. He denied any chest pain, palpitations or shortness of breath, chest trauma. However, on further evaluation in the emergency department the troponin 's were elevated and thus Cardiology has been consulted for further management and evaluation. In the emergency room, besides the elevated troponin, the patient has had acute kidney injury with troponin in the range of 2.1. EKG is unremarkable, showing a normal sinus rhythm with an intraventricular conduction delay. On the last echocardiogram done here in June his EF was 60% with no wall motion abnormalities. REVIEW OF SYSTEMS Negative except for what is mentioned in the HPI. PAST MEDICAL HISTORY 1. Colon cancer. 2. CAD status post PCI. 3. Hypertension. 4. Diabetes. 5. Degenerative disc disease. 6. Dizziness. 7. Rectal bleeding. 8. Tooth fracture. PAST SURGICAL HISTORY 1. Surgical fusion to C3 and C5. 2. Bilaterally hip joint replacement. SOCIAL HISTORY He denies alcohol use, tobacco use or illicit drug use. ALLERGIES No known drug allergies. MEDICATIONS 1. Lipitor 80 mg p.o. daily. 2. Plavix 75 mg p.o. daily. 3. Lasix 20 mg p.o. daily. 4. Hydrocodone/acetaminophen 1 tablet p.o. q.4 h p.r.n. for pain. 5. Lopressor 50 mg p.o. b.i.d. 6. Protonix 40 mg p.o. daily. 7. Potassium chloride 10 mEq p.o. b.i.d. 8. Flomax 0.4 mg p.o. daily. FAMILY HISTORY Noncontributory. PHYSICAL EXAMINATION VITAL SIGNS: Temperature 98.5, respiratory rate 18, pulse 80, blood [id number] /64, O2 sat 95% on room air. GENERAL: He is awake, alert, oriented x 3, in no acute distress. HEAD AND NECK: No JVD, no carotid bruits. He has lip tear. HEART: Regular rate and rhythm. No murmurs, rubs or gallops. LUNGS: Clear to auscultation bilaterally. ABDOMEN: Obese. Positive bowel sounds. Soft, nontender, nondistended. He has a colostomy bag on the right side. EXTREMITIES: No cyanosis or edema. Pulses throughout. DATA CBC - hemoglobin 11, hematocrit 33, platelet count 342. INR 1.1. Chemistries - sodium 135, potassium 4.6, BUN 37, creatinine 2.11, Troponin 10, 10.[address] MAXILLOFACIAL [address] unremarkable. CERVICAL CT No acute process. CAROTID ULTRASOUND There is mild calcific plaquing bilateral carotid bulbs. No evidence of anatomical or physiologic stenosis. CT HEAD No acute disease. CHEST X-RAY Cardiomegaly. EKG Sinus rhythm with an AV conduction delay. No acute ST changes. ASSESSMENT 56-year-old male with history of colon cancer on chemotherapy as well as CAD status post recent stenting in June, admitted here after a syncopal episode sustaining face trauma. He remains afebrile and hemodynamically stable. He is not complaining of any active chest pain, shortness of breath or palpitations.His creatinine has trended up from baseline; this is most likely due to the Lasix being increased as an outpatient +/- some dehydration after chemotherapy. Thus I would avoid any nephrotoxic agents. I would discontinue the Lasix for now and start gentle IV hydration. Regarding his troponin's, it is concerning for [id number] RI. However, given his question of bleeding and current acute kidney injury, any invasive study is not be an option at this time. Thus I would recommend to treat with aggressive medical management. The patient should be started on IV heparin, continue Plavix, start aspirin, beta blockers and statins. Given kidney insufficiency, I would hold JUANCARLOS inhibitor or ARB. Repeat 2-D echocardiogram to assess LV systolic function and wall motion. When the patient is more stable. We can discuss repeating a LHC. RECOMMENDATIONS 1. Continue aggressive medical management for CAD/non-ST elevation RI. 2. Start IV heparin for the next 48 hours. 3. Start aspirin. 4. Continue Plavix. 5. Start beta-blockers and statins as tolerated by the patient. 6. Avoid any nephrotoxic agents for now. 7. Discontinue home dose Lasix and give some IV fluids. 8. Get a 2-D echocardiogram to assess LV systolic function. Thank you for the opportunity to take part in the care of this patient. Further therapy to be determined. Will follow with you. MD TERRANCE Velásquez/SSB /3:52 PM /5:03 AM MTDLolis
[2016-09-17 08:00] VITALS: PULSE 87
[2016-09-17 08:20] LABS: AUTOMATED NEUTROPHIL # 5.3 TH/MM3 (1.8-7.7); BASOPHIL # 0.1 TH/MM3 (0-0.2); BASOPHIL % 0.8 % (0.0-2.0); EOSINOPHIL # 0.1 TH/MM3 (0-0.4); EOSINOPHIL % 0.6 % (0.0-4.0); HEMATOCRIT 33.2 % (39.0-51.0); HEMO FLAGS DIFF FINAL; LYMPH % 24.3 % (9.0-44.0); MEAN CELL VOLUME 81.1 FL (80.0-100.0); MEAN CORPUSCULAR HEMOGLOBIN 27.9 PG (27.0-34.0); MEAN CORPUSCULAR HGB CONC 34.3 % (32.0-36.0); MONO % 8.7 % (0.0-8.0); NEUT % 65.6 % (16.0-70.0); PLATELET COUNT 311 TH/MM3 (150-450); RED BLOOD COUNT 4.09 MIL/MM3 (4.50-5.90); RED CELL DISTRIBUTION WIDTH 16.9 % (11.6-17.2); WHITE BLOOD COUNT 8.1 TH/MM3 (4.0-11.0)
[2016-09-17 08:21] LABS: HEMATOCRIT 33.3 % (39.0-51.0); MEAN CELL VOLUME 81.3 FL (80.0-100.0); MEAN CORPUSCULAR HGB CONC 33.2 % (32.0-36.0); PLATELET COUNT 302 TH/MM3 (150-450); RED BLOOD COUNT 4.09 MIL/MM3 (4.50-5.90); REVIEW FLAG FINAL
[2016-09-17 08:31] VITALS: BP 158/70; PULSE 80; RESP 19; TEMP 97.8; O2SAT 96
[2016-09-17 08:32] LABS: BICARBONATE 23.6 MEQ/L (21.0-32.0); POTASSIUM 4.2 MEQ/L (3.5-5.1)
--- NOTE | 2016-09-17 08:38 | HHI.PR ---
Subjective Remarks No chest pain No shortness of breath Anxiety mild over current hospital stay Rested fairly well No headache Appetite good (Sheyla Patterson) Objective Objective Results - Vital Signs Date Time Temp Pulse Resp B/P Pulse Ox O2 Delivery O2 Flow Rate FiO2 09/17/16 02:40 98.2 84 18 133/83 97 09/16/16 23:45 61 09/16/16 21:02 98.2 80 18 132/71 98 09/16/16 19:01 20 09/16/16 16:25 98.1 79 14 124/66 97 09/16/16 11:21 98.5 80 18 116/64 95 I/O 09/16/16 09/16/16 09/16/16 09/17/16 09/17/16 09/17/16 07:00 15:00 23:00 07:00 15:00 23:00 Intake Total 1700 ml Output Total 1 ml Balance 1699 ml Intake Oral 600 ml IV Total 1100 ml Output Stool Total 1 ml # Voids 5 (Sheyla Patterson) Result Diagram: 09/17/16 0756 09/16/16 0355 ROS General: Weakness (generalized mild), Other (10 point ROS done mild generalized weakness other systems otherwise negative or unremarkable) (Sheyla Patterson) Physical Exam Physical Exam PHYSICAL EXAMINATION GENERAL: This is a well-developed, well-nourished male who appears to be in no acute distress. He is alert and awake,. HEAD: Normocephalic without any lesion or mass noted. Facial features appear symmetric. OROPHARYNGEAL: Oropharynx without erythema or edema. NECK: Supple. No nuchal rigidity or lymphadenopathy. Trachea midline without deviation. CARDIAC: Regular rhythm, regular rate, S1 and S2 are heard. Distant heart sounds, Murmur none, no gallops or rubs. LUNGS: Clear to auscultation bilaterally. No wheeze, rhonchi or rale. No use of accessory muscles on inspiration or expiration. ABDOMEN: Soft, nontender, no organomegaly or masses. Bowel sounds are heard in all four quadrants. No rebound. No guarding. EXTREMITIES: Normal trace edema. Pulses equal bilateral. cyanosis. NEUROLOGICAL: Patient mood and affect appropriate. No focal deficit SKIN:Warm and moist, mild abrasion to left cheekbone, sutures in left lower lip , clean dry and intact Objective Remarks I'm feeling okay and I have had no chest pain at all. Really want to focus on getting my chemotherapy (Sheyla Patterson) A/P Assessment and Plan ASSESSMENT 1. Fall, possible syncopal episode, possible dysrhythmia. 2. Elevated troponin. Rule out [place]. 3. Cardiovascular disease. 4. Acute kidney injury. 5. Hyponatremia, mild. 6. Anemia, mild. 7. Leukocytosis, mild. 8. Fractured tooth status post this fall. 9. Colon cancer. PLAN 1. Plan is to admit for monitoring of his vital signs at least every 4 hours including lab work, PUD prophylaxis with Protonix, DVT prophylaxis with Plavix. 2. Reconcile his medications. 3. We will consult Cardiology for his expert opinion. Patient did have a positive troponins, but denies any Chest pain at the event of his fall. At this time is refusing heparin drip or any further anticoagulation. Lasix DC'd this a.m.. Low-dose lisinopril added per cardiac recommendations. 4. The patient did receive an aspirin 81 mg x 1 but requested no aspirin due to anxiety over any type of bleeding. 5. The patient will be on bedrest, quality assurance monitor final, gentle hydration, 2-D echo ordered, bowel regimen. Patient rested well last night and is currently hoping to discharge from the hospital today. He states that his chief focus is his chemotherapy coming up. And at this time does not want any further cardiac workup. This information has been discussed with Dr. Alvarez. Labs vital signs reviewed without any acute major changes. According to records, the patient is full code, full aggressive care. (Sheyla Patterson) Assessment and Plan Patient seen and examined Appreciate Cardiology/ neurology input d/c lasix started low dose ASpirin ? stress test inpatient vs outpatient ( elevated creatinine) Patient refusing any further cardiac work up/ blood thinners at this point. awaiting BMP on i/v fluids discussed with patient discussed with Sheyla await further Cardiology recommendations (Nguyen Alvarez MD) Sheyla Patterson Sep 17, 2016 08:38 Nguyen Alvarez MD Sep 17, 2016 08:44
[2016-09-17] MEDS: TAMSULOSIN HCL 0.4 MG CAP PO SCH (10:00)
[2016-09-17] MEDS: ATORVASTATIN 80 MG TAB PO SCH (10:00)
[2016-09-17] MEDS: CLOPIDOGREL 75 MG TAB PO SCH (10:00)
[2016-09-17] MEDS: METOPROLOL TARTRATE 50 MG TAB PO SCH ×2 (10:00→20:40)
[2016-09-17] MEDS: POTASSIUM CHLORIDE 10 MEQ CONTROLLED RELEASE TAB PO SCH ×2 (10:01→20:36)
[2016-09-17] MEDS: LISINOPRIL 10 MG TAB PO SCH (10:10)
[2016-09-17] MEDS: FAMOTIDINE 20 MG TAB PO SCH ×2 (10:11→20:40)
[2016-09-17 11:43] VITALS: BP 122/60; PULSE 84; RESP 19; TEMP 97.7; O2SAT 97
--- NOTE | 2016-09-17 12:27 | EC ---
Study Study Date:09/17/2016 STUDY CONCLUSIONS SUMMARY - Procedure narrative: Transthoracic echocardiography. Image quality was suboptimal. The study was technically limited due to poor acoustic window availability. Scanning was performed from the parasternal, apical, and subcostal acoustic windows. - Left ventricle: The cavity size was normal. Wall thickness was increased increased in a pattern of mild to moderate LVH. Systolic function was normal. The estimated ejection fraction was in the range of 60% to 65%. Wall motion was normal; there were no regional wall motion abnormalities. Doppler parameters are consistent with abnormal left ventricular relaxation (grade 1 diastolic dysfunction). - Tricuspid valve: Mild regurgitation. - Pericardium, extracardiac: A small to moderate pericardial effusion was identified. There was no evidence of hemodynamic compromise. If LV function is below 40, please consider prescribing an ACEI or ARB or document rationale for non-use. PROCEDURE DATA STUDY STATUS: Elective. Procedure: Transthoracic echocardiography. Image quality was suboptimal. The study was technically limited due to poor acoustic window availability. Scanning was performed from the parasternal, apical, and subcostal acoustic windows. Study completion: The patient tolerated the procedure well. Transthoracic echocardiography. M-mode, complete 2D, complete spectral Doppler, and color Doppler. Patient status: Inpatient. CARDIAC ANATOMY LEFT VENTRICLE: Not well visualized. The cavity size was normal. Wall thickness was increased increased in a pattern of mild to moderate LVH. Systolic function was normal. The estimated ejection fraction was in the range of 60% to 65%. Wall motion was normal; there were no regional wall motion abnormalities. Doppler parameters are consistent with abnormal left ventricular relaxation (grade 1 diastolic dysfunction). AORTIC VALVE: Probably trileaflet; normal thickness leaflets. Doppler: Transvalvular velocity was within the normal range. There was no stenosis. No regurgitation. AORTA: Aortic root: The aortic root was normal in size. MITRAL VALVE: Structurally normal valve. Doppler: Transvalvular velocity was within the normal range. There was no evidence for stenosis. No regurgitation. LEFT ATRIUM: The atrium was normal in size. RIGHT VENTRICLE: The cavity size was normal. Wall thickness was normal. PULMONIC VALVE: Doppler: Transvalvular velocity was within the normal range. There was no evidence for stenosis. No regurgitation. TRICUSPID VALVE: Structurally normal valve. Doppler: Transvalvular velocity was within the normal range. Mild regurgitation. PULMONARY ARTERY: The main pulmonary artery was normal-sized. Systolic pressure was within the normal range. RIGHT ATRIUM: The atrium was normal in size. PERICARDIUM: A small to moderate pericardial effusion was identified. There was no evidence of hemodynamic compromise. SYSTEMIC VEINS: Inferior vena cava: The vessel was normal in size. BASIC MEASUREMENTS ADULT NORMAL Left ventricle LV internal dimension, ED, chordal level, 47.4 mm 43-52 PLAX LV internal dimension, ES, chordal level, 35 mm 23-38 PLAX Fractional shortening, chordal level, PLAX *26 % >29 LV posterior wall thickness, ED 16.4 mm IVS/LVPW ratio, ED *1.48 <1.3 Ventricular septum Septal thickness, ED 24.2 mm Aortic valve Leaflet separation 19 mm 15-26 Right ventricle RV internal dimension, ED, PLAX 23.8 mm 19-38 BASIC MEASUREMENTS ADULT NORMAL Aortic valve Leaflet separation 19 mm 15-26 Aorta Root diameter, ED *39 mm 20-37 Left atrium Anterior-posterior dimension, ES 27 mm 19-40 LA/aortic root ratio 0.69 DOPPLER MEASUREMENTS ADULT NORMAL Mitral valve Peak E-wave velocity 57.3 cm/s Peak A-wave velocity 69.6 cm/s Peak E/A ratio 0.8 LEGEND: Mean values are shown as u=mean value. Asterisk (*) smalls values outside specified normal range. Prepared and signed by Peter Lebron [id number]
[2016-09-17 19:57] VITALS: BP 134/68; PULSE 92; RESP 20; TEMP 96.8; O2SAT 97
[2016-09-17] MEDS: SODIUM CHLORIDE 0.9% FLUSH 5 ML FLUSH IV SCH (20:35)
[2016-09-17 23:34] VITALS: BP 143/78; PULSE 70; RESP 16; TEMP 97.8; O2SAT 99
[2016-09-18] VITALS (8 sets, daily range): BP systolic 126–147; BP diastolic 69–85; PULSE 71–90; RESP 15–18; TEMP 97.1–98.1; O2SAT 96–99
[2016-09-18] MEDS: NITROGLYCERIN 2% OINT 1 GM PACKET TOPICAL SCH ×4 (02:00→20:00)
[2016-09-18 04:23] LABS: AUTOMATED NEUTROPHIL # 4.7 TH/MM3 (1.8-7.7); BASOPHIL % 0.7 % (0.0-2.0); EOSINOPHIL # 0.1 TH/MM3 (0-0.4); EOSINOPHIL % 0.7 % (0.0-4.0); HEMATOCRIT 33.7 % (39.0-51.0); HEMO FLAGS DIFF FINAL; LYMPH % 24.8 % (9.0-44.0); LYMPHOCYTE # 1.8 TH/MM3 (1.0-4.8); MEAN CELL VOLUME 82.3 FL (80.0-100.0); MEAN CORPUSCULAR HGB CONC 32.8 % (32.0-36.0); MONO % 10.6 % (0.0-8.0); NEUT % 63.2 % (16.0-70.0); PLATELET COUNT 293 TH/MM3 (150-450); RED BLOOD COUNT 4.09 MIL/MM3 (4.50-5.90); WHITE BLOOD COUNT 7.4 TH/MM3 (4.0-11.0)
[2016-09-18 04:54] LABS: BICARBONATE 25.1 MEQ/L (21.0-32.0); POTASSIUM 4.4 MEQ/L (3.5-5.1)
[2016-09-18] MEDS: ACETAMINOPHEN/HYDROcodone 325 MG/7.5 MG TAB PO PRN ×2 (06:00→13:17)
[2016-09-18] MEDS: SODIUM CHLOR 0.9% 1000 ML INJ 1,000 ML IV SCH (06:54)
--- NOTE | 2016-09-18 08:08 | HHI.PR ---
Subjective Subjective Remarks no cp no sob no dizziness no abd. pain no diarrhea eating okay overnight tele reviewed, some episodes of bradycardia HR down to 38 NSVT 5 beats, asymptomatic pt. very anxious to go home, doesn't want cardiac work up " I need to get on with my chemo" discussed overnight tele changes and recommended that he discuss options for further ischemic work up with cardiology to make informed decision. Review of Systems Constitutional Constitutional Remarks 12 point ROS completed, negative except as noted above Vitals/Results Intake & Output 09/17/16 09/17/16 09/18/16 15:00 23:00 07:00 Intake Total 2050 ml 400 ml Output Total 1101 ml 1200 ml Balance 949 ml -800 ml Intake Oral 1050 ml 400 ml IV Total 1000 ml Output Urine Total 1100 ml 700 ml Stool Total 1 ml 500 ml # Voids 1 # Bowel Movements 0 0 Vital Signs Vital Signs Date Time Temp Pulse Resp B/P Pulse Ox O2 Delivery O2 Flow Rate FiO2 09/18/16 07:25 18 09/18/16 03:36 97.1 90 16 147/80 99 09/18/16 00:49 71 09/17/16 23:34 97.8 70 16 143/78 99 09/17/16 19:57 96.8 92 20 134/68 97 09/17/16 11:43 97.7 84 19 122/60 97 09/17/16 08:31 97.8 80 19 158/70 96 CBC/BMP: 09/18/16 0358 09/18/16 0358 Lab Results Laboratory Tests Test 09/18/16 03:58 White Blood Count 7.4 TH/MM3 Red Blood Count 4.09 MIL/MM3 Hemoglobin 11.0 GM/DL Hematocrit 33.7 % Mean Corpuscular Volume 82.3 FL Mean Corpuscular Hemoglobin 27.0 PG Mean Corpuscular Hemoglobin 32.8 % Concent Red Cell Distribution Width 17.0 % Platelet Count 293 TH/MM3 Mean Platelet Volume 6.7 FL Neutrophils (%) (Auto) 63.2 % Lymphocytes (%) (Auto) 24.8 % Monocytes (%) (Auto) 10.6 % Eosinophils (%) (Auto) 0.7 % Basophils (%) (Auto) 0.7 % Neutrophils # (Auto) 4.7 TH/MM3 Lymphocytes # (Auto) 1.8 TH/MM3 Monocytes # (Auto) 0.8 TH/MM3 Eosinophils # (Auto) 0.1 TH/MM3 Basophils # (Auto) 0.0 TH/MM3 CBC Comment DIFF FINAL Differential Comment Sodium Level 137 MEQ/L Potassium Level 4.4 MEQ/L Chloride Level 105 MEQ/L Carbon Dioxide Level 25.1 MEQ/L Anion Gap 7 MEQ/L Blood Urea Nitrogen 22 MG/DL Creatinine 1.35 MG/DL Estimat Glomerular Filtration 54 ML/MIN Rate Random Glucose 96 MG/DL Calcium Level 8.5 MG/DL Physical Exam General General Appearance: Well Developed, Well Nourished, No Acute Distress, Comfortable, Obese Eyes Eye Exam: Pupils Equal, Pupils Reactive Ears & Nose Ears & Nose Exam: Nasal Mucosa [place] Throat Throat Exam: Oral Mucosa [place] & Moist Neck Neck Exam: Neck Supple, Trachea Midline Pulmonary Resp Exam: Clear Bilaterally, No Distress Cardiology CV Exam: Regular, Good Perfusion Gastrointestinal/Abdomen GI Exam: Soft, Non-Tender, Bowel Sounds Present, Non-Distended GI Remarks colostomy with green stool Musculoskeletal MS Exam: Joints Intact Integumentary Skin Exam: Warm, Dry Extremeties Extremities Exam: Pedal Pulses Palpable, Trace Edema Neurologic Neuro Exam: Alert, Awake, Oriented, Speech Clear, Moving All Extremities, No Focal Deficits Psychiatric Psych Exam: Appropriate Responses VTE Prophylaxis VTE Prophylaxis Device: SCDs PUD Prophylasis PUD Remarks Pepcid Assessment/Plan Problem List: (1) Syncope (2) NSTEMI (non-ST elevated myocardial infarction) (3) Cancer of rectosigmoid (colon) (4) Tooth fracture (5) Fall (6) NSVT (nonsustained ventricular tachycardia) (7) Atrial flutter (8) Hx of prior ablation treatment (9) CAD (coronary artery disease) (10) Diabetes 1.5, managed as type 2 (11) HTN (hypertension) (12) Dehydration (13) Acute renal injury Assessment/Plan appreciate cardiology input + NSTEMI syncope, ? dysrhythmia, dehydration refused heparin gtt continue Plavix/statin refused asa hold BB, HR low overnight HR 38 HR staying 90s, will dec. Lopressor to 50 mg PO BID doesn't want cardiac work up, recommended to speak to motion picture camera operator to make informed decision Appreciate neurology input neuro work up done imaging studies done, no acute findings Echo done, diastolic dysfunction, EF 60-65 Renal function improved continue to hold diuretics Diet controlled diabetes, blood sugars stable Will have PT ambulate Pepcid for GI prophylaxis SCDs for DVT prophylaxis if he decides for no cardiac work up, poss dc later today d/w pt. at length consequences, verbalizes understanding. Focused on getting his chemotherapy done. D/W RN D/W Dr. Alvarez D/W pt This patient was seen by myself and Dr. Alvarez, this note is written on his behalf. Problem Qualifiers (1) Syncope: (2) Tooth fracture: Qualified Code: S02.5XXB - Open fracture of tooth, initial encounter (3) Fall: Qualified Code: W19.XXXA - Fall, initial encounter (4) Atrial flutter: Qualified Code: I48.92 - Atrial flutter, unspecified type (5) CAD (coronary artery disease): Qualified Code: I25.10 - Coronary artery disease involving [place] coronary artery of [place] heart without angina pectoris (6) HTN (hypertension): Qualified Code: I10 - Essential hypertension Emily Rodriguez Sep 18, 2016 08:08
[2016-09-18] MEDS: TAMSULOSIN HCL 0.4 MG CAP PO SCH (08:52)
[2016-09-18] MEDS: ATORVASTATIN 80 MG TAB PO SCH (08:52)
[2016-09-18] MEDS: LISINOPRIL 10 MG TAB PO SCH (08:52)
[2016-09-18] MEDS: FAMOTIDINE 20 MG TAB PO SCH ×2 (08:53→20:12)
[2016-09-18] MEDS: CLOPIDOGREL 75 MG TAB PO SCH (08:53)
[2016-09-18] MEDS: POTASSIUM CHLORIDE 10 MEQ CONTROLLED RELEASE TAB PO SCH ×2 (08:53→20:12)
[2016-09-18] MEDS: SODIUM CHLORIDE 0.9% FLUSH 5 ML FLUSH IV SCH ×2 (08:54→20:11)
--- NOTE | 2016-09-18 11:32 | PD.CARD.PN ---
Subjective Subjective Remarks no complaints no overnight events ambulating without difficulty kidney function improved Objective Medications Current Medications Medications (Trade) Dose Ordered Sig/Maricarmen Route Start Time Stop Time Status Last Admin (NS Flush) 2 ml UNSCH PRN IV 09/16/16 05:00 (NS Flush) 2 ml BID IV 09/16/16 09:00 09/16/16 20:34 (Zofran Inj) 4 mg Q6H PRN IVP 09/16/16 05:00 (Senokot) 17.2 mg Q12H PRN PO 09/16/16 05:00 (Tylenol) 650 mg Q6H PRN PO 09/16/16 05:00 (Nitroglycerin 2% Oint) 1 inch Q6H TOPICAL 09/16/16 08:00 (Lipitor) 80 mg DAILY PO 09/16/16 09:00 09/18/16 08:52 (Plavix) 75 mg DAILY PO 09/16/16 09:00 09/18/16 08:53 (KCl) 10 meq Q12HR PO 09/16/16 09:00 09/18/16 08:53 (Flomax) 0.4 mg DAILY PO 09/16/16 09:00 09/18/16 08:52 (Pill Splitter) 1 ea UNSCH PRN OTHER 09/16/16 08:45 ([place] 7.5-325 Mg) 1 tab Q4H PRN PO 09/16/16 12:00 09/18/16 06:00 (Pepcid) 10 mg BID PO 09/16/16 21:00 09/18/16 08:53 (Prinivil) 10 mg DAILY PO 09/17/16 09:00 09/18/16 08:52 (Lopressor) 50 mg Q12HR PO 09/18/16 21:00 Vital Signs / I&O Vital Signs Date Time Temp Pulse Resp B/P Pulse Ox O2 Delivery O2 Flow Rate FiO2 09/18/16 08:17 97.6 82 17 141/69 98 09/18/16 08:00 82 09/18/16 07:25 18 09/18/16 03:36 97.1 90 16 147/80 99 09/18/16 00:49 71 09/17/16 23:34 97.8 70 16 143/78 99 09/17/16 19:57 96.8 92 20 134/68 97 09/17/16 11:43 97.7 84 19 122/60 97 I/O 09/17/16 09/17/16 09/17/16 09/18/16 09/18/16 09/18/16 07:00 15:00 23:00 07:00 15:00 23:00 Intake Total 2050 ml 400 ml Output Total 1101 ml 1200 ml Balance 949 ml -800 ml Intake Oral 1050 ml 400 ml IV Total 1000 ml Output Urine Total 1100 ml 700 ml Stool Total 1 ml 500 ml # Voids 1 # Bowel Movements 0 0 Physical Exam GENERAL: Well-nourished, well-developed patient. SKIN: Warm and dry. HEAD: Normocephalic. EYES: No scleral icterus. No injection or drainage. NECK: Supple, trachea midline. No JVD or lymphadenopathy. CARDIOVASCULAR: Regular rate and rhythm without murmurs, gallops, or rubs. RESPIRATORY: Breath sounds equal bilaterally. No accessory muscle use. GASTROINTESTINAL: Abdomen soft, non-tender, nondistended. EXTREMITIES: No cyanosis, or edema. NEUROLOGICAL: Awake, alert, and oriented x 3. Non-focal. Laboratory Laboratory Tests Test 09/18/16 03:58 White Blood Count 7.4 TH/MM3 Red Blood Count 4.09 MIL/MM3 Hemoglobin 11.0 GM/DL Hematocrit 33.7 % Mean Corpuscular Volume 82.3 FL Mean Corpuscular Hemoglobin 27.0 PG Mean Corpuscular Hemoglobin 32.8 % Concent Red Cell Distribution Width 17.0 % Platelet Count 293 TH/MM3 Mean Platelet Volume 6.7 FL Neutrophils (%) (Auto) 63.2 % Lymphocytes (%) (Auto) 24.8 % Monocytes (%) (Auto) 10.6 % Eosinophils (%) (Auto) 0.7 % Basophils (%) (Auto) 0.7 % Neutrophils # (Auto) 4.7 TH/MM3 Lymphocytes # (Auto) 1.8 TH/MM3 Monocytes # (Auto) 0.8 TH/MM3 Eosinophils # (Auto) 0.1 TH/MM3 Basophils # (Auto) 0.0 TH/MM3 CBC Comment DIFF FINAL Differential Comment Sodium Level 137 MEQ/L Potassium Level 4.4 MEQ/L Chloride Level 105 MEQ/L Carbon Dioxide Level 25.1 MEQ/L Anion Gap 7 MEQ/L Blood Urea Nitrogen 22 MG/DL Creatinine 1.35 MG/DL Estimat Glomerular Filtration 54 ML/MIN Rate Random Glucose 96 MG/DL Calcium Level 8.5 MG/DL Imaging Last Impressions Head CT 09/16/16305 Signed Impressions: Service Date/Time: Friday, September 16, 2016 03:21 - CONCLUSION: No acute disease. Jose Luis Mccarty MD Chest X-Ray 09/16/16305 Signed Impressions: Service Date/Time: Friday, September 16, 2016 03:38 - CONCLUSION: Cardiomegaly. Jose Luis Mccarty MD Maxillofacial CT 09/16/16 Signed Impressions: Service Date/Time: Friday, September 16, 2016 03:21 - CONCLUSION: No fracture seen. Jose Luis Mccarty MD Cervical Spine CT 09/16/16 Signed Impressions: Service Date/Time: Friday, September 16, 2016 03:21 - CONCLUSION: 1. Status post fusion at the C4-C5 through C5 and C6 levels. 2. Suspected minimal central disc protrusion at the C3-C4 level. 3. Mild bulging at the C6-C7 level. Jose Luis Mccarty MD Carotid Artery Ultrasound 09/16/16 Signed Impressions: Service Date/Time: Friday, September 16, 2016 08:19 - CONCLUSION: Mild calcific plaquing bilateral carotid bulbs and initial segment internal carotids with no evidence of anatomical or physiologic stenosis Klaus Shah MD Assessment and Plan Problem List: (1) NSTEMI (non-ST elevated myocardial infarction) Assessment and Plan: Asymptomatic Afebrile and hemodynamically stable Telemetry Afib with controlled ventricular response. Continue rate control, some episodes of slow afib. Lower Lopressor to 25mg PO BID [id number] Score= 2. OAC recommended however he reports still having rectal bleeding at least every other day. Thus not a candidate at this time. He understand risks. Schedule Holter monitor on discharge Echo unchanged from 06/2016. preserved LV systolic function After a long discussion with the patient regarding invasive strategy for NSTEMI (left heart catheterization) patient refuses. He prefers to treat it medically. He understand risks. Recommendations: Continue aggressive medical management for NSTEMI. (BB, ACEi, statin, ASA and Plavix) Will be available on a PRN basis for any questions or concerns Case discussed with Dr. Squires (2) Rectal bleeding (3) HTN (hypertension) (4) Diabetes 1.5, managed as type 2 (5) Acute renal injury Problem Qualifiers (1) HTN (hypertension): Qualified Code: I10 - Essential hypertension Alberto Burroughs MD Sep 18, 2016 11:32
[2016-09-18] MEDS: METOPROLOL TARTRATE 25 MG TAB PO SCH (20:12)
[2016-09-18] MEDS ORDERED: METOPROLOL TARTRATE 50 MG TAB PO SCH (21:00)
[2016-09-19 00:15] VITALS: BP 161/86; PULSE 76; RESP 18; TEMP 98.4; O2SAT 99
[2016-09-19] MEDS: NITROGLYCERIN 2% OINT 1 GM PACKET TOPICAL SCH ×2 (01:42→08:00)
[2016-09-19] MEDS: ACETAMINOPHEN/HYDROcodone 325 MG/7.5 MG TAB PO PRN (02:56)
[2016-09-19 04:02] VITALS: BP 135/74; PULSE 83; RESP 18; TEMP 98.1; O2SAT 98
[2016-09-19 08:00] VITALS: BP 137/85; PULSE 72; PULSE 74; RESP 20; TEMP 98.3; O2SAT 96
[2016-09-19] MEDS ORDERED: METO-309 PO (08:16)
[2016-09-19] MEDS ORDERED: FURO1TAB62 PO (08:16)
--- NOTE | 2016-09-19 08:17 | HHI.DCPOC ---
Discharge Care Plan Diagnosis: (1) NSVT (nonsustained ventricular tachycardia) (2) Diabetes 1.5, managed as type 2 (3) Syncope (4) CAD (coronary artery disease) (5) Dehydration Your Health Problems Are: Anxiety Difficulty with ADL Shortness of Breath Goals to Promote Your Health * To prevent worsening of your condition and complications * To maintain your health at the optimal level Directions to Meet Your Goals Take your medications as prescribed Follow your dietary instruction Follow activity as directed Keep your appointments as scheduled Take your immunizations and boosters as scheduled If your symptoms worsen call your PCP, if no PCP go to Urgent Care Center or Emergency Room Smoking is Dangerous to Your Health. Avoid second hand smoke Call the 24-hour hour crisis hotline for domestic abuse at Emily Rodriguez Sep 19, 2016 08:17
--- NOTE | 2016-09-19 08:23 | HHI.PR ---
Subjective Subjective Remarks no cp no sob no dizziness no abd. pain no diarrhea eating okay overnight tele reviewed, hr down to 40s, Lopressor held no vt was evaluated by Dr. Gold later yesterday Review of Systems Constitutional Constitutional Remarks 12 point ROS completed, negative except as noted above Vitals/Results Intake & Output 09/18/16 09/18/16 09/19/16 15:00 23:00 07:00 Intake Total 2 ml Balance 2 ml IV Total 2 ml # Voids 4 Vital Signs Vital Signs Date Time Temp Pulse Resp B/P Pulse Ox O2 Delivery O2 Flow Rate FiO2 09/19/16 04:02 98.1 83 18 135/74 98 09/19/16 00:15 98.4 76 18 161/86 99 09/18/16 19:20 97.7 75 18 126/85 99 09/18/16 18:42 98.1 82 15 141/85 98 09/18/16 15:58 97.6 84 18 136/82 96 09/18/16 15:00 76 CBC/BMP: 09/18/16 0358 09/18/16 0358 Physical Exam General General Appearance: Well Developed, Well Nourished, No Acute Distress, Comfortable, Obese Eyes Eye Exam: Pupils Equal, Pupils Reactive Ears & Nose Ears & Nose Exam: Nasal Mucosa [place] Throat Throat Exam: Oral Mucosa [place] & Moist Neck Neck Exam: Neck Supple, Trachea Midline Pulmonary Resp Exam: Clear Bilaterally, No Distress Cardiology CV Exam: Regular, Good Perfusion, Irregular, Bradycardia Gastrointestinal/Abdomen GI Exam: Soft, Non-Tender, Bowel Sounds Present, Non-Distended GI Remarks colostomy with green stool Musculoskeletal MS Exam: Joints Intact Integumentary Skin Exam: Warm, Dry Extremeties Extremities Exam: Pedal Pulses Palpable, Trace Edema Neurologic Neuro Exam: Alert, Awake, Oriented, Speech Clear, Moving All Extremities, No Focal Deficits Psychiatric Psych Exam: Appropriate Responses VTE Prophylaxis VTE Prophylaxis Device: SCDs PUD Prophylasis PUD Remarks Pepcid Assessment/Plan Problem List: (1) Syncope (2) NSTEMI (non-ST elevated myocardial infarction) (3) Cancer of rectosigmoid (colon) (4) Tooth fracture (5) Fall (6) NSVT (nonsustained ventricular tachycardia) (7) Atrial flutter (8) Hx of prior ablation treatment (9) CAD (coronary artery disease) (10) Diabetes 1.5, managed as type 2 (11) HTN (hypertension) (12) Dehydration (13) Acute renal injury Assessment/Plan appreciate cardiology input + NSTEMI syncope, ? dysrhythmia, dehydration refused heparin gtt continue Plavix/statin/bb refused asa declined cardiac work up, cath Lopressor dec to 25 mg PO BID per Dr. Gold, slow afib unable to have NOAC, still having some rectal bleeding. High risk for bleeding Pt. understands/verbalizes risk of stroke, also afraid of taking ASA per Dr. Gold, needs set up appointment for Holter as OP D/W pt at length, needs to f/u and obtain holter. Appreciate neurology input neuro work up done imaging studies done, no acute findings Echo done, diastolic dysfunction, EF 60-65 Renal function improved continue to hold diuretics can resume Lasix at 20 mg po daily Keep hydrated Diet controlled diabetes, blood sugars stable CM consult, resume [facility] Pepcid for GI prophylaxis SCDs for DVT prophylaxis Plan to discharge today with HHC stable, needs to f/u Dr. Mei to set up holter f/u Dr. Uriostegui f/u PCP D/W RN D/W Dr. Alvarez D/W pt at length, went over medications, s/s to monitor. He is to return if any dizziness, cp, sob. This patient was seen by myself and Dr. Alvarez, this note is written on his behalf. Discharge Minutes: 45 Problem Qualifiers (1) Syncope: (2) Tooth fracture: Qualified Code: S02.5XXB - Open fracture of tooth, initial encounter (3) Fall: Qualified Code: W19.XXXA - Fall, initial encounter (4) Atrial flutter: Qualified Code: I48.92 - Atrial flutter, unspecified type (5) CAD (coronary artery disease): Qualified Code: I25.10 - Coronary artery disease involving [place] coronary artery of [place] heart without angina pectoris (6) HTN (hypertension): Qualified Code: I10 - Essential hypertension Emily Rodriguez Sep 19, 2016 08:23
--- NOTE | 2016-09-19 08:24 | HHI.DS ---
Discharge Summary Admission Date Sep 17, 2016 at 16:40 Discharge Date: Sep 19, 2016 Admitting Diagnosis Poss Syncope, Fall, Dental Fracture (1) Dehydration (2) Atrial flutter (3) NSTEMI (non-ST elevated myocardial infarction) (4) CAD (coronary artery disease) (5) Syncope (6) HTN (hypertension) (7) Diabetes 1.5, managed as type 2 (8) NSVT (nonsustained ventricular tachycardia) (9) Acute renal injury (10) Hx of prior ablation treatment (11) Cancer of rectosigmoid (colon) CBC/BMP: 09/18/16 0358 09/18/16 0358 Significant Findings Laboratory Tests Test 09/16/16 09/17/16 09/17/16 09/18/16 10:58 07:36 07:56 03:58 Total Creatine Kinase 1461 U/L (39-308) Creatine Kinase MB 95.5 NG/ML (0.5-3.6) Creatine Kinase MB % 6.5 % (0.0-4.0) Troponin I 11.00 NG/ML (0.02-0.05) Red Blood Count 4.09 MIL/MM3 4.09 MIL/MM3 4.09 MIL/MM3 (4.50-5.90) (4.50-5.90) (4.50-5.90) Hemoglobin 11.4 GM/DL 11.0 GM/DL 11.0 GM/DL (13.0-17.0) (13.0-17.0) (13.0-17.0) Hematocrit 33.2 % 33.3 % 33.7 % (39.0-51.0) (39.0-51.0) (39.0-51.0) Mean Platelet Volume 6.9 FL 6.7 FL 6.7 FL (7.0-11.0) (7.0-11.0) (7.0-11.0) Monocytes (%) (Auto) 8.7 % (0.0-8.0) 10.6 % (0.0-8.0) Blood Urea Nitrogen 29 MG/DL (7-18) 22 MG/DL (7-18) Creatinine 1.40 MG/DL 1.35 MG/DL (0.60-1.30) (0.60-1.30) Estimat Glomerular Filtration 52 ML/MIN (>89) 54 ML/MIN (>89) Rate Imaging Last Impressions Head CT 09/16/16305 Signed Impressions: Service Date/Time: Friday, September 16, 2016 03:21 - CONCLUSION: No acute disease. Jose Luis Mccarty MD Chest X-Ray 09/16/16305 Signed Impressions: Service Date/Time: Friday, September 16, 2016 03:38 - CONCLUSION: Cardiomegaly. Jose Luis Mccarty MD Maxillofacial CT 09/16/16 Signed Impressions: Service Date/Time: Friday, September 16, 2016 03:21 - CONCLUSION: No fracture seen. Jose Luis Mccarty MD Cervical Spine CT 09/16/16 Signed Impressions: Service Date/Time: Friday, September 16, 2016 03:21 - CONCLUSION: 1. Status post fusion at the C4-C5 through C5 and C6 levels. 2. Suspected minimal central disc protrusion at the C3-C4 level. 3. Mild bulging at the C6-C7 level. Jose Luis Mccarty MD Carotid Artery Ultrasound 09/16/16 Signed Impressions: Service Date/Time: Friday, September 16, 2016 08:19 - CONCLUSION: Mild calcific plaquing bilateral carotid bulbs and initial segment internal carotids with no evidence of anatomical or physiologic stenosis Klaus Shah MD Hospital Course This is a pleasant 56-year-old white male who initially came into the ER with what he thought was a possible bleed. The patient has a new colostomy secondary to recent surgery and also has been diagnosed with colon cancer and first round of chemotherapy. T The patient was given iron tablets which was started yesterday. Several hours later he noticed a dark tarry stool coming from his colostomy bag and came in for evaluation. The patient was stabilized and discharged home in stable condition. He was walking outside, waiting on his daughter to pick him up. The patient usually walks with a cane but did not have a cane with him. He does not have a good recollection of what happened to him except that he aroused when his face hit the pavement. He fell on the left side of his face, had an abrasion below his left eye on his cheekbone. He also had a tear to the left side of his lip which now has sutures in it. During the fall the patient did fracture his front upper tooth The patient has had a recent hospitalization with an arrhythmia and a heart attack, was initially seen per Dr. Mei, also saw Dr. Ferreira for EP study and ablation in August. Had stent in June 2016. The patient had his heart rhythm synched back into sinus rhythm, then was sent up to start his chemotherapy for his recently diagnosed colon cancer. The patient had chemotherapy this past week on Friday and Friday and due to have his next set of chemotherapy on 09/23. The patient did note some nausea before coming to the hospital. He does state he has poor balance and currently walks with a cane due to degenerative disk disease. He does on occasion have some dizzy spells. The patient denies any cough, denies any chest pain, denies any shortness of breath. He currently is taking Plavix as well as his other routine medicines and has not missed any doses of his medication. Was evaluated in the ED and work up was done with findings as below: DIAGNOSTIC DATA WBC count 11.1, RBC 4.19, hemoglobin 11.2, hematocrit 33.9, platelet count 342, neutrophil auto 78.62. Chemistry - Sodium 135, potassium 4.6, chloride 100, carbon dioxide 27.2, anion gap 8, BUN 37, creatinine 2.11, GFR 32, random glucose is 113, iron is 24, AST 118. He has pending CKs and troponins but his initial troponin drawn at 03:55 is 10.10. Total protein 8.1, albumin 3.6. Vitamin B12 441, folate 6.3. IMAGING STUDIES Maxillofacial CT - No fracture seen. CERVICAL SPINE Post fusion of his C4-C5, C5-C6, suspected minimal central disk protrusion, mild bulging at C6-C7. CT HEAD No acute disease. CHEST X-RAY Cardiomegaly. Pt admitted for: (1) Syncope (2) NSTEMI (non-ST elevated myocardial infarction) (3) Cancer of rectosigmoid (colon) (4) Tooth fracture (5) Fall (6) NSVT (nonsustained ventricular tachycardia) (7) Atrial flutter (8) Hx of prior ablation treatment (9) CAD (coronary artery disease) (10) Diabetes 1.5, managed as type 2 (11) HTN (hypertension) (12) Dehydration (13) Acute renal injury During hospitalization, the following took place: PT. admitted, hydrated Serial enzymes done, + NSTEMI Took ASA but refused daily dosage due to recent rectal bleeding. Evaluated by cardiology, heparin gtt ordered. Pt. refused heparin gtt. Also refused cardiac work up Unclear as to source of syncope, ? dysrhythmia, dehydration Was continued on Plavix/statin/bb Overnight, was noted with pauses and chiquis rhythm with 5 beat NSVT. Lopressor dec to 25 mg PO BID per Dr. Gold, slow afib Dr. Gold evaluated, again offered cardiac work up which pt. refused. Pt. with his CHADS score. Unable to have NOAC, still having some rectal bleeding. High risk for bleeding Pt. understands/verbalizes risk of stroke, also afraid of taking ASA per Dr. Gold, needs set up appointment for Holter as OP D/W pt at length, needs to f/u and obtain holter. Verbalized understanding. Will f/u with own tetryl wringer operator Dr. Mei. Appreciate neurology input for syncope. No neuro cause for it . neuro work up done imaging studies done, no acute findings Echo done, diastolic dysfunction, EF 60-65 Pt. noted dehydrated with acute renal injury Given IVF Lasix held Renal function improved Instructed to resume Lasix at 20 mg po daily and to keep hydrated Diet controlled diabetes, blood sugars stable CM consulted, resume [facility] Pepcid for GI prophylaxis SCDs for DVT prophylaxis Pt. cleared for discharge by cardiology HR down at night only, down to 40s. The rest of the time, HR remaining 70-90s Lopressor adjusted. Lisinopril added. BP stable Discharged home with [facility], ok to resume chemo Instructed to: f/u Dr. Mei to set up holter f/u Dr. Uriostegui f/u PCP Pt. discharged in stable condition. PT walked around unit Pt Condition on Discharge: Stable Discharge Disposition: Disch w/ Home Health Serv Discharge Instructions DIET: Follow Instructions for: Heart Healthy Diet Activities you can perform: Weight Bearing as Kate Other Activity Instructions: NO DRIVING Follow up Referrals: Cardiology - 2-3 Days with Chaz Mei MD Oncology with YASMEEN PCP Follow-up Changed Medications: Furosemide (Lasix) 20 Mg Tab 20 MG PO DAILY fluid retention #60 Ref 0 TAB (Changed from: BID) Metoprolol Tartrate (Lopressor) 50 Mg Tab 25 MG PO Q12HR high blood pressure/heart rate #60 TAB (Changed from: 75 MG) Continued Medications: Atorvastatin (Lipitor) 80 Mg Tab 80 MG PO DAILY Cholesterol Management #30 TAB Clopidogrel (Plavix) 75 Mg Tab 75 MG PO DAILY Blood Clot Prevention Ref 0 TAB Hydrocodone-Acetaminophen (Hydrocodone-Acetaminophen) 7.5-325 mg Tab 1 TAB PO Q4H PRN PAIN SCALE 6 TO 10 #28 TAB Pantoprazole (Pantoprazole) 40 Mg Tab 40 MG PO DAILY inflammation #30 TAB Potassium Chloride ER (Klor-Con 10) 10 Meq Tab 10 MEQ PO Q12HR low potassium #60 TAB Tamsulosin (Flomax) 0.4 Mg Cap 0.4 MG PO DAILY urinary #30 CAP Emily Rodriguez Sep 19, 2016 08:24
--- NOTE | 2016-09-19 08:25 | HHI.FF ---
Face to Face Verification Diagnosis: (1) CAD (coronary artery disease) (2) Syncope (3) HTN (hypertension) (4) Diabetes 1.5, managed as type 2 (5) NSVT (nonsustained ventricular tachycardia) (6) Acute renal injury (7) Rectal bleeding (8) Hx of prior ablation treatment (9) Dehydration (10) Atrial flutter (11) NSTEMI (non-ST elevated myocardial infarction) Physical Therapy Order: Evaluate and Treat Home Health Nursing Order: Medical education Medication education-adverse effect Nursing assessment with vital signs Bottle Carrier Order: To Evaluate: Support services Order: To Provide: Community services I have seen patient Mike Brown on 09/19/16. My clinical findings support the need for the requested home health care services because: Deconditioned w/ increased weakness Need for psychosocial assistance I certify that my clinical findings support that this patient is homebound because: Unsafe to leave home unassisted Need for psychosocial assistance Emily Rodriguez Sep 19, 2016 08:25
[2016-09-19] MEDS ORDERED: LISI10TA3 PO (08:43)
[2016-09-19] MEDS: POTASSIUM CHLORIDE 10 MEQ CONTROLLED RELEASE TAB PO SCH (08:47)
[2016-09-19] MEDS: LISINOPRIL 10 MG TAB PO SCH (08:47)
[2016-09-19] MEDS: METOPROLOL TARTRATE 25 MG TAB PO SCH (08:47)
[2016-09-19] MEDS: TAMSULOSIN HCL 0.4 MG CAP PO SCH (08:47)
[2016-09-19] MEDS: FAMOTIDINE 20 MG TAB PO SCH (08:48)
[2016-09-19] MEDS: ATORVASTATIN 80 MG TAB PO SCH (08:48)
[2016-09-19] MEDS: CLOPIDOGREL 75 MG TAB PO SCH (08:48)
[2016-09-19] MEDS: SODIUM CHLORIDE 0.9% FLUSH 5 ML FLUSH IV SCH (08:49)
== END 2016-09-19 13:57 | disposition home health service (06) | DRG 281 ==
LOC: NEPC 02:07 → INTOOBSV 04:40 → NEDA 04:40 → NEPFCDU 06:19 → OBSVTOIN 09-17 16:40
PROVIDERS: ADMIT Specialist; ATTEND Specialist
PROC: 0CQ1XZZ Repair Lower Lip, External Approach (ICD-10-PCS; principal; 2016-09-16)
DX: R55 Syncope and collapse (principal); I21.4 Non-ST elevation (NSTEMI) myocardial infarction; N17.9 Acute kidney failure, unspecified; I47.2 Ventricular tachycardia; I48.92 Unspecified atrial flutter; E87.1 Hypo-osmolality and hyponatremia; I10 Essential (primary) hypertension; E86.0 Dehydration; C18.9 Malignant neoplasm of colon, unspecified; I48.91 Unspecified atrial fibrillation; K62.5 Hemorrhage of anus and rectum; D64.9 Anemia, unspecified; I25.10 Atherosclerotic heart disease of native coronary artery without angina pectoris; S02.5XXA Fracture of tooth (traumatic), initial encounter for closed fracture; S01.511A Laceration without foreign body of lip, initial encounter; E11.9 Type 2 diabetes mellitus without complications; D72.829 Elevated white blood cell count, unspecified; Y92.9 Unspecified place or not applicable; W01.0XXA Fall on same level from slipping, tripping and stumbling without subsequent striking against object, initial encounter; I45.10 Unspecified right bundle-branch block; F12.90 Cannabis use, unspecified, uncomplicated; Z96.643 Presence of artificial hip joint, bilateral; R42 Dizziness and giddiness; Z93.3 Colostomy status; I25.2 Old myocardial infarction; Z79.01 Long term (current) use of anticoagulants; Z95.5 Presence of coronary angioplasty implant and graft; E66.9 Obesity, unspecified; S80.212A Abrasion, left knee, initial encounter; F41.9 Anxiety disorder, unspecified; R00.1 Bradycardia, unspecified; Z53.29 Procedure and treatment not carried out because of patient's decision for other reasons
CPT/HCPCS: 12011; 70450; 70486; 71010; 72125; 80048; 80053; 82272; 82550; 82552; 82607; 82728; 82746; 83540; 83550; 83735; 84484; 85025; 85027; 93005; 93306; 93880; 99283; G0378; J1644; J7030; L0150

== ENCOUNTER 2016-12-12 12:43 | Inpatient (IN) | payer OTHER, MEDICARE ==
[~2016-12-12] VITALS: Ht 165.1 cm; Wt 104.9 kg
[~2016-12-12 12:43] MED LIST changes: -HYDR-3580 PO; -PANT40TA3 PO; -POTA-243 PO; -TAMS5CAP PO
[2016-12-16] MEDS ORDERED: ASPI1TAB69 PO (15:40)
[2016-12-17] MEDS ORDERED: DEXT 5%-NACL 0.9% 1000 ML INJ 1,000 ML IV SCH (11:45)
[2016-12-17] MEDS ORDERED: ceFAZolin 1,000 MG/NS 100 ML IV SCH ×2 (11:45)
[2016-12-17] MEDS ORDERED: LACTATED RINGER'S 1000 ML IV PRN (11:45)
[2016-12-17] MEDS ORDERED: INSULIN HUMAN REGULAR 1,000 UNITS/10 ML VIAL SQ PRN (11:45)
[2016-12-17] MEDS ORDERED: CHLORHEXIDINE GLUCONATE 2 % 1 PACK (2 CLOTHS) TOPICAL PRN (11:45)
[2016-12-17] MEDS ORDERED: POVIDONE IODINE 5% (ANTISEPSIS KIT) 4 APPLICATIONS EACH NARE PRN (11:45)
[2016-12-17] MEDS ORDERED: METRONIDAZOLE 500 MG/100 ML ISONTONIC SOLN IV SCH (11:45)
[2016-12-17] MEDS ORDERED: SODIUM CHLORID 0.9% 500 ML IV PRN (11:45)
[2016-12-17] MEDS ORDERED: METOPROLOL TARTRATE 25 MG TAB PO PRN (11:45)
[2016-12-17] MEDS ORDERED: LACTATED RINGER'S 1000 ML INJ 1,000 ML IV ONE (12:00)
[2016-12-17] MEDS ORDERED: ePHEDrine/NS 25 MG/5 ML SYR IV ONE (12:00)
[2016-12-17] MEDS ORDERED: PHENYLEPH/NS 1000 MCG/10 ML SYR IV ONE (12:00)
[2016-12-17] MEDS ORDERED: ONDANSETRON HCL 4 MG/2 ML VIAL IV PUSH ONE (12:00)
[2016-12-17] MEDS ORDERED: PROPOFOL 200 MG/20 ML AMP IV ONE (12:00)
--- NOTE | 2016-12-17 12:13 | PD.HP.UP ---
H&P Update Note The Pre-Admit History and Physical Examination regarding the above named patient was reviewed (including, but not limited to, vital signs, heart, lungs, co-morbid conditions), and upon re-examination it is noted that: the patient's condition has not significantly changed since the last examination. Kan Gupta MD December 17, 2016 12:13
[2016-12-17] MEDS ORDERED: ALVIMOPAN 12 MG CAPSULE ONE (12:18)
--- NOTE | 2016-12-17 12:18 | RADRPT ---
EXAM DATE/TIME: 12/17/2016 11:48 [facility] COMPARISON: CHEST SINGLE AP, September 16, 2016, 3:38. INDICATIONS : Evaluate for pneumonia, pneumothorax, or communicable disease. Pre op for surgery today. MEDICAL HISTORY : Hypertension. Myocardial infarction. Colon Cancer. Afib. SURGICAL HISTORY : None. ENCOUNTER: Initial ACUITY: 1 day PAIN SCORE: 0/10 LOCATION: Bilateral chest FINDINGS: A single view of the chest demonstrates the lungs to be symmetrically aerated without evidence of mas s, infiltrate or effusion. Heart enlarged. A right-sided portacatheter unchanged. The cardiomediasti nal contours are unremarkable. Osseous structures are intact. CONCLUSION: No acute disease. Cardiomegaly. Diomedes Macias MD on December 17, 2016 at 12:14 Board Certified Radiologist. This report was verified electronically.
[2016-12-17 12:25] VITALS: BP 138/94; PULSE 84; RESP 20; TEMP 98.7; O2SAT 98
[2016-12-17] MEDS ORDERED: fentaNYL CITRATE 250 MCG/5 ML AMP ONE (13:24)
[2016-12-17] MEDS ORDERED: SUGAMMADEX SODIUM 200 MG/2 ML VIAL IV PUSH ONE ×2 (13:24)
[2016-12-17] MEDS ORDERED: ACETAMINOPHEN 1000 MG/100 ML VIAL IV ONE (14:00)
[2016-12-17] MEDS ORDERED: MIDAZOLAM HCL 2 MG/2 ML VIAL ONE (14:00)
[2016-12-17] MEDS ORDERED: DEXAMETHASONE SOD PHOS 4 MG/ML VIAL ONE (14:01)
[2016-12-17] MEDS ORDERED: FAMOTIDINE 20 MG/2 ML VIAL ONE (14:01)
--- NOTE | 2016-12-17 17:29 | HHI.PR ---
Immediate Post Op Note Procedure Date: December 17, 2016 Pre Op Diagnosis: Cancer desc colon Post Op Diagnosis: same Surgeon: Kan Gupta Patrol Mother(s): Cecil Procedure: Exploratory laparotomy, sigmoid colectomy, closure colostomy Findings: Tight apple-core cancer desc colon liver/GB normal Complications: None Specimen(s) removed: sigmoid colon, transverse colon Estimated blood loss: 100cc Anesthesia: General Drains: None IVF Patient to: PACU Patient Condition: Good Kan Gupta MD December 17, 2016 17:29
[2016-12-17] MEDS ORDERED: POTASSIUM CHLOR 20 MEQ PREMIX 100 ML IV PRN (17:30)
[2016-12-17] MEDS ORDERED: ACETAMINOPHEN/HYDROcodone 325 MG/5 MG TAB PO PRN (17:30)
[2016-12-17] MEDS ORDERED: BENZOCAINE 6 MG/MENTHOL 10 MG LOZENGE BUCCAL PRN (17:30)
[2016-12-17] MEDS ORDERED: POTASSIUM CHLOR 40 MEQ PREMIX 100 ML IV PRN (17:30)
[2016-12-17] MEDS ORDERED: ENALAPRILAT 2.5 MG/2 ML VIAL IV PRN (17:30)
[2016-12-17] MEDS ORDERED: SODIUM CHLORIDE 0.9% FLUSH 5 ML FLUSH IVF PRN (17:30)
[2016-12-17] MEDS ORDERED: KETOROLAC TROMETHAMINE 30 MG/ML (IVP) VIAL IVP PRN (17:30)
[2016-12-17] MEDS ORDERED: NALOXONE HCL 0.4 MG/ML AMP IV PRN (17:30)
[2016-12-17] MEDS ORDERED: ACETAMINOPHEN 325 MG TAB PO PRN (17:30)
[2016-12-17] MEDS ORDERED: Post-op Orders (for Pharmacy) MISC XX ONE (17:30)
[2016-12-17] MEDS ORDERED: ONDANSETRON HCL 4 MG/2 ML VIAL IV PRN (17:30)
[2016-12-17] MEDS ORDERED: MORPHINE SULFATE 4 MG/ML INJ ONE (17:43)
[2016-12-17] MEDS ORDERED: DO NOT ADM ANY ANTICOAGULANT DRUGS PRN (17:45)
[2016-12-17] MEDS: D5-NS + KCL 20 MEQ INJ 1,000 ML IV SCH (18:00)
[2016-12-17] MEDS ORDERED: *morphine SULFATE 8 MG/ML PERIprocedure ONLY ONE (18:09)
[2016-12-17] MEDS ORDERED: *LABETALOL HCL 100 MG/20 ML VIAL PERIprocedural Use ONLY ONE (18:16)
[2016-12-17] MEDS ORDERED: *ENALAPRILAT 1.25 MG/ML VIAL PERIprocedural Use ONLY ONE (18:33)
[2016-12-17] MEDS: ENALAPRILAT 1.25 MG/ML VIAL IV PRN (20:12)
[2016-12-17] MEDS: MORPHINE SULFATE 30 MG/30 ML PCA IV SCH (20:23)
[2016-12-17] MEDS: METOCLOPRAMIDE HCL 10 MG/2 ML VIAL IVS SCH (21:00)
[2016-12-17] MEDS: SODIUM CHLORIDE 0.9% FLUSH 5 ML FLUSH IVF SCH (21:00)
[2016-12-17] MEDS: metroNIDAZOLE 500 MG INJ 100 ML IV SCH (21:58)
[2016-12-17] MEDS: METOPROLOL TARTRATE 25 MG TAB PO SCH (23:45)
[2016-12-18] VITALS (17 sets, daily range): BP systolic 125–153; BP diastolic 78–105; PULSE 40–164; RESP 16–18; TEMP 97.2–99; O2SAT 92–97
[2016-12-18] MEDS: PCA - TOTAL MG MORPHINE DELIVERED PER SHIFT SCH ×3 (06:00→22:00)
[2016-12-18] MEDS: D5-NS + KCL 20 MEQ INJ 1,000 ML IV SCH ×4 (06:06→22:11)
[2016-12-18] MEDS: metroNIDAZOLE 500 MG INJ 100 ML IV SCH ×2 (06:07→14:00)
[2016-12-18 06:18] LABS: AUTOMATED NEUTROPHIL # 17.2 TH/MM3 (1.8-7.7); BASOPHIL % 0.2 % (0.0-2.0); HEMATOCRIT 41.7 % (39.0-51.0); HEMO FLAGS DIFF FINAL; LYMPH % 4.9 % (9.0-44.0); LYMPHOCYTE # 0.9 TH/MM3 (1.0-4.8); MEAN CELL VOLUME 82.9 FL (80.0-100.0); MEAN CORPUSCULAR HGB CONC 31.4 % (32.0-36.0); MONO % 5.9 % (0.0-8.0); PLATELET COUNT 240 TH/MM3 (150-450); RED BLOOD COUNT 5.03 MIL/MM3 (4.50-5.90); RED CELL DISTRIBUTION WIDTH 19.7 % (11.6-17.2); WHITE BLOOD COUNT 19.3 TH/MM3 (4.0-11.0)
[2016-12-18 06:44] LABS: BICARBONATE 22.1 MEQ/L (21.0-32.0); POTASSIUM 4.7 MEQ/L (3.5-5.1)
[2016-12-18] MEDS: METOCLOPRAMIDE HCL 10 MG/2 ML VIAL IVS SCH ×2 (08:55→22:10)
[2016-12-18] MEDS: ALVIMOPAN 12 MG CAPSULE PO SCH ×2 (08:55→22:09)
[2016-12-18] MEDS: PANTOPRAZOLE SOD 40 MG DELAYED RELEASE TAB PO SCH (08:58)
[2016-12-18] MEDS: PANTOPRAZOLE SODIUM 40 MG VIAL IVP SCH (09:00)
[2016-12-18] MEDS: ATORVASTATIN 80 MG TAB PO SCH (09:00)
[2016-12-18] MEDS: METOPROLOL TARTRATE 25 MG TAB PO SCH ×2 (09:00→22:09)
[2016-12-18] MEDS: SODIUM CHLORIDE 0.9% FLUSH 5 ML FLUSH IVF SCH ×2 (09:00→21:00)
--- NOTE | 2016-12-18 10:09 | HHI.PR ---
Subjective Remarks C/R Surg POD # 1 afebrile, VSS UO good Objective - Vital Signs Date Time Temp Pulse Resp B/P Pulse Ox O2 Delivery O2 Flow Rate FiO2 12/18/16 03:16 97 12/18/16 02:33 98.1 16 134/89 93 12/18/16 00:15 Nasal Cannula 2 Result Diagram: 12/18/16 0450 12/18/16 0450 Objective Remarks PE alert Abd - soft, wound dry, min tympany A/P Assessment and Plan Imp: stable post-op OOB decr IVF resp Rx Kan Gupta MD December 18, 2016 10:09
--- NOTE | 2016-12-18 10:51 | MP ---
cc: ANAM VARNER M.D., RICHARD DATE OF SURGERY: 12/17/2016 PREOPERATIVE DIAGNOSIS Obstructing carcinoma of the left colon. PROCEDURE Exploratory laparotomy with sigmoid colectomy and segmental transverse colectomy, closure colostomy. POSTOPERATIVE DIAGNOSIS Obstructing carcinoma of the descending colon. SURGEON Dr. Varner SPARK PLUG TESTER SURGEON Dr. Deondre Jacob DETAILS OF PROCEDURE The patient was placed in the supine position. After adequate general anesthesia his legs were placed in the universal stirrups and supported appropriately. The abdomen and perineum were then prepped with Betadine solution and draped in the usual sterile fashion. With Dr. Jacob's assistance the abdomen was opened through a midline incision. Upon entering the abdominal cavity adhesions to the parietal peritoneum were taken down. Exploration revealed a tight apple-core lesion in the descending colon. There was serosal puckering but the tumor was not adherent to any surrounding structures. The proximal and distal colon were palpated very carefully and felt to be pretty unremarkable. The small bowel was run from the ligament of Treitz down to the ileocecal valve and felt to be normal. The liver was palpated and had no obvious masses. The gallbladder was unremarkable. Stomach and duodenum were unremarkable. The great vessels was calcified but normal caliber. First the sigmoid colon was mobilized medially by dividing along the white line of Toldt. The left ureter was identified and carefully preserved. Dissection then proceeded up the left gutter freeing the left colon off the retroperitoneum. The splenic flexure was mobilized entering the lesser sac and taking the gastrocolic omentum off the transverse colon. The right retroperitoneal space was then opened and the bowel dissected off the presacral fascia preserving the presacral nerves. Pedicle for the superior hemorrhoidal vessel was identified and divided between Kellys obtaining hemostasis with Vicryl ties. After full mobilization it was elected to divide the bowel in the proximal rectum after taking the mesorectum with electrocautery. The bowel was then divided between a pursestring suture device and a Roosevelt clamp. The bowel was then sized to reach the rectal stump without tension and with good blood supply, preserving the left colic vessels. The marginal artery was taken at the appropriate point and the bowel finally divided proximal to the tumor between a pursestring suture device and a Roosevelt clamp. The end of the bowel was sized to accept a 29 mm EEA stapling anvil and this was secured with a pursestring suture. Dr. Jacob inserted the stapling instrument transanally and under direct vision was brought up to the end of the rectal pouch. The pursestring suture was tied. The stapler was then reassembled, the bowel aligned properly and the staple closed and fired. Upon withdrawal two complete doughnuts of tissue were seen. Gentle insufflation did confirm an airtight anastomosis. Next, attention was turned to the diverting transverse colostomy. An elliptical incision was made around the stoma, dissecting the proximal and distal limbs free from the subcutaneous tissues. There was a parastomal hernia and this was entered releasing the remainder of the fascial attachments and returning the bowel back into the abdominal cavity. An avascular plane was then created both proximal and distal to the stoma preserving the marginal artery. The bowel was divided at both points with the TRU stapling device. Intervening mesentery was taken between Kellys obtaining hemostasis with Vicryl ties. The bowel continuity was then restored by firing the TRU stapler across the antimesenteric ends of the bowel and closing the enterotomy with a TA 60 stapler. The mesenteric defect was closed with two 3-0 Vicryl sutures and a 3-0 Vicryl crotch suture was placed as well. The abdomen was then irrigated copiously with normal saline. Adequate hemostasis was achieved at all sites. The colostomy site was closed anatomically in two layers using #1 PDS suture to reapproximate the respective fascial layers. The midline incision was closed with a single running #1 PDS suture to reapproximate the midline fascia. The subcu tissues were irrigated copiously and the skin closed at both sites with interrupted surgical debbie. The wound area was washed with normal saline and dried, sterile dressing of Telfa and gauze applied. The patient tolerated the procedure quite well and was brought to the recovery room in stable condition. Sponge and needle counts were correct at the end of the procedure. MD SUSAN Tejada/CHRIS /10:17 AM /10:37 AM
[2016-12-18] MEDS: ACETAMINOPHEN/HYDROcodone 325 MG/5 MG TAB PO PRN ×3 (12:15→22:09)
[2016-12-18] MEDS: HEPARIN SODIUM - SQ 10,000 UNITS/ML VIAL SQ SCH ×2 (12:15→22:10)
[2016-12-18] MEDS: FUROSEMIDE 20 MG/2 ML VIAL IV PUSH SCH ×2 (12:16→22:10)
[2016-12-18] MEDS: MORPHINE SULFATE 30 MG/30 ML PCA IV SCH (18:46)
[2016-12-19] VITALS (9 sets, daily range): BP systolic 134–170; BP diastolic 70–110; PULSE 54–120; RESP 18–28; TEMP 95.8–98.1; O2SAT 92–93
[2016-12-19] MEDS: ENALAPRILAT 1.25 MG/ML VIAL IV PRN (05:18)
[2016-12-19 05:43] LABS: AUTOMATED NEUTROPHIL # 11.4 TH/MM3 (1.8-7.7); BASOPHIL # 0.1 TH/MM3 (0-0.2); BASOPHIL % 0.6 % (0.0-2.0); EOSINOPHIL # 0.1 TH/MM3 (0-0.4); EOSINOPHIL % 0.8 % (0.0-4.0); HEMATOCRIT 39.2 % (39.0-51.0); HEMO FLAGS DIFF FINAL; LYMPH % 13.2 % (9.0-44.0); LYMPHOCYTE # 1.9 TH/MM3 (1.0-4.8); MEAN CELL VOLUME 83.1 FL (80.0-100.0); MEAN CORPUSCULAR HEMOGLOBIN 26.8 PG (27.0-34.0); MEAN CORPUSCULAR HGB CONC 32.2 % (32.0-36.0); MONO % 7.8 % (0.0-8.0); NEUT % 77.6 % (16.0-70.0); PLATELET COUNT 220 TH/MM3 (150-450); RED BLOOD COUNT 4.72 MIL/MM3 (4.50-5.90); WHITE BLOOD COUNT 14.7 TH/MM3 (4.0-11.0)
[2016-12-19 06:10] LABS: POTASSIUM 4.5 MEQ/L (3.5-5.1)
[2016-12-19] MEDS: ACETAMINOPHEN/HYDROcodone 325 MG/5 MG TAB PO PRN ×4 (06:23→20:43)
[2016-12-19] MEDS: D5-NS + KCL 20 MEQ INJ 1,000 ML IV SCH ×2 (06:32→15:59)
[2016-12-19] MEDS: PCA - TOTAL MG MORPHINE DELIVERED PER SHIFT SCH ×2 (06:44→14:56)
--- NOTE | 2016-12-19 07:23 | HHI.PR ---
Subjective Remarks C/R Surg POD # 2 afebrile, VSS UO good Objective - Vital Signs Date Time Temp Pulse Resp B/P Pulse Ox O2 Delivery O2 Flow Rate FiO2 12/19/16 06:44 16 12/19/16 00:00 95.8 54 134/97 93 12/18/16 00:15 Nasal Cannula 2 Result Diagram: 12/19/1652912/19/16 0530 Objective Remarks PE alert Abd - soft, wound draining serous, min tympany A/P Assessment and Plan Imp: OOB decr IVF resp Rx start PO Kan Gupta MD December 19, 2016 07:23
[2016-12-19] MEDS: SODIUM CHLORIDE 0.9% FLUSH 5 ML FLUSH IVF SCH ×2 (09:00→20:43)
[2016-12-19] MEDS: PANTOPRAZOLE SOD 40 MG DELAYED RELEASE TAB PO SCH (10:06)
[2016-12-19] MEDS: ALVIMOPAN 12 MG CAPSULE PO SCH ×2 (10:07→20:42)
[2016-12-19] MEDS: METOPROLOL TARTRATE 25 MG TAB PO SCH ×2 (10:07→20:42)
[2016-12-19] MEDS: ATORVASTATIN 80 MG TAB PO SCH (10:07)
[2016-12-19] MEDS: METOCLOPRAMIDE HCL 10 MG/2 ML VIAL IVS SCH ×2 (10:08→20:53)
[2016-12-19] MEDS: FUROSEMIDE 20 MG/2 ML VIAL IV PUSH SCH ×2 (10:09→20:42)
[2016-12-19] MEDS: PANTOPRAZOLE SODIUM 40 MG VIAL IVP SCH (10:09)
[2016-12-19] MEDS: HEPARIN SODIUM - SQ 10,000 UNITS/ML VIAL SQ SCH ×2 (10:19→20:42)
[2016-12-19] MEDS: MORPHINE SULFATE 30 MG/30 ML PCA IV SCH (11:16)
[2016-12-20] VITALS (11 sets, daily range): BP systolic 136–180; BP diastolic 78–113; PULSE 71–120; RESP 18–24; TEMP 97–98.7; O2SAT 93–96
[2016-12-20] MEDS: ACETAMINOPHEN/HYDROcodone 325 MG/5 MG TAB PO PRN ×5 (01:20→21:04)
[2016-12-20] MEDS: D5-NS + KCL 20 MEQ INJ 1,000 ML IV SCH (02:39)
[2016-12-20] MEDS: ENALAPRILAT 1.25 MG/ML VIAL IV PRN (04:28)
[2016-12-20] MEDS: MORPHINE SULFATE 30 MG/30 ML PCA IV SCH (08:12)
[2016-12-20] MEDS: METOPROLOL TARTRATE 25 MG TAB PO SCH ×2 (08:14→21:03)
[2016-12-20] MEDS: ATORVASTATIN 80 MG TAB PO SCH (08:14)
[2016-12-20] MEDS: FUROSEMIDE 20 MG/2 ML VIAL IV PUSH SCH ×2 (08:15→21:03)
[2016-12-20] MEDS: PANTOPRAZOLE SOD 40 MG DELAYED RELEASE TAB PO SCH (08:15)
[2016-12-20] MEDS: ALVIMOPAN 12 MG CAPSULE PO SCH ×2 (08:16→21:02)
[2016-12-20] MEDS: PANTOPRAZOLE SODIUM 40 MG VIAL IVP SCH (08:16)
[2016-12-20] MEDS: METOCLOPRAMIDE HCL 10 MG/2 ML VIAL IVS SCH ×2 (08:21→21:03)
[2016-12-20] MEDS: HEPARIN SODIUM - SQ 10,000 UNITS/ML VIAL SQ SCH ×2 (08:22→21:03)
[2016-12-20] MEDS: SODIUM CHLORIDE 0.9% FLUSH 5 ML FLUSH IVF SCH ×2 (08:31→21:00)
--- NOTE | 2016-12-20 17:38 | HHI.PR ---
Subjective Remarks C/R Surg POD # 3 afebrile, VSS UO good +flatus Objective - Vital Signs Date Time Temp Pulse Resp B/P Pulse Ox O2 Delivery O2 Flow Rate FiO2 12/20/16 16:08 97.6 93 18 136/78 94 12/18/16 00:15 Nasal Cannula 2 Result Diagram: 12/19/16 0512/19/16 0530 Objective Remarks PE alert Abd - soft, wound dry, min tympany A/P Assessment and Plan Imp: OOB - PT decr IVF resp Rx start PO, adv Kan Gupta MD December 20, 2016 17:38
[2016-12-20] MEDS: PCA - TOTAL MG MORPHINE DELIVERED PER SHIFT SCH (22:00)
[2016-12-21] VITALS (7 sets, daily range): BP systolic 135–180; BP diastolic 83–110; PULSE 76–106; RESP 18–20; TEMP 96.5–98; O2SAT 96–99
[2016-12-21] MEDS: METOPROLOL TARTRATE 25 MG TAB PO SCH ×2 (08:33→21:58)
[2016-12-21] MEDS: PANTOPRAZOLE SOD 40 MG DELAYED RELEASE TAB PO SCH (08:33)
[2016-12-21] MEDS: FUROSEMIDE 20 MG/2 ML VIAL IV PUSH SCH ×2 (08:34→21:57)
[2016-12-21] MEDS: SODIUM CHLORIDE 0.9% FLUSH 5 ML FLUSH IVF SCH ×2 (08:34→21:00)
[2016-12-21] MEDS: HEPARIN SODIUM - SQ 10,000 UNITS/ML VIAL SQ SCH ×2 (08:34→21:58)
[2016-12-21] MEDS: METOCLOPRAMIDE HCL 10 MG/2 ML VIAL IVS SCH ×2 (09:00→21:57)
[2016-12-21] MEDS: PANTOPRAZOLE SODIUM 40 MG VIAL IVP SCH (09:00)
[2016-12-21] MEDS: ATORVASTATIN 80 MG TAB PO SCH (09:43)
[2016-12-21] MEDS: ALVIMOPAN 12 MG CAPSULE PO SCH ×2 (09:43→21:58)
[2016-12-21] MEDS: ACETAMINOPHEN/HYDROcodone 325 MG/5 MG TAB PO PRN ×3 (10:15→22:01)
[2016-12-21] MEDS: D5-NS + KCL 20 MEQ INJ 1,000 ML IV SCH ×2 (14:40→22:00)
[2016-12-21] MEDS: PCA - TOTAL MG MORPHINE DELIVERED PER SHIFT SCH ×2 (19:07→22:00)
[2016-12-22] VITALS (7 sets, daily range): BP systolic 139–167; BP diastolic 81–100; PULSE 77–106; RESP 20; TEMP 93.4–98.4; O2SAT 93–99
[2016-12-22] MEDS: PCA - TOTAL MG MORPHINE DELIVERED PER SHIFT SCH ×3 (06:00→21:36)
[2016-12-22] MEDS: ACETAMINOPHEN/HYDROcodone 325 MG/5 MG TAB PO PRN ×4 (07:39→21:37)
[2016-12-22] MEDS: METOCLOPRAMIDE HCL 10 MG/2 ML VIAL IVS SCH ×2 (08:39→21:35)
[2016-12-22] MEDS: HEPARIN SODIUM - SQ 10,000 UNITS/ML VIAL SQ SCH ×2 (08:41→21:35)
[2016-12-22] MEDS: PANTOPRAZOLE SOD 40 MG DELAYED RELEASE TAB PO SCH (08:41)
[2016-12-22] MEDS: FUROSEMIDE 20 MG/2 ML VIAL IV PUSH SCH ×2 (08:41→21:35)
[2016-12-22] MEDS: PANTOPRAZOLE SODIUM 40 MG VIAL IVP SCH (08:41)
[2016-12-22] MEDS: METOPROLOL TARTRATE 25 MG TAB PO SCH ×2 (08:41→21:36)
[2016-12-22] MEDS: SODIUM CHLORIDE 0.9% FLUSH 5 ML FLUSH IVF SCH ×2 (08:41→21:00)
[2016-12-22] MEDS: ALVIMOPAN 12 MG CAPSULE PO SCH ×2 (09:00→21:36)
[2016-12-22] MEDS: ATORVASTATIN 80 MG TAB PO SCH (09:00)
[2016-12-22] MEDS ORDERED: HYDR-3516 PO (10:03)
[2016-12-22] MEDS: D5-NS + KCL 20 MEQ INJ 1,000 ML IV SCH ×2 (10:40→20:40)
[2016-12-23] VITALS: BP 137/75; PULSE 87; RESP 20; TEMP 96.4; O2SAT 97
[2016-12-23 04:00] VITALS: BP 152/87; PULSE 89; RESP 20; TEMP 96.8; O2SAT 98
[2016-12-23] MEDS: PCA - TOTAL MG MORPHINE DELIVERED PER SHIFT SCH (06:00)
[2016-12-23] MEDS: D5-NS + KCL 20 MEQ INJ 1,000 ML IV SCH (06:17)
[2016-12-23 08:00] VITALS: PULSE 90
[2016-12-23] MEDS: SODIUM CHLORIDE 0.9% FLUSH 5 ML FLUSH IVF SCH (09:00)
[2016-12-23] MEDS: METOCLOPRAMIDE HCL 10 MG/2 ML VIAL IVS SCH (09:00)
[2016-12-23] MEDS: PANTOPRAZOLE SODIUM 40 MG VIAL IVP SCH (09:00)
[2016-12-23] MEDS: FUROSEMIDE 20 MG/2 ML VIAL IV PUSH SCH (09:10)
[2016-12-23] MEDS: HEPARIN SODIUM - SQ 10,000 UNITS/ML VIAL SQ SCH (09:10)
[2016-12-23] MEDS: PANTOPRAZOLE SOD 40 MG DELAYED RELEASE TAB PO SCH (09:11)
[2016-12-23] MEDS: METOPROLOL TARTRATE 25 MG TAB PO SCH (09:11)
[2016-12-23] MEDS: ATORVASTATIN 80 MG TAB PO SCH (10:26)
[2016-12-23] MEDS: ALVIMOPAN 12 MG CAPSULE PO SCH (10:26)
[2016-12-23] MEDS: ACETAMINOPHEN/HYDROcodone 325 MG/5 MG TAB PO PRN (10:27)
[2016-12-23 11:27] VITALS: RESP 18
--- NOTE | 2016-12-28 10:40 | HHI.FF ---
Face to Face Verification Diagnosis: (1) Cancer of rectosigmoid (colon) Physical Therapy Order: Evaluate and Treat, Improve ambulation, Strength and gait training Home Health Nursing Order: Medical education Signs/symptoms of disease process Wound care and dressing changes Instructions: irrigate wound with 1/2 str H2O2, pack with DSD BID I have seen patient Mike Brown on 12/28/16. My clinical findings support the need for the requested home health care services because: Ltd mobility - disease progression Deconditioned w/ increased weakness Impaired cognition/judgement Infection w/ risk of complications I certify that my clinical findings support that this patient is homebound because: Post-op weakness Unsafe to leave home unassisted Kan Gupta MD Dec 28, 2016 10:40
--- NOTE | 2017-01-06 09:52 | MD ---
cc: ANAM VARNER M.D.,NIKOS ASCENCIO ADMISSION DATE: 12/17/2016 DISCHARGE DATE: 12/23/2016 ADMITTING DIAGNOSIS Obstructing carcinoma of the rectosigmoid. PROCEDURE 12/17/2016 Exploratory laparotomy with sigmoid colectomy and segmental transverse colectomy, closure colostomy. DISCHARGE DIAGNOSIS 1. Carcinoma of the sigmoid colon, Tis,N0,M0. 2. History of NC and cardiovascular disease. HISTORY OF PRESENT ILLNESS Mr. Brown is a 56-year-old male who presented several months ago with change in bowel habits. Unfortunately prior to full evaluation he was found to have significant cardiac disease and was in the middle of an evolving myocardial infarction. The patient was hospitalized and had stents placed in the coronary arteries. During that evaluation he was found to have obstructing carcinoma of the sigmoid colon which was treated with a diverting colostomy due to his poor cardiac function. The patient has subsequently been stabilized medically as an outpatient. His weight has gone down about [address] Uriostegui has been giving him chemotherapy in the interim to treat the cancer prior to surgical resection. The patient has been off chemotherapy now for several weeks and presents for definitive surgical resection of the sigmoid cancer with possible closure of his colostomy during the same surgical procedure. Please see the admitting history and physical for past medical and surgical history. PERTINENT PHYSICAL A very pleasant heavyset male in no acute distress. Abdomen is kind of doughy and soft. Right upper quadrant colostomy was pink and patent to both limbs. Anal inspection revealed benign canal. Digital exam revealed good tone with no masses or tenderness palpable. HOSPITAL COURSE After admission, the patient was taken to the operating room on December 17, 2016 at which point he underwent exploratory laparotomy with sigmoid colectomy, segmental transverse colectomy and closure of his colostomy. He was found to have a significant amount of tissue reaction at the site of the tumor from his chemotherapy. His liver was unremarkable as was his gallbladder. There was no sign of any metastatic disease within the abdomen. The patient did have closure of his colostomy as well. He tolerated the procedure quite well. Postoperatively he was initially stabilized in the intensive care unit. His GI tract function returned quite promptly and his diet was advanced accordingly. He required some physical therapy for post-op muscle weakness. He also required some respiratory treatment for post-op atelectasis. The patient continued to improve and he was able to be considered for discharge home on December 23, 2016. Final pathology report revealed an invasive mildly differentiated adenocarcinoma invading the lamina propria. Residual cancer was scarcely seen with a significant amount of tumor regression from his chemotherapy. 19 lymph nodes were examined and found to be negative except for one lymph node which showed extensive necrosis, fibrosis and calcification suggesting possible tumor response. Final staging was Tis,N0,M0. DISCHARGE INSTRUCTIONS The patient was discharged eating a regular diet. He is encouraged to ambulate daily and avoiding any heavy lifting or straining. All pre-op medications were to be resumed. The patient will be seen in the office in one week's time for routine follow-up. If any problems prior to the scheduled office visit he was encouraged to call for more urgent attention. The patient will also be referred back to Dr. Coy Uriostegui for consideration of adjuvant chemotherapy after he recovers from the surgery. MD SUSAN Tejada/CHRIS /12:26 PM /9:35 AM
== END 2016-12-23 13:10 | disposition home or self-care (01) | DRG 330 ==
LOC: HSDI 12-17 10:59 → HCIS 12-18 00:40 → N05B 12-18 22:59
PROVIDERS: ADMIT Colon & Rectal Surgery; ATTEND Colon & Rectal Surgery
PROC: 0DBN0ZZ Excision of Sigmoid Colon, Open Approach (ICD-10-PCS; principal; 2016-12-18)
PROC: 0DBL0ZZ Excision of Transverse Colon, Open Approach (ICD-10-PCS; 2016-12-18)
PROC: 0DQL0ZZ Repair Transverse Colon, Open Approach (ICD-10-PCS; 2016-12-18)
PROC: 0WQF0ZZ Repair Abdominal Wall, Open Approach (ICD-10-PCS; 2016-12-18)
PROC: 0WJP0ZZ Inspection of Gastrointestinal Tract, Open Approach (ICD-10-PCS; 2016-12-18)
DX: C18.6 Malignant neoplasm of descending colon (principal); K94.09 Other complications of colostomy; Y83.8 Other surgical procedures as the cause of abnormal reaction of the patient, or of later complication, without mention of misadventure at the time of the procedure; Y73.1 Therapeutic (nonsurgical) and rehabilitative gastroenterology and urology devices associated with adverse incidents; Y92.9 Unspecified place or not applicable; I25.10 Atherosclerotic heart disease of native coronary artery without angina pectoris; Z95.5 Presence of coronary angioplasty implant and graft; I25.2 Old myocardial infarction
CPT/HCPCS: 71010; 80048; 85025; 86077; 86850; 86870; 86880; 86900; 86901; 86902; 86920; 86922; 88304; 88309; 94150; C9113; J0131; J0690; J1100; J1644; J1940; J2250; J2270; J2370; J2405; J2765; J3010; J3480; J7120

== ENCOUNTER → 2017-06-11 | Day surgery (SDC) | payer OTHER ==
[~2017-06-11] VITALS: Ht 175.3 cm; Wt 108.6 kg
[~2017-06-11] MED LIST changes: +*morphine SULFATE 8 MG/ML PERIprocedure ONLY ONE; +CHLORHEXIDINE GLUCONATE 2 % 1 PACK (2 CLOTHS) TOPICAL PRN; +DEXAMETHASONE SOD PHOS 4 MG/ML VIAL IV ONE; +DO NOT ADM ANY ANTICOAGULANT DRUGS PRN; +GLYCOPYRROLATE 1 MG/5 ML SYRINGE IV PUSH ONE; +HYDR-3516 PO; +INSULIN HUMAN REGULAR 1,000 UNITS/10 ML VIAL SQ PRN; +LACTATED RINGER'S 1000 ML IV PRN; +LIDOCAINE HCL 1% PF 5 ML AMPULE OTHER ONE; +METOPROLOL TARTRATE 25 MG TAB PO PRN; +METOPROLOL TARTRATE 5 MG/5 ML VIAL IV PUSH ONE; +MIDAZOLAM HCL 2 MG/2 ML VIAL IV ONE; +MORPHINE SULFATE 4 MG/ML INJ IV PRN; +MORPHINE SULFATE 8 MG/ML INJ IV PUSH PRN; +NEOSTIGMINE 3 MG/3 ML SYR IV ONE; +ONDANSETRON HCL 4 MG/2 ML VIAL IV ONE; +ONDANSETRON HCL 4 MG/2 ML VIAL IV PUSH PRN; +POVIDONE IODINE 5% (ANTISEPSIS KIT) 4 APPLICATIONS EACH NARE PRN; +PROPOFOL 200 MG/20 ML AMP IV ONE; +ROCURONIUM INJ 50 MG/5 ML SYRINGE IV PUSH ONE; +SODIUM CHLORID 0.9% 500 ML IV PRN; +ceFAZolin INJ 1,000 MG VIAL ONE; +ePHEDrine/NS 25 MG/5 ML SYR IV ONE; +metroNIDAZOLE 500 MG INJ 100 ML IV ONE; +oxyCODONE/ACETAMINOPHEN 5 MG/325 MG TAB PO PRN
--- NOTE | 2017-06-11 10:42 | PD.HP.UP ---
H&P Update Note The Pre-Admit History and Physical Examination regarding the above named patient was reviewed (including, but not limited to, vital signs, heart, lungs, co-morbid conditions), and upon re-examination it is noted that: the patient's condition has not significantly changed since the last examination. Kan Gupta MD Jun 11, 2017 10:42
[2017-06-11 16:00] VITALS: BP 150/90; PULSE 62; RESP 20; TEMP 97.5; O2SAT 97
--- NOTE | 2017-06-11 18:19 | EKG ---
Date Performed: 06/11/2017 Time Performed: 10:15:12 PTAGE: 57 years EKG: Sinus rhythm WITH FREQUENT SUPRAVENTRICULAR PREMATURE COMPLEXES LEFT AXIS DEVIATION RIGHT BUNDLE BRANCH BLOCK POS SIBLE LEFT VENTRICULAR HYPERTROPHY ABNORMAL ECG PREVIOUS TRACING : 09/16/2016 10.14 Compared to the previous tracing PACs present DOCTOR: Jeff Tavarez Interpretating Date/Time 06/11/2017 18:18:33
--- NOTE | 2017-06-12 09:19 | MP ---
cc: ANAM VARNER M.D. DATE OF SURGERY June 11, 2017 PREOPERATIVE DIAGNOSIS Ventral hernia. PROCEDURE Exploratory laparotomy with repair of ventral hernia. POSTOPERATIVE DIAGNOSIS Exploratory laparotomy with repair of ventral hernia. SURGEON Dr. Varner ACCOUNTS RECEIVABLE ANALYST Dr. Reese Wells PROCEDURE The patient was placed in the supine position. After adequate general anesthesia, his abdomen was prepped with Betadine solution and draped in the usual sterile fashion. With Dr. Wells's assistance a previous right upper quadrant transverse incision scar was excised. The subcutaneous tissue was dissected down toward the fascia encountering a hernia sac. The sac was dissected free from the subcutaneous tissue and the fascial attachments where the fascial extent of the hernia was further defined. Subcutaneous planes were developed both below and above the hernia. The sac was then opened and sac and attenuated fascia was removed. There were loops of small bowel stuck to the hernia sac and these were taken off and returned back to the abdominal cavity. Exploration of the abdominal cavity locally around the opening failed to reveal any sign of any cancer. The peritoneum was smooth and was pretty unremarkable. Next, after further defining the fascial attachments, the muscles appeared to be quite substantial and with mobilization of the subcutaneous tissue planes there was sufficient mobilization to enable a primary closure of the defect in two layers using #1 PDS sutures to reapproximate the respective fascial layers. After closure there was no tension on the repair and it appeared rather secure and healthy. The subcutaneous tissue was irrigated copiously with normal saline. Adequate hemostasis was achieved. The deep subcu tissue was closed with interrupted Vicryl sutures to obliterate the space and the skin closed with a running subcuticular Vicryl suture. The wound area was washed with normal saline and dried, sterile dressing of Telfa and gauze applied. The patient tolerated the procedure quite well and was brought to the recovery room in stable condition. Sponge and needle counts were correct at the end of the procedure. Anam Varner MD AR/SSB /7:49 AM /9:10 AM
== END | disposition home or self-care (01) ==
LOC: HSDC 09:21
PROVIDERS: ATTEND Colon & Rectal Surgery
DX: K43.9 Ventral hernia without obstruction or gangrene (principal); I48.91 Unspecified atrial fibrillation; I25.10 Atherosclerotic heart disease of native coronary artery without angina pectoris; I10 Essential (primary) hypertension; G47.30 Sleep apnea, unspecified; Z01.810 Encounter for preprocedural cardiovascular examination; Z85.038 Personal history of other malignant neoplasm of large intestine
CPT/HCPCS: 00832; 49560; 93005; J0690; J1100; J2250; J2270; J2405; J2710; J3010; J7120

== ENCOUNTER 2017-08-04 07:26 | Day surgery (SDC) | payer OTHER ==
[~2017-08-04] VITALS: Ht 175.3 cm; Wt 109.1 kg
[~2017-08-04 07:26] MED LIST changes: -*morphine SULFATE 8 MG/ML PERIprocedure ONLY ONE; -CHLORHEXIDINE GLUCONATE 2 % 1 PACK (2 CLOTHS) TOPICAL PRN; -DEXAMETHASONE SOD PHOS 4 MG/ML VIAL IV ONE; -DO NOT ADM ANY ANTICOAGULANT DRUGS PRN; -GLYCOPYRROLATE 1 MG/5 ML SYRINGE IV PUSH ONE; -HYDR-3516 PO; -INSULIN HUMAN REGULAR 1,000 UNITS/10 ML VIAL SQ PRN; -LACTATED RINGER'S 1000 ML IV PRN; -LIDOCAINE HCL 1% PF 5 ML AMPULE OTHER ONE; -METOPROLOL TARTRATE 25 MG TAB PO PRN; -METOPROLOL TARTRATE 5 MG/5 ML VIAL IV PUSH ONE; -MIDAZOLAM HCL 2 MG/2 ML VIAL IV ONE; -MORPHINE SULFATE 4 MG/ML INJ IV PRN; -MORPHINE SULFATE 8 MG/ML INJ IV PUSH PRN; -NEOSTIGMINE 3 MG/3 ML SYR IV ONE; -ONDANSETRON HCL 4 MG/2 ML VIAL IV ONE; -ONDANSETRON HCL 4 MG/2 ML VIAL IV PUSH PRN; -POVIDONE IODINE 5% (ANTISEPSIS KIT) 4 APPLICATIONS EACH NARE PRN; -PROPOFOL 200 MG/20 ML AMP IV ONE; -ROCURONIUM INJ 50 MG/5 ML SYRINGE IV PUSH ONE; -SODIUM CHLORID 0.9% 500 ML IV PRN; -ceFAZolin INJ 1,000 MG VIAL ONE; -ePHEDrine/NS 25 MG/5 ML SYR IV ONE; -metroNIDAZOLE 500 MG INJ 100 ML IV ONE; -oxyCODONE/ACETAMINOPHEN 5 MG/325 MG TAB PO PRN
[2017-08-04 07:44] VITALS: BP 176/130; PULSE 78; RESP 20; TEMP 98; O2SAT 99
[2017-08-04] MEDS ORDERED: SODIUM CHLORIDE 0.9% 1000 ML IV SCH (08:15)
[2017-08-04] MEDS ORDERED: ceFAZolin 2 GM PREMIX 50 ML - implanted port removal IV SCH (08:30)
[2017-08-04 08:33] LABS: INTERNATIONAL NORMALIZED RATIO 1.1 RATIO
[2017-08-04] MEDS ORDERED: MIDAZOLAM HCL 2 MG/2 ML VIAL ONE (09:40)
[2017-08-04 10:25] VITALS: BP 154/103; PULSE 75; RESP 18; TEMP 97.9; O2SAT 95
[2017-08-04 10:40] VITALS: BP 148/97; PULSE 68; RESP 18; O2SAT 92
--- NOTE | 2017-08-04 10:43 | PD.RAD ---
Post Procedure Progress Note Pre Procedure Diagnosis: (1) Cancer of rectosigmoid (colon) Post Procedure Diagnosis: (1) Cancer of rectosigmoid (colon) Procedure Date: Aug 04, 2017 Supervising Radiologist: Gorge Bishop Proceduralist/Assist: Traci Caruso, RT(R), Henry Suarez, RT(R) Anesthesia: Local, Analgesia, Conscious Sedation Plan of Activity Patient to Unit: [facility] See PACS Report for procedural detail/treatment Central Venous Access Device Procedure 1 Right Internal Jugular Infusaport Removal single lumen Mongolian: 8 Gorge Bishop MD Aug 04, 2017 10:43
[2017-08-04] MEDS ORDERED: SODIUM CHLORIDE 0.9% FLUSH 10 ML FLUSH IVF PRN (10:45)
[2017-08-04 10:55] VITALS: BP 137/87; PULSE 56; RESP 18; O2SAT 97
[2017-08-04 11:20] VITALS: BP 144/92; PULSE 59; RESP 18; O2SAT 94
--- NOTE | 2017-08-04 11:20 | RADRPT ---
EXAM DATE/TIME: 08/04/2017 08:33 [facility] COMPARISON: No previous studies available for comparison. INDICATIONS : Patient in need of port removal, no longer needed for treatment. MEDICAL HISTORY : Colon cancer [place] HTN Diabetes DGD A-Fib Colitis Rectal bleeding Elevated Troponin Stenosis SURGICAL HISTORY : Cervical fusion C3-C5 Bilateral hip replacement Ablation Port placement ENCOUNTER: Subsequent ACUITY: 1 year PAIN SCORE: 0/10 LOCATION: N/A SEDATION TIME: 30 minutes 1.) 3 mg midazolam (Versed) IV 2.) 150 mcg fentanyl (Sublimaze) IV Prophylactic antibiotics were administered with appropriate pre-procedure timing. Vancomycin within 2 hrs of procedure, Ancef (or alternative) within 1 hr of procedure. PROCEDURE : 1. Removal of Ajaxts-r-saac. 2. Conscious sedation with continuous EKG and oximetry monitoring. The risk, benefits and potential complications of [id number]-g-[id number] removal were discussed. Written conse nt was obtained. The patient was placed supine. The chest wall was prepped in sterile fashion. Full sterile techniqu e was used, including cap, mask, sterile gloves and gown, and a large sterile sheet. Hand hygiene an d 2% chlorhexidine and/or Betadine/alcohol prep was utilized per protocol for cutaneous antisepsis. The skin and subcutaneous tissues were infiltrated with local anesthetic solution. A small incision w as made, the subcutaneous pocket was opened. The port was dissected from the subcutaneous tissues and easily removed in one piece. The pocket incision was closed with subcuticular Vicryl suture. Steri -Strips were applied. Conscious sedation was performed with the prescribed dosages and duration as above in the presence of an independent trained radiology nurse to assist in the monitoring of the patient. EKG and oximetry remained stable throughout the procedure. The patient tolerated the procedure well and there were no complications. The patient was sent to post anesthesia recovery in stable condition. CONCLUSION: Uncomplicated port removal as above. Gorge Bishop MD on August 04, 2017 at 11:15 Board Certified Radiologist. This report was verified electronically.
[2017-08-04 12:00] VITALS: BP 144/97; PULSE 53; RESP 18; O2SAT 92
== END 2017-08-04 12:30 | disposition home or self-care (01) ==
LOC: HROP 07:26 → HRIP 07:30 → HROP 12:30
PROVIDERS: ATTEND Internal Medicine Hematology & Oncology
DX: Z45.2 Encounter for adjustment and management of vascular access device (principal); C18.7 Malignant neoplasm of sigmoid colon; I48.91 Unspecified atrial fibrillation; I10 Essential (primary) hypertension; E11.9 Type 2 diabetes mellitus without complications; Z96.643 Presence of artificial hip joint, bilateral
CPT/HCPCS: 36590; 85610; 85730; 99152; 99153; J0690; J2250; J3010

== ENCOUNTER → 2017-10-14 | Outpatient (CLI) | payer OTHER ==
--- NOTE | 2017-10-14 12:36 | RADRPT ---
EXAM DATE/TIME: 10/14/2017 00:00 [facility] COMPARISON: No previous studies available for comparison. INDICATIONS : Low back pain TECHNIQUE: Five-station segmental examination of the lower extremities was performed pre and post extercise. Pulsed-cuff waveform tracings and pressures were recorded. Ankle-brachial indices and toe-brachial indices were calculated. PRESSURES (mmHg): Pre Exercise: Brachial (arm): Right 168 Left 158 Left Left Right Left Ankle: Right 174 Left 168 AZEEM: Right 1.04 Left 1.00 TBI: Right 0.67 Left 0.66 Post Exercise: Brachial (arm): Right 146 Not applicable Ankle: Right 180 Left 176 PULSED CUFF WAVEFORMS: Demonstrate normal amplitude bilaterally. CONCLUSION: Unremarkable segmental evaluation of the lower extremities. Андрей Pavon MD on October 14, 2017 at 12:31 Board Certified Radiologist. This report was verified electronically.
== END ==
LOC: HCAV 09:57
DX: M54.5 Low back pain (principal)
CPT/HCPCS: 93924